=== PATIENT | male | born 1970 | race Caucasian/White ===

== ENCOUNTER 2017-12-17 16:02 | Emergency (ER) | payer SELFPAY ==
[2017-12-17 16:04] VITALS: BP 146/83; PULSE 96; RESP 14; TEMP 36.9; O2SAT 98; BMI 25.6
--- NOTE | 2017-12-17 16:20 | ED.DCSUM_ITS ---
- ER Visit Summary Date of Service: 12/17/17 Chief Complaint: Right arm infection History of Present Illness: The patient is a 47 M who states that a couple days ago he noticed a bump/pustule on his right posterior upper arm. He states that he itched it splashed popped it and now he notes redness. No fevers. Denies any joint swelling or pain. He is allergic to penicillin. He has not seen a doctor for years and denies any significant medical problems. He wonders if he was bit by an insect or possibly a spider. 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 He denies any IV drug use. Physical Examination: Afebrile vital signs stable Gen: Well-nourished well-developed Head: Normocephalic atraumatic Eyes: Perrl EOMI ENT: TMs clear no rhinorrhea moist mucous membranes Neck: Supple no lymphadenopathy no JVD nontender CVS: Regular rate rhythm no murmurs normal S1-S2 Respiratory: No distress clear to auscultation bilaterally chest nontender Abdomen: Soft nontender nondistended normal bowel sounds no masses Back: Nontender Extremity: Nontender no edema Skin: There is an excoriated lesion on the posterior proximal right arm. There is surrounding erythema. No obvious joint infections. Neuro: alert orientated ?3 CN II-XII intact normal strength sensation reflexes gait cerebellar Psych: Normal affect normal mood Test Results: Cultures were obtained Emergency Department Course and Treatment: The wound was outlined with surgical marker. He will be placed on Keflex. Return if worsening or concerns. He was asked to follow-up with primary care Impression: 1. Right arm cellulitis This note was generated with [employer] dictation software. It may contain incorrect words, spelling, and punctuation that were not noted in review of the chart prior to signing ED Disposition - Plan for ED Patient: Disposition: Home or Assisted Living Chief Complaint: Cellulitis Instructions: ED Infec Skin Cellulitis Prescriptions: Cephalexin [Keflex] 500 mg PO Q6 #40 cap Referrals: Farshad Smith MD [Primary Care Provider] - 1 Week
== END 2017-12-17 16:49 | disposition home or self-care (01) ==
PROVIDERS: Emergency Provider Emergency Medicine; Family Provider Family Medicine; PCP Family Medicine
DX: L03.113 Cellulitis of right upper limb (principal); Z88.0 Allergy status to penicillin
CPT/HCPCS: 36415; 87040; 99282

== ENCOUNTER 2018-03-28 15:36 | Emergency (ER) | payer SELFPAY ==
[2018-03-28 15:37] VITALS: BP 114/88; PULSE 117; RESP 18; TEMP 38.8; O2SAT 95; BMI 24.0
[2018-03-28 15:49] VITALS: BP 161/78; PULSE 111; RESP 17; TEMP 38.8; O2SAT 95
--- NOTE | 2018-03-28 15:53 | EKG12_ITS ---
Test Reason : COUGH Blood Pressure : / mmHG Vent. Rate : 115 BPM Atrial Rate : 115 BPM P-R Int : 122 ms QRS Dur : 110 ms QT Int : 320 ms P-R-T Axes : 074 -66 070 degrees QTc Int : 442 ms Sinus tachycardia Possible Left atrial enlargement Left axis deviation Incomplete right bundle branch block Abnormal ECG Confirmed by JONATHAN BROWN, SUSI ([id number]), editor map CROW WU ([id number]) on 04/02/2018 9:01:46 AM Referred By: RAJ/ANGELIQUE Confirmed By:SUSI CASTILLO MD
--- NOTE | 2018-03-28 15:53 | RAD_ITS ---
STUDY: X-RAY CHEST REASON FOR EXAM: Male, 48 years old. Cough, fever, chest pain TECHNIQUE: AP COMPARISON: None. FINDINGS: There are numerous pulmonary nodules throughout both lungs. Expansile lytic lesions of the left fourth and third ribs worrisome for metastasis. There is no demonstrated pleural abnormality. Normal size heart. Normal mediastinum and rebecca. Normal visualized pulmonary arteries. Normal visualized aortic arch and descending thoracic aorta. There is no demonstrated abnormality of the visualized soft tissue structures of the upper abdomen. RAD/Chest 1 View (Portable) IMPRESSION: 1. Numerous pulmonary nodules worrisome for neoplasm/metastasis (infection less likely). Lytic expansion of the left fourth and possibly third ribs worrisome for metastasis. Evaluation with chest CT warranted. Electronically Signed: Marty Mccall MD at 16:46 EST , Service support ,
[2018-03-28] MEDS: Acetaminophen 500 MG Tablet 1000 MG PO (16:07)
[2018-03-28] MEDS: 0.9% Normal Saline 1,000 ML 1000 ML IV (16:07)
[2018-03-28 16:23] LABS: Absolute Lymphocyte Count 0.71 X10^3/ul (0.83-4.51); Absolute Neutrophil Count 5.4 X10^3/uL (2.0-7.7); Basophil# 0.03 X10^3/uL; Basophil% 0.4 % (0-1); Eosinophil# 0.05 X10^3/uL; Eosinophils% 0.7 % (0-5); Hematocrit 37.3 % (40-54); Hemoglobin 12.2 g/dl (13.0-16.5); Lymphocyte # 0.71 X10^3/ul (4.0); Lymphocyte % 10.4 % (19-41); Mean Corp Hgb Conc 32.7 g/gl (32-36); Mean Corpuscular Hgb 27.4 pg (27.0-32.0); Mean Corpuscular Volume 83.6 fL (80-94); Mean Platelet Vol. 9.2 fl (6.2-12.0); Monocyte# 0.61 X10^3/uL; Monocyte% 8.9 % (0-10); Neutrophil # 5.42 X10^3/uL (2.7-7.7); Neutrophil % 79.5 % (47-70); Platelet Count 220 K/mm3 (150-450); RBC Distribution Width CV 13.9 % (11.6-14.6); RBC Distribution Width SD 42.3 fl (35.1-43.9); Red Blood Count 4.46 M/mm3 (4.6-6.2); White Blood Count 6.8 K/mm3 (4.4-11.0)
[2018-03-28 16:25] LABS: POSITIVE COUNT NO; POSITIVE DIFFERENTIAL NO; POSITIVE MORPHOLOGY NO
[2018-03-28 16:33] LABS: Anion Gap 12 (5-15); BUN 17 mg/dL (7-18); BUN/Creat Ratio 14.3 RATIO (10-20); Calcium,Total 10.2 mg/dL (8.5-10.1); Chloride 102 mmol/L (98-107); Creatinine, Serum 1.19 mg/dL (0.70-1.30); EST Glomerular Filtration Rate 69 mL/min (>60); Est Glom Filt Rate - Afr Amer 83 mL/min (>60); Glucose 103 mg/dL (74-106); Sodium Level 138 mmol/L (136-145)
--- NOTE | 2018-03-28 17:12 | CT_ITS ---
STUDY: CTA CHEST REASON FOR EXAM: Male, 48 years old. Cough and shortness of breath, pulmonary nodules RADIATION DOSAGE (If Supplied By Facility): CTDIvol = ( 16.09 ) mGy, DLP = ( 488.27 ) mGycm TECHNIQUE: The examination was performed with the intravenous administration of 100 ml of Isovue 370 contrast material. Post-processing of the angiographic images was performed, with multiplanar reformation and 3D reconstruction. Individualized dose optimization techniques were used for this CT. COMPARISON: None. FINDINGS: Normal enhancement of the main pulmonary artery and right and left pulmonary arteries. Normal enhancement of the bilateral peripheral pulmonary arteries. There is no demonstrated pulmonary embolism. Normal thoracic aorta and visualized great vessels. There is no demonstrated aortic dissection. Normal heart and pericardium. Significant mediastinal adenopathy including a paraesophageal lymph node measuring 3.2 x 3.6 cm on image 101. Eulogio mass anterior to the left pulmonary artery measures 4.0 x 3.1 cm. Bilateral hilar adenopathy also identified. Normal hilar regions. There are numerous pulmonary nodules throughout all pulmonary lobes. Some of the nodules demonstrate central cavitation (image 75 of series 2). The largest single nodule is in the medial left lower lobe measuring 3.3 x 5.7 cm and is contiguous with the left hilum. No pleural effusion demonstrated. There is a soft tissue mass of the anterior left mid pleural surface that extends into the chest wall (axial image 148 measuring 2.0 x 2.5 cm. Lytic, partially enhancing mass of the left fourth posterolateral rib measures approximately 3.7 x 6.9 cm. There is fracture with irregular margin of the posterior left third rib. There is a subtle lytic lesion involving the superior T1 vertebral body (sagittal image 171). There is a suspicious nodule of the left adrenal gland on axial image [address]/CTA Chest W/WO Contrast IMPRESSION: 1. No central or segmental pulmonary embolism. 2. Numerous pulmonary nodules (some cavitating), mediastinal/hilar adenopathy, superior T1 vertebral body lytic lesion, expansile left fourth rib mass, probable pathologic fracture of left posterolateral third rib, pleural-based mass (left anterior midlung) with chest wall invasion), left adrenal gland mass/nodule. Neoplasm with widespread metastasis considered most likely. Electronically Signed: Marty Mccall MD at 18:00 EST , Service support ,
[2018-03-28 17:35] VITALS: PULSE 100; RESP 18
[2018-03-28] MEDS: Ipratropium/Albuterol Sulfate 3 ML AMPUL.NEB INHALATION (17:35)
[2018-03-28 17:39] VITALS: BP 146/93; PULSE 100; RESP 20; TEMP 37.4; O2SAT 93
--- NOTE | 2018-03-28 18:24 | ED.VISSUMM ---
- ER Visit Summary Date of Service: 03/28/18 Chief Complaint: Breathing issues History of Present Illness: The patient is a 48 M with worsening breathing issues for 2 weeks. He reports shortness of breath and cough. He also reports a fever and aches which started today. Patient has a history of asthma. Denies smoking. Denies any history of heart disease or PE. Physical Examination: Temperature 101.8 and heart rate 111. Otherwise vitals unremarkable. 95% on room air. HEENT exam unremarkable. Heart tachycardic but regular. Lung sounds diminished in all gaspar. Extremities nontender with no edema. Skin appears normal. Test Results: EKG showed sinus rhythm at a rate of 115 with an incomplete right bundle branch block pattern. No sign of acute ischemia or infarction pattern. Hemoglobin 12.2. Calcium 10.2. Troponin normal. Influenza test negative. Chest x-ray showed multiple nodules and possible lytic lesions. A follow-up CT showed no evidence of PE but he does have cavitary nodules, adenopathy, T1 lesion, L4 rib lesion, pathologic rib fracture, pleural mass, and left adrenal mass. Emergency Department Course and Treatment: Patient was treated with fluids, DuoNeb, Tylenol. Repeat vitals 99.4 degrees, heart rate 100, pressure 146/93, respiratory rate 20, 93% on room air. Patient's workup showed a new diagnosis of malignancy but otherwise nothing else to explain his fevers. He is stable and appropriate for outpatient follow-up. Patient was discussed with Dr. Samuel and he should call the office for follow-up in the morning. Treatment Plan: As above Disposition: Discharge Impression: 1. Lung cancer 2. Febrile illness This note was generated with [employer] dictation software. It may contain incorrect words, spelling, and punctuation that were not noted in review of the chart prior to signing ED Disposition - Plan for ED Patient: Referrals: Care Physician,No Primary [Primary Care Provider] -
--- NOTE | 2018-03-28 18:30 | ED.DEP ---
ED Disposition - Plan for ED Patient: Prescriptions: Albuterol Inhaler [Ventolin Hfa] 2 puff INHALATION Q4H PRN PRN #1 inhaler PRN Reason: Wheezing Referrals: Ranjan Samuel DO [STAFF PHYSICIAN] -
[2018-03-28 18:40] VITALS: BP 164/99; PULSE 109; RESP 16; O2SAT 98
== END 2018-03-28 18:41 | disposition home or self-care (01) ==
PROVIDERS: Emergency Provider Emergency Medicine
DX: C34.90 Malignant neoplasm of unspecified part of unspecified bronchus or lung (principal); R50.9 Fever, unspecified; I45.10 Unspecified right bundle-branch block; J45.909 Unspecified asthma, uncomplicated
CPT/HCPCS: 71045; 71275; 80048; 84484; 85025; 87804; 93005; 94640; 96360; 99284; J7030; Q9967

== ENCOUNTER → 2018-04-07 09:11 | Outpatient (CLI) | payer SELFPAY ==
[2018-03-28 15:37] VITALS: BMI 24.0
[2018-04-07] VITALS (9 sets, daily range): BP systolic 136–178; BP diastolic 67–95; PULSE 78–92; RESP 13–22; TEMP 37.1; O2SAT 92–99; BMI 23.7
--- NOTE | 2018-04-07 | IMM_PTH ---
PATIENT: ARNULFO URBINA LOC: CT U#:[id number] AGE/SX: 54/M ROOM: RE04/07/[address]: Dr. Yomi Ferreira MD : 1970 BED: DIS: SPEC #: [id number] RECD: 04/08/18 10:06 STATUS: MARCK REQ #: [id number] АНДРЕЙ: 04/07/18 00:[address]: Yomi Ferreira DEPT: IMMUNOHISTOCHEMISTRY RECD BY: Noemi Jett ENTERED: 04/08/18 10:08 SP TYPE: IMMUNO OTHR DR: Dr. Miguelito Littlejohn MD Tissues: Chest wall, NOS Procedures: Synapto (add) RCC (add) NAPSIN A (add) Petey Ret (add) CD10 (add) CD56 (add) CHROMO (add) CK20 (add) CK5-6 (add) CK7 (add) CK8 (add) HEP PAR (add) MART1 (add) TTF1 (add) Pankeratin (add) P40 (add) PSAP (add) Vimentin (initial) PHYSICIAN & [address] [address] SPECIMEN INFORMATION: Tissue Source: Left chest wall lesion Clinical Info: Lung nodules, left chest mass Specimen Number: [id number] CPT code: 09548, 79301 x16 METHODOLOGY: Deparaffinized sections of prefer/formalin-fixed tissue or PAP/DQ stained slides are incubated with monoclonal/polyclonal antibodies/oligonucleotide probes. Localization is made via biotin free immunoperoxidase method. Appropriate controls are performed and reacted as expected. Results on target cell population are indicated in the following table: RESULTS: ANTIBODY / CLONE RESULT Vimentin (V9) positive AE1-3 (AE1/AE3/PCK26) positive CK7 (OV-TL12/30) negative CK8 (20zaskS77) positive CK20 (KS20.8) negative TTF-1 (8G7G3/1) negative Napsin A (Rabbit Polyclonal) negative HepPar (OCh1E5) negative RCC (PN-15) positive PSAP (PASE/4LJ) negative CK5-6 (D5 & 1684) negative CALRET (polyclonal) negative P40 (BC28) negative CD10 (56C6) positive Chromo (LK2H10) negative Synapto (polyclonal) negative MART-1 (A-103) negative These tests were developed and their performance characteristics determined by [facility]. They may not have been cleared or approved by the U.S. Food and Drug Administration. The FDA has determined that such clearance or approval is not necessary. INTERPRETATION: Left chest wall mass, CT-guided core biopsy: Metastatic carcinoma consistent with renal primary. SJ:shahla 04/09/18 Comment: Clinical correlation is necessary. Case has been reviewed in consultation with Dr. Ayala who concurs with the above diagnosis. IDC:AM
--- NOTE | 2018-04-07 | ASPIGT_PTH ---
PATIENT: ARNULFO URBINA LOC: CT U#:[id number] AGE/SX: 54/M ROOM: RE04/07/[address]: Dr. Ymoi Ferreira MD : 1970 BED: DIS: SPEC #: [id number] RECD: 04/07/18 11:27 STATUS: MARCK RECarlos #: [id number] АНДРЕЙ: 04/07/18 00:[address]: Yomi Ferreira DEPT: SURGICAL PATHOLOGY RECD BY: Robert Rico ENTERED: 04/07/18 11:28 SP TYPE: ASP RAD OTHR DR: Dr. Miguelito Littlejohn MD Tissues: Lung, NOS Procedures: FNA Specimen Adequacy Special Stain Group II Surgery Specimen Level IV Imprint (control) HEADER OPERATION: Left posterior chest biopsy PRE-OP DIAGNOSIS: Lung nodules, left chest mass TISSUE SUBMITTED: Left chest wall lesion, 18 gauge, core x4 MICROSCOPIC DIAGNOSIS Left chest wall lesion, CT-guided core biopsy: Metastatic carcinoma, consistent with renal primary (Dianna nuclear grade 2). See comment. KAMI:shahla 04/08/18 COMMENT The specimen is evaluated at the time of CT-guided core biopsy by Dr. Borden. Immediate Evaluation = Adequate for evaluation. Immunohistochemistry ([id number]) supports the above diagnosis. Correlation with clinical, radiologic findings and appropriate follow up are necessary. This case is discussed with Dr. Ferreira on 04/09/18. Case has been reviewed in consultation with Dr. Ayala who concurs with the above diagnosis. IDC:AM MICROSCOPIC DESCRIPTION Slides are reviewed. GROSS DESCRIPTION Received in fixative is one container labeled with the patient's name and designated left chest wall mass, CT-guided core biopsy. The specimen consists of multiple irregular fragments of arellano soft tissue that in aggregate measure 1.5 x 0.3 x 0.1 cm. The specimen is totally submitted in one cassette. / KAMI:shahla 04/07/18 TC:0 CPT: 88632, 28510
--- NOTE | 2018-04-07 09:16 | CT_ITS ---
PROCEDURE: CT GUIDED CORE NEEDLE BIOPSY OF A left posterior chest wall mass. INDICATION: Male, 48 years old. Metastatic lung carcinoma. PHYSICIAN: Dr. Justino BROWN CONSENT: Written informed consent was obtained having explained the risks, benefits and alternatives in detail with the patient who accepted the risks and agreed to proceed. Laboratory review and clinical assessment was performed. CONSCIOUS SEDATION PROTOCOL: The Drugs used were: 2 mg Versed, IV., and 50 mcg Fentanyl, IV. The sedation time was: 17 minutes. Conscious sedation was started at 10:50 AM and terminated at 11:07 AM. The conscious sedation protocol was independently monitored. RADIATION DOSAGE (If Supplied By Facility): CTDIvol = ( 17.2 ) mGy, DLP = ( 403.49 ) mGycm Individualized dose optimization techniques were used for this CT. TECHNIQUE: The patient was placed in the prone position. A noncontrast CT was performed to localize the lesion in the posterior right hemithorax . The skin surface was prepped and draped in a sterile fashion. 1% lidocaine was used for local anesthesia. Using CT guidance, a 18-gauge coaxial biopsy device was advanced to the periphery of the lesion. A total of 4 core specimens were obtained. The specimens were placed in a formalin solution. A post procedure CT demonstrated no adverse sequelae or pneumothorax. The patient tolerated the procedure well without adverse event. A negative biopsy does not exclude malignancy. Further imaging or clinical followup based on patient condition and degree of clinical suspicion for malignancy. Suggest rebiopsy, if biopsy results do not match with clinical scenario. CT/Biopsy/Inj or Needle Placement IMPRESSION: 1. CT directed core needle biopsy of the pleural-based mass using CT image guidance with image documentation as described. Pathology results are pending. 2. Conscious Sedation protocol utilized with independent monitoring. Electronically Signed: Tonny Badillo MD at 12:42 EST , Service support ,
[2018-04-07 09:53] LABS: Hematocrit 36.2 % (40-54); Hemoglobin 11.7 g/dl (13.0-16.5); Mean Corp Hgb Conc 32.3 g/gl (32-36); Mean Corpuscular Hgb 27.1 pg (27.0-32.0); Mean Platelet Vol. 8.6 fl (6.2-12.0); Platelet Count 278 K/mm3 (150-450); RBC Distribution Width CV 13.9 % (11.6-14.6); RBC Distribution Width SD 42.5 fl (35.1-43.9); Red Blood Count 4.31 M/mm3 (4.6-6.2); White Blood Count 5.7 K/mm3 (4.4-11.0)
[2018-04-07 09:55] LABS: Scan Indicated on CBC? Y/N NO
[2018-04-07 10:22] LABS: International Normalized Ratio 1.1; Prothrombin Time (Protime)PT. 14.1 SECONDS (11.7-14.9)
[2018-04-07 10:35] LABS: Partial Thromboplast Time 33.6 Seconds (24.1-36.2)
[2018-04-07] MEDS: Midazolam 2 MG/2 ML Syringe IV (10:50)
[2018-04-07] MEDS: fentaNYL 100 MCG/2 ML Ampul IV (10:50)
== END ==
PROVIDERS: Family Provider Family Medicine; PCP Family Medicine; Referring Provider Internal Medicine Hematology & Oncology; Visit Provider Internal Medicine Hematology & Oncology
DX: C78.02 Secondary malignant neoplasm of left lung (principal)
CPT/HCPCS: 32405; 36415; 77012; 85027; 85610; 85730; 88172; 88305; 88313; 88341; 88342; 99156; 99157; J7040; A4216

== ENCOUNTER 2018-05-02 22:02 | Inpatient (IN) | payer SELFPAY ==
[2018-04-07 09:54] VITALS: BMI 23.7
[2018-05-02 22:06] VITALS: BP 170/88; PULSE 113; RESP 26; TEMP 37.8; O2SAT 96; BMI 25.7
[2018-05-02 22:10] VITALS: BP 170/88; PULSE 107; RESP 27; O2SAT 96
--- NOTE | 2018-05-02 22:23 | RAD_ITS ---
STUDY: X-RAY CHEST REASON FOR EXAM: Male, 48 years old. Fever and cough TECHNIQUE: Frontal and lateral views of the chest. COMPARISON: None. FINDINGS: Multiple metastatic lesions are seen in both lungs . There is a small left pleural effusion Normal size heart. Normal mediastinum and rebecca. Normal visualized pulmonary arteries. Normal visualized aortic arch and descending thoracic aorta. Normal visualized thoracic spine. The lateral aspect of the left fourth rib is absent. There is no demonstrated abnormality of the visualized soft tissue structures of the upper abdomen. RAD/Chest PA and Lateral IMPRESSION: Multiple metastatic lesions are seen in both lungs . There is a small left pleural effusion Electronically Signed: John Victoria, at 23:45 EDT Tel , Service support ,
--- NOTE | 2018-05-02 22:25 | EKG12_ITS ---
Test Reason : Blood Pressure : / mmHG Vent. Rate : 101 BPM Atrial Rate : 101 BPM P-R Int : 120 ms QRS Dur : 116 ms QT Int : 366 ms P-R-T Axes : 056 057 056 degrees QTc Int : 474 ms Sinus tachycardia Possible Left atrial enlargement Incomplete right bundle branch block Borderline ECG Confirmed by JONATHAN BROWN, SUSI ([id number]), development editor DAIJA WELLS ([id number]) on 05/03/2018 4:10:07 PM Referred By: Cami Monroy Confirmed By:SUSI CASTILLO MD
[2018-05-02] MEDS: 0.9% Normal Saline 1,000 ML 1000 ML IV (22:33)
[2018-05-02] MEDS: Acetaminophen 500 MG Tablet 1000 MG PO (22:33)
[2018-05-02] MEDS: MethylPREDNISolone 125 MG/2 ML Vial IV (22:34)
[2018-05-02 22:43] LABS: Absolute Neutrophil Count 6.2 X10^3/uL (2.0-7.7); Basophil# 0.05 X10^3/uL; Basophil% 0.6 % (0-1); Eosinophils% 4.7 % (0-5); Hematocrit 34.3 % (40-54); Lymphocyte % 11.8 % (19-41); Mean Corp Hgb Conc 32.1 g/gl (32-36); Mean Corpuscular Hgb 26.6 pg (27.0-32.0); Mean Corpuscular Volume 83.1 fL (80-94); Mean Platelet Vol. 9.2 fl (6.2-12.0); Monocyte# 0.82 X10^3/uL; Monocyte% 9.7 % (0-10); Neutrophil # 6.19 X10^3/uL (2.7-7.7); Neutrophil % 73.1 % (47-70); Platelet Count 324 K/mm3 (150-450); RBC Distribution Width SD 43.1 fl (35.1-43.9); Red Blood Count 4.13 M/mm3 (4.6-6.2); White Blood Count 8.5 K/mm3 (4.4-11.0)
[2018-05-02 22:44] LABS: POSITIVE COUNT NO; POSITIVE DIFFERENTIAL NO; POSITIVE MORPHOLOGY NO
[2018-05-02] MEDS: Ipratropium/Albuterol Sulfate 3 ML AMPUL.NEB INHALATION (22:44)
[2018-05-02] MEDS: Albuterol 2.5 MG/3 ML VIAL.NEB. INHALATION ×2 (22:44)
[2018-05-02 22:45] VITALS: PULSE 102; RESP 20
--- NOTE | 2018-05-02 22:45 | ED.VISSUMM ---
- ER Visit Summary Date of Service: 05/02/18 Chief Complaint: Shortness of breath, cough and fever History of Present Illness: The patient is a 48 M recently diagnosed within the last month with renal CA with metastases to his lungs, chest cavity, rib cage and left arm. Patient's been not feeling well for the last 5-6 days. Developing a nonproductive cough with a fever and increasing shortness of breath. On Thursday he started immunotherapy for his cancer. He recently had a CTA of his chest showing no PE but extensive metastases. Physical Examination: Vital signs initial blood pressure 170/88. Temperature 100 his pulse ox is 96% on 4 L without oxygen is hypoxic at 86%. HEENT exam dry mucous membranes. Early thrush. Neck nontender no JVD. Lungs prolonged expiratory phase bilaterally. Expiratory wheezing bilaterally. Heart tachycardic rate about 110 no murmur. Abdomen is soft and nontender normal bowel sounds no peritoneal signs. Patient is moving all 4 extremities. Neurovascular intact. Calves are nontender without edema. He has a soft tissue mass in his left upper extremity that is a metastases. Neurologically is awake alert with no focal motor deficits. Test Results: CBC White count of 8. Hemoglobin 11 which is baseline anemia. Electrolytes unremarkable normal creatinine and gap. Blood cultures x2 obtained. EKG sinus tachycardia rate of 101. Chest x-ray two-view diffuse sows very large amount of metastases. With a small left pleural effusion. Pneumonia is not interpreted but not cannot be ruled out. CTA of the chest is pending for both evaluation for possible pulmonary emboli and/or pneumonia. Influenza was negative. Emergency Department Course and Treatment: Patient treated with IV Solu-Medrol and albuterol and entered aerosols Tylenol for his fever. Treatment Plan: On repeat exam patient is doing much better at 00 15 a.m. Wheezing is improved after aerosols and steroids. However without oxygen he quickly desats to the mid 80s. And is worse with ambulation. I spoke to the hospitalist Dr. Cami Monroy and she has been down discussed with the family and examined the patient and the patient will be admitted. The CTA of the chest results are pending. Disposition: Admission Impression: Acute dyspnea with hypoxia History of renal CA with lung and bony metastases Recently started on immunotherapy Chronic anemia This note was generated with [employer] software. It may contain incorrect words, spelling, and punctuation that were not noted in review of the chart prior to signing ED Disposition - Plan for ED Patient: Referrals: Miguelito Littlejohn MD [Primary Care Provider] -
[2018-05-02 22:47] LABS: Anion Gap 6 (5-15); BUN 19 mg/dL (7-18); BUN/Creat Ratio 18.4 RATIO (10-20); Calcium,Total 9.6 mg/dL (8.5-10.1); Chloride 106 mmol/L (98-107); Creatinine, Serum 1.03 mg/dL (0.70-1.30); EST Glomerular Filtration Rate 81 mL/min (>60); Est Glom Filt Rate - Afr Amer 98 mL/min (>60); Estimated Creatinine Clearance 91.38 ml/min; Glucose 127 mg/dL (74-106); Potassium 3.8 mmol/L (3.5-5.1); Sodium Level 136 mmol/L (136-145)
--- NOTE | 2018-05-02 22:48 | ED.DCSUM_ITS ---
- ER Visit Summary Date of Service: 05/02/18 Chief Complaint: Shortness of breath, cough and fever History of Present Illness: The patient is a 48 M recently diagnosed within the last month with renal CA with metastases to his lungs, chest cavity, rib cage and left arm. Patient's been not feeling well for the last 5-6 days. Developing a nonproductive cough with a fever and increasing shortness of breath. On Thursday he started immunotherapy for his cancer. He recently had a CTA of his chest showing no PE but extensive metastases. Physical Examination: Vital signs initial blood pressure 170/88. Temperature 100 his pulse ox is 96% on 4 L without oxygen is hypoxic at 86%. HEENT exam dry mucous membranes. Early thrush. Neck nontender no JVD. Lungs prolonged expiratory phase bilaterally. Expiratory wheezing bilaterally. Heart tachycardic rate about 110 no murmur. Abdomen is soft and nontender normal bowel sounds no peritoneal signs. Patient is moving all 4 extremities. Neurovascular intact. Calves are nontender without edema. He has a soft tissue mass in his left upper extremity that is a metastases. Neurologically is awake alert with no focal motor deficits. Test Results: CBC White count of 8. Hemoglobin 11 which is baseline anemia. Electrolytes unremarkable normal creatinine and gap. Blood cultures x2 obtained. EKG sinus tachycardia rate of 101. Chest x-ray two-view diffuse sows very large amount of metastases. With a small left pleural effusion. Pneumonia is not interpreted but not cannot be ruled out. CTA of the chest is pending for both evaluation for possible pulmonary emboli and/or pneumonia. Influenza was negative. Emergency Department Course and Treatment: Patient treated with IV Solu-Medrol and albuterol and entered aerosols Tylenol for his fever. Treatment Plan: On repeat exam patient is doing much better at 00 15 a.m. Wheezing is improved after aerosols and steroids. However without oxygen he quickly desats to the mid 80s. And is worse with ambulation. I spoke to the hospitalist Dr. Cami Monroy and she has been down discussed with the family and examined the patient and the patient will be admitted. The CTA of the chest re sults are pending. Disposition: Admission Impression: Acute dyspnea with hypoxia History of renal CA with lung and bony metastases Recently started on immunotherapy Chronic anemia This note was generated with [employer] software. It may contain incorrect words, spelling, and punctuation that were not noted in review of the chart prior to signing ED Disposition - Plan for ED Patient: Referrals: Miguelito Littlejohn MD [Primary Care Provider] -
[2018-05-03] VITALS (21 sets, daily range): BP systolic 140–157; BP diastolic 61–99; PULSE 83–108; RESP 16–25; TEMP 36.4–38.1; O2SAT 91–97; BMI 25.4; BMI 25.5
--- NOTE | 2018-05-03 00:26 | CT_ITS ---
HISTORY: HYPOXIA,INCREASED SOB SINCE THURSDAY,FEVER,ELEVATED BPHX:ASTHMA,KIDNEY CANCER STAGE 4 WITH LUNG METS,PT RECENTLY STARTED IMMUNOTHERAPY TECHNIQUE: Helically acquired images were obtained of the chest following IV contrast as per pulmonary angiogram protocol with 3D reconstructions. A radiation dose optimization technique was used for this scan. IV Contrast dosage and agent: 100 cc Isovue-370 contrast COMPARISON: CTA chest 03/28/2018 FINDINGS: The main, segmental, and visualized subsegmental pulmonary arteries show normal opacification. No PE. Thoracic aorta is normal in caliber. No aneurysm or dissection. No pericardial effusion. Numerous bilateral pulmonary metastases which are too numerous to count. Extensive mediastinal lymphadenopathy together with bilateral hilar lymphadenopathy, worse on the left. With comparison recent exam, worsening perivascular tumor infiltrate and perivascular lymphadenopathy within the left lower lobe together with enlarging left pleural effusion. Redemonstration of bony metastases with extraosseous soft tissue tumor involving the left third and fourth ribs. No pneumothorax. CT/CTA Chest W/WO Contrast IMPRESSION: 1. No PE. 2. Extensive bilateral pulmonary metastases in this patient with known metastatic renal cancer. 3. Left lower lobe enlarging perivascular tumor infiltrate and enlarging lymphadenopathy together with enlarging left pleural effusion. 4. Left hemithorax metastatic bone disease. Individualized dose optimization techniques were used for this CT. at 0313 Reported and signed by: Khari Boyd MD Electronically Signed: Khari Boyd, at 3:12 EDT Tel , Service support ,
--- NOTE | 2018-05-03 00:35 | PCM.HP.STD ---
Problem List (1) Acute respiratory failure with hypoxia Status: Acute (2) Asthma exacerbation Status: Acute Qualifiers: Asthma severity: unspecified severity Asthma persistence: unspecified Qualified Code(s): J45.901 - Unspecified asthma with (acute) exacerbation (3) Metastatic renal cell carcinoma Status: Chronic (4) Anxiety Status: Chronic History of Present Illness Date of Admission: 05/03/18 Chief Complaint: Dyspnea The patient is a 48 y/o M w/ PMHx: Asthma, Recent Dx Renal CA w/ metastatic disease to lung, chest cavity, rib cage and LUE on immunotherapy with generalized malaise, fatigue, low grade fever, non-productive cough with increasingly worsening dyspnea and wheezing over the last 5-6 days. In the ED work-up included T1 100, heart rate 113, BP 170/88, respiratory rate 26, 96% on room air, CBC with WBC 8.5, hemoglobin 11, platelet 324 with mild left shift, BMP with BUN at 19/creatinine 1.03, glucose 127, rapid influenza testing negative, blood culture x2 obtained and pending per ED, chest x-ray with multiple metastatic lesions in bilateral lungs with a small left pleural effusion with no acute infiltrate noted. 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 CTPA ordered per ED physician, pending upon requested evaluation of patient. Past Medical History Past Medical History (Chronic Problems): Chronic Problems Metastatic renal cell carcinoma (Chronic) Anxiety (Chronic) Allergies Penicillins [PCN] Adverse Reaction (Verified 04/07/18 10:00) Nausea/Vom/Diarrhea Home Medications: Ambulatory Orders Medication Instructions Recorded Albuterol Inhaler [Ventolin Hfa] 2 puff INHALATION Q4H PRN PRN #1 03/28/18 inhaler Hydrocodone Bitart/Apap 5-325 1 tablet PO Q4H PRN PRN 05/02/18 [[place] 5MG-325MG] Ipilimumab [Yervoy] 50 mg IV QMONTH 05/02/18 Nivolumab [Opdivo] 40 mg IV QMONTH 05/02/18 Surgical History: - - Pyloric stenosis intervention as a baby. Psychiatric History: Anxiety Lives: Spouse/ Significant Other Smoking Status: Never smoker Tobacco Use: Non-smoker Alcohol: None Drugs: Marijuana - Patient smokes cannabis nearly daily for severe anxiety. - *Family History Maternal History Items: - - Patient notes a maternal family history of diabetes as well as colon cancer diagnosed at age 72. Paternal History Items: - - Patient notes a paternal family history of coronary artery disease, MIs as well as stomach cancer. Review of Systems Constitutional: Reports: Anorexia, Fever, Malaise, Weakness, Fatigue. Denies: Chills, Weight Change HEENT: Denies: Head Aches, Sinus Congestion, Sinus Drainage Cardiovascular: Reports: Chest Pain. Denies: Palpitations Respiratory: Reports: Cough, Shortness of Breath, Shortness of breath at rest, Shortness of breath upon exertion, Wheezing. Denies: Sputum production Gastrointestinal: Denies: Abdominal Pain, Nausea, Vomiting Genitourinary: Denies: Dysuria Musculoskeletal: Reports: Back Pain. Denies: Joint Pain, Joint Tenderness Skin: Denies: Rash, Wounds Neurological: Denies: Numbness, Tingling, Focal weakness Psychiatric: Reports: Anxiety. Denies: Depression, Homicidal Ideations, Suicidal Ideations Hematologic/ Lymphatic: Denies: Easy Bruising, Easy Bleeding VTE Information - Inpt Only VTE Present on Admission: No VTE Mechan Device Prophylaxis: SCD's VTE Pharm Prophylaxis ordered?: Yes Patient Problems: Active and Suspected Problems Acute respiratory failure with hypoxia (Acute) Asthma exacerbation (Acute) Subjective: Seated upright in the ED bed, improved appearance since initial, RR improved, lessened accessory muscle usage. Objective: Physical Examination: General: awake, alert, oriented x 3 and cooperative, seated upright in the ED bed, improved appearance from initial presentation with decreased respiratory rate and less accessory muscle usage. Skin: normal color, turgor, no icterus, cyanosis. HEENT: AT/NC, EOMI, PERRLA, moderately dry MM, mild thrush, no carotid bruits or JVD noted. Lungs: Diffusely diminished breath sounds, greater bilateral bases, and expiratory wheezing noted in upper gaspar, improved from initial presentation with decreased respiratory rate and less accessory muscle usage. Heart: regular rate and rhythm; no gallop, rub audible. Abdomen: soft, NTTP, ND, normal BS, no HSM. Extremities: no cyanosis, clubbing, bilateral lower extremity pedal to proximal knee edema, nonpitting, metastatic lesions evident thorax/gravity. Neurological: patient awake, alert, oriented x 3; cognitive function intact; pupils equally reactive to light and accomodation; cranial nerves II-XII grossly normal, moving all 4 extremities, no focal deficits, strength severely globally decreased secondary to acute presentation. Psychiatric: affect appears mildly anxious but calm, no acute evidence of depressive feelings. - Physical Exam Vital Signs Temp Pulse Resp BP Pulse Ox 100.0 F H 100 25 H 155/79 H 92 05/02/18 22:06 05/03/18 00:17 05/03/18 00:17 05/03/18 00:17 05/03/18 00:17 Oxygen Flow Rate (L/min) 4 Oxygen Delivery Method Nasal Cannula Weight: 184 lb 1.376 oz Body Mass Index (BMI) 25.7 Microbiology Past 72 Hours 05/02/18 22:45 Influenza Types A,B Direct FA (CHRISTIAN) - Final Mucosa - Nasopharyngeal Laboratory Tests Past 24 Hrs 05/02/18 05/02/18 22:15 22:15 WBC 8.5 RBC 4.13 L Hgb 11.0 L Hct 34.3 L MCV 83.1 MCH 26.6 L MCHC 32.1 RDW 14.0 RDW Differential 43.1 Plt Count 324 MPV 9.2 Immature Gran % (Auto) 0.100 Neut % (Auto) 73.1 H Lymph % (Auto) 11.8 L [place] % (Auto) 9.7 Eos % (Auto) 4.7 Baso % (Auto) 0.6 Absolute Neuts (auto) 6.2 Absolute Lymphs (auto) 1.00 Total Counted Not Reportable Sodium 136 Potassium 3.8 Chloride 106 Carbon Dioxide 24.0 Anion Gap 6 BUN 19 H Creatinine 1.03 Estim Creat Clear Calc 91.38 Est GFR (MDRD) Af Amer 98 Est GFR (MDRD) Non-Af 81 BUN/Creatinine Ratio 18.4 Glucose 127 H Calcium 9.6 Assessment/Plan All Active Problems Acute respiratory failure with hypoxia (Acute) Asthma exacerbation (Acute) The patient is a 48 y/o M w/ PMHx: Asthma, Recent Dx Renal CA w/ metastatic disease to lung, chest cavity, rib cage and LUE on immunotherapy with generalized malaise, fatigue, low grade fever, non-productive cough with increasingly worsening dyspnea over the last 5-6 days. (1) Acute Hypoxic Respiratory Failure secondary to Acute on Chronic Asthma Exacerbation with Suspected Acute Viral Bronchitis/Syndrome complicated by multiple metastases in the lung BL; however, given CXR with notable masses concern for possible PNA: ED work-up included T100, heart rate 113, BP 170/88, respiratory rate 26, 96% on room air, CBC with WBC 8.5, hemoglobin 11, platelet 324 with mild left shift, BMP with BUN at 19/creatinine 1.03, glucose 127, rapid influenza testing negative, blood culture x2 obtained and pending per ED, chest x-ray with multiple metastatic lesions in bilateral lungs with a small left pleural effusion with no acute infiltrate noted. Will admit to [facility] on telemetry, maintain on oxygen with wean as tolerated to room air, continue ATC duonebs, PRN albuterol, IV methylprednisolone, IV zosyn, vanc given immunotherapy until results obtained from CTPA with discontinuation if no obvious infiltrate, HOB, IS parameters, obtain sputum cultures as well as respiratory viral panel. Given presentation, will need oxygenation testing prior to discharge. CTPA ordered, pending. Pending CTPA will administer therapeutic lovenox x 1. (2) Metastatic Renal Cell CA Stage IV: Dx recently, ED visit 03/28/18 w/ dyspnea x 2 weeks, evaluation w/ CT showed no evidence of PE but he does have cavitary nodules, adenopathy, T1 lesion, L4 rib lesion, pathologic rib fracture, pleural mass, and left adrenal mass. Following w/ Dr. Ferreira/Lizzie, on immunotherapy with opdivo and yervoy regimen administered IV monthly, administered Thursday. Will consult Dr. Ferreira/Lizzie for evaluation. (3) Oral Thrush: Initiate oral nystatin S/S. (4) DVT Prophylaxis: SCDs, lovenox. 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 He does have a living will in place. Discussed CODE status at length including difference between FULL code, DNR-CCA and DNR-CC status. Following discussions about the differences in these status, requested Full Code status. Discussed prognosis with current diagnoses and family requested if they should be consulting Hospice. Noted they could consider discussions even to obtain information. Advanced Care Planning Face to Face Time: 20 minutes. Code Visit Inpatient E&M: 00115 Init Hosp L3 Procedures: 39404 Advncd Care Plan 30 Min
--- NOTE | 2018-05-03 00:38 | HP.PCM_ITS ---
Problem List (1) Acute respiratory failure with hypoxia Status: Acute (2) Asthma exacerbation Status: Acute Qualifiers: Asthma severity: unspecified severity Asthma persistence: unspecified Qualified Code(s): J45.901 - Unspecified asthma with (acute) exacerbation (3) Metastatic renal cell carcinoma Status: Chronic (4) Anxiety Status: Chronic History of Present Illness Date of Admission: 05/03/18 Chief Complaint: Dyspnea The patient is a 48 y/o M w/ PMHx: Asthma, Recent Dx Renal CA w/ metastatic disease to lung, chest cavity, rib cage and LUE on immunotherapy with generalized malaise, fatigue, low grade fever, non-productive cough with increasingly worsening dyspnea and wheezing over the last 5-6 days. In the ED work-up included T1 100, heart rate 113, BP 170/88, respiratory rate 26, 96% on room air, CBC with WBC 8.5, hemoglobin 11, platelet 324 with mild left shift, BMP with BUN at 19/creatinine 1.03, glucose 127, rapid influenza testing negative, blood culture x2 obtained and pending per ED, chest x-ray with multiple metastatic lesions in bilateral lungs with a small left pleural effusion with no acute infiltrate noted. 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 CTP A ordered per ED physician, pending upon requested evaluation of patient. Past Medical History Past Medical History (Chronic Problems): Chronic Problems Metastatic renal cell carcinoma (Chronic) Anxiety (Chronic) Allergies Penicillins [PCN] Adverse Reaction (Verified 04/07/18 10:00) Nausea/Vom/Diarrhea Home Medications: Ambulatory Orders Medication Instructions Recorded Albuterol Inhaler [Ventolin Hfa] 2 puff INHALATION Q4H PRN PRN #1 03/28/18 inhaler Hydrocodone Bitart/Apap 5-325 1 tablet PO Q4H PRN PRN 05/02/18 [[place] 5MG-325MG] Ipilimumab [Yervoy] 50 mg IV QMONTH 05/02/18 Nivolumab [Opdivo] 40 mg IV QMONTH 05/02/18 Surgical History: - - Pyloric stenosis intervention as a baby. Psychiatric History: Anxiety Lives: Spouse/ Significant Other Smoking Status: Never smoker Tobacco Use: Non-smoker Alcohol: None Drugs: Marijuana - Patient smokes cannabis nearly daily for severe anxiety. - *Family History Maternal History Items: - - Patient notes a maternal family history of diabetes as well as colon cancer diagnosed at age 72. Paternal History Items: - - Patient notes a paternal family history of coronary artery disease, MIs as well as stomach cancer. Review of Systems Constitutional: Reports: Anorexia, Fever, Malaise, Weakness, Fatigue. Denies: Chills, Weight Change HEENT: Denies: Head Aches, Sinus Congestion, Sinus Drainage Cardiovascular: Reports: Chest Pain. Denies: Palpitations Respiratory: Reports: Cough, Shortness of Breath, Shortness of breath at rest, Shortness of breath upon exertion, Wheezing. Denies: Sputum production Gastrointestinal: Denies: Abdominal Pain, Nausea, Vomiting Genitourinary: Denies: Dysuria Musculoskeletal: Reports: Back Pain. Denies: Joint Pain, Joint Tenderness Skin: Denies: Rash, Wounds Neurological: Denies: Numbness, Tingling, Focal weakness Psychiatric: Reports: Anxiety. Denies: Depression, Homicidal Ideations, Suicidal Ideations Hematologic/ Lymphatic: Denies: Easy Bruising, Easy Bleeding VTE Information - Inpt Only VTE Present on Admission: No VTE Mechan Device Prophylaxis: SCD's VTE Pharm Prophylaxis ordered?: Yes Patient Problems: Active and Suspected Problems Acute respiratory failure with hypoxia (Acute) Asthma exacerbation (Acute) Subjective: Seated upright in the ED bed, improved appearance since initial, RR improved, lessened accessory muscle usage. Objective: Physical Examination: General: awake, alert, oriented x 3 and cooperative, seated upright in the ED bed, improved appearance from initial presentation with decreased respiratory rate and less accessory muscle usage. Skin: normal color, turgor, no icterus, cyanosis. HEENT: AT/NC, EOMI, PERRLA, moderately dry MM, mild thrush, no carotid bruits or JVD noted. Lungs: Diffusely diminished breath sounds, greater bilateral bases, and expiratory wheezing noted in upper gaspar, improved from initial presentation with decreased respiratory rate and less accessory muscle usage. Heart: regular rate and rhythm; no gallop, rub audible. Abdomen: soft, NTTP, ND, normal BS, no HSM. Extremities: no cyanosis, clubbing, bilateral lower extremity pedal to proximal knee edema, nonpitting, metastatic lesions evident thorax/gravity. Neurological: patient awake, alert, oriented x 3; cognitive function intact; pupils equally reactive to light and accomodation; cranial nerves II-XII grossly normal, moving all 4 extremities, no focal deficits, strength severely globally decreased secondary to acute presentation. Psychiatric: affect appears mildly anxious but calm, no acute evidence of depressive feelings. - Physical Exam Vital Signs Temp Pulse Resp BP Pulse Ox 100.0 F H 100 25 H 155/79 H 92 05/02/18 22:06 05/03/18 00:17 05/03/18 00:17 05/03/18 00:17 05/03/18 00:17 Oxygen Flow Rate (L/min) 4 Oxygen Delivery Method Nasal Cannula Weight: 184 lb 1.376 oz Body Mass Index (BMI) 25.7 Microbiology Past 72 Hours 05/02/18 22:45 Influenza Types A,B Direct FA (CHRSITIAN) - Final Mucosa - Nasopharyngeal Laboratory Tests Past 24 Hrs 05/02/18 05/02/18 22:15 22:15 WBC 8.5 RBC 4.13 L Hgb 11.0 L Hct 34.3 L MCV 83.1 MCH 26.6 L MCHC 32.1 RDW 14.0 RDW Differential 43.1 Plt Count 324 MPV 9.2 Immature Gran % (Auto) 0.100 Neut % (Auto) 73.1 H Lymph % (Auto) 11.8 L [place] % (Auto) 9.7 Eos % (Auto) 4.7 Baso % (Auto) 0.6 Absolute Neuts (auto) 6.2 Absolute Lymphs (auto) 1.00 Total Counted Not Reportable Sodium 136 Potassium 3.8 Chloride 106 Carbon Dioxide 24.0 Anion Gap 6 BUN 19 H Creatinine 1.03 Estim Creat Clear Calc 91.38 Est GFR (MDRD) Af Amer 98 Est GFR (MDRD) Non-Af 81 BUN/Creatinine Ratio 18.4 Glucose 127 H Calcium 9.6 Assessment/Plan All Active Problems Acute respiratory failure with hypoxia (Acute) Asthma exacerbation (Acute) The patient is a 48 y/o M w/ PMHx: Asthma, Recent Dx Renal CA w/ metastatic disease to lung, chest cavity, rib cage and LUE on immunotherapy with generalized malaise, fatigue, low grade fever, non-productive cough with increasingly worsening dyspnea over the last 5-6 days. (1) Acute Hypoxic Respiratory Failure secondary to Acute on Chronic Asthma Exacerbation with Suspected Acute Viral Bronchitis/Syndrome complicated by multiple metastases in the lung BL; however, given CXR with notable masses concern for possible PNA: ED work-up included T100, heart rate 113, BP 170/88, respiratory rate 26, 96% on room air, CBC with WBC 8.5, hemoglobin 11, platelet 324 with mild left shift, BMP with BUN at 19/creatinine 1.03, glucose 127, rapid influenza testing negative, blood culture x2 obtained and pending per ED, chest x-ray with multiple metastatic lesions in bilateral lungs with a small left pleural effusion with no acute infiltrate noted. Will admit to [facility] on telemetry, maintain on oxygen with wean as tolerated to room air, continue ATC duonebs, PRN albuterol, IV methylprednisolone, IV zosyn, vanc given immunotherapy until results obtained from CTPA with discontinuation if no obvious infiltrate, HOB, IS parameters, obtain sputum cultures as well as respiratory viral panel. Given presentation, will need oxygenation testing prior to discharge. CTPA ordered, pending. Pending CTPA will administer therapeutic lovenox x 1. (2) Metastatic Renal Cell CA Stage IV: Dx recently, ED visit 03/28/18 w/ dyspnea x 2 weeks, evaluation w/ CT showed no evidence of PE but he does have cavitary nodules, adenopathy, T1 lesion, L4 rib lesion, pathologic rib fracture, pleural mass, and left adrenal mass. Following w/ Dr. Ferreira/Lizzie, on immunotherapy with opdivo and yervoy regimen administered IV monthly, administered Thursday. Will consult Dr. Ferreira/Lizzie for evaluation. (3) Oral Thrush: Initiate oral nystatin S/S. (4) DVT Prophylaxis: SCDs, lovenox. 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 He does have a living will in place. Discussed CODE status at length including difference between FULL code, DNR-CCA and DNR-CC status. Following discussions about the differences in these status, requested Full Code status. Discussed prognosis with current diagnoses and family requested if they should be consulting Hospice. Noted they could consider discussions even to obtain information. Advanced Care Planning Face to Face Time: 20 minutes. Code Visit Inpatient E&M: 12535 Init Hosp L3 Procedures: 84155 Advncd Care Plan 30 Min
[2018-05-03 02:13] LABS: Magnesium 1.7 mg/dL (1.6-2.6); Phosphorus 2.5 mg/dL (2.5-4.9)
[2018-05-03] MEDS: 0.9% Normal Saline 1,000 ML 125 ML IV ×2 (02:47→10:52)
[2018-05-03] MEDS: Enoxaparin 100 MG/ML Syringe 90 MG SC ×3 (02:56→21:32)
[2018-05-03] MEDS: NYSTATIN 500,000 UNIT/5 ML UDC 500000 UNIT PO ×6 (03:22→21:27)
--- NOTE | 2018-05-03 04:27 | PCM.RX.CS ---
Consult Pharmacy has been consulted to manage selected antiobiotic: Vancomycin Type of Consult: New start Labs: Sodium 136 mmol/L (136-145) 05/02/18 22:15 Potassium 3.8 mmol/L (3.5-5.1) 05/02/18 22:15 Chloride 106 mmol/L (98-107) 05/02/18 22:15 Carbon Dioxide 24.0 mmol/L (21.0-32.0) 05/02/18 22:15 Anion Gap 6 (5-15) 05/02/18 22:15 BUN 19 mg/dL (7-18) H 05/02/18 22:15 Creatinine 1.03 mg/dL (0.70-1.30) 05/02/18 22:15 Est GFR (MDRD) Af Amer 98 mL/min (>60) 05/02/18 22:15 Est GFR (MDRD) Non-Af 81 mL/min (>60) 05/02/18 22:15 BUN/Creatinine Ratio 18.4 RATIO (10-20) 05/02/18 22:15 Glucose 127 mg/dL (74-106) H 05/02/18 22:15 Microbiology: Microbiology 05/02/18 22:45 Mucosa - Nasopharyngeal Influenza Types A,B Direct FA (CHRISTIAN) - Final Weight used for dosin kg Estimated Creatinine Clearance: 91.38 Goal Trough: 10-15 mcg/mL Pharmacy Plan for Drug Dosing: Pharmacy Service will continue to monitor and adjust dosing as required. Medications Vancomycin HCl 1,250 mg/ (Sodium Chloride) 275 mls @ 167 mls/hr IV X1 ONE Stop: 05/03/18 07:38 Vancomycin HCl 1,250 mg/ (Sodium Chloride) 275 mls @ 167 mls/hr IV Q12H [facility] Follow-Up Labs: Trough Vancomycin Labs to be done on [date and time ordered]: 05/04 @ 1800
[2018-05-03] MEDS: 0.9% NaCl Peripheral Flush Adult/Peds IV ×3 (06:02→15:21)
[2018-05-03] MEDS: Ipratropium/Albuterol Sulfate 3 ML AMPUL.NEB INHALATION ×4 (06:46→19:48)
[2018-05-03] MEDS: guaiFENesin 1,200 MG Tablet 1200 MG PO ×2 (08:42→21:27)
[2018-05-03] MEDS: Polyethylene Glycol 3350 17 GM PACKET PO (08:49)
--- NOTE | 2018-05-03 12:16 | PCM.CONS.B ---
Problem List (1) Acute respiratory failure with hypoxia Status: Acute (2) Metastatic renal cell carcinoma Status: Chronic Qualifiers: Laterality: left Qualified Code(s): C64.2 - Malignant neoplasm of left kidney, except renal pelvis (3) Pneumonia Status: Suspected Qualifiers: Pneumonia type: due to unspecified organism Laterality: left Lung location: lower lobe of lung Qualified Code(s): J18.1 - Lobar pneumonia, unspecified organism - Consult Date of Consult: 05/03/[address] Monroy regarding a patient with metastatic renal cell carcinoma on immunotherapy treatment presented with fever and acute respiratory failure. My final recommendation will be communicated to the nursing staff and also by electronic medical records. - Reason for Consult History of Present Illness Date of Admission: 05/03/18 Chief Complaint: Dyspnea & Hypoxemia The patient is a 48 y/o M w/ PMHx: Asthma, Recent Dx Renal CA w/ metastatic disease to lungs, chest cavity, rib cage and Muscle/soft tissue. He have recurrent pleuritic pain of the left chest due to tumor and invading the chest wall and ribs. He started on immunotherapy (ipilumab & nivoilumab) last week with generalized malaise, fatigue, low grade fever, non-productive cough since his treatment. He presented with increasingly worsening dyspnea and wheezing over the last 2 - 3 days. Patient called Thursday with mild sore and thrush. In the ED work-up included a temperature 100, heart rate 113, BP 170/88, respiratory rate 26, 96% on room air, CBC with WBC 8.5, hemoglobin 11, platelet 324 with mild left shift, BMP with BUN at 19/creatinine 1.03, glucose 127, rapid influenza testing negative, blood culture x2 obtained and pending per ED, chest x-ray with multiple metastatic lesions in bilateral lungs with a small left pleural effusion (new) with no acute infiltrate noted. 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 CTA chest ordered per ED physician, with no evidence of PE, left lower lobe mass with possible obstructive pneumonia, new left pleural effusion with multiple lung nodule increased in size compared to March. He looks better this morning with no shortness of breath or cough. He still has significant pain in his left chest and rib area. There was no evidence of thrush, there is nonpitting edema of the lower extremities. He noted a rash around his waistline since starting treatment. Patient has no headaches or neurological symptoms. He denies diarrhea, abdominal pain or jaundice. Past Medical History Past Medical History (Chronic Problems): Chronic Problems Metastatic renal cell carcinoma (Chronic) Anxiety (Chronic) Asthma (chronic) Allergies Penicillins [PCN] Adverse Reaction (Verified 04/07/18 10:00) Nausea/Vom/Diarrhea Home Medications: Ambulatory Orders Medication Instructions Recorded Albuterol Inhaler [Ventolin Hfa] 2 puff INHALATION Q4H PRN PRN #1 03/28/18 inhaler Hydrocodone Bitart/Apap 5-325 1 tablet PO Q4H PRN PRN 05/02/18 [[place] 5MG-325MG] Ipilimumab [Yervoy] 50 mg IV QMONTH 05/02/18 Nivolumab [Opdivo] 40 mg IV QMONTH 05/02/18 Surgical History: - - Pyloric stenosis intervention as a baby. Psychiatric History: Anxiety Lives: Spouse/ Significant Other Smoking Status: Never smoker Tobacco Use: Non-smoker Alcohol: None Drugs: Marijuana - Patient smokes cannabis nearly daily for severe anxiety. - *Family History Maternal History Items: - - Patient notes a maternal family history of diabetes as well as colon cancer diagnosed at age 72. Paternal History Items: - - Patient notes a paternal family history of coronary artery disease, MIs as well as stomach cancer. Review of Systems Constitutional: Reports: Anorexia, Fever, Malaise, Weakness, Fatigue. Denies: Chills, Weight Change HEENT: Denies: Head Aches, Sinus Congestion, Sinus Drainage Cardiovascular: Reports: Chest Pain. Denies: Palpitations Respiratory: Reports: Cough, Shortness of Breath, Shortness of breath at rest, Shortness of breath upon exertion, Wheezing. Denies: Sputum production Gastrointestinal: Denies: Abdominal Pain, Nausea, Vomiting Genitourinary: Denies: Dysuria Musculoskeletal: Reports: Back Pain. Denies: Joint Pain, Joint Tenderness Skin: Denies: Rash, Wounds Neurological: Denies: Numbness, Tingling, Focal weakness Psychiatric: Reports: Anxiety. Denies: Depression, Homicidal Ideations, Suicidal Ideations Hematologic/ Lymphatic: Denies: Easy Bruising, Easy Bleeding VTE Information - Inpt Only VTE Present on Admission: No VTE Mechan Device Prophylaxis: SCD's VTE Pharm Prophylaxis ordered?: Yes Patient Problems: Active and Suspected Problems Acute respiratory failure with hypoxia (Acute) Asthma exacerbation (Acute) Objective: Physical Examination: General: awake, alert, oriented x 3 and cooperative, seated upright in the ED bed, improved appearance from initial presentation with decreased respiratory rate and less accessory muscle usage. Skin: normal color, turgor, no icterus, cyanosis. HEENT: AT/NC, EOMI, PERRLA, moderately dry MM, mild thrush, no carotid bruits or JVD noted. Lungs: Diffusely diminished breath sounds, greater left base, and no expiratory wheezing noted, improved from initial presentation with decreased respiratory rate and less accessory muscle usage. Heart: regular rate and rhythm; no gallop, rub audible. Abdomen: soft, NTTP, ND, normal BS, no HSM. Extremities: no cyanosis, clubbing, bilateral lower extremity pedal to proximal knee edema, nonpitting, metastatic lesions on right thigh and left arm Neurological: patient awake, alert, oriented x 3; cognitive function intact; pupils equally reactive to light and accomodation; cranial nerves II-XII grossly normal, moving all 4 extremities, no focal deficits, strength severely globally decreased secondary to acute presentation. Psychiatric: affect appears mildly anxious but calm, no acute evidence of depressive feelings. - Physical Exam Vital Signs Temp Pulse Resp BP Pulse Ox 100.0 F H 100 25 H 155/79 H 92 05/02/18 22:06 05/03/18 00:17 05/03/18 00:17 05/03/18 00:17 05/03/18 00:17 Oxygen Flow Rate (L/min) 4 Oxygen Delivery Method Nasal Cannula Weight: 184 lb 1.376 oz Body Mass Index (BMI) 25.7 Microbiology 05/03/18 02:40 Mucosa - Nose Respiratory Panel (PCR) - Final 05/03/18 04:18 Urine, Clean Catch Streptococcus pneumoniae Antigen (M - Final 05/03/18 04:18 Urine, Clean Catch Legionella Antigen - Final 05/02/18 22:45 Mucosa - Nasopharyngeal Influenza Types A,B Direct FA (CHRISTIAN) - Final Laboratory Tests Past 24 Hrs 05/02/18 05/02/18 22:15 22:15 WBC 8.5 RBC 4.13 L Hgb 11.0 L Hct 34.3 L MCV 83.1 MCH 26.6 L MCHC 32.1 RDW 14.0 RDW Differential 43.1 Plt Count 324 MPV 9.2 Immature Gran % (Auto) 0.100 Neut % (Auto) 73.1 H Lymph % (Auto) 11.8 L [place] % (Auto) 9.7 Eos % (Auto) 4.7 Baso % (Auto) 0.6 Absolute Neuts (auto) 6.2 Absolute Lymphs (auto) 1.00 Total Counted Not Reportable Sodium 136 Potassium 3.8 Chloride 106 Carbon Dioxide 24.0 Anion Gap 6 BUN 19 H Creatinine 1.03 Estim Creat Clear Calc 91.38 Est GFR (MDRD) Af Amer 98 Est GFR (MDRD) Non-Af 81 BUN/Creatinine Ratio 18.4 Glucose 127 H Calcium 9.6 Assessment/Plan All Active Problems Acute respiratory failure with hypoxia (Acute) Asthma exacerbation (Acute) Possible left lower lobe pneumonia versus progression of metastatic RCC No good evidence of immunotherapy associated pneumonitis. The patient is a 48 y/o M w/ PMHx: Asthma, Recent Dx Renal CA w/ metastatic disease to lung, chest cavity, rib cage and muscles on immunotherapy with generalized malaise, fatigue, low grade fever, non-productive cough with increasingly worsening dyspnea over the last 2 days. (1) Acute Hypoxic Respiratory Failure secondary to Acute on Chronic Asthma Exacerbation with Suspected rapid progression of RCC versus bacterial infection versus immunotherapy associated pneumonitis (2) Metastatic Renal Cell CA Stage IV on immunotherapy (3) Oral Thrush: Initiate oral nystatin S/S -improving Recommendations: -Start Levaquin 500mg daily until blood cultures are negative -Chest x-ray with left lateral decubitus tomorrow; possible diagnostic left ultrasound thoracentesis; cell count, culture and cytology -Taper Solu-Medrol tomorrow if clinically improve; change to oral prednisone for outpatient therapy -Continue oxycodone or morphine IV as needed for pain -Continue nystatin swish and swallow -Dietary/nutrition consult -Follow-up in my office in 2 weeks for continuation of immunotherapy for metastatic RCC cc: Dr. Yomi Ferreira, Dr. Cami Monroy, Dr. Elver Littlejohn
--- NOTE | 2018-05-03 13:40 | CASEMGMT ---
Addendum entered by Iwona Martino 05/03/18 14:27: This RN CM back to room to complete CM assessment and pt is still on the phone at this time. This RN CM will attempt again later. Lolly AMADOR CM Original Note: This RN CM to room to complete CM assessment and pt is on the phone at this time. This RN CM will attempt again later. Lolly AMADOR CM
[2018-05-03] MEDS: levoFLOXacin 500 MG Tablet PO (15:20)
--- NOTE | 2018-05-03 15:48 | PN_ITS ---
Patient Problems: Active and Suspected Problems Acute respiratory failure with hypoxia (Acute) Asthma exacerbation (Acute) Pneumonia (Suspected) Subjective: Patient was seen and examined. Feels improved. Having cough spells. Denies fever or chills. CT of chest reviewed with ; will repeat Chest x-ray in am to evaluate left sided pleural effusion No fever or chills. Vitals/I&O's: Vital Signs Temp Pulse Resp BP Pulse Ox 98.1 F 101 H 16 143/61 H 93 05/03/18 15:00 05/03/18 15:00 05/03/18 15:00 05/03/18 15:00 05/03/18 15:00 Oxygen Flow Rate (L/min) 4 Oxygen Delivery Method Room Air Weight: 83 kg Body Mass Index (BMI) 25.4 Intake and Output for Last 24 Hours 05/01/18 05/02/18 05/03/18 23:59 23:59 23:59 Intake Total 9 / 2518 Balance 2518 / 2518 General: Alert, Oriented x3, Cooperative, No apparent distress HEENT: Atraumatic, PERRLA, EOMI, Normocephalic Oral: Moist Mucosa Neck: Supple Lungs: Diminished - scattered wheezes Cardiovascular: Regular rate, Regular Rhythm, Normal S1, Normal S2, No murmurs Abdomen: Bowel Sounds Present, Soft, Non Tender, Non-Distended, No Hepato- splenomegaly Extremities: No edema Skin: No rashes, No breakdown Musculoskeletal: No Tenderness to Palpation of Joints or Extremities Lymphatic: No Cervical, Supraclavicular, or Inguinal Adenopathy Neurological: Cranial nerves II-XII grossly intact, Neuro grossly intact Psych/Mental Status: Normal Affect, Appropriate Microbiology Past 72 Hours 05/03/18 02:40 Mucosa - Nose Respiratory Panel (PCR) - Final 05/03/18 04:18 Urine, Clean Catch Streptococcus pneumoniae Antigen (M - Final 05/03/18 04:18 Urine, Clean Catch Legionella Antigen - Final 05/02/18 22:45 Mucosa - Nasopharyngeal Influenza Types A,B Direct FA (CHRISTIAN) - Final Laboratory Results 05/02/18 22:15: WBC 8.5, RBC 4.13 L, Hgb 11.0 L, Hct 34.3 L, MCV 83.1, MCH 26.6 L, MCHC 32.1, RDW 14.0, RDW Differential 43.1, Plt Count 324, MPV 9.2, Immature Gran % (Auto) 0.100, Neut % (Auto) 73.1 H, Lymph % (Auto) 11.8 L, [place] % (Auto) 9.7, Eos % (Auto) 4.7, Baso % (Auto) 0.6, Absolute Neuts (auto) 6.2, Absolute Lymphs (auto) 1.00, Total Counted Not Reportable 05/02/18 22:15: Sodium 136, Potassium 3.8, Chloride 106, Carbon Dioxide 24.0, Anion Gap 6, BUN 19 H, Creatinine 1.03, Estim Creat Clear Calc 91.38, Est GFR (MDRD) Af Amer 98, Est GFR (MDRD) Non-Af 81, BUN/Creatinine Ratio 18.4, Glucose 127 H, Calcium 9.6 05/02/18 22:15: Phosphorus 2.5, Magnesium 1.7 Current Medications Acetaminophen (Tylenol) 650 mg PO Q4H PRN PRN PRN Reason: FEVER Acetaminophen (Tylenol) 650 mg PO Q6H PRN PRN PRN Reason: Mild Pain (scale 0-3)/T>100.7 Al Hydroxide/Mg Hydroxide (Mylanta Ii) 30 ml PO Q6H PRN PRN PRN Reason: Gastric Burning Albuterol Sulfate (Ventolin Aerosols) 2.5 mg INHALATION Q2H PRN PRN PRN Reason: SHORTNESS OF BREATH Albuterol/Ipratropium (Duoneb) 3 ml INHALATION Q4HWA.RT [facility] Last Admin: 05/03/18 14:43 Dose: 3 ml Docusate Sodium (Colace) 200 mg PO BID PRN PRN PRN Reason: Constipation Enoxaparin Sodium (Lovenox) 90 mg SC Q12 [facility] Last Admin: 05/03/18 08:42 Dose: 90 mg Guaifenesin (Mucinex) 1,200 mg PO BID [facility] Last Admin: 05/03/18 08:42 Dose: 1,200 mg Sodium Chloride () 1,000 mls @ 125 mls/hr IV .Q8H [facility] Last Admin: 05/03/18 10:52 Dose: 125 mls/hr Magnesium Hydroxide (Milk Of Magnesia) 30 ml PO DAILY PRN PRN Reason: Constipation Methylprednisolone (Solu-Medrol) 40 mg IV Q8 [facility] Last Admin: 05/03/18 15:21 Dose: 40 mg Morphine Sulfate () 2 - 4 mg IV Q3H PRN PRN PRN Reason: Severe Pain (pain scale 6-10) Morphine Sulfate () 1 - 2 mg IV Q4H PRN PRN PRN Reason: Moderate Pain (pain scale 4-5) Nutritional Formula (Lactose Free) (Ensure Enlive) 120 ml PO 4X/DAY [facility] Last Admin: 05/03/18 15:21 Dose: Not Given Nystatin (Nystatin) 500,000 unit PO 4X/DAY [facility] Last Admin: 05/03/18 15:21 Dose: 500,000 unit Ondansetron HCl (Zofran) 4 mg IV Q8H PRN PRN PRN Reason: Nausea Oxycodone HCl (Oxyir) 5 mg PO Q4H PRN PRN PRN Reason: Moderate Pain (pain scale 4-5) Polyethylene Glycol (Miralax) 17 gm PO DAILY [facility] Last Admin: 05/03/18 08:49 Dose: 17 gm Prochlorperazine Edisylate (Compazine Iv) 10 mg IV Q6H PRN PRN PRN Reason: Nausea/Vomiting Sodium Chloride () 5 - 15 ml IV UD PRN PRN Reason: SALINE FLUSH Last Admin: 05/03/18 15:21 Dose: 10 ml Medical Necessity - Tobacco Use Smoking Status: Never smoker Tobacco Use: Non-smoker Assessment/Plan All Active Problems Acute respiratory failure with hypoxia (Acute) Asthma exacerbation (Acute) 48 y/o male with PMHx of metastatic renal cell CA, on immunotherapy admitted with fever, non-productive cough and progressive cough. 1. Acute hypoxic respiratory failure secondary possible acute asthma exacerbation vs progressive metastatic disease Nog on oxygen, appears comfortable. PE ruled out with negative CTA chest Will hold off antibiotics for now, influenza negative, Discussed with Dr. Ferreira; will repeat CXR in am, follow-up on cultures, continude on iV steroid and breathing treatments 2. Metastatic Renal Cell CA Stage I, on immunotherapy 3. Recent oral thrush , on oral nystatin switch and swallow 4. DVT Prophylaxis - Lovenox SC Code Visit Inpatient E&M: 68074 Subs Hosp L2
[2018-05-03] MEDS: 0.9% Normal Saline 1,000 ML 75 ML IV (18:14)
[2018-05-03] MEDS: BENZOCAINE/MENTHOL 1 LOZENGE 2 LOZENGE MUCOUS MEM (18:16)
[2018-05-04] VITALS (9 sets, daily range): BP systolic 151–152; BP diastolic 86–93; PULSE 87–103; RESP 16–18; TEMP 36.7–37; O2SAT 91–96
[2018-05-04] MEDS: Acetaminophen 325 MG Tablet 650 MG PO (03:15)
[2018-05-04] MEDS: Ipratropium/Albuterol Sulfate 3 ML AMPUL.NEB INHALATION ×2 (06:45→10:35)
[2018-05-04 06:50] LABS: Absolute Neutrophil Count 21.9 X10^3/uL (2.0-7.7); Basophil# 0.01 X10^3/uL; Hematocrit 33.4 % (40-54); Hemoglobin 10.5 g/dl (13.0-16.5); Lymphocyte % 4.2 % (19-41); Mean Corp Hgb Conc 31.4 g/gl (32-36); Mean Corpuscular Hgb 26.6 pg (27.0-32.0); Mean Corpuscular Volume 84.8 fL (80-94); Mean Platelet Vol. 9.4 fl (6.2-12.0); Monocyte# 0.71 X10^3/uL; Neutrophil % 92.5 % (47-70); Platelet Count 398 K/mm3 (150-450); RBC Distribution Width SD 42.6 fl (35.1-43.9); Red Blood Count 3.94 M/mm3 (4.6-6.2); White Blood Count 23.7 K/mm3 (4.4-11.0)
[2018-05-04 06:54] LABS: Anion Gap 11 (5-15); BUN 24 mg/dL (7-18); BUN/Creat Ratio 22.2 RATIO (10-20); Chloride 107 mmol/L (98-107); Creatinine, Serum 1.08 mg/dL (0.70-1.30); EST Glomerular Filtration Rate 77 mL/min (>60); Est Glom Filt Rate - Afr Amer 93 mL/min (>60); Estimated Creatinine Clearance 87.15 ml/min; Glucose 150 mg/dL (74-106); Potassium 4.4 mmol/L (3.5-5.1); Sodium Level 138 mmol/L (136-145)
--- NOTE | 2018-05-04 07:00 | RAD_ITS ---
STUDY: X-RAY CHEST REASON FOR EXAM: Male, 48 years old. SOBSShort of Breath/DyspneaSRAD - Chest TECHNIQUE: Frontal and lateral views of the chest. COMPARISON: 05/02/2018 FINDINGS: Multiple metastatic lesions are seen in both lungs . There is a small left pleural effusion Normal size heart. Normal mediastinum and rebecca. Normal visualized pulmonary arteries. Normal visualized aortic arch and descending thoracic aorta. Normal visualized thoracic spine. The lateral aspect of the left third and fourth ribs is absent. There is no demonstrated abnormality of the visualized soft tissue structures of the upper abdomen. RAD/Chest PA and Lateral IMPRESSION: Multiple metastatic lesions are seen in both lungs . There is a small left pleural effusion. There has been no change since the previous study. Electronically Signed: John Victoria, at 9:53 EDT Tel , Service support ,
[2018-05-04 07:04] LABS: Differential Indicated SCAN CRITERIA MET; POSITIVE COUNT NO; POSITIVE DIFFERENTIAL YES; POSITIVE MORPHOLOGY NO
[2018-05-04] MEDS: guaiFENesin 1,200 MG Tablet 1200 MG PO (08:10)
[2018-05-04] MEDS: BENZOCAINE/MENTHOL 1 LOZENGE 2 LOZENGE MUCOUS MEM (08:11)
[2018-05-04] MEDS: 0.9% Normal Saline 1,000 ML 75 ML IV (08:19)
[2018-05-04] MEDS: Enoxaparin 40 MG/0.4 ML Syringe SC (08:19)
[2018-05-04] MEDS: Polyethylene Glycol 3350 17 GM PACKET PO (11:24)
--- NOTE | 2018-05-04 11:50 | CASEMGMT ---
MARJORIE CORTEZ assessment: Face to Face with patient for initial transition planning/care coordination assessment. MARJORIE CORTEZ introduced self and role at [facility], pt voices understanding and consents to assessment at this time. Pt is sitting up in bed in no distress at this time. Pt is A/Ox4 at this time and answers all questions appropriately at this time. Care providers, pharmacy, and demographics verified/updated at this time. PCP: Annetta Specialists: atif Ferreira Pharmacy: [facility] Insurance: Self pay, pt states is set up with [facility] assistance program Prescription Benefit: Self pay Living Will/HPOA: Pt states that he has LW/HPOA and that they brought a copy in on thursday evening and provided it to staff. Pt states that his , Amy Wallace, is HPOA. LNOK: Amy Wallace, /HPOA Living Arrangements: Pt states lives with in 1 story apt and states no concerns at home at this time. Pt states is independent with ADL's. Transportation: Pt states friends drive and states no transportation concerns at this time. DME/HHC: Pt states does not currently have any DME and states no need for any at this time. Pt states no hx of HHC or SNF in the past. Pt states no preference for DME if qualifies for home oxygen. Pt states no concerns with going home at time of discharge. 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 Pt states does not smoke or drink ETOH. Pt states no further concerns/needs at this time. CM to follow for home oxygen and if any further discharge planning/needs arise. Advised pt to ask for CM if any further questions/concerns/needs arise, voices understanding. Plan: [place] MARJORIE CORTEZ
--- NOTE | 2018-05-04 12:44 | DS.PCM_ITS ---
Discharge Date and Diagnosis Date of Admission: 05/03/18 Date of Discharge: 05/04/18 - Primary Discharge Diagnosis Active and Suspected Problems Acute respiratory failure with hypoxia (Acute) Acute asthma exacerbation ruled out Community-acquired pneumonia ruled out Acute viral bronchitis ruled out Progressive metastatic lung disease Recent oral thrush - Secondary Discharge Diagnosis Chronic Problems Metastatic renal cell carcinoma (Chronic) Anxiety (Chronic) Hospital Course and Treatment Imaging Results: 05/04/18 07:00 Xray Chest [Chest PA and Lateral] [RAD] Routine Clinical Impression(s) from Imaging Studies Chest X-Ray 05/02/18 22:23 IMPRESSION: Multiple metastatic lesions are seen in both lungs . There is a small left pleural effusion Electronically Signed: John Victoria, at 23:45 EDT Tel , Service support , Chest CTA 05/03/18 00:26 IMPRESSION: 1. No PE. 2. Extensive bilateral pulmonary metastases in this patient with known metastatic renal cancer. 3. Left lower lobe enlarging perivascular tumor infiltrate and enlarging lymphadenopathy together with enlarging left pleural effusion. 4. Left hemithorax metastatic bone disease. Individualized dose optimization techniques were used for this CT. at 0313 Reported and signed by: Khari Boyd MD Electronically Signed: Khari Boyd, at 3:12 EDT Tel , Service support , Chest X-Ray 05/04/18 07:00 IMPRESSION: Multiple metastatic lesions are seen in both lungs . There is a small left pleural effusion. There has been no change since the previous study. Electronically Signed: John Victoria, at 9:53 EDT Tel , Service support , Oncology Operations: None Procedures: None Summary of Care Provided: 48 y/o male with PMHx of metastatic renal cell CA, on immunotherapy admitted with fever, non-productive cough and progressive cough. Patient was found to be tachycardic, toxic at 86% on room air, improved to 96% on 4 L of oxygen. He recently had immunotherapy. Subsequently developed nonproductive cough with fever and shortness of breath. Chest CTA was negative for acute PE. Imaging showed progressive metastatic lung disease. Oncology was consulted. Respiratory panel was negative for acute influenza. Patient was not started on antibiotics. He was started on IV steroids and breathing treatment. He remained afebrile throughout the hospital stay. His oxygen requirement resolved. Discussed with Dr. Samuel at discharge on phone, patient discharged on 60 mg of prednisone until he sees Dr. Ferreira in the outpatient. Did not qualify for oxygen at discharge. Subjective: On the day of discharge, patient felt improved. Not on oxygen. Ambulated around with no increase in oxygen requirement. Denies any fever or chills. Objective: Physical exam: General: Alert, Oriented x3, Cooperative, No apparent distress HEENT: Atraumatic, PERRLA, EOMI, Normocephalic Oral: Moist Mucosa Neck: Supple Lungs: Diminished - scattered wheezes Cardiovascular: Regular rate, Regular Rhythm, Normal S1, Normal S2, No murmurs Abdomen: Bowel Sounds Present, Soft, Non Tender, Non-Distended, No Hepato- splenomegaly Extremities: No edema Skin: No rashes, No breakdown Musculoskeletal: No Tenderness to Palpation of Joints or Extremities Lymphatic: No Cervical, Supraclavicular, or Inguinal Adenopathy Neurological: Cranial nerves II-XII grossly intact, Neuro grossly intact Psych/Mental Status: Normal Affect, Appropriate - Physical Exam Vital Signs Temp Pulse Resp BP Pulse Ox 98.1 F 103 H 16 152/93 H 96 05/04/18 09:00 05/04/18 11:03 05/04/18 10:36 05/04/18 09:00 05/04/18 09:00 Oxygen Flow Rate (L/min) 4 Oxygen Delivery Method Room Air Weight: 83 kg Body Mass Index (BMI) 25.4 Intake and Output for Last 24 Hours 05/02/18 05/03/18 05/04/18 23:59 23:59 23:59 Intake Total 3760 / 3760 2184 / 2184 Balance 3760 / 3760 2184 / 2184 Microbiology Past 72 Hours 05/03/18 02:40 Respiratory Panel (PCR) - Final Mucosa - Nose 05/03/18 04:18 Streptococcus pneumoniae Antigen (M - Final Urine, Clean Catch 05/03/18 04:18 Legionella Antigen - Final Urine, Clean Catch 05/02/18 22:45 Influenza Types A,B Direct FA (CHRISTINA) - Final Mucosa - Nasopharyngeal Laboratory Tests Past 24 Hrs 05/04/18 05/04/18 05:55 05:55 WBC 23.7 H RBC 3.94 L Hgb 10.5 L Hct 33.4 L MCV 84.8 MCH 26.6 L MCHC 31.4 L RDW 14.0 RDW Differential 42.6 Plt Count 398 MPV 9.4 Immature Gran % (Auto) 0.300 Neut % (Auto) 92.5 H Lymph % (Auto) 4.2 L [place] % (Auto) 3.0 Eos % (Auto) 0.0 Baso % (Auto) 0.0 Absolute Neuts (auto) 21.9 H Absolute Lymphs (auto) 1.00 Total Counted Not Reportable Differential Comment Sodium 138 Potassium 4.4 Chloride 107 Carbon Dioxide 20.0 L Anion Gap 11 BUN 24 H Creatinine 1.08 Estim Creat Clear Calc 87.15 Est GFR (MDRD) Af Amer 93 Est GFR (MDRD) Non-Af 77 BUN/Creatinine Ratio 22.2 H Glucose 150 H Calcium 9.0 Discharge Diet: No Restrictions Discharge Activity: Return to Normal Activity Home Medications: Medications to take at Discharge Albuterol Inhaler [Ventolin Hfa] 2 puff INHALATION Q4H PRN PRN #1 inhaler 03/28/18 Hydrocodone Bitart/Apap 5-325 [[place] 5/325] 1 tablet PO Q4H PRN PRN 05/02/18 Ipilimumab [Yervoy] 50 mg IV QMONTH 05/02/18 Nivolumab [Opdivo] 40 mg IV QMONTH 05/02/18 Ensure Enlive 120 ml PO 4X/DAY #120 bottle 05/04/18 Guaifenesin [Mucinex] 1,200 mg PO BID #20 tablet 05/04/18 Prednisone 60 mg PO DAILY #21 tablet 05/04/18 Following Prescrptions Were Given to Patient: Prednisone 60 mg PO DAILY #21 tablet Guaifenesin [Mucinex] 1,200 mg PO BID #20 tablet Ensure Enlive 120 ml PO 4X/DAY #120 bottle Primary Care Physician: Miguelito Littlejohn MD [Primary Care Provider] - Please follow up with your Primary Care Physician in: within 1-2 weeks Please Follow Up With: Yomi Ferreira MD When: within 1 week Disposition: Home Minutes spent on discharge:: 40 Patient Condition:: Stable Medical Necessity - Tobacco Use Smoking Status: Never smoker Tobacco Use: Non-smoker Meaningful Use Info Meaningful Use Diagnoses (Choose all that apply): None applicable Code Visit Inpatient E&M: 75873 Subs Hosp L2
--- NOTE | 2018-05-04 12:44 | DCINST_ITS ---
- Discharge Diagnoses Current Active Problems: Current Active and Chronic Problems Acute respiratory failure with hypoxia (Acute) Asthma exacerbation (Acute) Metastatic renal cell carcinoma (Chronic) Anxiety (Chronic) Reason(s) for Visit for Discharge Instructions: Shortness of breath You will use the following diet at home:: Regular Your food should be the consistency of: Regular Your liquids should be the consistency of: Regular/Thin Discharge Activity: Return to Normal Activity Additional Instructions: Continue on the prednisone till you see Dr. Ferreira. Continue to use your inhaler for shortness of breath Allergies/Adverse Reactions: Allergies Penicillins [PCN] Adverse Reaction (Verified 04/07/18 10:00) Nausea/Vom/Diarrhea Medications to take at Discharge Albuterol Inhaler [Ventolin Hfa] 2 puff INHALATION Q4H PRN PRN #1 inhaler 03/28/18 Hydrocodone Bitart/Apap 5-325 [[place] 5/325] 1 tablet PO Q4H PRN PRN 05/02/18 Ipilimumab [Yervoy] 50 mg IV QMONTH 05/02/18 Nivolumab [Opdivo] 40 mg IV QMONTH 05/02/18 Ensure Enlive 120 ml PO 4X/DAY #120 bottle 05/04/18 Guaifenesin [Mucinex] 1,200 mg PO BID #20 tablet 05/04/18 Prednisone 60 mg PO DAILY #21 tablet 05/04/18 The following prescriptions were given: Prednisone 60 mg PO DAILY #21 tablet Guaifenesin [Mucinex] 1,200 mg PO BID #20 tablet Ensure Enlive 120 ml PO 4X/DAY #120 bottle Primary Care Physician: Miguelito Littlejohn MD [Primary Care Provider] - Please follow up with your Primary Care Physician in: within 1-2 weeks Test Results: Test results from this visit will be discussed in further detail at your follow- up appointment, if applicable. Please Follow Up With: Yomi Ferreira MD When: within 1 week Proposed Discharge Date: 05/04/18
[2018-05-04] MEDS: NYSTATIN 500,000 UNIT/5 ML UDC 500000 UNIT PO (13:47)
[2018-05-04] MEDS: 0.9% NaCl Peripheral Flush Adult/Peds IV (13:47)
--- NOTE | 2018-05-05 14:17 | CASEMGMT ---
MARJORIE CORTEZ F/U Phone Call LACE: 11 Strata: 3 Discharge date: 05/04/18 Call date: 05/05/18 Call time: [id number] Duration: less than a minute Admission dx: Resp failure, asthma exac, metastatic renal cell carcinoma Pt's answered phone and states that pt is at Dr. Ferreira's office for f/u at this time. Per , no questions regarding discharge instructions or medications at this time. states no suggestions for [facility] at this time and states no further questions/concerns/needs at this time. S[place]en MARJORIE CORTEZ
== END 2018-05-04 14:14 | disposition home or self-care (01) | DRG 180 ==
LOC: ED 22:28 → PCU 05-03 01:33
PROVIDERS: Admitting Provider Family Medicine; Emergency Provider Emergency Medicine; Family Provider Family Medicine; PCP Family Medicine; Referring Provider Family Medicine; Visit Provider Internal Medicine
DX: C78.02 Secondary malignant neoplasm of left lung (principal); J96.01 Acute respiratory failure with hypoxia; B37.0 Candidal stomatitis; C64.2 Malignant neoplasm of left kidney, except renal pelvis; C79.51 Secondary malignant neoplasm of bone; J90 Pleural effusion, not elsewhere classified; C78.01 Secondary malignant neoplasm of right lung; F41.9 Anxiety disorder, unspecified; J45.909 Unspecified asthma, uncomplicated
CPT/HCPCS: 36415; 71046; 71275; 80048; 83735; 84100; 85025; 87040; 87449; 87633; 87804; 93005; 94640; 97802; 99285; J7030; J7040; J7050; Q9967; A4216

== ENCOUNTER 2018-07-29 22:02 | Observation (INO) | payer MEDICAID, SELFPAY ==
[2018-05-03 02:06] VITALS: BMI 25.4
[2018-07-29 22:03] VITALS: BP 134/91; PULSE 77; RESP 16; TEMP 36.6; O2SAT 99; BMI 22.6
[2018-07-29 22:15] VITALS: BP 152/103; PULSE 68; RESP 18; O2SAT 97
[2018-07-29 22:30] LABS: Bedside Glucose 92 mg/dL (70-110)
--- NOTE | 2018-07-29 22:38 | RAD_ITS ---
STUDY: X-RAY CHEST REASON FOR EXAM: Male, 48 years old. Facial droop for several days, stroke, history of metastatic renal cancer TECHNIQUE: Single frontal view of the chest. COMPARISON: 05/04/2018 FINDINGS: Significant interval improvement in bilateral pulmonary nodules. No acute alveolar disease. There is no demonstrated pleural abnormality. Normal size heart. Normal mediastinum and rebecca. Normal visualized pulmonary arteries. Normal visualized aortic arch and descending thoracic aorta. Normal visualized thoracic spine. Fracture of the left third rib and destruction of the left fourth rib. There is no demonstrated abnormality of the visualized soft tissue structures of the upper abdomen. RAD/Chest 1 View IMPRESSION: Significant interval improvement in bilateral pulmonary nodules. No acute alveolar disease. Electronically Signed: Giovanni Holguin MD at 23:47 EDT Tel , Service support ,
--- NOTE | 2018-07-29 22:38 | CT_ITS ---
STUDY: CT BRAIN WITHOUT CONTRAST REASON FOR EXAM: Male, 48 years old. Facial droop for several days RADIATION DOSAGE (If Supplied By Facility): CTDIvol = ( 44.99 ) mGy, DLP = ( 812.98 ) mGycm TECHNIQUE: Transaxial CT imaging of the brain was performed without administration of intravenous contrast material. Individualized dose optimization techniques were used for this CT. COMPARISON: MRI 04/14/2018 FINDINGS: Normal soft tissue structures. Normal calvarium. Remote deformity of the left orbital floor. Normal size ventricles and extra-axial spaces for the patient's age. There are areas of decreased attenuation within the white matter tracts of the supratentorial brain, consistent with microvascular disease changes. Normal age-related changes of the basal ganglia. Normal brainstem. Normal cerebellum. There is no intracranial hemorrhage. There are no findings of an acute ischemic infarction. Normal visualized paranasal sinuses. CT/Brain/Head without Contrast IMPRESSION: No CT evidence of acute infarct or hemorrhage. If there is clinical concern for hyperacute ischemia that is not evident by CT, MRI should be considered if possible. Electronically Signed: Giovanni Holguin MD at 23:34 EDT Tel , Service support ,
--- NOTE | 2018-07-29 22:38 | EKG12_ITS ---
Test Reason : NEURO Blood Pressure : / mmHG Vent. Rate : 063 BPM Atrial Rate : 063 BPM P-R Int : 126 ms QRS Dur : 114 ms QT Int : 446 ms P-R-T Axes : 061 -09 062 degrees QTc Int : 456 ms Normal sinus rhythm Incomplete right bundle branch block Borderline ECG Confirmed by HENRIK REED ([id number]), society editor CIELO LOBO ([id number]) on 08/02/2018 1:14:26 PM Referred By: CHRISTIAN Confirmed By:SAMI REED
[2018-07-29 23:00] LABS: Absolute Lymphocyte Count 2.08 X10^3/ul (0.83-4.51); Absolute Neutrophil Count 4.7 X10^3/uL (2.0-7.7); Basophil# 0.04 X10^3/uL; Basophil% 0.5 % (0-1); Eosinophil# 0.36 X10^3/uL; Eosinophils% 4.6 % (0-5); Hemoglobin 14.1 g/dl (13.0-16.5); Lymphocyte # 2.08 X10^3/ul (4.0); Lymphocyte % 26.4 % (19-41); Mean Corp Hgb Conc 33.6 g/gl (32-36); Mean Corpuscular Hgb 27.5 pg (27.0-32.0); Mean Corpuscular Volume 81.9 fL (80-94); Mean Platelet Vol. 9.1 fl (6.2-12.0); Monocyte# 0.71 X10^3/uL; Neutrophil # 4.67 X10^3/uL (2.7-7.7); Neutrophil % 59.4 % (47-70); POSITIVE COUNT NO; POSITIVE DIFFERENTIAL NO; POSITIVE MORPHOLOGY NO; Platelet Count 190 K/mm3 (150-450); RBC Distribution Width CV 15.2 % (11.6-14.6); RBC Distribution Width SD 45.4 fl (35.1-43.9); Red Blood Count 5.13 M/mm3 (4.6-6.2); White Blood Count 7.9 K/mm3 (4.4-11.0)
[2018-07-29 23:03] VITALS: BP 111/69; PULSE 51; RESP 18; O2SAT 99
[2018-07-29 23:10] LABS: International Normalized Ratio 1.1; Prothrombin Time (Protime)PT. 13.9 SECONDS (11.7-14.9)
[2018-07-29 23:11] LABS: Partial Thromboplast Time 32.1 Seconds (24.1-36.2)
[2018-07-29 23:17] LABS: Anion Gap 3 (5-15); BUN 16 mg/dL (7-18); BUN/Creat Ratio 10.8 RATIO (10-20); Calcium,Total 8.3 mg/dL (8.5-10.1); Chloride 108 mmol/L (98-107); Creatinine, Serum 1.48 mg/dL (0.70-1.30); EST Glomerular Filtration Rate 53 mL/min (>60); Est Glom Filt Rate - Afr Amer 65 mL/min (>60); Estimated Creatinine Clearance 62.03 ml/min; Glucose 103 mg/dL (74-106); Potassium 3.9 mmol/L (3.5-5.1); Sodium Level 138 mmol/L (136-145)
--- NOTE | 2018-07-29 23:54 | PCM.HP.STD ---
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 Associated with his symptoms is a decreased right hand grasp. Three days before presentation patient went to urgent care because of poor hearing in his right ear. He was diagnosed with right middle ear infection and was prescribed eardrops. However the urgent care doctor noticed that patient was having right facial droop which is also recognized after the observation by the urgent care practitioner. Also the urgent care practitioner noticed that patient was having poor right hand grasp. Associated with his symptoms is forgetfulness. Patient called, patient's oncologist Dr. Mcallister and patient was advised to come to the emergency department. 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 Psychiatric History: Anxiety Lives: Spouse/ Significant Other Smoking Status: Never smoker Alcohol: Occasional Drugs: Marijuana - *Family History Maternal History Items: - - Patient notes a maternal family history of diabetes as well as colon cancer diagnosed at age 72. Paternal History Items: - - Patient notes a paternal family history of coronary artery disease, MIs as well as stomach cancer. Review of Systems Constitutional: Denies: Chills, Fever, Weight Change HEENT: Denies: Head Aches, Sinus Congestion, Sinus Drainage Cardiovascular: Denies: Chest Pain, Palpitations Respiratory: Denies: Cough, Shortness of breath at rest, Sputum production Gastrointestinal: Denies: Abdominal Pain, Nausea, Vomiting Genitourinary: Denies: Dysuria Musculoskeletal: Denies: Joint Pain, Joint Tenderness Skin: Denies: Rash, Wounds Neurological: Reports: - - Reports right hearing loss; improving.. Denies: Numbness, Tingling Psychiatric: Denies: Anxiety, Depression, Homicidal Ideations, Suicidal Ideations Hematologic/ Lymphatic: Denies: Easy Bruising, Easy Bleeding VTE Information - Inpt Only VTE Present on Admission: No VTE Mechan Device Prophylaxis: None VTE Pharm Prophylaxis ordered?: Yes Patient Problems: Active and Suspected Problems Stroke-like symptoms (Acute) - Physical Exam General: Alert, Oriented x3, Cooperative HEENT: Atraumatic, PERRLA, EOMI, Normocephalic, - - Right ear with erythematous eardrum. Left ear with wax obscuring view of eardrum. Neck: Supple, No JVD, Negative Carotid Bruits Lungs: Clear to auscultation, Normal air movement Cardiovascular: Regular rate, No murmurs Abdomen: Bowel Sounds Present, Soft, Non Tender Extremities: No edema, Capillary Refill Less than 3 Seconds Skin: No rashes, No breakdown Musculoskeletal: No Tenderness to Palpation of Joints or Extremities Neurological: Cranial nerves II-XII grossly intact, Deep Tendon Reflexes 2+/4 and Symmetrical, Motor Exam 5/5 strength throughout, - - No dysmetria. Sensation intact. Psych/Mental Status: Normal Affect, Appropriate Vital Signs Temp Pulse Resp BP Pulse Ox 98 F 51 L 18 111/69 99 07/29/18 22:03 07/29/18 23:03 07/29/18 23:03 07/29/18 23:03 07/29/18 23:03 Oxygen Flow Rate (L/min) 2 Oxygen Delivery Method Nasal Cannula Weight: 73.44 kg Body Mass Index (BMI) 22.6 Finger Stick Blood Glucose 97 Laboratory Tests Past 24 Hrs 07/29/18 07/29/18 07/29/18 22:52 22:52 22:52 WBC 7.9 RBC 5.13 Hgb 14.1 Hct 42.0 MCV 81.9 MCH 27.5 MCHC 33.6 RDW 15.2 H RDW Differential 45.4 H Plt Count 190 MPV 9.1 Immature Gran % (Auto) 0.100 Neut % (Auto) 59.4 Lymph % (Auto) 26.4 [place] % (Auto) 9.0 Eos % (Auto) 4.6 Baso % (Auto) 0.5 Absolute Neuts (auto) 4.7 Absolute Lymphs (auto) 2.08 Total Counted Not Reportable PT 13.9 INR 1.1 APTT 32.1 Sodium 138 Potassium 3.9 Chloride 108 H Carbon Dioxide 27.0 Anion Gap 3 L BUN 16 Creatinine 1.48 H Estim Creat Clear Calc 62.03 Est GFR (MDRD) Af Amer 65 Est GFR (MDRD) Non-Af 53 L BUN/Creatinine Ratio 10.8 Glucose 103 Calcium 8.3 L Troponin I < 0.015 POC Glucose 07/29/18 22:16 POC Glucose 92 Assessment/Plan All Active Problems Acute respiratory failure with hypoxia (Acute) Asthma exacerbation (Acute) Stroke-like symptoms (Acute) The patient is a 48 year old M with a significant history of metastatic right kidney cancer on immunotherapy who presented to the emergency department because of strokelike symptoms. Strokelike symptoms Emergency department doctor reported initial NINDS NIH Scale of 1 (facial droop). ED thought facial droop improved at ED. I did not appreciate facial droop. CT of the head did not show any acute infarct or hemorrhage. CT head was independently reviewed. I agree with radiologist interpretation. -Check Hba1c, Lipid level Physical therapy, occupational therapy to work with patient. N.p.o. until bedside swallow eval. Daily aspirin. High intensity statin Lipid profile and A1c ordered. No need for permissive hypertension at this time since his symptom has been going on for about 3 days. MRI/MRAM of head; brain; and neck. Echocardiogram ordered. GORDO on presentation his creatinine was 1.48. Review of old records shows baseline creatinine of about 1.08 BUN was 16. BUN over creatinine is 10.8. BUN over creatinine less than 20 does not point directly to prerenal. However will attempt gentle IV hydration. Consideration could be from intrinsic renal dysfunction secondary to cancer. Hold lisinopril. Avoid other nephrotoxins. Trend BMP Hypertension On presentation his blood pressure was not within goal. Patient is also permissive hypertensive window. Lisinopril held secondary to GORDO. PRN labetalol ordered at this time. Trend blood pressure and adjust blood pressure medication. Right otitis media. Patient was prescribed medication at urgent care but he has not pick it up because of financial and transport issues Patient has anaphylaxis with PCN. Will order doxycycline Eczematous Rash Patient was prescribed medication at urgent care but he has not pick it up Hydrocortisone cream ordered Metastatic Kidney Cancer On home Opdivo. Continue outpatient therapy. DVT Prophylaxis Lovenox subcutaneous ordered. Code Visit OBSV E&M: [id number] Initial observation care L3
--- NOTE | 2018-07-29 23:59 | ED.DCSUM_ITS ---
- ER Visit Summary Date of Service: 07/29/18 Chief Complaint: Right facial droop History of Present Illness: The patient is a 48 M who presents with right facial droop. This is actually been present for 4 days. He initially was complaining of some decreased hearing in his right ear. He went to urgent care who then noticed that his right face was drooping. His ear has actually improved. He does also complain of some sinus congestion and mild nausea. No numbness tingling weakness speech difficulty slurred speech. The family spoke to oncology who advised that he be evaluated here in the emergency department. No chest pain no shortness of breath. He does have a history of metastatic renal cancer. Physical Examination: Blood pressure 152/103 vitals otherwise unremarkable Moist mucous membranes Heart regular rate and rhythm Lungs clear Abdomen soft Patient does have right facial droop, total NIH stroke scale is 1 normal strength and sensation of the extremities no ataxia clear speech Test Results: EKG shows sinus rhythm at a rate of 63. There is an incomplete right bundle branch block. Chest x-ray shows no acute disease. CT the head shows no evidence of acute infarct or hemorrhage. CBC BMP notable only for creatinine 1.48. Coagulation studies unremarkable and troponin is negative. Emergency Department Course and Treatment: Patient does have some subtle right facial droop on exam. I do not appreciate upper facial weakness. I do feel the patient needs an MRI to rule out infarct. Patient discussed with the hospitalist and admitted. Treatment Plan: [] Disposition: Admit Impression: Right facial droop This note was generated with [employer] dictation software. It may contain incorrect words, spelling, and punctuation that were not noted in review of the chart prior to signing ED Disposition - Plan for ED Patient: Referrals: Miguelito Littlejohn MD [Primary Care Provider] -
[2018-07-30] VITALS (9 sets, daily range): BP systolic 128–156; BP diastolic 76–96; PULSE 55–90; RESP 18; TEMP 36.7–37; O2SAT 96–99; BMI 22.6
--- NOTE | 2018-07-30 00:36 | MRI_ITS ---
STUDY: MRA NECK WITH AND WITHOUT CONTRAST REASON FOR EXAM: Male, 48 years old. Right-sided facial droop. TECHNIQUE: 3-D phcl-ut-eonyno (TOF) imaging was performed in an 1.5 T MRI scanner. 14 IV Dotarem was administered for the contrast enhanced images. COMPARISON: None. FINDINGS: RIGHT CAROTID ARTERIES: Normal right common carotid artery (CCA). Normal right common carotid bulb. Normal origin of the right internal carotid (ICA) artery without a hemodynamically significant stenosis. Normal visualized cervical portion of the right internal carotid artery. Normal origin of the right external carotid artery (ECA). LEFT CAROTID ARTERIES: Normal left common carotid artery (CCA). Normal left common carotid bulb. Normal origin of the left internal carotid (ICA) artery without a hemodynamically significant stenosis. Normal visualized cervical portion of the left internal carotid artery. Normal origin of the left external carotid artery (ECA). VERTEBRAL ARTERIES: Normal antegrade flow within the bilateral vertebral artery without a hemodynamically significant stenosis. MRI/MRA Neck WITH and W/O Contrast IMPRESSION: Normal bilateral cervical carotid and vertebral arteries. Electronically Signed: Nirav Keller MD at 9:45 EDT Tel , Service support ,
--- NOTE | 2018-07-30 00:36 | MRI_ITS ---
STUDY: MRI BRAIN WITHOUT CONTRAST REASON FOR EXAM: Male, 48 years old. Right-sided facial droop TECHNIQUE: Standardized multiplanar fat and water weighted pulse sequences were obtained. COMPARISON: CT 07/29/2018 FINDINGS: Normal size of the ventricles and extra-axial spaces for the patient's age. Normal white matter tracts of the supratentorial brain. There is no evidence for recent intracranial ischemia or other cause of cytotoxic edema on diffusion weighted imaging (DWI). Normal T2* images of the brain without demonstrated susceptibility artifact. There is no demonstrated hemosiderin stain. Normal bilateral basal ganglia. Normal thalami. There is no extra-axial fluid accumulation. Normal flow voids within the major intracranial circulation suggesting patency by spin echo criteria. Normal sella turcica, pituitary gland, infundibular stalk, optic chiasm and hypothalamus. Normal tectal plate and pineal gland. Normal midbrain, renae and medulla. Normal cerebellum. Normal basal cisterns. There is mild chronic otomastoiditis of the right temporal bone. Normal bilateral internal auditory canals. No demonstrated orbital abnormality, within the constraints of a routine brain study. Normal visualized paranasal sinuses. Normal calvarium and skull base. Normal visualized soft tissue structures. Normal visualized upper cervical spine. MRI/Brain without Contrast IMPRESSION: Normal unenhanced MRI of the brain. No acute infarct. Electronically Signed: Nirav Keller MD at 9:44 EDT Tel , Service support ,
--- NOTE | 2018-07-30 00:36 | ECHOD_ITS ---
Reason For Study: TIA/CVA Procedure This was a 2D Doppler, Color Flow transthoracic echocardiogram. Myocardial strain analysis was performed in this exam to aid in the assessment of cardiac function. Exam performed portable in patient room. Left Ventricle Normal size and thickness. Left ventricular systolic function is normal. The estimated ejection fraction is 60 %. Normal diastology for age. No regional wall motion abnormalities noted. Right Ventricle Normal RV size. Normal systolic function. Atria Normal left atrium. Normal right atrium. No doppler evidence for ASD. Mitral Valve There is no mitral valve stenosis. There is no mitral regurgitation noted. Tricuspid Valve There is no tricuspid stenosis. Trivial tricuspid valve insufficiency. Unable to estimate RV systolic pressure due to insufficient tricuspid regurgitant envelope. Aortic Valve Trisinus/trileaflet aortic valve. There is no aortic stenosis. No aortic valve insufficiency. Pulmonic Valve There is no pulmonic valvular stenosis. No pulmonic valve insufficiency. Great Vessels Normal aortic root. Pericardium/Pleural No pericardial effusion. Medication Performed a rapid injection of agitated mix of 9 cc saline and 1cc air to assess for atrial septal defect. MMode/2D Measurements & Calculations LVIDd: 5.6 cm IVSd: 0.76 cm Ao root diam: 3.2 cm LVIDs: 3.6 cm LVPWd: 0.85 cm RVDd: 3.3 cm FS: 36.0 % LAV(MOD-bp): 39.3 ml LVAd ap4: 34.2 cm2 SV(MOD-sp4): 72.6 ml LAV(MOD-bp) Indexed: 20.5 ml/m2 EDV(MOD-sp4): 117.3 ml LAV(MOD-sp2): 36.7 ml EDV(sp4-el): 120.9 ml LAV(MOD-sp4): 42.3 ml LVAs ap4: 19.2 cm2 ESV(MOD-sp4): 44.7 ml ESV(sp4-el): 45.7 ml EF(MOD-sp4): 61.9 % EF(sp4-el): 62.3 % SV(sp4-el): 75.3 ml LA A4 area: 15.6 cm2 LA dimension(2D): 3.9 cm RA A4 area: 13.3 cm2 Time Measurements MV dec time: 0.31 sec Doppler Measurements & Calculations MV E max luis f: 68.0 cm/sec Lat Peak E' Luis F: 12.7 cm/sec Med Peak E' Luis F: 11.0 cm/sec MV A max luis f: 77.8 cm/sec E/E' lat: 5.4 E/E' med: 6.2 MV E/A: 0.88 Ao V2 max: 136.9 cm/sec LV V1 max: 126.2 cm/sec PA V2 max: 128.2 cm/sec Ao max P.5 mmHg LV V1 max P.4 mmHg TR max lusi f: 287.4 cm/sec TR max P.0 mmHg Interpretation Summary Left ventricular systolic function is normal. The estimated ejection fraction is 60 %. Normal diastology for age. Ordering Physician: Sumeet Garcia Referring Physician: AMANDA MICHAEL Performed By: Shirley Calixto RDCS
--- NOTE | 2018-07-30 00:36 | MRI_ITS ---
STUDY: MRA OF THE HEAD WITHOUT CONTRAST REASON FOR EXAM: Male, 48 years old. Right-sided facial droop TECHNIQUE: 3-D jqql-xn-agnzci (TOF) imaging was performed with MIPs. The study was performed unenhanced. COMPARISON: None. FINDINGS: Normal bilateral petrous carotid arteries. Normal right cavernous carotid artery with a normal supraclinoid bifurcation. Normal left cavernous carotid artery with a normal supraclinoid bifurcation. Normal right A1 segments of the anterior cerebral artery. Normal left A1 segments of the anterior cerebral artery. Normal intact anterior communicating artery (ACOM). Normal bilateral A2 segments of the anterior cerebral arteries. Normal right M1 and M2 segments of the middle cerebral arteries, with a normal M1 bifurcation. Normal left M1 and M2 segments of the middle cerebral arteries, with a normal M1 bifurcation. Normal right posterior communicating artery (PCOM). Normal left posterior communicating artery (PCOM). Normal bilateral vertebral arteries. Normal basilar artery with a normal basilar bifurcation. The visualized bilateral superior cerebellar (SCA) arteries are normal. Normal bilateral P1, P2 and visualized P3 segments of the posterior cerebral arteries. There is no demonstrated aneurysm of the [place] of [place]. There is no major vessel occlusion or hemodynamically significant stenosis. There is no demonstrated abnormality of the visualized brain. MRI/MRA Head ONLY without Contrast IMPRESSION: Normal MRA of the head Electronically Signed: Nirav Keller MD at 9:45 EDT Tel , Service support ,
[2018-07-30] MEDS: Atorvastatin Calcium 80 MG Tablet PO (01:12)
[2018-07-30] MEDS: 0.9% Normal Saline 1,000 ML 150 ML IV (01:12)
[2018-07-30 01:43] LABS: Hemoglobin A1c 5.3 % (4.2-6.3)
[2018-07-30] MEDS: Doxycycline 100 MG CAPSULE PO ×2 (01:44→09:30)
[2018-07-30] MEDS: Hydrocortisone 2.5% Crm 1 APPLIC TOPICAL ×2 (01:44→09:30)
[2018-07-30 06:48] LABS: Cholesterol 163 mg/dL (200); High Density Lipoprotein 24 mg/dL; Triglycerides 189 mg/dL; Very Low Density Lipoprotein 38 mg/dL (5-40)
--- NOTE | 2018-07-30 08:59 | CASEMGMT ---
Patient has a Healthcare POA and Healthcare LW on file at [facility]. Mary SUMMERS VALIDATION LEADER
[2018-07-30] MEDS: guaiFENesin 1,200 MG Tablet 1200 MG PO (09:30)
[2018-07-30] MEDS: Aspirin 81 MG TAB.CHEW PO (09:30)
[2018-07-30] MEDS: Enoxaparin 40 MG/0.4 ML Syringe SC (09:30)
--- NOTE | 2018-07-30 11:25 | DCINST_ITS ---
- Discharge Diagnoses Current Active Problems: Current Active and Chronic Problems Stroke-like symptoms (Acute) You will use the following diet at home:: No restrictions Your food should be the consistency of: Regular Your liquids should be the consistency of: Regular/Thin Discharge Activity: Return to Normal Activity Allergies/Adverse Reactions: Allergies Penicillins [PCN] Adverse Reaction (Verified 07/29/18 22:06) Anaphylaxis Medications to take at Discharge Albuterol Inhaler [Ventolin Hfa] 2 puff INHALATION Q4H PRN PRN #1 inhaler 03/28/18 Nivolumab [Opdivo] 40 mg IV QMONTH 05/02/18 Lisinopril [Zestril] 10 mg PO DAILY 07/29/18 Acetaminophen Liquid [Tylenol Liquid] 650 mg NG Q4H PRN PRN udc 07/30/18 Aspirin [Aspirin, Baby] 81 mg PO DAILY@0800 tab.chew 07/30/18 Atorvastatin Calcium [Lipitor] 80 mg PO QHS #30 tablet 07/30/18 Guaifenesin [Mucinex] 1,200 mg PO BID 07/30/18 The following prescriptions were given: Atorvastatin Calcium [Lipitor] 80 mg PO QHS #30 tablet Primary Care Physician: Miguelito Littlejohn MD [Primary Care Provider] - Please follow up with your Primary Care Physician in: 1-2 weeks Test Results: Test results from this visit will be discussed in further detail at your follow- up appointment, if applicable. Please Follow Up With: Kenton Jimenez MD When: 3-4 weeks Please Follow Up With: Yomi Ferreira MD When: as directed Proposed Discharge Date: 07/30/18
--- NOTE | 2018-07-30 11:53 | CASEMGMT ---
SURINDER completed PHQ-9 with patient as he may have had a TIA. He scored a 5 which indicates mild depression. Patient said his doctor started him on Zoloft, but he does not feel like it is working. He has a follow up visit on August 13. He said he has Cancer and it can get him down sometimes. He said he has not tried counseling, but was willing to take a list of local counseling agencies. He denies being suicidal or homicidal. He thanked SURINDER for talking with him. Mary SUMMERS MSW
--- NOTE | 2018-07-30 13:58 | PCM.DC.SUM ---
<Thanh Martinez - Last Filed: 07/30/18 13:58> Discharge Date and Diagnosis Date of Admission: 07/29/18 Date of Discharge: 07/30/18 - Primary Discharge Diagnosis Active and Suspected Problems TIA metastatic renal cell carcinoma mets to lung and bone GORDO ruled out HTN - Secondary Discharge Diagnosis Chronic Problems Metastatic renal cell carcinoma (Chronic) Anxiety (Chronic) Hospital Course and Treatment Imaging Results: CT/Brain/Head without Contrast IMPRESSION: No CT evidence of acute infarct or hemorrhage. If there is clinical concern for hyperacute ischemia that is not evident by CT, MRI should be considered if possible. RAD/Chest 1 View IMPRESSION: Significant interval improvement in bilateral pulmonary nodules. No acute alveolar disease. Echo: Interpretation Summary Left ventricular systolic function is normal. The estimated ejection fraction is 60 %. Normal diastology for age. MRI/Brain without Contrast IMPRESSION: Normal unenhanced MRI of the brain. No acute infarct. MRI/MRA Head ONLY without Contrast IMPRESSION: Normal MRA of the head MRI/MRA Neck WITH and W/O Contrast IMPRESSION: Normal bilateral cervical carotid and vertebral arteries. Operations: None Procedures: 2-D Echocardiogram Summary of Care Provided: Hospital Course: The patient is a 48 year old M with pmhx of renal cell carcinoma with mets to the lungs and bone, treated by Dr. Ferreira with jodi, who presented to the ER with right facial droop and right hand weakness. In the ER CT brain was negative, creatinine was mildly elevated, and troponin was negative. He was admitted for stroke workup, placed in the PCU on tele. No events on tele. His symptoms completely resolved by the following day. MRI brain and MRA head and neck were completely negative. Echo was unremarkable. Given his symptomatology he was felt to still have had either a stroke or TIA. He was placed on aspirin and statin. He was advised to follow up with neurology in 3-4 weeks. He will also need to follow up with heme/onc as directed, and his PCP in 1-2 weeks. He was discharged home in stable condition This patient was seen by Thanh Martinez PA-C under the supervision of Dr. Gallagher. [] - Physical Exam General: Alert, Oriented x3, Cooperative HEENT: Atraumatic, PERRLA, EOMI, Normocephalic Neck: Supple, No JVD, Negative Carotid Bruits Lungs: Clear to auscultation, Normal air movement Cardiovascular: Regular rate, No murmurs Abdomen: Bowel Sounds Present, Soft, Non Tender Extremities: No edema, Capillary Refill Less than 3 Seconds Skin: No rashes, No breakdown Musculoskeletal: No Tenderness to Palpation of Joints or Extremities Neurological: Cranial nerves II-XII grossly intact Psych/Mental Status: Normal Affect, Appropriate, Alert and oriented to time, place, person, mood and affect Vital Signs Temp Pulse Resp BP Pulse Ox 98.1 F 73 18 144/79 H 99 07/30/18 12:38 07/30/18 12:38 07/30/18 12:38 07/30/18 12:38 07/30/18 12:38 Oxygen Flow Rate (L/min) 2 Oxygen Delivery Method Room Air Weight: 161 lb 6.054 oz Body Mass Index (BMI) 22.6 Finger Stick Blood Glucose 92 Intake and Output for Last 24 Hours 07/28/18 07/29/18 07/30/18 23:59 23:59 23:59 Intake Total 1007 / 1007 Balance 1007 / 1007 Laboratory Tests Past 24 Hrs 07/29/18 07/29/18 07/29/18 22:52 22:52 22:52 WBC 7.9 RBC 5.13 Hgb 14.1 Hct 42.0 MCV 81.9 MCH 27.5 MCHC 33.6 RDW 15.2 H RDW Differential 45.4 H Plt Count 190 MPV 9.1 Immature Gran % (Auto) 0.100 Neut % (Auto) 59.4 Lymph % (Auto) 26.4 [place] % (Auto) 9.0 Eos % (Auto) 4.6 Baso % (Auto) 0.5 Absolute Neuts (auto) 4.7 Absolute Lymphs (auto) 2.08 Total Counted Not Reportable PT 13.9 INR 1.1 APTT 32.1 Sodium 138 Potassium 3.9 Chloride 108 H Carbon Dioxide 27.0 Anion Gap 3 L BUN 16 Creatinine 1.48 H Estim Creat Clear Calc 62.03 Est GFR (MDRD) Af Amer 65 Est GFR (MDRD) Non-Af 53 L BUN/Creatinine Ratio 10.8 Glucose 103 Hemoglobin A1c Calcium 8.3 L Troponin I < 0.015 Triglycerides Cholesterol LDL Cholesterol VLDL Cholesterol HDL Cholesterol 07/29/18 07/30/18 07/30/18 22:52 01:18 06:10 WBC RBC Hgb Hct MCV MCH MCHC RDW RDW Differential Plt Count MPV Immature Gran % (Auto) Neut % (Auto) Lymph % (Auto) [place] % (Auto) Eos % (Auto) Baso % (Auto) Absolute Neuts (auto) Absolute Lymphs (auto) Total Counted PT INR APTT Sodium Potassium Chloride Carbon Dioxide Anion Gap BUN Creatinine Estim Creat Clear Calc Est GFR (MDRD) Af Amer Est GFR (MDRD) Non-Af BUN/Creatinine Ratio Glucose Hemoglobin A1c 5.3 Calcium Troponin I < 0.015 Triglycerides 189 Cholesterol 163 LDL Cholesterol 101 VLDL Cholesterol 38 HDL Cholesterol 24 L POC Glucose 07/29/18 22:16 POC Glucose 92 Discharge Diet: Low fat/ Low Cholesterol, 2000 mg Sodium Diet Discharge Activity: Return to Normal Activity Home Medications: Medications to take at Discharge Albuterol Inhaler [Ventolin Hfa] 2 puff INHALATION Q4H PRN PRN #1 inhaler 03/28/18 Nivolumab [Opdivo] 40 mg IV QMONTH 05/02/18 Lisinopril [Zestril] 10 mg PO DAILY 07/29/18 Acetaminophen Liquid [Tylenol Liquid] 650 mg NG Q4H PRN PRN udc 07/30/18 Aspirin [Aspirin, Baby] 81 mg PO DAILY@0800 tab.chew 07/30/18 Atorvastatin Calcium [Lipitor] 80 mg PO QHS #30 tablet 07/30/18 Guaifenesin [Mucinex] 1,200 mg PO BID 07/30/18 Following Prescrptions Were Given to Patient: Atorvastatin Calcium [Lipitor] 80 mg PO QHS #30 tablet Primary Care Physician: Miguelito Littlejohn MD [Primary Care Provider] - Please follow up with your Primary Care Physician in: 1-2 weeks Please Follow Up With: Kenton Jimenez MD When: 3-4 weeks Please Follow Up With: Yomi Ferreira MD When: as directed Disposition: Home Minutes spent on discharge:: 35 Patient Condition:: Stable Medical Necessity - Tobacco Use Smoking Status: Never smoker Meaningful Use Info Meaningful Use Diagnoses (Choose all that apply): Ischemic CVA - CVA Therapy Assessed for PT,OT and/or ST?: Yes - Ischemic Stroke Antithrombotic order at d/c?: Yes Dx of Atrial fib/flutter?: No Anticoagulant at discharge?: No Reason anticoagulant not ordered: Procedure not Indicated Statins at discharge?: Yes Primary Dx Acute Ischemic CVA?: Yes IV tPA ordered during stay?: No Reason IV t-PA not ordered: Procedure not Indicated <Zackary Gallagher Orestes - Last Filed: 07/30/18 17:28> Discharge Date and Diagnosis - Secondary Discharge Diagnosis Chronic Problems Metastatic renal cell carcinoma (Chronic) Anxiety (Chronic) Hospital Course and Treatment Summary of Care Provided: The patient is a 48 year old M [] - Physical Exam Vital Signs Temp Pulse Resp BP Pulse Ox 98.1 F 73 18 144/79 H 99 07/30/18 12:38 07/30/18 12:38 07/30/18 12:38 07/30/18 12:38 07/30/18 12:38 Oxygen Flow Rate (L/min) 2 Oxygen Delivery Method Room Air Weight: 161 lb 6.054 oz Body Mass Index (BMI) 22.6 Finger Stick Blood Glucose 92 Intake and Output for Last 24 Hours 07/28/18 07/29/18 07/30/18 23:59 23:59 23:59 Intake Total 1007 / 1007 Balance 1007 / 1007 Laboratory Tests Past 24 Hrs 07/29/18 07/29/18 07/29/18 22:52 22:52 22:52 WBC 7.9 RBC 5.13 Hgb 14.1 Hct 42.0 MCV 81.9 MCH 27.5 MCHC 33.6 RDW 15.2 H RDW Differential 45.4 H Plt Count 190 MPV 9.1 Immature Gran % (Auto) 0.100 Neut % (Auto) 59.4 Lymph % (Auto) 26.4 [place] % (Auto) 9.0 Eos % (Auto) 4.6 Baso % (Auto) 0.5 Absolute Neuts (auto) 4.7 Absolute Lymphs (auto) 2.08 Total Counted Not Reportable PT 13.9 INR 1.1 APTT 32.1 Sodium 138 Potassium 3.9 Chloride 108 H Carbon Dioxide 27.0 Anion Gap 3 L BUN 16 Creatinine 1.48 H Estim Creat Clear Calc 62.03 Est GFR (MDRD) Af Amer 65 Est GFR (MDRD) Non-Af 53 L BUN/Creatinine Ratio 10.8 Glucose 103 Hemoglobin A1c Calcium 8.3 L Troponin I < 0.015 Triglycerides Cholesterol LDL Cholesterol VLDL Cholesterol HDL Cholesterol 07/29/18 07/30/18 07/30/18 22:52 01:18 06:10 WBC RBC Hgb Hct MCV MCH MCHC RDW RDW Differential Plt Count MPV Immature Gran % (Auto) Neut % (Auto) Lymph % (Auto) [place] % (Auto) Eos % (Auto) Baso % (Auto) Absolute Neuts (auto) Absolute Lymphs (auto) Total Counted PT INR APTT Sodium Potassium Chloride Carbon Dioxide Anion Gap BUN Creatinine Estim Creat Clear Calc Est GFR (MDRD) Af Amer Est GFR (MDRD) Non-Af BUN/Creatinine Ratio Glucose Hemoglobin A1c 5.3 Calcium Troponin I < 0.015 Triglycerides 189 Cholesterol 163 LDL Cholesterol 101 VLDL Cholesterol 38 HDL Cholesterol 24 L POC Glucose 07/29/18 22:16 POC Glucose 92 Code Visit Addendum: Dr. Gallagher I personally examined the patient and reviewed the chart. I agree with the above. 48-year-old male with metastatic kidney cancer currently on immunotherapy with improvement, presented with 4-day history of right facial droop and right hand numbness. He went to an urgent care where they noticed and they recommended that he come to the ER. He had an MRI of his brain as well as an MRA of his head and neck which were all negative for an stroke and occlusion. His right hand numbness improved to resolution and his right facial droop had also improved though still slightly evident. He was started on aspirin since he was in on 1 when he came in, as well as Lipitor. He will follow-up with neurology as an outpatient as well as his primary care doctor. Also on the day of discharge she had an echocardiogram which was also essentially normal. OBSV E&M: [id number] Observation care discharge
== END 2018-07-30 11:24 | disposition home or self-care (01) ==
LOC: ED 23:19 → PCU 07-30 01:37
PROVIDERS: Admitting Provider Hospitalist; Emergency Provider Emergency Medicine; Family Provider Family Medicine; PCP Family Medicine; Visit Provider Family Medicine
DX: G45.9 Transient cerebral ischemic attack, unspecified (principal); C78.00 Secondary malignant neoplasm of unspecified lung; C64.9 Malignant neoplasm of unspecified kidney, except renal pelvis; C79.51 Secondary malignant neoplasm of bone; I10 Essential (primary) hypertension; R29.810 Facial weakness; H66.91 Otitis media, unspecified, right ear; R21 Rash and other nonspecific skin eruption; R29.701 NIHSS score 1; F41.9 Anxiety disorder, unspecified; Z79.899 Other long term (current) drug therapy; I45.10 Unspecified right bundle-branch block
CPT/HCPCS: 36415; 70450; 70544; 70549; 70551; 71045; 80048; 80061; 82962; 83036; 84484; 85025; 85610; 85730; 92523; 92610; 93005; 93306; 96360; 96361; 96372; 99218; 99285; A9575; J7030; Q9957; A4216; G0378

== ENCOUNTER 2018-11-14 13:01 | Emergency (ER) | payer MEDICAID, SELFPAY ==
[2018-07-30 07:31] VITALS: BMI 22.6
[2018-11-14 13:02] VITALS: BP 139/57; PULSE 75; RESP 17; TEMP 36.7; O2SAT 100; BMI 24.5
--- NOTE | 2018-11-14 13:20 | EKG12_ITS ---
Test Reason : Blood Pressure : / mmHG Vent. Rate : 061 BPM Atrial Rate : 061 BPM P-R Int : 128 ms QRS Dur : 122 ms QT Int : 464 ms P-R-T Axes : 053 -24 025 degrees QTc Int : 467 ms Normal sinus rhythm RSR' or QR pattern in V1 suggests right ventricular conduction delay Borderline ECG Confirmed by NEDRA BROWN, DONNY ([id number]), editorial manager CIELO LOBO ([id number]) on 11/17/2018 12:13:27 PM Referred By: Confirmed By:DONNY SNEED MD
--- NOTE | 2018-11-14 13:32 | ED.DCSUM_ITS ---
- ER Visit Summary Date of Service: 11/14/18 Chief Complaint: Chest pain History of Present Illness: The patient is a 48 M who presents emergency department for evaluation of left-sided chest pain. Patient states he went to bed last night around 9:00. States his been feeling fatigued and generalized myalgias. Around 11 PM he woke with a left-sided chest pressure. He felt a little short of breath. Is able to get some sleep when he woke this morning is still present. However his symptoms have abated since arriving here in the department. He denies any black or bloody stools or indigestion. No abdominal pain. Notes a history of stage IV renal cancer. States he had some tumors that caused rib damage on that left side. He denies any cough or sputum production. No headache or light sensitivity. He denies any IV drug use or smoking history. He is currently being treated with immunotherapy which he states has been helping significantly. Physical Examination: Afebrile vital signs are stable Gen: Well-nourished well-developed Head: Normocephalic atraumatic Eyes: Perrl EOMI ENT: TMs clear no rhinorrhea moist mucous membranes Neck: Supple no lymphadenopathy no JVD nontender CVS: Regular rate rhythm no murmurs normal S1-S2 Respiratory: No distress clear to auscultation bilaterally Abdomen: Soft nontender nondistended normal bowel sounds no masses Back: Nontender Extremity: Nontender no edema Skin: Normal color no rash Neuro: alert orientated ?3 CN II-XII intact normal strength sensation Psych: Normal affect normal mood Test Results: EKG demonstrates a sinus rhythm at a rate of 61. Troponin negative CBC and BMP normal. CTA of the chest is pending. Emergency Department Course and Treatment: Remains asymptomatic. We will await the results of the CTA of the chest. This is negative I will ask for him to follow-up with his doctors talk about stress testing. His VERNA score is 0 and his heart score is 2. Impression: 1. Chest pain This note was generated with People[employer] dictation software. It may contain incorrect words, spelling, and punctuation that were not noted in review of the chart prior to signing <Kenneth Alfaro - Last Filed: 11/14/18 15:45> - ER Visit Summary Date of Service: 11/14/18 Test Results: Care of the patient was turned over to me pending CTA results. There is no evidence of pulmonary embolism. There is interval improvement of the pulmonary metastatic disease. This was interpreted by the radiologist. Patient was advised of his results. Patient is agreeable to follow-up as an outpatient. Patient and family understood and were agreeable with the plan. All questions were answered. Disposition: Discharge home Impression: 1. Chest pain This note was generated with PeopleAdmin dictation software. It may contain incorrect words, spelling, and punctuation that were not noted in review of the chart prior to signing <Michael Escalera - Last Filed: 11/14/18 16:08> ED Disposition <Kenneth Alfaro - Last Filed: 11/14/18 15:45> <Michael Escalera - Last Filed: 11/14/18 16:08> - Plan for ED Patient: Disposition: Home or Assisted Living Diagnosis: Chest pain Instructions: CHEST PAIN, Uncertain Cause Referrals: Miguelito Littlejohn MD [Primary Care Provider] - As soon as possible
[2018-11-14 13:43] LABS: Absolute Lymphocyte Count 1.88 X10^3/uL (0.83-4.51); Absolute Neutrophil Count 4.8 X10^3/uL (2.0-7.7); Basophil# 0.05 X10^3/uL; Basophil% 0.7 % (0-1); Eosinophil# 0.25 X10^3/uL; Eosinophils% 3.3 % (0-5); Hematocrit 41.5 % (40-54); Hemoglobin 14.2 g/dL (13.0-16.5); Lymphocyte # 1.88 X10^3/ul (4.0); Mean Corp Hgb Conc 34.2 g/dL (32-36); Mean Corpuscular Hgb 30.3 pg (27.0-32.0); Mean Corpuscular Volume 88.7 fL (80-94); Mean Platelet Vol. 9.4 fl (6.2-12.0); Monocyte# 0.48 X10^3/uL; Monocyte% 6.4 % (0-10); NRBC Flagged by Analyzer 0 % (0-5); Neutrophil # 4.84 X10^3/uL (2.7-7.7); Neutrophil % 64.2 % (47-70); Platelet Count 214 K/mm3 (150-450); RBC Distribution Width CV 13.1 % (11.6-14.6); RBC Distribution Width SD 42.4 fl (35.1-43.9); Red Blood Count 4.68 M/mm3 (4.6-6.2); White Blood Count 7.5 K/mm3 (4.4-11.0)
[2018-11-14 14:00] LABS: Anion Gap 6 (5-15); BUN 22 mg/dL (7-18); BUN/Creat Ratio 21.6 RATIO (10-20); Calcium,Total 8.4 mg/dL (8.5-10.1); Chloride 108 mmol/L (98-107); Creatinine, Serum 1.02 mg/dL (0.70-1.30); EST Glomerular Filtration Rate 82 mL/min (>60); Est Glom Filt Rate - Afr Amer 99 mL/min (>60); Estimated Creatinine Clearance 92.28 ml/min; Glucose 98 mg/dL (74-106); Potassium 3.8 mmol/L (3.5-5.1); Sodium Level 142 mmol/L (136-145)
--- NOTE | 2018-11-14 14:02 | CT_ITS ---
STUDY: CTA CHEST REASON FOR EXAM: Male, 48 years old. Left rib pain and stage IV renal cancer with metastatic disease. RADIATION DOSAGE (If Supplied By Facility): CTDIvol = ( 11.05 ) mGy, DLP = ( 457.38 ) mGycm TECHNIQUE: The examination was performed with the intravenous administration of IV 75mL Isovue-370 75. Post-processing of the angiographic images was performed, with multiplanar reformation and 3D reconstruction. Individualized dose optimization techniques were used for this CT. COMPARISON: Chest x-ray 03/31/2018 and CTA chest May 03, 2018 FINDINGS: Normal enhancement of the main pulmonary artery and right and left pulmonary arteries. Normal enhancement of the bilateral peripheral pulmonary arteries. There is no demonstrated pulmonary embolism. Normal thoracic aorta and visualized great vessels. There is no demonstrated aortic dissection. Normal heart and pericardium. Normal mediastinum. Normal hilar regions. Normal visualized trachea and bronchi. Lobulated nodule left lower lobe measures 6 x 13 mm image 106. Spiculated nodule left lower lobe measures 10 mm on image 134. 4 mm nodule left upper lobe on image 148. 5 mm nodule left lower lobe image #57. Innumerable small spiculated nodules in the right lung measuring up to 6 mm. These appear smaller in size and number compared with the previous exam. Normal pulmonary parenchyma. Normal pleura. Normal chest wall structures. Multiple old rib fractures on the left previously noted osteolytic lesions appear improved. Normal visualized upper abdomen. CT/CTA Chest W/WO Contrast IMPRESSION: Interval improvement in the pulmonary metastatic disease and osteolytic metastatic disease left hemithorax. Electronically Signed: Kenan Anderson MD at 15:58 EDT , Service support ,
[2018-11-14 15:02] VITALS: BP 151/100; PULSE 75; RESP 17; O2SAT 99
[2018-11-14 16:10] VITALS: BP 153/91
== END 2018-11-14 16:13 | disposition home or self-care (01) ==
PROVIDERS: Emergency Provider Emergency Medicine; Family Provider Family Medicine; PCP Family Medicine
DX: R07.89 Other chest pain (principal); C64.9 Malignant neoplasm of unspecified kidney, except renal pelvis; C78.00 Secondary malignant neoplasm of unspecified lung; Z85.528 Personal history of other malignant neoplasm of kidney; I10 Essential (primary) hypertension
CPT/HCPCS: 71275; 80048; 84484; 85025; 93005; 99285; Q9967; A4216

== ENCOUNTER 2021-08-10 10:16 | Inpatient (IN) | payer MEDICARE, MEDICAID, SELFPAY ==
[2021-08-10] VITALS (9 sets, daily range): BP systolic 137–178; BP diastolic 86–112; PULSE 71–103; RESP 12–18; TEMP 36.4–36.8; O2SAT 98–100; BMI 27.1; BMI 26.5
--- NOTE | 2021-08-10 10:38 | CT_ITS ---
EXAM: CT ANGIOGRAPHY HEAD AND NECK WITH INTRAVENOUS CONTRAST CLINICAL INDICATION: right facial droop TECHNIQUE: [place] [facility]/head and neck CT angiography protocol performed with intravenous contrast. CTDIvol = ( 28.75 ) mGy, DLP = ( 3137.5 ) mGycm This CT exam was performed using one or more of the following dose reduction techniques: automated exposure control, adjustment of the mA and/or kV according to patient size, and/or use of iterative reconstruction technique. This report was created using POS on [employer] report generation technology. MIP reconstructed images were created and reviewed. CONTRAST: IV 100mL Isovue-370 COMPARISON: None. FINDINGS: HEAD: RIGHT ANTERIOR CEREBRAL ARTERY: Unremarkable. No significant stenosis at the visualized segments. Anterior communicating artery is present. No aneurysm. RIGHT MIDDLE CEREBRAL ARTERY: Unremarkable. No significant stenosis at the visualized segments. No aneurysm. RIGHT POSTERIOR CEREBRAL ARTERY: Unremarkable. No occlusion or significant stenosis. No aneurysm. RIGHT INTRACRANIAL INTERNAL CAROTID ARTERY: Unremarkable. No significant stenosis. No dissection or occlusion. RIGHT INTRACRANIAL VERTEBRAL ARTERY: Unremarkable. No significant stenosis. No dissection or occlusion. LEFT ANTERIOR CEREBRAL ARTERY: Unremarkable. No significant stenosis at the visualized segments. No aneurysm. LEFT MIDDLE CEREBRAL ARTERY: Unremarkable. No significant stenosis at the visualized segments. No aneurysm. LEFT POSTERIOR CEREBRAL ARTERY: Unremarkable. No occlusion or significant stenosis. No aneurysm. LEFT INTRACRANIAL INTERNAL CAROTID ARTERY: Unremarkable. No significant stenosis. No dissection or occlusion. LEFT INTRACRANIAL VERTEBRAL ARTERY: Unremarkable. No significant stenosis. No dissection or occlusion. BASILAR ARTERY: Unremarkable. No significant stenosis. No aneurysm. OTHER VASCULATURE: No vascular malformation. BRAIN AND EXTRA-AXIAL SPACES: Old lacunar infarct involving the left head of the caudate and anterior aspect of the left basal ganglia. Old lacunar infarct involving the left thalamic region.. NECK: RIGHT COMMON CAROTID ARTERY: Unremarkable. No significant stenosis. No dissection or occlusion. RIGHT EXTRACRANIAL INTERNAL CAROTID ARTERY: Unremarkable. No significant stenosis. No dissection or occlusion. RIGHT EXTERNAL CAROTID ARTERY: Unremarkable. No occlusion. RIGHT EXTRACRANIAL VERTEBRAL ARTERY: Unremarkable. No significant stenosis. No dissection or occlusion. LEFT COMMON CAROTID ARTERY: Unremarkable. No significant stenosis. No dissection or occlusion. LEFT EXTRACRANIAL INTERNAL CAROTID ARTERY: Unremarkable. No significant stenosis. No dissection or occlusion. LEFT EXTERNAL CAROTID ARTERY: Unremarkable. No occlusion. LEFT EXTRACRANIAL VERTEBRAL ARTERY: Unremarkable. No significant stenosis. No dissection or occlusion. GREAT VESSELS OF AORTIC ARCH: Unremarkable as visualized. Normal anatomy, patent. LUNG APICES: Unremarkable as visualized. HEAD and NECK: BONES/JOINTS: Complete opacification of the left maxillary sinus. Chronic fracture defect at the left orbital floor. No discrete lytic or blastic abnormalities. SOFT TISSUES: Unremarkable. CAROTID STENOSIS REFERENCE USING NASCET CRITERIA: % ICA stenosis = (1 - narrowest ICA diameter/diameter of distal cervical ICA) x 100. Mild - <50% stenosis. Moderate - 50-69% stenosis. Severe - 70-94% stenosis. Near occlusion - 95-99% stenosis. Occluded - 100% stenosis. CT/CTA Head AND Neck W/ Contrast IMPRESSION: No acute findings in the arteries of the head and neck. No no large vessel thrombus. Electronically Signed: Mo Navarro MD at 13:23 EDT ,
--- NOTE | 2021-08-10 10:39 | EKG12_ITS ---
Test Reason : Blood Pressure : / mmHG Vent. Rate : 090 BPM Atrial Rate : 090 BPM P-R Int : 138 ms QRS Dur : 120 ms QT Int : 416 ms P-R-T Axes : 050 -46 034 degrees QTc Int : 508 ms Normal sinus rhythm Left anterior fascicular block Inferior infarct , age undetermined , cannot be excluded Poor R wave progression Abnormal ECG Confirmed by NEDRA BROWN, DONNY ([id number]), senior technical editor HARIKA CALLEJAS ([id number]) on 08/13/2021 8:15:04 AM Referred By: EARLINE Confirmed By:DONNY SNEED MD
--- NOTE | 2021-08-10 10:40 | CT_ITS ---
INDICATION: left flank pain. Metastatic renal cell cancer-stage IV. EXAMINATION: CT ABDOMEN AND PELVIS WITHOUT CONTRAST - CT Abdomen And Pelvis W/O Contrast Injection TECHNIQUE: Helically acquired images were obtained of the abdomen and pelvis without oral or IV contrast. A radiation dose optimization technique was used for this scan. IV Contrast dosage and agent: None. Oral contrast: None. COMPARISON: CTA chest November 14, 2018. FINDINGS: LOWER CHEST: Lung bases are clear. Small right basilar calcified granuloma. Moderate hiatal hernia. No cardiomegaly or pericardial effusion. LIVER: Homogeneous. No focal mass. GALLBLADDER AND BILIARY TREE: No calcified gallstones. No gallbladder distension or wall edema. No intra- or extrahepatic biliary ductal dilation. PANCREAS: No focal cystic or solid mass. SPLEEN: Normal size without focal cystic or solid mass. ADRENAL GLANDS: No nodules. KIDNEYS AND URETERS: Right renal 4.3 x 3.4 x 5.2 cm solid mass with internal calcifications. Atretic right renal cortex. Nonobstructive left renal 3.5 mm stone. Unremarkable ureters and bladder. Normal renal size and position. No hydronephrosis. PERITONEUM: No ascites or free air. No other fluid collection. BOWEL: No evidence of acute appendicitis. No stomach or bowel distension. Large colonic stool burden from cecum to rectum with decompressed hepatic flexure LYMPH NODES: No enlarged mesenteric or retroperitoneal lymph nodes. VESSELS: Aorta is non-dilated. REPRODUCTIVE ORGANS: Prostate 4.8 cm transverse. ABDOMINAL WALL: Slight fat-containing left inguinal hernia without inflammation.. BONES: No lytic or blastic abnormality. CT/Abdomen/Pelvis without Cont IMPRESSION: Nonobstructive left nephrolithiasis. No evidence of current ureteral stone or hydronephrosis. No specific finding to explain patient''s pain. Large colonic stool burden with decompressed hepatic flexure Moderate hiatal hernia. Right renal 5.2 cm solid mass concerning for renal cell carcinoma, compatible with history. Electronically Signed: Khari Walsh MD at 12:59 EDT ,
--- NOTE | 2021-08-10 10:41 | EX.ED.DYSGE1 ---
HPI History of Present Illness Chief Complaint: Neuro S/Sx Informant: patient Onset/Context/Timing Onset: Yesterday Current Severity: Moderate Maximum Severity: Moderate Narrative Narrative: Patient presents for 2 separate complaints. First complaint is right facial droop that he noted when he awoke yesterday morning. He was last noted to be normal around midnight night/Thursday morning. He presents for evaluation on Thursday morning. He reports right facial droop with some tingling around the right side of his mouth. He also reports some tingling in his right hand. He did have a similar presentation 3 years ago that spontaneously resolved. MRI at that time was negative. It was assumed he had a TIA and was started on aspirin and a statin per hospital discharge summary. Second complaint is left flank pain. Patient states he has a known left inguinal hernia. Has had increased pain around the left flank area over the last couple days. He states the pain is only present when he stands. [facility] Medical History Anxiety Asthma Metastatic renal cell carcinoma Stroke-like symptoms Home Medications nivolumab 40 mg/4 mL intravenous solution (Opdivo) 40 mg IV [facility] cancer tx 05/02/18 [History Last Taken 11/08/18] amlodipine 10 mg tablet 10 mg PO DAILY 08/10/21 [History Last Taken Unknown] lisinopril 10 mg tablet 10 mg PO DAILY 08/10/21 [History Last Taken Unknown] Allergy/AdvReac Type Severity Reaction Status Date / Time Penicillins [PCN] AdvReac Anaphylaxis Verified 11/14/18 13:02 Social History Smoking Status: Never smoker ROS ROS ED Constitutional Constitutional ED: Denies chills or fever(s) Eyes Eyes: Denies change in vision or discharge from eye(s) ENT ENT ED: Denies discharge from eye(s), rhinorrhea or sore throat Cardiovascular Cardiovascular: Denies chest pain or palpitations Respiratory/Chest Respiratory/Chest: Denies cough or dyspnea Gastrointestinal Gastrointestinal: Reports abdominal pain; Denies diarrhea, nausea or vomiting Genitourinary Genitourinary ED: Denies difficulty urinating, dysuria or hematuria Musculoskeletal Musculoskeletal: Denies back pain or extremity pain Integumentary Denies Abrasions or rash Neurologic Neurologic: Reports paresthesias RUE and other Details: Right facial droop ; Denies headache(s) Psychiatric Psychiatric: Denies anxiety or depression Allergic/Immunologic Allergic/Immunologic ED: Denies lip swelling or urticaria EXAM Physical Exam Const Vital Signs: 08/10/21 10:17 08/10/21 13:19 Temperature 97.9 F Temperature Source Temporal Pulse Rate 103 H 73 Respiratory Rate 16 14 Blood Pressure 166/112 H 165/108 H Blood Pressure Mean 130 127 Pulse Ox 100 99 Oxygen Delivery Method Room Air Room Air Positive well nourished and well developed General Appearance ED: well developed HEENT Reports moist mucous membranes HEENT Narrative: Right facial droop. Patient able to close eyes tightly and I do not appreciate right upper facial weakness. Eyes PERRL and EOMs intact bilaterally Neck no lymphadenopathy Chest Wall inspection of chest normal and palpation of chest normal Resp normal respiratory effort and clear to auscultation bilaterally Cardio regular rate and regular rhythm GI normal to inspection, nondistended, normoactive bowel sounds and non-tender GI Narrative: Left inguinal hernia. Back/Spine no CVA tenderness Extremity normal to inspection Neuro oriented x3 Neuro Narrative: NIH equals 1 for right-sided facial droop. Normal strength and sensation noted throughout. Psych mental status grossly normal Skin no rashes or lesions noted MDM MDM MDM Narrative Medical decision making narrative: Lab work and urinalysis obtained. CT flank obtained along with CTA of the head and neck. Lab Data Attestation: I reviewed the patient's lab results. Labs: Laboratory Results - last 24 hr 08/10/21 08/10/21 08/10/21 11:00 11:00 12:44 WBC 8.1 RBC 4.71 Hgb 14.1 Hct 42.1 MCV 89.4 MCH 29.9 MCHC 33.5 RDW Std Deviation 42.7 RDW Coeff of Dayanna 12.9 Plt Count 247 MPV 9.6 Immature Gran % (Auto) 0.100 Neut % (Auto) 64.7 Lymph % (Auto) 20.5 [place]falf[place] % (Auto) 6.6 Eos % (Auto) 7.4 H Baso % (Auto) 0.7 Absolute Neuts (auto) 5.2 Absolute Lymphs (auto) 1.66 Nucleated RBC % 0 Sodium 142 Potassium 3.4 L Chloride 106 Carbon Dioxide 29.0 Anion Gap 7 BUN 22 H Creatinine 1.60 H Estim Creat Clear Calc 56.87 Est GFR (MDRD) Af Amer 58 L Est GFR (MDRD) Non-Af 48 L BUN/Creatinine Ratio 13.8 Glucose 112 H Calcium 8.7 Urine Color Yellow Urine Clarity Clear Urine pH 7.0 Ur Specific [place] 1.010 Urine Protein Negative Urine Glucose (UA) Normal Urine Ketones Negative Urine Occult Blood Negative Urine Nitrite Negative Urine Bilirubin Negative Urine Urobilinogen Normal Ur Leukocyte Esterase Negative Urine RBC 0 SEEN Urine WBC 0 SEEN Ur Squamous Epith Cells 0 SEEN Urine Bacteria 0 SEEN Urine Mucus 0 SEEN Radiography Diagnostic Testing: Clinical Impression(s) from Imaging Studies Head/Neck CTA 08/10/21 10:38 IMPRESSION: No acute findings in the arteries of the head and neck. No no large vessel thrombus. Electronically Signed: Mo Navarro MD at 13:23 EDT , Abdomen/Pelvis CT 08/10/21 10:40 IMPRESSION: Nonobstructive left nephrolithiasis. No evidence of current ureteral stone or hydronephrosis. No specific finding to explain patient''s pain. Large colonic stool burden with decompressed hepatic flexure Moderate hiatal hernia. Right renal 5.2 cm solid mass concerning for renal cell carcinoma, compatible with history. Electronically Signed: Khari Walsh MD at 12:59 EDT , EKG Initial EKG: Attestation: I personally reviewed and interpreted this EKG as follows: Interpretation: Sinus Rhythm (Sinus at 90 with no acute ischemia.) Treatment and Re-Evaluation Narrative: On repeat evaluation patient is resting comfortably. He has had no further change in his symptoms while in the emergency room. CTA at this time does not reveal any evidence of vessel blockage. CT flank does reveal the right kidney tumor but no evidence of acute pathology in the left lower quadrant to explain his left flank pain. Test results discussed with the patient I did recommend observation for MRI to rule out stroke. He is in agreement with this plan and I will speak with the hospitalist. Discharge Plan Triage Chief Complaint: Neuro S/Sx ED Provider: Kitty Merrill Dx/Rx/DC Orders Clinical Impression: Facial droop, Left flank pain Prescriptions: No Action Opdivo 40 MG/4 ML solution 40 mg IV QMONTH amlodipine 10 mg Tablet 10 mg PO DAILY lisinopril 10 mg Tablet 10 mg PO DAILY Primary Care Provider: Miguelito Littlejohn Referrals: Miguelito Littlejohn MD [Primary Care Provider] - Disposition Disposition: Acute Care Hospital [facility]
[2021-08-10 11:05] LABS: Absolute Lymphocyte Count 1.66 X10^3/uL (0.83-4.51); Absolute Neutrophil Count 5.2 X10^3/uL (2.0-7.7); Basophil# 0.06 X10^3/uL; Basophil% 0.7 % (0-1); Eosinophils% 7.4 % (0-5); Hematocrit 42.1 % (40-54); Hemoglobin 14.1 g/dL (13.0-16.5); Lymphocyte # 1.66 X10^3/ul (0.83-4.51); Lymphocyte % 20.5 % (19-41); Mean Corp Hgb Conc 33.5 g/dL (32-36); Mean Corpuscular Hgb 29.9 pg (27.0-32.0); Mean Corpuscular Volume 89.4 fL (80-94); Mean Platelet Vol. 9.6 fl (6.2-12.0); Monocyte# 0.53 X10^3/uL; Monocyte% 6.6 % (0-10); NRBC Flagged by Analyzer 0 % (0-5); Neutrophil # 5.23 X10^3/uL (2.7-7.7); Neutrophil % 64.7 % (47-70); Platelet Count 247 K/mm3 (150-450); RBC Distribution Width CV 12.9 % (11.6-14.6); RBC Distribution Width SD 42.7 fl (35.1-43.9); Red Blood Count 4.71 M/mm3 (4.6-6.2); White Blood Count 8.1 K/mm3 (4.4-11.0)
[2021-08-10 11:17] LABS: Anion Gap 7 (5-15); BUN 22 mg/dL (7-18); BUN/Creat Ratio 13.8 RATIO (10-20); Calcium,Total 8.7 mg/dL (8.5-10.1); Chloride 106 mmol/L (98-107); EST Glomerular Filtration Rate 48 mL/min (>60); Est Glom Filt Rate - Afr Amer 58 mL/min (>60); Estimated Creatinine Clearance 56.87 ml/min; Glucose 112 mg/dL (74-106); Potassium 3.4 mmol/L (3.5-5.1); Sodium Level 142 mmol/L (136-145)
[2021-08-10] MEDS: 0.9% Normal Saline 1,000 ML 150 ML IV (11:23)
[2021-08-10 12:50] LABS: Bacteria 0 SEEN /hpf (None Seen); Mucous, Urine 0 SEEN /hpf (<or=2+); Red Blood Cells-Urine 0 SEEN /hpf (0-5); Squamous Epithelial Cells - UA 0 SEEN /hpf (0-5); White Blood Cells 0 SEEN /hpf (0-5)
[2021-08-10 12:52] LABS: Color, Urine Yellow (Yellow); Glucose, Dipstick Normal (Normal); Ketone-Dipstick Negative (Negative); Leukocyte Esterase-Dipstick Negative /ul (Negative); Nitrite-Dipstick Negative (Negative); Occult Blood-Urine Negative /ul (Negative); Protein-Dipstick Negative (Negative); Urine Bilirubin Dipstick Negative (Negative); Urine Clarity Clear (Clear); Urine Urobilinogen Normal (Normal)
--- NOTE | 2021-08-10 14:09 | HP.PCM.HOS_ITS ---
HPI - General General Date of Admission: 08/10/21 Date of Service: 08/10/21 Chief Complaint: Slurred speech, right facial droop - 3 days HPI Narrative ARNULFO URBINA, is a 51 M who presents with the above. Patient has history of metastatic renal cell carcinoma and follows with oncology in the outpatient and is on Opdivo. Patient noticed right facial droop and slurred speech ongoing for about 3 days. He was reluctant to come to the hospital. He denied any weakness in any of his extremities. He does have some numbness in his right upper extremity. He also admits to having gait imbalance. Denied dizziness or palpitations or chest pain. His vitals on arrival was 166/112, heart rate 103, respiratory 16, temperature 97.9 F, SPO2 was 100% on room air. His CBCD was unremarkable. CMP was remarkable for potassium of 3.4, creatinine was 1.60, previous creatinine was 1.02. BUN was 22. UA was unremarkable. CTA of the head and neck was unremarkable. [facility] Medical History Anxiety Asthma Metastatic renal cell carcinoma Stroke-like symptoms Home Medications nivolumab 40 mg/4 mL intravenous solution (Opdivo) [address] [facility] cancer tx 05/02/18 [History Last Taken 11/08/18] amlodipine 10 mg tablet 10 mg PO DAILY 08/10/21 [History Last Taken Unknown] lisinopril 10 mg tablet 10 mg PO DAILY 08/10/21 [History Last Taken Unknown] Allergy/AdvReac Type Severity Reaction Status Date / Time Penicillins [PCN] AdvReac Anaphylaxis Verified 11/14/18 13:02 Family History (Updated 08/10/21 @ 14:[address] Jazmyne Gonzales MD) Father Heart disease Mother Diabetes Social History (Updated 08/10/21 @ 14:[address] Jazmyne Gonzales MD) household members: none Smoking Status: Never smoker alcohol intake: never substance use type: does not use ROS ROS Narrative Constitutional: Reports: Malaise, Weakness, Fatigue. Denies: Anorexia, Chills, Fever, Night Sweats, Weight Change Eyes: Denies: Blurred vision, Cataracts, Conjunctivae Inflammation, Pain, Redness, Vision Change HEENT: Denies: Difficulty Hearing, Difficulty Swallowing, Head Aches, Hearing Changes, Sinus Congestion, Sinus Drainage Cardiovascular: Denies: Chest Pain, Orthopnea, Palpitations Respiratory: Denies: Cough, Shortness of breath at rest, Sputum production Gastrointestinal: Denies: Abdominal Pain, Nausea, Vomiting Genitourinary: Denies: Dysuria Musculoskeletal: Denies: Joint Pain, Joint stiffness, Joint swelling, Joint Tenderness Skin: Denies: Rash, Wounds Neurological: See HPI Vital Signs Vital Signs Vital Signs: 08/10/21 10:17 08/10/21 13:19 Temperature 97.9 F Temperature Source Temporal Pulse Rate 103 H 73 Respiratory Rate 16 14 Blood Pressure 166/112 H 165/108 H Blood Pressure Mean 130 127 Pulse Ox 100 99 Oxygen Delivery Method Room Air Room Air Weight Weight: 88.451 kg Body Mass Index (BMI) 27.1 Physical Exam Narrative Physical exam: General: Alert, Oriented x3, Cooperative, not pale, not jaundice HEENT: Atraumatic Oral: Moist Mucosa Neck: Supple Lungs: Clear to auscultation Cardiovascular: HS I+II, regular, no murmurs Abdomen: Bowel Sounds Present, Soft, Non Tender Extremities: No edema Skin: No rashes, No breakdown Neurological: Right facial droop, tongue deviation to the left, power is 5/5 in all extremities, normal tone Psych/Mental Status: Appropriate Results Lab / Micro Data Result Diagrams: 08/10/21 11:00 08/10/21 11:00 Labs: Laboratory Results - last 24 hr 08/10/21 11:00: WBC 8.1, RBC 4.71, Hgb 14.1, Hct 42.1, MCV 89.4, MCH 29.9, MCHC 33.5, RDW Std Deviation 42.7, RDW Coeff of Dayanna 12.9, Plt Count 247, MPV 9.6, Immature Gran % (Auto) 0.100, Neut % (Auto) 64.7, Lymph % (Auto) 20.5, [place] % (Auto) 6.6, Eos % (Auto) 7.4 H, Baso % (Auto) 0.7, Absolute Neuts (auto) 5.2, Absolute Lymphs (auto) 1.66, Nucleated RBC % 0 08/10/21 11:00: Sodium 142, Potassium 3.4 L, Chloride 106, Carbon Dioxide 29.0, Anion Gap 7, BUN 22 H, Creatinine 1.60 H, Estim Creat Clear Calc 56.87, Est GFR (MDRD) Af Amer 58 L, Est GFR (MDRD) Non-Af 48 L, BUN/Creatinine Ratio 13.8, Glucose 112 H, Calcium 8.7 08/10/21 12:44: Urine Color Yellow, Urine Clarity Clear, Urine pH 7.0, Ur Specific [place] 1.010, Urine Protein Negative, Urine Glucose (UA) Normal, Urine Ketones Negative, Urine Occult Blood Negative, Urine Nitrite Negative, Urine Bilirubin Negative, Urine Urobilinogen Normal, Ur Leukocyte Esterase Negative, Urine RBC 0 SEEN, Urine WBC 0 SEEN, Ur Squamous Epith Cells 0 SEEN, Urine Bacteria 0 SEEN, Urine Mucus 0 SEEN Radiology Impression Head/Neck CTA 08/10/21 10:38 IMPRESSION: No acute findings in the arteries of the head and neck. No no large vessel thrombus. Electronically Signed: Mo Navarro MD at 13:23 EDT , Abdomen/Pelvis CT 08/10/21 10:40 IMPRESSION: Nonobstructive left nephrolithiasis. No evidence of current ureteral stone or hydronephrosis. No specific finding to explain patient''s pain. Large colonic stool burden with decompressed hepatic flexure Moderate hiatal hernia. Right renal 5.2 cm solid mass concerning for renal cell carcinoma, compatible with history. Electronically Signed: Khari Walsh MD at 12:59 EDT , Assessment & Plan Assessment/Plan (1) Facial droop: (2) Hypokalemia: (3) GORDO (acute kidney injury): PLAN: Plan 1. Acute onset of slurred speech with facial droop, last known well 3 days ago Not a tPA candidate, patient with previous history of TIA CTA of the head and neck showed no acute findings or large vessel thrombus Admitting NIHSS score was1 , Admit to PCU, monitor on telemetry, MRI of the brain, 2D echo, Lipid profile in am, HbA1c PT/OT/ST to evaluate and treat 2. Hypokalemia, K3.4, replaced recheck in the 3. Acute kidney injury, likely prerenal, previous creatinine was around 1.02 Will continue on IVF, repeat blood work in am 4. Hypertension, will allow for permissive hypertension, hold amlodipine, lisinopril 5. Metastatic renal cell CA, on Opdivo 6. DVT PPx -Heparin subcu Charges/Coding Visit Charges OBSV E&M: 19397 Initial observation care L3
--- NOTE | 2021-08-10 15:09 | ECHOD_ITS ---
Reason For Study: TIA/CVA Procedure This was a 2D Doppler, Color Flow transthoracic echocardiogram. The study was technically difficult. Exam performed portable in patient room. Left Ventricle Normal LV size. Left ventricular systolic function is normal. The estimated ejection fraction is 65 %. Diastolic function is indeterminate. No regional wall motion abnormalities noted. Right Ventricle Normal RV size. Normal systolic function. Atria Normal left atrium. Normal right atrium. Prominent eustachian valve. No doppler evidence for ASD. Bubble contrast study negative for right to left interatrial shunt. Mitral Valve There is no mitral annular calcification. Normal mitral valve. Trivial mitral valve insufficiency. Tricuspid Valve Normal tricuspid valve. Trivial tricuspid valve insufficiency. Unable to estimate RV systolic pressure/pulmonary artery pressure due to technically difficult study. Aortic Valve Trisinus/trileaflet aortic valve. Normal aortic valve. Pulmonic Valve The pulmonic valve is not well visualized. Great Vessels The aortic root is not well visualized. Pericardium/Pleural No pericardial effusion. Medication Performed a rapid injection of agitated mix of 9 cc saline and 1cc air to assess for atrial septal defect. MMode/2D Measurements & Calculations LVIDd: 4.1 cm IVSd: 1.2 cm LAV(MOD-sp4): 27.9 ml LVIDs: 2.8 cm LVPWd: 1.2 cm RVDd: 3.4 cm FS: 31.9 % LVAd ap4: 27.7 cm2 SV(MOD-sp4): 49.4 ml SV(sp4-el): 51.6 ml LVLd ap4: 8.4 cm EDV(MOD-sp4): 77.8 ml EDV(sp4-el): 77.4 ml LVAs ap4: 14.5 cm2 LVLs ap4: 6.9 cm ESV(MOD-sp4): 28.3 ml ESV(sp4-el): 25.8 ml EF(MOD-sp4): 63.6 % EF(sp4-el): 66.6 % LA A4 area: 12.7 cm2 LA dimension(2D): 3.2 cm Doppler Measurements & Calculations MV E max luis f: 62.6 cm/sec Lat Peak E' Luis F: 8.8 cm/sec Med Peak E' Luis F: 4.9 cm/sec MV A max luis f: 65.2 cm/sec E/E' lat: 7.1 E/E' med: 12.8 MV E/A: 0.96 Ao V2 max: 120.4 cm/sec LV V1 max: 116.5 cm/sec PA V2 max: 122.3 cm/sec Ao max P.8 mmHg LV V1 max P.4 mmHg ECHO/Echo Complete Interpretation Summary The study was technically difficult. Left ventricular systolic function is normal. The estimated ejection fraction is 65 %. Prominent eustachian valve. Trivial mitral valve insufficiency. Trivial tricuspid valve insufficiency. The aortic root is not well visualized. Unable to estimate RV systolic pressure/pulmonary artery pressure due to techni maria difficult study. Diastolic function is indeterminate. Bubble contrast study negative for right to left interatrial shunt. Ordering Physician: Jazmyne Gonzales Performed By: Danielle Mendoza RCS
[2021-08-10] MEDS: Potassium Chloride Oral Tablet 20 MEQ 40 MEQ PO (15:57)
[2021-08-10 16:08] LABS: Hemoglobin A1c 5.2 % (3.8-5.6)
[2021-08-10] MEDS: Magnesium Hydroxide 30 ML UDC PO (18:11)
[2021-08-10] MEDS: Atorvastatin Calcium 40 MG Tablet PO (22:19)
[2021-08-11] VITALS (10 sets, daily range): BP systolic 141–180; BP diastolic 90–115; PULSE 66–100; RESP 12–18; TEMP 36.5–37; O2SAT 96–100; BMI 26.5
[2021-08-11 04:43] LABS: Absolute Lymphocyte Count 1.87 X10^3/uL (0.83-4.51); Absolute Neutrophil Count 5.6 X10^3/uL (2.0-7.7); Basophil# 0.07 X10^3/uL; Basophil% 0.8 % (0-1); Eosinophil# 0.72 X10^3/uL; Eosinophils% 8.1 % (0-5); Hematocrit 42.3 % (40-54); Hemoglobin 14.3 g/dL (13.0-16.5); Lymphocyte # 1.87 X10^3/ul (0.83-4.51); Lymphocyte % 21.1 % (19-41); Mean Corp Hgb Conc 33.8 g/dL (32-36); Mean Corpuscular Hgb 29.9 pg (27.0-32.0); Mean Corpuscular Volume 88.5 fL (80-94); Mean Platelet Vol. 9.8 fl (6.2-12.0); Monocyte# 0.65 X10^3/uL; Monocyte% 7.3 % (0-10); NRBC Flagged by Analyzer 0 % (0-5); Neutrophil # 5.55 X10^3/uL (2.7-7.7); Neutrophil % 62.5 % (47-70); Platelet Count 265 K/mm3 (150-450); Red Blood Count 4.78 M/mm3 (4.6-6.2); White Blood Count 8.9 K/mm3 (4.4-11.0)
[2021-08-11 04:55] LABS: ALB/GLOB Ratio 1.1 RATIO (0.9-2.4); AST(SGOT) 13 U/L (15-37); Alanine Aminotransfer ALT/SGPT 22 U/L (16-61); Albumin, Serum 3.5 g/dL (3.2-5.0); Alkaline Phosphatase 89 U/L (45-117); Anion Gap 7 (5-15); BUN 17 mg/dL (7-18); BUN/Creat Ratio 13.1 RATIO (10-20); Calcium,Total 8.7 mg/dL (8.5-10.1); Chloride 105 mmol/L (98-107); Cholesterol 165 mg/dL (200); EST Glomerular Filtration Rate 61 mL/min (>60); Est Glom Filt Rate - Afr Amer 74 mL/min (>60); Estimated Creatinine Clearance 69.99 ml/min; Globulin 3.1 g/dL (2.2-4.2); Glucose 112 mg/dL (74-106); High Density Lipoprotein 29 mg/dL; Potassium 3.7 mmol/L (3.5-5.1); Protein, Total 6.6 g/dL (6.4-8.2); Sodium Level 138 mmol/L (136-145); Triglycerides 160 mg/dL; Very Low Density Lipoprotein 32 mg/dL (5-40)
--- NOTE | 2021-08-11 08:00 | MRI_ITS ---
We are attempting to reach an attending provider to discuss findings. An addendum with communication details will be sent when the communication is complete. STUDY: MRI BRAIN WITHOUT CONTRAST REASON FOR EXAM: Male, 51 years old. neuro deficit, acute stroke suspected TECHNIQUE: Standardized multiplanar fat and water weighted pulse sequences were obtained. COMPARISON: None. FINDINGS: Normal size of the ventricles and extra-axial spaces for the patient''s age. Normal white matter tracts of the supratentorial brain. Normal T2* images of the brain without demonstrated susceptibility artifact. There is no demonstrated hemosiderin stain. Focal hyperintensity the left basal ganglia demonstrates restricted diffusion consistent with an acute/subacute infarct. Normal thalami. There is no extra-axial fluid accumulation. Normal flow voids within the major intracranial circulation suggesting patency by spin echo criteria. Normal sella turcica, pituitary gland, infundibular stalk, optic chiasm and hypothalamus. Normal tectal plate and pineal gland. Normal midbrain, renae and medulla. Normal cerebellum. Normal basal cisterns. Normal bilateral temporal bones. Normal bilateral internal auditory canals. No demonstrated orbital abnormality, within the constraints of a routine brain study. Complete opacification left maxilla sinus consistent with chronic sinusitis. Normal calvarium and skull base. Normal visualized soft tissue structures. Normal visualized upper cervical spine. MRI/Brain without Contrast IMPRESSION: Acute/subacute infarct of the left basal ganglia. Electronically Signed: Nirav Keller MD at 10:12 EDT ,
[2021-08-11] MEDS: Aspirin 81 MG TAB.CHEW PO (09:58)
--- NOTE | 2021-08-11 10:22 | TELEMED_ITS ---
[facility] Telemed has confirmed receipt of a request for visit. This document confirms receipt of the order initiating the consult. To find the results of the consultation, please view the patient's reports for the scanned Telemed Consult.
[2021-08-11] MEDS: amLODIPine 10 MG Tablet PO (10:44)
[2021-08-11] MEDS: Lisinopril 10 MG Tablet PO (10:44)
--- NOTE | 2021-08-11 11:36 | PCM.PN.HOSP ---
Subjective Subjective Follow-up on acute CVA: Patient was seen and examined. He still has slurred speech. MRI shows acute/subacute infarct of the left basal ganglia. Blood pressures is uncontrolled. Objective Data Objective Data Vital Signs: Vital Signs Temp Pulse Resp BP Pulse Ox 98.1 F 98 12 180/115 H 100 08/11/21 09:51 08/11/21 09:51 08/11/21 09:51 08/11/21 09:51 08/11/21 09:51 Oxygen Delivery Method Room Air Weight: 85.4 kg Body Mass Index (BMI) 26.5 Intake & Output: Intake and Output for Last 24 Hours 08/09/21 08/10/21 08/11/21 23:59 23:59 23:59 Intake Total 1500 / 1500 240 / 240 Balance 1500 / 1500 240 / 240 Lab / Micro Data Result Diagrams: 08/11/21 04:10 08/11/21 04:10 Labs: Laboratory Results - last 24 hr 08/10/21 11:00: Hemoglobin A1c 5.2 08/10/21 12:44: Urine Color Yellow, Urine Clarity Clear, Urine pH 7.0, Ur Specific [place] 1.010, Urine Protein Negative, Urine Glucose (UA) Normal, Urine Ketones Negative, Urine Occult Blood Negative, Urine Nitrite Negative, Urine Bilirubin Negative, Urine Urobilinogen Normal, Ur Leukocyte Esterase Negative, Urine RBC 0 SEEN, Urine WBC 0 SEEN, Ur Squamous Epith Cells 0 SEEN, Urine Bacteria 0 SEEN, Urine Mucus 0 SEEN 08/11/21 04:10: WBC 8.9, RBC 4.78, Hgb 14.3, Hct 42.3, MCV 88.5, MCH 29.9, MCHC 33.8, RDW Std Deviation 42.0, RDW Coeff of Dayanna 13.0, Plt Count 265, MPV 9.8, Immature Gran % (Auto) 0.200, Neut % (Auto) 62.5, Lymph % (Auto) 21.1, [place] % (Auto) 7.3, Eos % (Auto) 8.1 H, Baso % (Auto) 0.8, Absolute Neuts (auto) 5.6, Absolute Lymphs (auto) 1.87, Nucleated RBC % 0 08/11/21 04:10: Sodium 138, Potassium 3.7, Chloride 105, Carbon Dioxide 26.0, Anion Gap 7, BUN 17, Creatinine 1.30, Estim Creat Clear Calc 69.99, Est GFR (MDRD) Af Amer 74, Est GFR (MDRD) Non-Af 61, BUN/Creatinine Ratio 13.1, Glucose 112 H, Calcium 8.7, Total Bilirubin 0.40, AST 13 L, ALT 22, Alkaline Phosphatase 89, Total Protein 6.6, Albumin 3.5, Globulin 3.1, Albumin/Globulin Ratio 1.1, Triglycerides 160, Cholesterol 165, LDL Cholesterol 104, VLDL Cholesterol 32, HDL Cholesterol 29 L Radiography Diagnostic Testing: Radiology Impression Head/Neck CTA 08/10/21 10:38 IMPRESSION: No acute findings in the arteries of the head and neck. No no large vessel thrombus. Electronically Signed: Mo Navarro MD at 13:23 EDT , Abdomen/Pelvis CT 08/10/21 10:40 IMPRESSION: Nonobstructive left nephrolithiasis. No evidence of current ureteral stone or hydronephrosis. No specific finding to explain patient''s pain. Large colonic stool burden with decompressed hepatic flexure Moderate hiatal hernia. Right renal 5.2 cm solid mass concerning for renal cell carcinoma, compatible with history. Electronically Signed: Khari Walsh MD at 12:59 EDT , Brain MRI 08/11/21 08:00 IMPRESSION: Acute/subacute infarct of the left basal ganglia. Electronically Signed: Nirav Keller MD at 10:12 EDT , ADDENDUM: 08/11/21 1028 IMPRESSION: Acute/subacute infarct of the left basal ganglia. N.B. : The above Results were Read Back by Nirav Keller MD to Rut Chand , RN, and understanding confirmed on 08/11/2021 10:21:46 (ET). Electronically Signed: Nirav Keller MD at 10:12 EDT , Physical Exam Narrative Physical exam: General: Alert, Oriented x3, Cooperative, not pale HEENT: Atraumatic Oral: Moist Mucosa Neck: Supple Lungs: Clear to auscultation Cardiovascular: HS I+II, regular, no murmurs Abdomen: Bowel Sounds Present, Soft, Non Tender Extremities: No edema Skin: No rashes, No breakdown Neurological: Right facial droop, tongue deviation to the left, power is 5/5 in all extremities, normal tone Psych/Mental Status: Appropriate Assessment & Plan Assessment/Plan (1) Facial droop: (2) Hypokalemia: (3) GORDO (acute kidney injury): PLAN: Plan 1. Acute/subacute left basal ganglia stroke seen on MRI brain Patient with history of previous TIA. Not a tPA candidate CTA of the head and neck showed no acute findings or large vessel thrombus Continue to monitor in PCU, lipid profile showed total cholesterol of 165, triglycerides 162, LDL 114, VLDL is 32, HDL is 29. HbA1c is 5.2 2D echo pending PT/OT/ST to evaluate and treat 2. Hypokalemia, resolved, recheck in am 3. Acute kidney injury, likely prerenal, improving Previous creatinine was around 1.02 Cr today is 1.30 Continue on IV fluids 4. Hypertension, uncontrolled, Will resume amlodipine, lisinopril Continue with hydralazine prn 5. Metastatic renal cell CA, on Opdivo 6. DVT PPx -Heparin subcu Charges/Coding Visit Charges Inpatient E&M: 03009 Subs Hosp L2
[2021-08-11] MEDS: Heparin Injection (Vial) 5,000 UNIT/ML VIAL 5000 UNIT SC ×2 (13:23→20:23)
[2021-08-11] MEDS: Atorvastatin Calcium 40 MG Tablet PO (20:23)
[2021-08-11] MEDS: 0.9% Saline Lock 10 ML Syringe IV (20:24)
[2021-08-12] VITALS (12 sets, daily range): BP systolic 124–175; BP diastolic 88–100; PULSE 69–92; RESP 18–20; TEMP 35.9–37.1; O2SAT 97–99; BMI 26.5
[2021-08-12 05:09] LABS: Absolute Lymphocyte Count 1.74 X10^3/uL (0.83-4.51); Absolute Neutrophil Count 5.7 X10^3/uL (2.0-7.7); Basophil# 0.07 X10^3/uL; Basophil% 0.8 % (0-1); Eosinophil# 0.89 X10^3/uL; Eosinophils% 9.8 % (0-5); Hematocrit 41.9 % (40-54); Hemoglobin 14.5 g/dL (13.0-16.5); Lymphocyte # 1.74 X10^3/ul (0.83-4.51); Lymphocyte % 19.2 % (19-41); Mean Corp Hgb Conc 34.6 g/dL (32-36); Mean Corpuscular Hgb 30.5 pg (27.0-32.0); Mean Corpuscular Volume 88.2 fL (80-94); Monocyte# 0.67 X10^3/uL; Monocyte% 7.4 % (0-10); NRBC Flagged by Analyzer 0 % (0-5); Neutrophil # 5.67 X10^3/uL (2.7-7.7); Neutrophil % 62.5 % (47-70); Platelet Count 254 K/mm3 (150-450); RBC Distribution Width CV 12.9 % (11.6-14.6); Red Blood Count 4.75 M/mm3 (4.6-6.2); White Blood Count 9.1 K/mm3 (4.4-11.0)
[2021-08-12 05:33] LABS: ALB/GLOB Ratio 1.1 RATIO (0.9-2.4); AST(SGOT) 18 U/L (15-37); Alanine Aminotransfer ALT/SGPT 22 U/L (16-61); Albumin, Serum 3.4 g/dL (3.2-5.0); Alkaline Phosphatase 87 U/L (45-117); Anion Gap 5 (5-15); BUN 20 mg/dL (7-18); BUN/Creat Ratio 16.1 RATIO (10-20); Calcium,Total 9.1 mg/dL (8.5-10.1); Chloride 104 mmol/L (98-107); Creatinine, Serum 1.24 mg/dL (0.70-1.30); EST Glomerular Filtration Rate 65 mL/min (>60); Est Glom Filt Rate - Afr Amer 78 mL/min (>60); Estimated Creatinine Clearance 73.38 ml/min; Globulin 3.1 g/dL (2.2-4.2); Glucose 104 mg/dL (74-106); Potassium 4.3 mmol/L (3.5-5.1); Protein, Total 6.5 g/dL (6.4-8.2); Sodium Level 138 mmol/L (136-145)
[2021-08-12] MEDS: Heparin Injection (Vial) 5,000 UNIT/ML VIAL 5000 UNIT SC ×3 (06:12→21:58)
[2021-08-12] MEDS: Aspirin 81 MG TAB.CHEW PO (09:05)
[2021-08-12] MEDS: amLODIPine 10 MG Tablet PO (09:05)
[2021-08-12] MEDS: Lisinopril 10 MG Tablet PO (09:05)
--- NOTE | 2021-08-12 11:50 | CASEMGMT ---
MARJORIE CORTEZ assessment: Face to Face with patient for initial transition planning/care coordination assessment. RN DANA introduced self and role at [facility], pt voices understanding and consents to assessment. Pt is sitting up in bed in no distress on room air. Pt is A/Ox4 and answers all questions appropriately. Pt's sig other, Elba, is at bedside during assessment and answers most questions for pt.? Care providers, pharmacy,?and demographics verified/updated. ? Presentation: Pt with right facial droop for at least 24 hours, pt also with left abd pain, hx of renal cell carcinoma-currently getting treatment once a month Admitting dx: CVA PCP: Annetta Specialists: atif Ferreira Preferred Pharmacy: [facility] Insurance: [facility] A/B, [facility] Prescription Benefit:?Yes Living Will/HPOA: Pt has LW/HPOA on file at [facility] and his , Minda Wallace, is listed at HPOA but per pt, his is . Pt's daughter, Mckenzie Bhagat, is listed as back up HPOA and pt states that's who he would like as HPOA. LNOK: Mckenzie Bhagat, daughter/HPOA; Patti Wallace, mother Living Arrangements: Pt lives with sig other, Elba, in 2 story home and states no concerns at home. Pt is independent with ADL's. Transportation: Pt states drives self and states no transportation concerns. DME/HHC: Pt states no current DME or need for any further DME. Pt states no hx of HHC or SNF in the past. Pt's sig other does inquire about a way to get pt an aide/someone to be home with pt while she is at work. John CADENA aware. Pt is agreeable to OP therapy and provided a script for OT and speech to [facility]. Script faxed to [facility]. Pt states no concerns with going home at time of discharge. Pt is on disability. Pt states does not smoke cigarettes but does occasionally drink ETOH. Pt states smokes marijuana several times every day. Pt states no further concerns/needs. CM to follow for any further discharge planning/needs. Advised pt to ask for CM if any further questions/concerns/needs arise, voices understanding. Pt goal: Home? Plan: Home w/ OP therapy. [place] MARJORIE CORTEZ
--- NOTE | 2021-08-12 13:57 | CASEMGMT ---
SW completed a PHQ9 with patient and he scored a 1 which indicates minimal depression. Patient denied any need for counseling resources. Mary Johnson MSW KRISTOPHER
--- NOTE | 2021-08-12 14:04 | CASEMGMT ---
RN DANA had indicated patient and his significant other were interested in the waiver program for patient. SW completed a referral for waiver program on [facility]'s website. SURINDER let patient know SW did make a referral, but it is not a fast process. Patient thanked SURINDER. Mary Johnson DENTAL TECHNICIAN APPRENTICESuzy SUMMERS
--- NOTE | 2021-08-12 14:12 | RAD_ITS ---
STUDY: AP PELVIS AND LEFT HIP X-RAY SERIES OF 1440 HOURS ON 08/12/2021 REASON FOR EXAM: 51-year-old male with left hip pain. TECHNIQUE: 3 views of the pelvis and hip. COMPARISON: None. FINDINGS: No fractures or dislocations. No osseous lytic, sclerotic or mass lesions are evident. Normal-appearing hip joints for age 51. No significant arthritic or degenerative changes. No joint effusions. Normal sacroiliac joints and symphysis pubis. RAD/HIP, UNI W/ Pelvis 2-3 Views IMPRESSION: 1. Normal examination of the pelvis and left hip joint.. 2. No fractures or dislocations. 3. No significant arthritic or degenerative changes. 4. No joint effusions. Electronically Signed: Abhishek Chapman MD at 19:13 EDT ,
--- NOTE | 2021-08-12 14:15 | PN.HOSP_ITS ---
Subjective Subjective Patient states that his symptoms are about the same. His speech is no better and he still has right facial droop with some numbness in his lips on the right as well as his right hand. It does not appear that the function of his right hand is all that impaired. Complains of pain in his left hip area but attribute s this to his hernia which is more centrally located. States it hurts when he bears weight on the area. Objective Data Objective Data Vital Signs: Vital Signs Temp Pulse Resp BP Pulse Ox 97.4 F L 82 20 H 142/92 H 98 08/12/21 14:00 08/12/21 14:00 08/12/21 14:00 08/12/21 14:00 08/12/21 14:00 Oxygen Delivery Method Room Air Weight: 86.3 kg Body Mass Index (BMI) 26.5 Intake & Output: Intake and Output for Last 24 Hours 08/10/21 08/11/21 08/12/21 23:59 23:59 23:59 Intake Total 1500 / 1500 1340 / 1340 480 / 480 Balance 1500 / 1500 1340 / 1340 480 / 480 Lab / Micro Data Result Diagrams: 08/12/21 04:17 08/12/21 04:17 Labs: Laboratory Results - last 24 hr 08/12/21 04:17: WBC 9.1, RBC 4.75, Hgb 14.5, Hct 41.9, MCV 88.2, MCH 30.5, MCHC 34.6, RDW Std Deviation 42.0, RDW Coeff of Dayanna 12.9, Plt Count 254, MPV 10.0, Immature Gran % (Auto) 0.300, Neut % (Auto) 62.5, Lymph % (Auto) 19.2, [place] % (Auto) 7.4, Eos % (Auto) 9.8 H, Baso % (Auto) 0.8, Absolute Neuts (auto) 5.7, Absolute Lymphs (auto) 1.74, Nucleated RBC % 0 08/12/21 04:17: Sodium 138, Potassium 4.3, Chloride 104, Carbon Dioxide 29.0, Anion Gap 5, BUN 20 H, Creatinine 1.24, Estim Creat Clear Calc 73.38, Est GFR (MDRD) Af Amer 78, Est GFR (MDRD) Non-Af 65, BUN/Creatinine Ratio 16.1, Glucose 104, Calcium 9.1, Total Bilirubin 0.30, AST 18, ALT 22, Alkaline Phosphatase 87, Total Protein 6.5, Albumin 3.4, Globulin 3.1, Albumin/Globulin Ratio 1.1 Physical Exam Const alert, oriented x3, no apparent distress, average body habitus and well nourished Constitutional Narrative: Middle-aged white male lying in bed resting, awakens easily and is appropriately interactive, appears older than stated age HEENT head/scalp atraumatic, moist oral mucous membranes and oropharynx normal HEENT Narrative: Dentition is poor, Mallampati is 2-3 Eyes PERRL, EOMs intact bilaterally and conjunctivae normal Eyes Narrative: No scleral icterus Neck no lymphadenopathy, supple, no JVD and no carotid bruits Neck Narrative: Trachea midline, no thyroid enlargement Resp normal respiratory effort, no retractions, no use of accessory muscles and clear to auscultation bilaterally Resp Narrative: Diffusely diminished but clear Auscultation: Negative for crackles Cardio regular rate, regular rhythm, S1 normal heart sound, S2 normal heart sound, no murmurs, no rub, no gallops, no clicks and no JVD GI normal to inspection, nondistended, normoactive bowel sounds, soft to palpation, non-tender and non-distended GI Narrative: Left inguinal hernia mild and reduced at this time Palpation: hernia Extremity no clubbing, cyanosis or edema Extremity Narrative: 2+ pedal pulses Neuro oriented x3, No CN's II-XII intact bilaterally, moves all extremities, No no focal motor deficits and No no sensory deficits noted Neuro Narrative: Right facial droop with sensory changes in the V3 portion of the trigeminal nerve, mild tingling without significant anesthesia/paresthesia in the right hand, no motor deficit right hand, all other cranial nerves are normal, speech is somewhat garbled, upper extremity and lower extremity strength is symmetrical at 4-5+ bilaterally Sensorium / Orientation: awake, alert, oriented to person, oriented to place and oriented to time Psych affect normal Psych Narrative: Very pleasant and appropriately interactive Assessment & Plan Assessment/Plan (1) GORDO (acute kidney injury): (2) Basal ganglia stroke: (3) Left hip pain: (4) Facial droop: PLAN: Plan Acute left basal ganglia stroke -MRI performed on 08/11/2021 shows an acute/subacute infarct of basal ganglia -Echocardiogram unremarkable with negative bubble study -Not a candidate for tPA on admission as it had been present for 3 days -Suspect related to small vessel disease -Continue aspirin -Continue statin--> LDL was 104 on admission -PT/OT/speech therapy have evaluated the patient and the patient's only needed discharge are for speech therapy -Discussed importance of follow-up at [facility] with patient and he voiced understanding--> prescription given -Patient was seen by neurology on admission and recommended further work-up with outpatient neurology follow-up -Awaiting [facility] follow-up here -We will make neurology referral on discharge Left hip pain -Patient has been attributing this to his inguinal hernia however I am concerned that there may be some orthopedic issue -Check x-rays of his left hip GORDO -Resolved -Serum creatinine admission was 1.6 and down to 1.2 today Hypertension -Continue amlodipine -Continue lisinopril -As needed hydralazine available Metastatic renal cell carcinoma -Continue Opdivo on discharge -Patient follows with Dr. Ferreira DVT prophylaxis -Continue subcu heparin Charges/Coding Visit Charges Inpatient E&M: 69315 Subs Hosp L2
--- NOTE | 2021-08-12 15:17 | CHAPLAIN ---
Type of Pastoral Visit _x__ Initial Visit ___ Follow-up Visit ___ On-call Visit ___ General Patient Visit ___ Spiritual Assessment ___ Family Conference ___ Bereavement ___ Rapid Response ___ Code Blue ___ Other (describe below) Pastoral Care Referral From _x__ Patient ___ Family ___ Nurse ___ Physician ___ Network Relay Tester ___ Senior Product Development Scientist ___ Other (describe below) Sacrament/Intervention _x__ Active listening ___ Anointing ___ Scientologist ___ Bereavement ___ Communion ___ Stacy exploration ___ ___ Life review ___ Prayer ___ Reconciliation ___ Sacrament of Sick _x__ Supportive presence ___ Wedding ___ Other (describe below) Pastoral Comments patient was content and accepting of care thus far; pt states he has no needs at this time;
[2021-08-12] MEDS: Atorvastatin Calcium 40 MG Tablet PO (20:33)
[2021-08-13 02:00] VITALS: BP 141/93; PULSE 82; RESP 18; TEMP 36.9; O2SAT 98
[2021-08-13 02:53] VITALS: PULSE 69
[2021-08-13 06:00] VITALS: BP 129/99; PULSE 80; RESP 18; TEMP 36.7; O2SAT 99
[2021-08-13] MEDS: Heparin Injection (Vial) 5,000 UNIT/ML VIAL 5000 UNIT SC (06:07)
[2021-08-13 07:00] VITALS: PULSE 63
[2021-08-13 07:09] VITALS: O2SAT 96
[2021-08-13] MEDS: Aspirin 81 MG TAB.CHEW PO (08:45)
[2021-08-13 10:20] VITALS: BP 133/94; PULSE 90; RESP 16; TEMP 36.1; O2SAT 98
[2021-08-13] MEDS: Lisinopril 10 MG Tablet PO (10:21)
[2021-08-13] MEDS: amLODIPine 10 MG Tablet PO (10:21)
[2021-08-13 11:14] VITALS: BMI 26.5
--- NOTE | 2021-08-13 11:36 | PCM.DC.SUM ---
Providers Date of Admission: 08/11/21 Primary Care Physician: Dr. Miguelito Littlejohn MD Reason For Visit: TIA Diagnosis Discharge Diagnosis (1) GORDO (acute kidney injury): Status: Acute Code(s): N17.9 - Acute kidney failure, unspecified (2) Basal ganglia stroke: Status: Acute Code(s): I63.81 - Other cerebral infarction due to occlusion or stenosis of small artery (3) Left hip pain: Status: Acute Code(s): M25.552 - Pain in left hip (4) Facial droop: Status: Acute Code(s): R29.810 - Facial weakness Plan Acute left basal ganglia stroke -MRI performed on 08/11/2021 shows an acute/subacute infarct of basal ganglia -Echocardiogram unremarkable with negative bubble study -Not a candidate for tPA on admission as it had been present for 3 days -Suspect related to small vessel disease -Continue aspirin -Continue statin--> LDL was 104 on admission -PT/OT/speech therapy have evaluated the patient and the patient's only needed discharge are for speech therapy -Discussed importance of follow-up at [facility] with patient and he voiced understanding--> prescription given -Patient was seen by neurology on admission and recommended further work-up with outpatient neurology follow-up -Awaiting [facility] follow-up here -We will make neurology referral on discharge Left hip pain -Patient has been attributing this to his inguinal hernia however I am concerned that there may be some orthopedic issue -Check x-rays of his left hip GORDO -Resolved -Serum creatinine admission was 1.6 and down to 1.2 today Hypertension -Continue amlodipine -Continue lisinopril -As needed hydralazine available Metastatic renal cell carcinoma -Continue Opdivo on discharge -Patient follows with Dr. Ferreira DVT prophylaxis -Continue subcu heparin Medications at Discharge Home Medications nivolumab 40 mg/4 mL intravenous solution (Opdivo) 40 mg IV QMONTH cancer tx 05/02/18 amlodipine 10 mg tablet 10 mg PO DAILY 08/10/21 lisinopril 10 mg tablet 10 mg PO DAILY 08/10/21 aspirin 81 mg chewable tablet 81 mg PO BREAKFAST #30 tabs 08/13/21 atorvastatin 20 mg tablet 20 mg PO DAILY #30 tabs 08/13/21 atorvastatin 80 mg tablet 80 mg PO DAILY #21 tabs 08/13/21 clopidogrel 75 mg tablet (Plavix) 75 mg PO DAILY #21 tabs 08/13/21 Hospital Course Operations None Procedures 2-D Echocardiogram Summary of Care Provided Minutes Spent on Discharge: 38 Hospital Course: Mr. Wallace is a 51-year-old white male who presents emergency department [facility] on 08/10/2021 with slurred speech and a right facial droop that had been present for approximately 3 days. The patient indicates that he has had some ongoing tingling in the right hand and right side of the V3 portion of the trigeminal nerve in the face for some time however the right facial droop was new. He has a history of metastatic renal cell carcinoma and follows with oncology (Dr. Ferreira) and is on Opdivo for this chronically. He indicates he was initially reluctant to come to the hospital but did not explain why. He denied any weakness in his extremities but did complain of having some mild gait imbalance. Upon presentation the emergency department his blood pressure was elevated 166/112 and his heart rate was 103 but his vital signs were otherwise normal. His CBC was unremarkable. His CMP showed mild hypokalemia with a potassium of 3.4 and his serum creatinine was elevated at 1.60 with a previous serum creatinine at 1.02. The CTA of his head and neck were overall unremarkable for any new findings. He unfortunate was non-tPA candidate given the timeframe of his presentation but was admitted to PCU for further work-up. An echocardiogram was performed and showed an EF of 65% with trivial mitral valve, tricuspid valve insufficiency, and a negative bubble study. His lipids were performed and showed a total cholesterol 165/LDL of 104/HDL 29/triglycerides of 160. The MRI of his brain showed an acute/subacute infarct of the left basal ganglia. He was maintained on 80 mg of atorvastatin and aspirin during his hospitalization as well as his home antihypertensives and evaluated by [facility] neurology for further recommendations. They recommended adding Plavix 75 mg daily as well as atorvastatin 80 mg daily for total of 21 days at which time we will discontinue the Plavix and continue his aspirin and discontinue the 80 mg atorvastatin dosing with reduction to 20 mg. They also recommended outpatient follow-up with neurology and a referral was placed for this as well as an event monitor to be ordered which we did at discharge. The patient is to call tomorrow for an appointment within the next 1 to 2 months. He did complain of some left hip pain during his hospitalization we therefore obtained x-rays of his hip and pelvis especially given his history of metastatic renal cell carcinoma. These x-rays were normal without any fractures or dislocations or joint effusions. He was able to be discharged home in stable condition on 08/13/2021. We recommend follow-up with his primary care physician within the next 1 to 2 weeks. Prescriptions were sent to his pharmacy for the above recommended medications. He was also referred to speech therapy. Discharge diagnoses: Acute left basal ganglia stroke Left hip pain-resolved GORDO-resolved Hypertension Metastatic renal cell carcinoma Hyperlipidemia Physical Exam Const alert, oriented x3, no apparent distress, average body habitus, no limitations and well nourished Constitutional Narrative: Middle-aged white male lying in bed resting, awakens easily and is appropriately interactive, appears older than stated age General Appearance: cooperative, comfortable, well kempt and well developed Orientation / Consciousness: awake Exam Limitations: no limitations Nutritional Appearance: overweight HEENT normocephalic, head/scalp atraumatic, moist oral mucous membranes and oropharynx normal HEENT Narrative: Mildly hard of hearing, Mallampati 2, dentition is poor Eyes PERRL, EOMs intact bilaterally and conjunctivae normal Eyes Narrative: No scleral icterus Neck no lymphadenopathy, supple, no JVD and no carotid bruits Neck Narrative: Trachea midline, no thyroid enlargement Resp normal respiratory effort, no retractions, no use of accessory muscles and clear to auscultation bilaterally Resp Narrative: Diffusely diminished but clear Auscultation: Negative for crackles Cardio regular rate, regular rhythm, S1 normal heart sound, S2 normal heart sound, no murmurs, no rub, no gallops, no clicks and no JVD GI normal to inspection, nondistended, normoactive bowel sounds, soft to palpation, non-tender and non-distended Palpation: hernia Extremity no clubbing, cyanosis or edema Extremity Narrative: 2+ pedal pulses Skin no rashes or lesions noted, no wounds, skin turgor normal and no jaundice Neuro oriented x3, No CN's II-XII intact bilaterally, moves all extremities, No no focal motor deficits and No no sensory deficits noted Neuro Narrative: Right facial droop that has improved with mild sensory changes in the V3 portion of the trigeminal nerve, mild tingling without significant anesthesia/paresthesia in the right hand, no motor deficit right hand, all other cranial nerves are normal, speech is somewhat garbled although improved in the last 24 hours, upper extremity and lower extremity strength is symmetrical at 4-5+ bilaterally Sensorium / Orientation: awake, alert, oriented to person, oriented to place and oriented to time Psych affect normal Psych Narrative: Very pleasant and appropriately interactive Weight / BMI Weight Weight: 86.3 kg Body Mass Index (BMI) 26.5 ABG / Lab / Microbiology Data Result Diagrams: 08/12/21 04:17 08/12/21 04:17 Radiography Diagnostic Testing: Radiology Impression Echocardiogram 08/10/21 15:09 Interpretation Summary The study was technically difficult. Left ventricular systolic function is normal. The estimated ejection fraction is 65 %. Prominent eustachian valve. Trivial mitral valve insufficiency. Trivial tricuspid valve insufficiency. The aortic root is not well visualized. Unable to estimate RV systolic pressure/pulmonary artery pressure due to technically difficult study. Diastolic function is indeterminate. Bubble contrast study negative for right to left interatrial shunt. Ordering Physician: Jazmyne Gonzales Performed By: Danielle Mendoza RCS Brain MRI 08/11/21 08:00 IMPRESSION: Acute/subacute infarct of the left basal ganglia. Electronically Signed: Nirav Keller MD at 10:12 EDT , ADDENDUM: 08/11/21 1028 IMPRESSION: Acute/subacute infarct of the left basal ganglia. N.B. : The above Results were Read Back by Nirav Keller MD to Rut Chand RN, and understanding confirmed on 08/11/2021 10:21:46 (ET). Electronically Signed: Nirav Keller MD at 10:12 EDT , ADDENDUM: 08/13/21 1117 IMPRESSION: undefined Hip/Pelvis X-Ray 08/12/21 14:12 IMPRESSION: 1. Normal examination of the pelvis and left hip joint.. 2. No fractures or dislocations. 3. No significant arthritic or degenerative changes. 4. No joint effusions. Electronically Signed: Abhishek Chapman MD at 19:13 EDT , D/C Instructions Discharge Diet: Low fat / Low cholesterol Discharge Activity: Return to Normal Activity Return to work on: 08/19/21 Meaningful Use Info Meaningful Use Diagnoses (Choose all that apply): Ischemic CVA CVA Therapy Assessed for PT,OT and/or ST?: Yes Ischemic Stroke Antithrombotic order at d/c?: Yes Dx of Atrial fib/flutter?: No Anticoagulant at discharge?: No Reason anticoagulant not ordered: Treatment not Indicated Statins at discharge?: Yes Primary Dx Acute Ischemic CVA?: Yes IV tPA ordered during stay?: No Reason IV t-PA not ordered: Medical Contraindication Discharge Plan Admission Admit Date/Time: 08/11/21 12:12 Primary Reason for Your Visit: Right facial droop Attending Provider: Lina Mccloud Primary Care Provider: Miguelito Littlejohn Consulting Providers: Jazmyne Gonzales Instructions Additional Instructions / Restrictions: 1. Take atorvastatin 80 mg daily x21 days then dose reduced to 20 mg daily--> 2 prescriptions sent 2. Take aspirin and Plavix x21 days then stop Plavix and continue aspirin Discharge Orders/Prescriptions Prescriptions: New aspirin 81 mg Tablet,Chewable 81 mg PO BREAKFAST Qty: 30 11RF clopidogrel [Plavix] 75 mg tablet 75 mg PO DAILY Qty: 21 0RF atorvastatin 80 mg tablet 80 mg PO DAILY Qty: 21 0RF atorvastatin 20 mg tablet 20 mg PO DAILY Qty: 30 1RF Rx Instructions: start on 09/04/2021 Continued Opdivo 40 MG/4 ML solution 40 mg IV QMONTH amlodipine 10 mg Tablet 10 mg PO DAILY lisinopril 10 mg Tablet 10 mg PO DAILY Other Ambulatory Orders: 30-Day Event Recorder (Routine) Location: None Selected Ordered By: Dr. Lina Mccloud Referrals / Follow Up: Miguelito Littlejohn MD [Primary Care Provider] - In 1 Week Giovanni Aceves MD [NON-STAFF] - Within 1 Month (call tomorrow to schedule an appt) Disposition Disposition (needs filled in before D/C Order can be placed): Home, Self Care Charges/Coding Visit Charges Inpatient E&M: 58151 Disch Hosp
--- NOTE | 2021-08-13 14:17 | PHA.DC.MR ---
Pharmacy Service has performed discharge medication reconciliation for this patient. The patient's discharge medication list was reviewed for discrepancies and discrepancies were resolved. Medication education papers prepared but patient discharge when I attempted to senior counsel. Home Medications nivolumab 40 mg/4 mL intravenous solution (Opdivo) 40 mg IV QMONTH cancer tx 05/02/18 amlodipine 10 mg tablet 10 mg PO DAILY 08/10/21 lisinopril 10 mg tablet 10 mg PO DAILY 08/10/21 aspirin 81 mg chewable tablet 81 mg PO BREAKFAST #30 tabs 08/13/21 atorvastatin 20 mg tablet 20 mg PO DAILY #30 tabs 08/13/21 atorvastatin 80 mg tablet 80 mg PO DAILY #21 tabs 08/13/21 clopidogrel 75 mg tablet (Plavix) 75 mg PO DAILY #21 tabs 08/13/21
== END 2021-08-13 14:01 | disposition home or self-care (01) | DRG 65 ==
LOC: ED 13:47 → PCU 14:36
PROVIDERS: Admitting Provider Internal Medicine; Emergency Provider Emergency Medicine; PCP Family Medicine; Visit Provider Internal Medicine
DX: I63.81 Other cerebral infarction due to occlusion or stenosis of small artery (principal); N17.9 Acute kidney failure, unspecified; C64.9 Malignant neoplasm of unspecified kidney, except renal pelvis; I73.9 Peripheral vascular disease, unspecified; I10 Essential (primary) hypertension; E87.6 Hypokalemia; M25.552 Pain in left hip; K40.90 Unilateral inguinal hernia, without obstruction or gangrene, not specified as recurrent; I07.1 Rheumatic tricuspid insufficiency; E78.5 Hyperlipidemia, unspecified; Z79.82 Long term (current) use of aspirin; Z79.01 Long term (current) use of anticoagulants; R29.810 Facial weakness; Z86.73 Personal history of transient ischemic attack (TIA), and cerebral infarction without residual deficits
CPT/HCPCS: 36415; 70496; 70498; 70551; 73502; 74176; 80048; 80053; 80061; 81001; 83036; 85025; 92507; 92523; 92526; 92610; 93005; 93306; 94762; 97161; 97166; 99285; J7030; Q9967; A4216

== ENCOUNTER 2022-04-18 13:24 | Emergency (ER) | payer MEDICARE, MEDICAID, SELFPAY ==
[2022-04-18 13:25] VITALS: BP 114/95; PULSE 125; RESP 18; TEMP 36; O2SAT 99; BMI 25.4
[2022-04-18 13:35] VITALS: BP 159/96; PULSE 112; RESP 14; O2SAT 98
--- NOTE | 2022-04-18 14:07 | EKG12_ITS ---
Test Reason : SOB Blood Pressure : / mmHG Vent. Rate : 098 BPM Atrial Rate : 098 BPM P-R Int : 132 ms QRS Dur : 108 ms QT Int : 362 ms P-R-T Axes : 062 -60 043 degrees QTc Int : 462 ms Normal sinus rhythm Left axis deviation Incomplete right bundle branch block Cannot rule out Inferior infarct , age undetermined Abnormal ECG Confirmed by NEDRA BROWN, DONNY ([id number]), make up editor HARIKA CALLEJAS ([id number]) on 04/21/2022 1:56:19 PM Referred By: CONCHITA Confirmed By:DONNY SNEED MD
--- NOTE | 2022-04-18 14:12 | ED.VIS.DYS ---
HPI History of Present Illness Chief Complaint: Shortness of Breath Informant: patient Narrative Narrative: Patient states he has asthma. For the last 3 days he has been having increasing wheezing. He has an inhaler and it works but it wears off sooner than normal. Last time he was on prednisone was about a year ago. He states he has been in and out of a residential visiting his mother but does not know if he has been exposed to COVID. But he is not having fevers or chills. No myalgias. He coughs up just clear spit. No actual sputum. No hemoptysis. No chest pain. To him this feels like a typical asthma exacerbation. [facility] Medical History Anxiety Asthma Basal ganglia stroke Facial droop Left hip pain Metastatic renal cell carcinoma Stroke-like symptoms Home Medications nivolumab 40 mg/4 mL intravenous solution (Opdivo) 40 mg IV QMONTH cancer tx 05/02/18 [History Last Taken 07/29/21] amlodipine 10 mg tablet 10 mg PO DAILY 08/10/21 [History Last Taken 08/09/21] lisinopril 10 mg tablet 10 mg PO DAILY 08/10/21 [History Last Taken 08/09/21] aspirin 81 mg chewable tablet 81 mg PO BREAKFAST #30 tabs 08/13/21 [Rx Last Taken Unknown] atorvastatin 20 mg tablet 20 mg PO DAILY #30 tabs 08/13/21 [Rx Last Taken Unknown] doxycycline monohydrate 100 mg capsule 100 mg PO BID #20 CAPSULES 04/18/22 [Rx Last Taken Unknown] prednisone 20 mg tablet 60 mg PO DAILY #15 TABLETS 04/18/22 [Rx Last Taken Unknown] Allergy/AdvReac Type Severity Reaction Status Date / Time Penicillins [PCN] AdvReac Anaphylaxis Verified 04/18/22 13:25 Family History Father Heart disease Mother Diabetes Social History household members: none Smoking Status: Never smoker alcohol intake: never substance use type: does not use ROS ROS ED Constitutional Constitutional ED: Denies chills or fever(s) Eyes Eyes: Denies change in vision ENT ENT ED: Reports rhinorrhea; Denies sore throat Cardiovascular Cardiovascular: Denies chest pain or palpitations Respiratory/Chest Respiratory/Chest: Reports cough and dyspnea; Denies sputum Gastrointestinal Gastrointestinal: Denies abdominal pain, nausea or vomiting Genitourinary Genitourinary ED: Denies hematuria Musculoskeletal Musculoskeletal: Denies myalgias Integumentary Denies rash Neurologic Neurologic: Denies headache(s) Psychiatric Psychiatric: Reports anxiety Endocrine Endocrinology: Denies polydipsia or polyuria Hematologic/Lymphatic Hematologic/Lymphatic: Denies easy bleeding or easy bruising Allergic/Immunologic Allergic/Immunologic ED: Denies urticaria EXAM Physical Exam Narrative Exam Narrative: Patient is awake alert. He carries on normal conversation. No obvious dyspnea. Saturations are 98 to 100% on room air showing no hypoxia. HEENT shows no sign of trauma. Mucous membranes are moist. No exudate. He does have a little bit of clear nasal discharge but no sinus tenderness. Neck shows no JVD or stridor Lungs show diffuse wheezes throughout. Heart is regular but mildly tachycardic at 105. He contributes a lot of this to anxiety. It does sound to be regular. Peripheral pulses are equal and normal. Abdomen is soft and completely nontender. shows no CVA or suprapubic tenderness There is no swelling of legs or arms. No peripheral edema cords tenderness swelling or asymmetry. Const Vital Signs: 04/18/22 13:25 04/18/22 13:35 04/18/22 13:35 Temperature 96.8 F L Temperature Source Temporal Pulse Rate 125 H 112 H Respiratory Rate 18 14 Respiratory Effort Short of Breath Respiratory Pattern Normal Blood Pressure 114/95 H 159/96 H Blood Pressure Mean 101 117 Pulse Ox 99 98 Oxygen Delivery Method Room Air Room Air Room Air 04/18/22 14:24 04/18/22 15:50 Temperature Temperature Source Pulse Rate 100 99 Respiratory Rate 16 20 H Respiratory Effort Respiratory Pattern Normal Blood Pressure 144/100 H Blood Pressure Mean 114 Pulse Ox 94 Oxygen Delivery Method Room Air MDM MDM MDM Narrative Medical decision making narrative: My independent interpretation of the patient's single view chest x-ray does show a few increased markings on the left. Radiology does agree and there is concern of focal infiltrate. Patient's recheck. He is breathing much better. He is wheezes essentially gone he feels much better. But with have been having cough, and an infiltrate and worsening I will treat with antibiotics also. He states he has albuterol at home and refills. He does not need prescription for that. But I will write for prednisone and doxycycline. We discussed reasons to return. Patient has a long history of asthma. He has wheezing. His tachycardia went away with albuterol treatments and the wheezing improved. He is not hypoxic. He is not having chest pain or hemoptysis. No leg pain or swelling. I do not think this represents a PE and I do not think he needs CTA of the chest. I do not think blood work is going to alter our therapy either. Radiography Diagnostic Testing: Clinical Impression(s) from Imaging Studies Chest X-Ray 04/18/22 14:25 IMPRESSION: Mild degree of increased markings are seen in the left suprahilar region. Focal infiltrate should be ruled out. Electronically Signed: Tonny Badillo MD at 14:49 EST , EKG Initial EKG: Comments: Depend interpretation the patient's EKG done for mild/borderline tachycardia shows a normal sinus rhythm with overall rate of 98. No ectopy is noted. No acute ST elevation or depression. Normal SC interval QRS duration and QTc. Discharge Plan Triage Chief Complaint: Shortness of Breath ED Provider: Duane Elizabeth Dx/Rx/DC Orders Clinical Impression: Asthma exacerbation, Community acquired pneumonia Instructions: ED Asthma, Acute (Adult), ED Pneumonia (Adult) Prescriptions: New prednisone 20 mg tablet 60 mg PO DAILY Qty: 15 0RF doxycycline monohydrate 100 mg capsule 100 mg PO BID Qty: 20 0RF No Action Opdivo 40 MG/4 ML solution 40 mg IV QMONTH amlodipine 10 mg Tablet 10 mg PO DAILY lisinopril 10 mg Tablet 10 mg PO DAILY aspirin 81 mg Tablet,Chewable 81 mg PO BREAKFAST Qty: 30 11RF atorvastatin 20 mg tablet 20 mg PO DAILY Qty: 30 1RF Rx Instructions: start on 09/04/2021 Primary Care Provider: Miguelito Littlejohn Referrals: Miguelito Littlejohn MD [Primary Care Provider] - 1 Week if not improving Disposition Disposition: Home, Self Care
[2022-04-18 14:24] VITALS: PULSE 100; RESP 16
[2022-04-18] MEDS: predniSONE 20 MG Tablet 60 MG PO (14:24)
[2022-04-18] MEDS: Albuterol 2.5 MG/3 ML VIAL.NEB. INHALATION (14:24)
[2022-04-18] MEDS: Ipratropium/Albuterol Sulfate 3 ML AMPUL.NEB INHALATION (14:24)
--- NOTE | 2022-04-18 14:25 | RAD_ITS ---
STUDY: X-RAY CHEST REASON FOR EXAM: Male, 52 years old. Cough, asthma TECHNIQUE: Single AP portable view of the chest. COMPARISON: Comparison is made with prior study dated July 29, 2018. FINDINGS: EKG electrodes are seen. Mild increased markings are seen in the left superior parahilar region. Early infiltrate should be ruled out. There is no demonstrated pleural abnormality. Normal size heart. Normal mediastinum and rebecca. Normal visualized pulmonary arteries. Normal visualized aortic arch and descending thoracic aorta. There are degenerative changes of the visualized thoracic spine. Normal visualized ribs, clavicles, and shoulders. There is no demonstrated abnormality of the visualized soft tissue structures of the upper abdomen. RAD/Chest 1 View (Portable) IMPRESSION: Mild degree of increased markings are seen in the left suprahilar region. Focal infiltrate should be ruled out. Electronically Signed: Tonny Badillo MD at 14:49 EST ,
[2022-04-18 15:50] VITALS: BP 144/100; PULSE 99; RESP 20; O2SAT 94
[2022-04-18 16:14] VITALS: BP 144/96; PULSE 78
== END 2022-04-18 16:14 | disposition home or self-care (01) ==
PROVIDERS: Emergency Provider Emergency Medicine; PCP Family Medicine; Visit Provider Emergency Medicine
DX: J45.901 Unspecified asthma with (acute) exacerbation (principal); J18.9 Pneumonia, unspecified organism
CPT/HCPCS: 71045; 93005; 94640; 99282

== ENCOUNTER 2023-02-27 16:53 | Emergency (ER) | payer MEDICARE, SELFPAY ==
[2023-02-27] VITALS (7 sets, daily range): BP systolic 112–135; BP diastolic 68–84; PULSE 92–118; RESP 16–21; TEMP 35.7; O2SAT 95–99; BMI 23.8
--- NOTE | 2023-02-27 17:08 | EKG12_ITS ---
Test Reason : SOB Blood Pressure : / mmHG Vent. Rate : 098 BPM Atrial Rate : 098 BPM P-R Int : 124 ms QRS Dur : 114 ms QT Int : 360 ms P-R-T Axes : 051 -57 040 degrees QTc Int : 459 ms Normal sinus rhythm Pulmonary disease pattern Incomplete right bundle branch block Left anterior fascicular block Abnormal ECG Confirmed by JONATHAN BROWN, SUSI ([id number]), video news editor MARGARET WHITLOCK ([id number]) on 03/02/2023 6:39:09 AM Referred By: Confirmed By:SUSI CASTILLO MD
--- NOTE | 2023-02-27 17:09 | EX.ED.DYSGE1 ---
HPI History of Present Illness Chief Complaint: Shortness of Breath Informant: patient and family Narrative Narrative: Patient presents with cough. Patient states that for for 5 months he has been getting dizzy and he has been getting weaker. He has had known stage IV kidney cancer for about 5 years. It is nonsurgical. He has been on Opdivo for quite some time. They tried evidently another oral chemotherapeutic agent about 6 weeks ago. He was on it for a month before he got sores and lesions in his mouth. He has stopped it. The sores are gone. But he still just does not have an appetite. Sometimes it is a little sore when he eats or drinks but he is able to. Mostly he has just no appetite. His daughter states that he has been losing a lot of weight. He just seems to be getting weaker. He does state that he has been coughing more for the last couple weeks. He does have a history of asthma. He has MDI. But he is not wheezing a lot. He is not having chest pain. Not having syncope. [facility] Medical History Anxiety Asthma Basal ganglia stroke Facial droop Left hip pain Metastatic renal cell carcinoma Stroke-like symptoms Home Medications nivolumab 40 mg/4 mL intravenous solution (Opdivo) 40 mg IV QMONTH cancer tx 05/02/18 [History Last Taken 07/29/21] amlodipine 10 mg tablet 10 mg PO DAILY 08/10/21 [History Last Taken 08/09/21] lisinopril 10 mg tablet 10 mg PO DAILY 08/10/21 [History Last Taken 08/09/21] aspirin 81 mg chewable tablet 81 mg PO BREAKFAST #30 tabs 08/13/21 [Rx Last Taken Unknown] atorvastatin 20 mg tablet 20 mg PO DAILY #30 tabs 08/13/21 [Rx Last Taken Unknown] doxycycline monohydrate 100 mg capsule 100 mg PO BID #20 CAPSULES 04/18/22 [Rx Last Taken Unknown] prednisone 20 mg tablet 60 mg (3 x 20 mg) PO DAILY #15 TABLETS 04/18/22 [Rx Last Taken Unknown] prednisone 20 mg tablet 40 mg (2 x 20 mg) PO DAILY 5 days #10 TABLETS 02/27/23 [Rx Last Taken Unknown] Allergy/AdvReac Type Severity Reaction Status Date / Time Penicillins [PCN] AdvReac Anaphylaxis Verified 02/27/23 16:53 Family History Father Heart disease Mother Diabetes Social History household members: none Smoking Status: Never smoker alcohol intake: never substance use type: does not use ROS ROS ED ROS Narrative A complete review of systems was performed and is negative except as documented in the history of present illness. Some specific details below. Constitutional: No recent fevers or chills. He has had weight loss EYE: No visual complaints or pain. ENT: Sores in his mouth have gotten better. He still has some soreness with swallowing. But he is able to. CV: No chest pain or palpitations. He has not been syncope. Respiratory: No dyspnea. No hemoptysis. But he has had some increased coughing. GI: He denies nausea vomiting or diarrhea but also states he just has no interest in eating or drinking. : No frequency dysuria or hematuria. Musculoskeletal: No recent trauma. No new pains. Skin: No rash. Nondiaphoretic. Neuro: No weakness or numbness. Endocrine: No polyuria or polydipsia. EXAM Physical Exam Narrative Exam Narrative: CONSTITUTIONAL: Patient is nontoxic in appearance. The patient looks comfortable. Work of breathing looks normal. He does look thin but not emaciated. HEENT: No notable trauma. Mucous membranes are still moist. I do not see any lesions. I do not see any thrush. No sinus tenderness. No indication of pain with swallowing. EYES: No conjunctival injection. No proptosis. NECK:No JVD. No stridor. CARDIOVASCULAR: Mildly tachycardic rate at about 90?100 when I listen. Regular rhythm. No notable murmur. No JVD. RESPIRATORY: No respiratory distress. Breathing is unlabored. No wheezes. No rhonchi. No rales. No pain with a deep breath. No chest wall tenderness. He does have a little bit of poor expiratory volume. But no actual wheezing. GASTROINTESTINAL: Not distended. Bowel sounds are normal. No tenderness. No guarding. No rebound. GENITOURINARY: No tenderness over the bladder. No CVA tenderness. MUSCULOSKELETAL: Atraumatic. No tenderness or asymmetry. NEUROLOGICAL: Patient is alert and appropriate. No focal deficit noted. SKIN: No noted rashes. No diaphoresis. PSYCHIATRIC: Patient is calm. Mood is appropriate. Const Vital Signs: 02/27/23 16:54 02/27/23 16:56 02/27/23 17:38 Temperature 96.3 F L 96.3 F L Temperature Source Temporal Temporal Pulse Rate 118 H 118 H Respiratory Rate 16 16 Respiratory Effort Short of Breath Blood Pressure 127/84 H 127/84 H Blood Pressure Mean 98 98 Pulse Ox 99 99 Oxygen Delivery Method Room Air Room Air Room Air 02/27/23 17:18 02/27/23 17:21 02/27/23 18:37 Temperature Temperature Source Pulse Rate 107 H 97 Respiratory Rate 20 H 21 H Respiratory Effort Blood Pressure 112/68 Blood Pressure Mean 82 Pulse Ox 98 97 Oxygen Delivery Method Room Air MDM MDM MDM Narrative Medical decision making narrative: My independent interpretation of the patient's two-view chest x-ray shows no acute process and final reading is similar. Patient CBC shows mild elevation of white count and mild anemia. Platelets are normal. Patient's electrolytes show minimally low potassium. I think this can self-correct with diet. Slight bump of his creatinine. Patient's glucose is overall relatively normal at 122 Patient does feel better after albuterol. We discussed options with him. He has been noticing the cough more and breathing. He has a history of asthma. He states he has responded well to prednisone. Prednisone may help calm down his throat from irritation. I do not see any sign of thrush on exam. This may also stimulate his appetite. He has an appointment with his oncologist on Thursday. We will give him a moderate dose of prednisone at just 40 a day to see if this will give him benefit without complications. Lab Data Attestation: I reviewed the patient's lab results. Labs: Laboratory Results - last 24 hr 02/27/23 15:20 WBC 12.6 H RBC 3.60 L Hgb 10.3 L Hct 32.0 L MCV 88.9 MCH 28.6 MCHC 32.2 RDW Std Deviation 59.3 H RDW Coeff of Dayanna 18.3 H Plt Count 377 MPV 9.9 Immature Gran % (Auto) 0.800 Neut % (Auto) 84.6 H Lymph % (Auto) 5.7 L Levy % (Auto) 8.0 Eos % (Auto) 0.6 Baso % (Auto) 0.3 Absolute Neuts (auto) 10.6 H Absolute Lymphs (auto) 0.71 L Nucleated RBC % 0 Sodium 134 L Potassium 3.3 L Chloride 100 Carbon Dioxide 26.0 Anion Gap 8 BUN 18 Creatinine 1.33 H Estim Creat Clear Calc 66.84 Est GFR (MDRD) Af Amer 72 Est GFR (MDRD) Non-Af 59 L BUN/Creatinine Ratio 13.5 Glucose 122 H Calcium 9.0 Radiography Diagnostic Testing: Clinical Impression(s) from Imaging Studies Chest X-Ray 02/27/23 17:25 IMPRESSION: No active disease. Electronically Signed: Nirav Keller MD at 17:46 EST , EKG Initial EKG: Comments: My independent interpretation of the patient's EKG shows sinus rhythm with a rate of 98. He has a right bundle branch block incomplete. Nonspecific changes likely related to this. No acute ST elevation or depression. No ventricular ectopy. VT interval is normal. QRS duration and QTc are also within normal limits. Discharge Plan Triage Chief Complaint: Shortness of Breath ED Provider: Duane Elizabeth Dx/Rx/DC Orders Clinical Impression: Asthma exacerbation, Poor appetite, Cancer of kidney Instructions: ED Asthma, Acute (Adult) Prescriptions: New prednisone 20 mg tablet 40 mg PO DAILY 5 Days Qty: 10 0RF No Action Opdivo 40 MG/4 ML solution 40 mg IV QMONTH amlodipine 10 mg Tablet 10 mg PO DAILY lisinopril 10 mg Tablet 10 mg PO DAILY aspirin 81 mg Tablet,Chewable 81 mg PO BREAKFAST Qty: 30 11RF atorvastatin 20 mg tablet 20 mg PO DAILY Qty: 30 1RF Rx Instructions: start on 09/04/2021 prednisone 20 mg tablet 60 mg PO DAILY Qty: 15 0RF doxycycline monohydrate 100 mg capsule 100 mg PO BID Qty: 20 0RF Primary Care Provider: Miguelito Littlejohn Referrals: Miguelito Littlejohn MD [Primary Care Provider] - Dilan Bello MD [Med Staff - Active Staff] - Keep Maggie appointment Disposition Disposition: Home, Self Care
[2023-02-27] MEDS: 0.9% Normal Saline (1000mL) 1,000 ML 1000 ML IV (17:14)
[2023-02-27] MEDS: Ipratropium/Albuterol Sulfate 3 ML AMPUL.NEB INHALATION (17:17)
--- NOTE | 2023-02-27 17:25 | RAD_ITS ---
STUDY: X-RAY CHEST REASON FOR EXAM: Male, 53 years old. cough TECHNIQUE: PA and lateral views of the chest. COMPARISON: 04/18/2022 FINDINGS: The lungs are clear and expanded. There is no demonstrated pleural abnormality. Normal size heart. Normal mediastinum and rebecca. Normal visualized pulmonary arteries. Normal visualized aortic arch and descending thoracic aorta. Normal visualized thoracic spine. Multiple healed left rib fractures. There is no demonstrated abnormality of the visualized soft tissue structures of the upper abdomen. RAD/Chest PA and Lateral IMPRESSION: No active disease. Electronically Signed: Nirav Keller MD at 17:46 EST ,
--- OUTSIDE RECORDS SUMMARY | 2023-02-27 17:43 | XMS RPT_ITS | CCD ---
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 Name Role Phone ROBB LEIVA Referring Unavailable ROBB LEIVA Referring Unavailable Elver Littlejohn MD Primary Care Provider Stefani Antonio Unavailable Unavailable Gibran Flores Unavailable Bonnie Bolden RN Unavailable Willard AMADOR, Eryn Unavailable Stefani Peck RN Unavailable Unavailable Bonnie Bolden RN Unavailable Elver Littlejohn MD Primary Care Provider Gibran Flores Unavailable Bonnie Bolden RN T Unavailable Willard AMADOR, Eryn Unavailable Elver Littlejohn MD Primary Care Provider Gibran Flores Unavailable Bonnie Bolden RN T Unavailable Willard RN, Eryn Unavailable Robb Leiva MD Unavailable Elver Littlejohn MD Primary Care Provider Stefani Peck RN Unavailable Unavailable Gibran Flores Unavailable Sia Bolden RNline T Unavailable Willard AMADOR, Eryn Unavailable Robb Leiva MD Unavailable Robb Leiva MD Unavailable Eugenia BROWN, Dilan Unavailable Gibran Flores Unavailable Eryn Lamar RN Unavailable Gibran Flores MD Unavailable Cisco AMADOR, Stefani Unavailable Unavailable Robb Leiva MD Unavailable DILAN BELLO Referring Unavailable BURSLEY, CHRISTOPHER Primary Care Unavailable BURSLEY, CHRISTOPHER Primary Care Unavailable MASCI, RANJAN A Referring Unavailable CALISTEFANIEMAN Referring Unavailable BURSLEY, CHRISTOPHER Primary Care Unavailable ROBB LEIVA Referring Unavailable BURSLEY, CHRISTOPHER Primary Care Unavailable BURSLEY, CHRISTOPHER Primary Care Unavailable ROBB LEIVA Referring Unavailable BURSLEY, CHRISTOPHER Primary Care Unavailable ROBB LEIVA Referring Unavailable BURSLEY, CHRISTOPHER Primary Care Unavailable DILAN BELLO Attending Unavailable BURSLEY, CHRISTOPHER Primary Care Unavailable ROBB LEIVA Referring Unavailable BURSLEY, CHRISTOPHER Primary Care Unavailable DILAN BELLO Referring Unavailable ROBB LEIVA Referring Unavailable BURSLEY, CHRISTOPHER Primary Care Unavailable ROBB LEIVA Referring Unavailable BURSLEY, CHRISTOPHER Primary Care Unavailable MASCRANJAN Vital A Referring Unavailable BURSLEY, CHRISTOPHER Primary Care Unavailable ROBB LEIVA Referring Unavailable BURSLEY, CHRISTOPHER Primary Care Unavailable MASCI RANJNA A Attending Unavailable ROBB LEIVA Referring Unavailable BURSLEY, CHRISTOPHER Primary Care Unavailable BURSLEY, CHRISTOPHER Attending Unavailable BURSLEY, CHRISTOPHER Primary Care Unavailable JOHN LARSON Attending Unavailable DILAN BELLO Referring Unavailable BURSLEY, CHRISTOPHER Primary Care Unavailable ROBB LEIVA Referring Unavailable BURSLEY, CHRISTOPHER Primary Care Unavailable ROBB LEIVA Referring Unavailable SHELLI VALLES Attending Unavailable BURSLEY, CHRISTOPHER Primary Care Unavailable ROBB LEIVA Referring Unavailable BURSLEY, CHRISTOPHER Primary Care Unavailable ROBB LEIVA Referring Unavailable BURSLEY, CHRISTOPHER Primary Care Unavailable ROBB LIEVA Referring Unavailable BURSLEY, CHRISTOPHER Primary Care Unavailable DILAN BELLO Attending Unavailable ROBB LEIVA Referring Unavailable BURSLEY, CHRISTOPHER Primary Care Unavailable ROBB LEIVA Referring Unavailable BURSLEY, CHRISTOPHER Primary Care Unavailable ROBB LEIVA Referring Unavailable BURSLEY, CHRISTOPHER Primary Care Unavailable ROBB LEIVA Referring Unavailable DILAN BELLO Attending Unavailable BURSLEY, CHRISTOPHER Primary Care Unavailable CALI, LAPMAN Referring Unavailable BURSLEY, CHRISTOPHER Primary Care Unavailable CALI, LAPMAN Referring Unavailable BURSLEY, CHRISTOPHER Primary Care Unavailable CALI, LAPMAN Referring Unavailable SHELLI VALLES Attending Unavailable BURSLEY, CHRISTOPHER Primary Care Unavailable CALI, LAPMAN Referring Unavailable DILAN BELLO Attending Unavailable BURSLEY, CHRISTOPHER Primary Care Unavailable CALI, LAPMAN Referring Unavailable BURSLEY, CHRISTOPHER Primary Care Unavailable CALI, LAPMAN Referring Unavailable BURSLEY, CHRISTOPHER Primary Care Unavailable CALI, LAPMAN Referring Unavailable BURSLEY, CHRISTOPHER Primary Care Unavailable CALI, LAPMAN Referring Unavailable BURSLEY, CHRISTOPHER Primary Care Unavailable CALI, LAPMAN Referring Unavailable BURSLEY, CHRISTOPHER Primary Care Unavailable CALI, LAPMAN Referring Unavailable BURSLEY, CHRISTOPHER Primary Care Unavailable CALI, LAPMAN Referring Unavailable BURSLEY, CHRISTOPHER Primary Care Unavailable RANJAN SAMUEL Attending Unavailable BURSLEY, CHRISTOPHER Primary Care Unavailable CALI, LAPMAN Referring Unavailable BURSLEY, CHRISTOPHER Primary Care Unavailable CALI, LAPMAN Referring Unavailable BURSLEY, CHRISTOPHER Primary Care Unavailable CALI, LAPMAN Referring Unavailable BURSLEY, CHRISTOPHER Primary Care Unavailable DILAN BELLO Referring Unavailable BURSLEY, CHRISTOPHER Primary Care Unavailable DILAN BELLO Referring Unavailable BURSLEY, CHRISTOPHER Primary Care Unavailable CALI, LAPMAN Referring Unavailable BURSLEY, CHRISTOPHER Primary Care Unavailable Allergies Allergy Classification Reported Allergen(s) Allergy Type Date of Onset Reaction(s) Facility (20 sources) Penicillins; Translations: [PENICILLINS] Propensity to adverse reactions to drug (disorder) 9 Anaphylaxis [facility] Other [place] [facility] Medications Current Medications Medication Drug Class(es) Dates Sig (Normalized) Sig (Original) amLODIPine 10 mg oral tablet (20 sources) Dihydropyridine Calcium Channel Citlaly Start: 06-28-2021 End: 02-06-2023 take 1 tablet by mouth once daily amLODIPine (NORVASC) 10 mg tablet Take 1 tablet by mouth once daily. 90 tablet 0 11/08/2022 02/06/2023 Active Completed/Discontinued Medications Medication Drug Class(es) Dates Sig (Normalized) Sig (Original) [id number] 200 actuat albuterol 0.09 mg/actuat metered dose inhaler (20 sources) beta2-Adrenergic Agonist Start: 10-03-2021 End: 11-07-2022 take 1-2 puff(s) by inhalation four times daily as needed for wheezing albuterol HFA (PROVENTIL HFA, VENTOLIN HFA) 90 mcg/actuation inhaler Indications: Mild intermittent asthma with acute exacerbation Inhale 1-2 Puffs as instructed four times daily as needed. FOR WHEEZING AND SHORTNESS OF BREATH. 18 g 1 11/08/2022 Active Problems Active Problems Problem Classification Problem Date Documented Date Episodic/Chronic Acute cerebrovascular disease (1 source) Cerebral infarction, unspecified; Translations: [Cerebral artery occlusion, unspecified with cerebral infarction] Chronic Asthma (20 sources) Unspecified asthma, uncomplicated; Translations: [Asthma, unspecified type, unspecified] Onset: 02-21-2008 02-21-2008 Chronic Cancer of bronchus; lung (20 sources) Malignant neoplasm of unspecified part of unspecified bronchus or lung; Translations: [Malignant neoplasm of lower lobe, left bronchus or lung] Onset: 03-29-2018 12-31-2018 Chronic Cancer of kidney and renal pelvis (20 sources) Primary malignant neoplasm of right kidney; Translations: [Malignant neoplasm of right kidney, except renal pelvis] Onset: 04-09-2018 04-09-2018 Chronic Disorders of lipid metabolism (20 sources) Hyperlipidemia; Translations: [Hyperlipidemia, unspecified] Onset: 03-06-2008 03-06-2008 Chronic Esophageal disorders (20 sources) Gastroesophageal reflux disease; Translations: [Gastro-esophageal reflux disease without esophagitis] Onset: 02-21-2008 02-21-2008 Chronic Essential hypertension (20 sources) Hypertensive disorder; Translations: [Essential (primary) hypertension] 04-23-2018 Chronic Immunizations and screening for infectious disease (1 source) Suspected disease caused by 2019-nCoV; Translations: [Suspected COVID-19 virus infection] Episodic Other aftercare (1 source) Post-discharge follow-up; Translations: [Encounter for follow-up examination after completed treatment for conditions other than malignant neoplasm] Episodic Other screening for suspected conditions (not mental disorders or infectious disease) (2 sources) Patient encounter status; Translations: [Encounter for screening for lipoid disorders] Episodic Pneumonia (except that caused by tuberculosis or sexually transmitted disease) (1 source) Bacterial pneumonia; Translations: [Unspecified bacterial pneumonia] Episodic Secondary malignancies (3 sources) Secondary malignant neoplasm of bone; Translations: [Secondary malignant neoplasm of bone] Onset: 03-29-2018 Chronic Secondary malignancies (2 sources) Secondary and unspecified malignant neoplasm of intrathoracic lymph nodes; Translations: [Secondary and unspecified malignant neoplasm of intrathoracic lymph nodes] Onset: 03-29-2018 Chronic Secondary malignancies (20 sources) Secondary malignant neoplasm of lung; Translations: [Secondary malignant neoplasm of unspecified lung] Onset: 03-29-2018 03-29-2018 Chronic Secondary malignancies (20 sources) Secondary malignant neoplasm of intrathoracic lymph nodes; Translations: [Secondary and unspecified malignant neoplasm of intrathoracic lymph nodes] Onset: 03-29-2018 03-29-2018 Chronic Secondary malignancies (20 sources) Secondary malignant neoplasm of bone; Translations: [Secondary malignant neoplasm of bone] Onset: 03-29-2018 03-29-2018 Chronic Secondary malignancies (20 sources) Secondary malignant neoplasm of intra-abdominal lymph nodes; Translations: [Secondary and unspecified malignant neoplasm of intra-abdominal lymph nodes] Onset: 12-31-2018 12-31-2018 Chronic Secondary malignancies (1 source) Secondary malignant neoplasm of unspecified lung; Translations: [Metastatic renal cell carcinoma to lung, unspecified laterality (HCC)] Onset: 11-06-2022 Chronic Secondary malignancies (1 source) Secondary malignant neoplasm of right lung; Translations: [Malignant neoplasm metastatic to both lungs (HCC)] Onset: 03-29-2018 Chronic Secondary malignancies (1 source) Secondary malignant neoplasm of left lung; Translations: [Malignant neoplasm metastatic to both lungs (HCC)] Onset: 03-29-2018 Chronic Secondary malignancies (1 source) Secondary and unspecified malignant neoplasm of intra-abdominal lymph nodes; Translations: [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)] Onset: 12-31-2018 Chronic Thyroid disorders (1 source) Acquired hypothyroidism; Translations: [Hypothyroidism, unspecified] Chronic Past or Other Problems Problem Classification Problem Date Documented Da te Episodic/Chronic Abdominal hernia (20 sources) Left inguinal hernia ; Translations: [Unilateral inguinal hernia, without obstruction or gangrene, not specified as recurrent] Onset: 04-23-2018 04-23-2018 Episodic Acute and unspecified renal failure (1 source) Acute kidney failure, unspecified; Translations: [GORDO (acute kidney injury) (HCC)] Onset: 09-01-2022 Episodic Malaise and fatigue (7 sources) Malaise and fatigue; Translations: [Other malaise] Onset: 03-11-2022 Episodic Results Test Name Value Interpretation Reference Range Facil ity Vital Signs Date Time Vital Sign Value Performing Clinician Devonte licona 01-12-2023 09:36-0500 Body temperature 97.39 [degF] Dilan Bello MD Work Phone: [facility] 01-12-2023 09:36-0500 Body weight 81.19 kg Dilan Bello MD Work Phone: [facility] 01-12-2023 09:36-0500 Diastolic blood pressure 96 mm[Hg] Dilan Bello MD Work Phone: [facility] 01-12-2023 09:36-0500 Heart rate 103 /min Dilan Belol MD Work Phone: [facility] 01-12-2023 09:36-0500 SaO2% (BldA) [Mass fraction] 96 % Dilan Bello MD Work Phone: [facility] 01-12-2023 09:36-0500 Systolic blood pressure 140 mm[Hg] Dilan Bello MD Work Phone: [facility] 10-21-2022 08:49-0400 Body temperature 97.11 [degF] Dilan Bello MD Work Phone: [facility] 10-21-2022 08:49-0400 Body weight 82.33 kg Dilan Bello MD Work Phone: [facility] 10-21-2022 08:49-0400 Diastolic blood pressure 74 mm[Hg] Dilan Bello MD Work Phone: [facility] 10-21-2022 08:49-0400 Heart rate 99 /min Dilan Bello MD Work Phone: [facility] 10-21-2022 08:49-0400 SaO2% (BldA) [Mass fraction] 97 % Dilan Bello MD Work Phone: [facility] 10-21-2022 08:49-0400 Systolic blood pressure 113 mm[Hg] Dilan Bello MD Work Phone: [facility] 09-22-2022 09:38-0400 Body temperature 97.9 [degF] Dilan Bello MD Work Phone: [facility] 09-22-2022 09:38-0400 Body weight 83.46 kg Dilan Bello MD Work Phone: [facility] 09-22-2022 09:38-0400 Diastolic blood pressure 84 mm[Hg] Dilan Bello MD Work Phone: [facility] 09-22-2022 09:38-0400 Heart rate 108 /min Dilan Bello MD Work Phone: [facility] 09-22-2022 09:38-0400 SaO2% (BldA) [Mass fraction] 97 % Dilan Bello MD Work Phone: [facility] 09-22-2022 09:38-0400 Systolic blood pressure 145 mm[Hg] Dilan Bello MD Work Phone: [facility] 08-25-2022 10:58-0400 Body temperature 97 [degF] Shelli Valles PEDIGREE TRACER.MANAGER CONTENT Work Phone: [facility] 08-25-2022 10:58-0400 Body weight 82.33 kg Shelli Valles PEDIGREE TRACER.MANAGER CONTENT Work Phone: [facility] 08-25-2022 10:58-0400 Diastolic blood pressure 85 mm[Hg] Shelli Valles PEDIGREE TRACER.MANAGER CONTENT Work Phone: [facility] 08-25-2022 10:58-0400 Heart rate 97 /min Shelli Valles PEDIGREE TRACER.MANAGER CONTENT Work Phone: [facility] 08-25-2022 10:58-0400 SaO2% (BldA) [Mass fraction] 96 % Shelli Valles PEDIGREE TRACER.MANAGER CONTENT Work Phone: [facility] 07-10-2023 10:58-0400 Systolic blood pressure 118 mm[Hg] Shelli Valles MURALIAnjaliMANAGER CONTENT Work Phone: [facility] 06-03-2022 13:00-0400 Body temperature 98.01 [degF] Treatment Wstr Work Phone: [facility] 06-03-2022 13:00-0400 Diastolic blood pressure 85 mm[Hg] Treatment Wstr Work Phone: [facility] 06-03-2022 13:00-0400 Heart rate 88 /min Treatment Wstr Work Phone: [facility] 06-03-2022 13:00-0400 Systolic blood pressure 143 mm[Hg] Treatment Wstr Work Phone: [facility] 05-06-2022 10:17-0400 Body temperature 96.01 [degF] Treatment Wstr Work Phone: [facility] 05-06-2022 10:17-0400 Body weight 85.5 kg Treatment Wstr Work Phone: [facility] 05-06-2022 10:17-0400 Diastolic blood pressure 77 mm[Hg] Treatment Wstr Work Phone: [facility] 05-06-2022 10:17-0400 Heart rate 99 /min Treatment Wstr Work Phone: [facility] 05-06-2022 10:17-0400 SaO2% (BldA) [Mass fraction] 95 % Treatment Wstr Work Phone: [facility] 05-06-2022 10:17-0400 Systolic blood pressure 128 mm[Hg] Treatment Wstr Work Phone: [facility] 04-25-2022 08:54-0500 Body temperature 96.6 [degF] Elver Littlejohn MD Work Phone: [facility] 04-25-2022 08:54-0500 Body weight 86 kg Elver Littlejohn MD Work Phone: [facility] 04-25-2022 08:54-0500 Diastolic blood pressure 82 mm[Hg] Elver Littlejohn MD Work Phone: [facility] 04-25-2022 08:54-0500 Heart rate 104 /min Elver Littlejohn MD Work Phone: [facility] 04-25-2022 08:54-0500 Respiratory rate 18 /min Elver Littlejohn MD Work Phone: [facility] 04-25-2022 08:54-0500 SaO2% (BldA) [Mass fraction] 97 % Elver Littlejohn MD Work Phone: [facility] 04-25-2022 08:54-0500 Systolic blood pressure 118 mm[Hg] Elver Littlejohn MD Work Phone: [facility] 04-08-2022 09:22-0500 Body temperature 97.2 [degF] Treatment Wstr Work Phone: [facility] 04-08-2022 09:22-0500 Body weight 86.86 kg Treatment Wstr Work Phone: [facility] 04-08-2022 09:22-0500 Diastolic blood pressure 81 mm[Hg] Treatment Wstr Work Phone: [facility] 04-08-2022 09:22-0500 Heart rate 95 /min Treatment Wstr Work Phone: [facility] 04-08-2022 09:22-0500 Systolic blood pressure 133 mm[Hg] Treatment Wstr Work Phone: [facility] 03-11-2022 10:00-0500 Body temperature 97.2 [degF] Treatment Wstr Work Phone: [facility] 03-11-2022 10:00-0500 Body weight 86.41 kg Treatment Wstr Work Phone: [facility] 03-11-2022 10:00-0500 Diastolic blood pressure 80 mm[Hg] Treatment Wstr Work Phone: [facility] 03-11-2022 10:00-0500 Heart rate 99 /min Treatment Wstr Work Phone: [facility] 03-11-2022 10:00-0500 SaO2% (BldA) [Mass fraction] 99 % Treatment Wstr Work Phone: [facility] 03-11-2022 10:00-0500 Systolic blood pressure 129 mm[Hg] Treatment Wstr Work Phone: [facility] 02-13-2022 09:48-0500 Body temperature 97.5 [degF] Robb Leiva MD Work Phone: [facility] 02-13-2022 09:48-0500 Body weight 87.77 kg Robb Leiva MD Work Phone: [facility] 02-13-2022 09:48-0500 Diastolic blood pressure 94 mm[Hg] Robb Leiva MD Work Phone: [facility] 02-13-2022 09:48-0500 Heart rate 102 /min Robb Leiva MD Work Phone: [facility] 02-13-2022 09:48-0500 SaO2% (BldA) [Mass fraction] 99 % Robb Leiva MD Work Phone: [facility] 02-13-2022 09:48-0500 Systolic blood pressure 138 mm[Hg] Robb Leiva MD Work Phone: [facility] 01-14-2022 08:00-0500 Body temperature 97.39 [degF] Treatment Wstr Work Phone: [facility] 01-14-2022 08:00-0500 Diastolic blood pressure 80 mm[Hg] Treatment Wstr Work Phone: [facility] 01-14-2022 08:00-0500 Heart rate 89 /min Treatment Wstr Work Phone: [facility] 01-14-2022 08:00-0500 Systolic blood pressure 128 mm[Hg] Treatment Wstr Work Phone: [facility] 12-17-2021 09:00-0400 Body temperature 97.39 [degF] Robb Leiva MD Work Phone: [facility] 12-17-2021 09:00-0400 Body weight 87.09 kg Robb Leiva MD Work Phone: [facility] 12-17-2021 09:00-0400 Diastolic blood pressure 84 mm[Hg] Robb Leiva MD Work Phone: [facility] 12-17-2021 09:00-0400 Heart rate 104 /min Robb Leiva MD Work Phone: [facility] 12-17-2021 09:00-0400 SaO2% (BldA) [Mass fraction] 98 % Robb Leiva MD Work Phone: [facility] 12-17-2021 09:00-0400 Systolic blood pressure 113 mm[Hg] Robb Leiva MD Work Phone: [facility] 11-19-2021 13:24-0400 Body temperature 97.9 [degF] Treatment Wstr Work Phone: [facility] 11-19-2021 13:24-0400 Diastolic blood pressure 83 mm[Hg] Treatment Wstr Work Phone: [facility] 11-19-2021 13:24-0400 Heart rate 97 /min Treatment Wstr Work Phone: [facility] 11-19-2021 13:24-0400 Respiratory rate 16 /min Treatment Wstr Work Phone: [facility] 11-19-2021 13:24-0400 SaO2% (BldA) [Mass fraction] 97 % Treatment Wstr Work Phone: [facility] 11-19-2021 13:24-0400 Systolic blood pressure 121 mm[Hg] Treatment Wstr Work Phone: [facility] 10-22-2021 13:52-0400 Body temperature 97.81 [degF] Treatment Wstr Work Phone: [facility] 10-22-2021 13:52-0400 Body weight 87.77 kg Treatment Wstr Work Phone: [facility] 10-22-2021 13:52-0400 Diastolic blood pressure 88 mm[Hg] Treatment Wstr Work Phone: [facility] 10-22-2021 13:52-0400 Heart rate 102 /min Treatment Wstr Work Phone: [facility] 10-22-2021 13:52-0400 Respiratory rate 18 /min Treatment Wstr Work Phone: [facility] 10-22-2021 13:52-0400 SaO2% (BldA) [Mass fraction] 99 % Treatment Wstr Work Phone: [facility] 10-22-2021 13:52-0400 Systolic blood pressure 123 mm[Hg] Treatment Wstr Work Phone: [facility] 09-20-2021 11:17-0400 Body temperature 98.1 [degF] Robb Leiva MD Work Phone: [facility] 09-20-2021 11:17-0400 Body weight 89.81 kg Robb Leiva MD Work Phone: [facility] 09-20-2021 11:17-0400 Diastolic blood pressure 93 mm[Hg] Robb Leiva MD Work Phone: [facility] 09-20-2021 11:17-0400 Heart rate 89 /min Robb Leiva MD Work Phone: [facility] 09-20-2021 11:17-0400 SaO2% (BldA) [Mass fraction] 100 % Robb Leiva MD Work Phone: [facility] 09-20-2021 11:17-0400 Systolic blood pressure 151 mm[Hg] Robb Leiva MD Work Phone: [facility] 08-26-2021 13:55-0400 Body temperature 97.9 [degF] Treatment Wstr Work Phone: [facility] 08-26-2021 13:55-0400 Diastolic blood pressure 82 mm[Hg] Treatment Wstr Work Phone: [facility] 08-26-2021 13:55-0400 Heart rate 90 /min Treatment Wstr Work Phone: [facility] 08-26-2021 13:55-0400 Systolic blood pressure 125 mm[Hg] Treatment Wstr Work Phone: [facility] 08-21-2021 10:20-0400 Body weight 87.18 kg Megan Podlogar PEDIGREE TRACER.MANAGER CONTENT Work Phone: [facility] 08-21-2021 10:20-0400 Diastolic blood pressure 84 mm[Hg] Megan Podlogar PEDIGREE TRACER.MANAGER CONTENT Work Phone: [facility] 08-21-2021 10:20-0400 Heart rate 105 /min Megan Podlogar PEDIGREE TRACER.MANAGER CONTENT Work Phone: [facility] 08-21-2021 10:20-0400 Respiratory rate 20 /min Megan Podlogar PEDIGREE TRACER.MANAGER CONTENT Work Phone: [facility] 08-21-2021 10:20-0400 SaO2% (BldA) [Mass fraction] 98 % Megan Podlogar PEDIGREE TRACER.MANAGER CONTENT Work Phone: [facility] 08-21-2021 10:20-0400 Systolic blood pressure 128 mm[Hg] Megan Podlogar PEDIGREE TRACER.MANAGER CONTENT Work Phone: [facility] 07-29-2021 13:49-0400 Body temperature 97.3 [degF] Treatment Wstr Work Phone: [facility] 07-29-2021 13:49-0400 Diastolic blood pressure 88 mm[Hg] Treatment Wstr Work Phone: [facility] 07-29-2021 13:49-0400 Heart rate 112 /min Treatment Wstr Work Phone: [facility] 07-29-2021 13:49-0400 Respiratory rate 14 /min Treatment Wstr Work Phone: [facility] 07-29-2021 13:49-0400 Systolic blood pressure 128 mm[Hg] Treatment Wstr Work Phone: [facility] 07-01-2021 15:00-0400 Body temperature 97.3 [degF] Treatment Wstr Work Phone: [facility] 07-01-2021 15:00-0400 Diastolic blood pressure 88 mm[Hg] Treatment Wstr Work Phone: [facility] 07-01-2021 15:00-0400 Heart rate 80 /min Treatment Wstr Work Phone: [facility] 07-01-2021 15:00-0400 Systolic blood pressure 157 mm[Hg] Treatment Wstr Work Phone: [facility] 06-28-2021 13:57-0400 Body temperature 98.29 [degF] Robb Leiva MD Work Phone: [facility] 06-28-2021 13:57-0400 Body weight 87.77 kg Robb Leiva MD Work Phone: [facility] 06-28-2021 13:57-0400 Diastolic blood pressure 96 mm[Hg] Robb Leiva MD Work Phone: [facility] 06-28-2021 13:57-0400 Heart rate 93 /min Robb Leiva MD Work Phone: [facility] 06-28-2021 13:57-0400 Systolic blood pressure 137 mm[Hg] Robb Lieva MD Work Phone: [facility] Encounters Encounter Date Encounter Type Care Provider Facility Start: 01-26-2023 End: 01-26-2023 ambulatory DILAN BELLO Facility:[facility] Start: 01-26-2023 End: 01-26-2023 Subsequent hospital visit by physician [facility] ([facility]) Work Phone: Cat Scan Procedures Date Procedure Procedure Detail Performing Clinician Start: 10-13-2022 Ct abdomen & pelvis w/contrast material Dilan Bello MD Work Phone: Start: 10-13-2022 Ct thorax w/contrast material Dilan Bello MD Work Phone: Start: 08-25-2022 Basic metabolic pane l calcium total Shelli Valles PEDIGREE TRACER.MANAGER CONTENT Work Phone: Start: 05-30-2022 Ct abdomen & pelvis w/contrast material Robb Leiva MD Work Phone: Start: 05-30-2022 Ct thorax w/contrast material Robb Leiva MD Work Phone: Start: 12-17-2021 Lipid 1996 panel - S kai or Plasma Kelly Aparicio MA Start: 11-19-2021 Radiologic exam ches t 2 views Robb Leiva MD Work Phone: Start: 09-18-2021 Ct abdomen & pelvis w/contrast material Robb Leiva MD Work Phone: Start: 09-18-2021 Ct thorax w/contrast material Robb Leiva MD Work Phone: Start: 08-23-2021 Radiologic exam ches t 2 views Robb Leiva MD Work Phone: Start: 06-28-2021 Radiologic exam ches t 2 views Robb Leiva MD Work Phone: Start: 06-13-2020 Adult depression screening assessment Robb Leiva MD Work Phone: Plan of Treatment Date Care Activity Detail Author Start: 12-17-2026 Lipid 1996 panel - Serum or Plasma Lipid Screening [facility] Start: 12-17-2026 Lipid panel Lipid Screening [facility] Start: 12-17-2026 LIPID SCREEN LIPID SCREEN [facility] Start: 01-12-2026 Diabetes Screening Diabetes Screening [facility] Start: 12-15-2025 Diabetes Screening Diabetes Screening [facility] Start: 11-17-2025 Diabetes Screening Diabetes Screening [facility] Start: 10-21-2025 DIABETES SCREEN DIABETES SCREEN [facility] Start: 10-21-2025 Diabetes Screening Diabetes Screening [facility] Start: 09-22-2025 DIABETES SCREEN DIABETES SCREEN [facility] Start: 08-25-2025 DIABETES SCREEN DIABETES SCREEN [facility] Start: 07-29-2025 DIABETES SCREEN DIABETES SCREEN [facility] Start: 06-30-2025 DIABETES SCREEN DIABETES SCREEN [facility] Start: 06-03-2025 DIABETES SCREEN DIABETES SCREEN [facility] Start: 05-06-2025 DIABETES SCREEN DIABETES SCREEN [facility] Start: 04-08-2025 DIABETES SCREEN DIABETES SCREEN [facility] Start: 03-11-2025 DIABETES SCREEN DIABETES SCREEN [facility] Start: 02-12-2025 DIABETES SCREEN DIABETES SCREEN [facility] Start: 01-14-2025 DIABETES SCREEN DIABETES SCREEN [facility] Start: 12-17-2024 DIABETES SCREEN DIABETES SCREEN [facility] Start: 11-19-2024 DIABETES SCREEN DIABETES SCREEN [facility] Start: 10-22-2024 DIABETES SCREEN DIABETES SCREEN [facility] Start: 09-23-2024 DIABETES SCREEN DIABETES SCREEN [facility] Start: 08-26-2024 DIABETES SCREEN DIABETES SCREEN [facility] Start: 07-26-2024 DIABETES SCREEN DIABETES SCREEN [facility] Start: 06-28-2024 DIABETES SCREEN DIABETES SCREEN [facility] Start: 06-03-2024 DIABETES SCREEN DIABETES SCREEN [facility] Start: 11-18-2023 BP Controlled (<130/80) BP Controlled (<130/80) [facility] Start: 10-22-2023 BP CONTROLLED (<130/80) BP CONTROLLED (<130/80) [facility] Start: 07-30-2023 BP CONTROLLED (<130/80) BP CONTROLLED (<130/80) [facility] Start: 04-26-2023 ANNUAL PCP TEAM CHRONIC DISEASE VISIT ANNUAL PCP TEAM CHRONIC DISEASE VISIT [facility] Start: 10-17-2022 Covid-19 Vaccine ( season) Covid-19 Vaccine ( season) [facility] Start: 10-17-2022 Influenza vaccination [facility] Start: 10-03-2022 ANNUAL PCP TEAM CHRONIC DISEASE VISIT ANNUAL PCP TEAM CHRONIC DISEASE VISIT [facility] Start: 10-03-2022 BP CONTROLLED (<130/80) BP CONTROLLED (<130/80) [facility] Start: 08-21-2022 ANNUAL PCP TEAM CHRONIC DISEASE VISIT ANNUAL PCP TEAM CHRONIC DISEASE VISIT [facility] Start: 06-03-2022 End: 08-03-2022 CBC W Auto Differential panel - Blood CBC + DIFF Lab STAT 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) Malignant neoplasm of lower lobe of left lung (HCC) 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) Malaise and fatigue Expected: 06/03/2022, Expires: 08/03/2022 [facility] Work Phone: Immunizations Immunization Date Immunization Notes Care Provider Mimi valiente 11-26-2019 influenza, injectabl e, quadrivalent, contains preservative Robb Leiva MD Work Phone: [facility] 11-26-2019 influenza virus vacc ine, unspecified formulation Kelly Alessandra NICOLE [facility] 12-31-2018 influenza, injectabl e, quadrivalent, preservative free Robb Leiva MD Work Phone: [facility] Payers Date Payer Category Payer Medicare [id number] 2021 Medicaid [id number] 2021 Medicaid [id number] 2021 Medicaid [id number] 2020 Medicaid [id number] 2020 Medicare MEDICARE MEDICAR E A AND B [id number] 2020-Present [phone] [address] [address] [place] [address] Medicare [id number] 2020 Medicare [id number] Social History Date Type Detail Facility Start: 07-03-2010 End: 11-06-2022 Tobacco smoking status NHIS Never smoked tobacco [facility] Start: 04-16-2021 End: 01-12-2023 Alcohol intake Current drinker of alcohol (finding) [facility] Start: 02-21-2008 History SDOH Alcohol Comment occasional [facility] Start: 1970 Sex Assigned At Not on file [facility] Start: 04-26-2021 End: 01-14-2022 Exposure to SARS-CoV-2 (event) Not sure [facility] Start: 07-03-2010 End: 11-06-2022 Tobacco use and exposure Smokeless tobacco non-user [facility] Start: 06-30-2022 End: 08-25-2022 History of Social function [facility] Start: 06-30-2022 End: 08-25-2022 Tobacco use panel [facility] Adult Depression Screening Assessment 0 [facility] History of tobacco use Passive smoker [facility] Work Phone: Clinical Notes 03-29-2018 to 2023 Reef Kelli Buchanan RT(R) - 01/26/2023 10:20 AM Dilan Brooks MD - 01/12/2023 9:47 AM ESTTelephone Encounter - Eryn Lamar RN - 01/02/2023 11:59 AM EST Note Date & Type Note Facility 2023 Note HNO ID: [id number] Author: ?, ?, ? Service: ? Author Type: ? Type: Progress Notes Filed: 02/25/2023 11:41 Note Text: Unable to reach patient for refill of medication after multiple call attempts. Future follow-up scheduled. Danna Fritz [facility] 01-26-2023 Note [facility] 01-26-2023 History of Presen t illness Narrative Radiology Service Progress Note DATE OF SERVICE: January 26, 2023 TIME: 4:02 PM PATIENT IDENTITY VERIFICATION COMPLETED USING TWO (2) STANDARD IDENTIFIERS: Name and Date of confirmed by patient verbally. FALL SCREENING: Has the patient had 2 falls in the last year or 1 fall with injury or currently using an Ambulatory Assistive Device (Walker, Cane, Wheelchair, Crutches, etc.)? No PATIENT GENDER DATA: Male PATIENT RELEVANT IMPLANT DATA REVIEWED: Yes ALLERGIES: Reviewed and unchanged CONTRAST ALLERGY: NO. EXAM: CT -CONTRAST INDUCED NEPHROPATHY RISK FACTORS: Patient age > 60 years CREATININE: Creatinine Date Value Ref Range Status 01/12/2023 1.25 (H) 0.73 - 1.22 mg/dL Final 12/15/2022 1.36 (H) 0.73 - 1.22 mg/dL Final 11/17/2022 1.29 (H) 0.73 - 1.22 mg/dL Final Estimated Glomerular Filtration Rate Date Value Ref Range Status 01/12/2023 68 >=60 mL/min/1.73m Final Comment: Estimated Glomerular Filtration Rate (eGFR) is calculated using the 2020 CKD-EPI creatinine equation. This equation utilizes serum creatinine, sex, and age as parameters. The creatinine assay has traceable calibration to isotope dilution-mass spectrometry. Refer to KDIGO guidelines for clinical interpretation. In patients with unstable renal function, e.g. those with acute kidney injury, the eGFR may not accurately reflect actual GFR. eGFR- Date Value Ref Range Status 04/05/2021 >60 Final P.O.C.T. RESULTS: POC done: Yes, See Lab Tab January 26, 2023 TREATMENT: N/A PERIPHERAL IV DATA: Ambulatory: A peripheral IV was started in the Left antecubital site with a Angio cath: 22 gauge. RADIOLOGY DEPARTMENT: CT; Exam(s) Completed: Chest Abdomen Pelvis SIGNATURE: RT Mervat(R) PATIENT NAME: Arnulfo Wallace DATE: January 26, 2023 TIME: 4:02 PM documented in this encounter [facility] 01-15-2023 Note [facility] 01-12-2023 Note [facility] 01-12-2023 History of Presen t illness Narrative (Elements copied from my note dated December 15, 2022, have been reviewed and updated where appropriate, and all reflect current assessment and medical decision making from today's encounter, January 12, 2023) HISTORY OF PRESENT ILLNESS: Arnulfo Wallace is a 52 year old male presented with a 6 month history of progressive shortness of breath, chest pain and weight loss. He had left sided chest pain on and off for the 4 months, pleuritic in nature. worse when he lay on the left side for about 4 months prior to presentation. He presented to emergency room because of worsening dyspnea. He reported having increased productive cough along with shortness of breath. He also reported having fever and body aches. He had been using his albuterol inhaler with no improvement. He was a nonsmoker, but has secondhand smoke exposure. A CT scan showed no evidence of PE but cavitary nodules with mediastinal adenopathy with lytic bone lesions and a pleural (chest wall mass) and a left adrenal mass. Subsequent CT-guided needle biopsy of a lung lesion consistent with renal cell primary (Dianna grade 2). Previous treatment: 1) Ipilumab & Nivolumab x 4. Began 05/2018. Current therapy: 1) Nivolumab cabozantinib. Here for follow up, he feels well. No complaints. Reviewed images from Ct September 2022, we see enlargement of right renal mass, local invasion to liver. Discussion has been had re nephrectomy in past. Added cabozantinib October 2022 Tolerating well, Here for follow up, fells no pressure in right abdomen. Saw urology, no plans for nephrectomy Cabo going well, only some soreness roof of mouth CLINICAL IMPRESSION: Metastatic renal cell carcinoma, as above RECOMMENDATION/PLAN: 1. Continue nivolumab cabozantinib, 2. See back after scans in January Written and verbal health teaching given to patient, patient verbalizes understanding and agrees with treatment plan. 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 Leiva, Dr. Beard Pleural metastasis Renal cell carcinoma of right kidney (HCC) Stroke (HCC) 08/09/2021 Unspecified asthma(493.90) PAST SURGICAL HISTORY Procedure Laterality Date PAST SURGICAL HISTORY OF Pyloric stenosis FAMILY HISTORY Problem Relation Age of Onset Coronary Artery Disease Father RI x 6 Hypertension Father Diabetes Father Cancer Father stomach Diabetes Mother Hypertension Mother Hypertension Brother Diabetes Brother COPD Maternal Grandfather Social History Tobacco Use Smoking status: Never Passive exposure: Past (hx of second hand smoke exposure) Smokeless tobacco: Never Vaping Use Vaping Use: Never used Substance Use Topics Alcohol use: Yes Comment: occasional Drug use: Yes Frequency: 3.0 times per week Types: Marijuana ALLERGIES: ALLERGIES Allergen Reactions Penicillins Anaphylaxis CURRENT OUTPATIENT MEDICATIONS: albuterol HFA (PROVENTIL HFA, VENTOLIN HFA) 90 mcg/actuation inhaler Inhale 1-2 Puffs as instructed four times daily as needed. FOR WHEEZING AND SHORTNESS OF BREATH. amLODIPine (NORVASC) 10 mg tablet Take 1 tablet by mouth once daily. atorvastatin (LIPITOR) 20 mg tablet Take 1 tablet by mouth daily at bedtime. For cholesterol. lisinopril (ZESTRIL) 10 mg tablet Take 1 tablet by mouth once daily. cabozantinib (CABOMETYX) 40 mg tablet Take 1 tablet (40 mg) by mouth once daily on an empty stomach. potassium chloride ER (KLOR-CON) 20 mEq tablet Take 1 tablet by mouth twice daily. aspirin, enteric coated (ASPIRIN, ENTERIC COATED) 81 mg EC tablet Take 1 tablet by mouth once daily. Blood Pressure Test Kit-Medium kit 1 Each once daily. REVIEW OF SYSTEMS: GENERAL: No fever, night sweats, weight loss or malaise. All other reviewed and negative other than HPI. PHYSICAL EXAMINATION: VITAL SIGNS: BP 140/96 Pulse 103 Temp (Src) 97.4 (Temporal) Wt 179 lb (81.2kg) SpO2 96% GENERAL APPEARANCE: Well appearing, in no acute distress, alert and oriented x3, well-hydrated, well nourished. LUNGS: CTA HEART: Reg MOUTH: MMM intact I spent a total of 20 minutes on the date of the service which included preparing to see the patient, [id number] patient care, completing clinical documentation, obtaining and/or reviewing separately obtained history, performing a medically appropriate examination, counseling and educating the patient/family/caregiver, ordering medications, tests, or procedures, independently interpreting results (not separately reported), and communicating results to the patient/family/caregiver. Electronically Signed: Dilan Bello MD January 12, 2023 documented in this encounter [facility] 01-02-2023 Miscellaneous Notes Call to patient, message left to call me back and phone/contact number provided. Eryn Lamar RN ORAL ANTI-CANCER AGENTS FOLLOW-UP PHONE CALL/VISIT Patient is on day 21 of Cabozantinib for Renal Cell. Call to patient, message left to call me back and phone/contact number provided. Eryn Lamar RN documented in this encounter [facility] 12-19-2022 Miscellaneous Notes Sent 3rd attempt. Patient has not read my chart. Please mail appointment reminder to patient. Thank you. 2nd attempt. Message left for patient to contact office for CT scan date/time. Appointment scheduled and My Chart message sent. Please leave encounter open for verification thru My Chart or phone call. Reschedule at patient request. Check out comments: Need scans done early January for patient to return call. When patient calls, please schedule as directed. Elba Brady documented in this encounter [facility] 12-15-2022 Miscellaneous Notes ORAL ANTI-CANCER AGENTS EDUCATION patient here today for oral medication education of Cabozantinib for Renal Cell Cancer Patient is not sure the exact date he started Cabozantinib but thinks it was 12/10/22. He denies any side effects or concerns at this time. READINESS TO LEARN Cognitive Ability: Alert and oriented Motivation to Learn: Interested Family Support: Unable to assess - Family not present Instruction Provided to: Patient Patient learns best by: Multiple Methods Factors affecting learning: None Physical limitation affecting learning: None YEUNG ASSESSMENT: 1.) Verified that patient knows that the oral agents are for cancer and are taken by mouth. Yes 2.) Medication review completed during visit. Yes 3.) Patient is able to swallow pills. Yes 4.) Patient is able to read the drug label/information. Yes 5.) Patient is able to open the medication bottles and packages. Yes 6.) Has patient taken other pills for cancer? No 7.) Is patient experiencing any symptoms that would affect their ability to keep down pills, for example nausea or vomiting? No 8.) Verified that patient understands prescription delivery, benefit investigation and refill process. Yes, he was also made aware that [facility] trying to contact him. Requested that he take any phone calls from numbers that he is not familiar with as they may be the pharmacy trying to call him. DRUG-SPECIFIC EDUCATION: 1.) Verified patient knows the drug name. Yes 2.) Verified patient understands the dose and schedule of oral anti cancer agent. Yes 3.) Verified patient knows what to do if a medication dose is missed. Yes 4.) Verified patient understands where to store the drug. Yes 5.) Verified patient understands potential side effects and how to manage them. Yes 6.)Verified patient understands handling precautions of oral anti cancer agent. Yes 7.) Verified patient was given written instructions and understands when and whom to call with questions. Yes 8.) Verified patient understands where and how to return drug. Yes 9.) Verified patient received drug specific adult education handout and neutropenic wallet card Yes EVALUATE: The patient demonstrated an understanding of all the above education using the teach-back method. Yes Instructed to call us with any questions, concerns, and/or unresolved symptoms. Will continue to follow up and provide reinforcement of teaching topics as needed. Eryn Lamar RN documented in this encounter [facility] 12-15-2022 Note [facility] 12-15-2022 Note [facility] 12-15-2022 History of Presen t illness Narrative Patient had OV with Dr Bello prior to treatment please refer to OV note dated today for Vs and Assessment. documented in this encounter [facility] 11-28-2022 Note [facility] 11-28-2022 Note [facility] 11-28-2022 Note [facility] 11-28-2022 Note [facility] 11-17-2022 Note [facility] 11-17-2022 Miscellaneous Notes Spoke with patient and scheduled. Elba Brady Check out comments: - Needs neuro consult h/o CVA July 2021-did not follow up with neuro at that time. - Proceed as scheduled today for opdivo pending all labs. - Follow up as scheduled. - Pt. aware to call office with any questions/concerns. documented in this encounter [facility] 11-10-2022 Note [facility] 11-07-2022 Miscellaneous Notes Patient has been identified by name and date of : Yes Last office visit in this department: 04/25/2022 Next visit 12/29/22 RX INSTRUCTIONS: Patient aware RX will be sent to pharmacy. No need to notify patient. Patient phones requesting refills as follows: Requested Prescriptions Pending Prescriptions Disp Refills albuterol HFA (PROVENTIL HFA, VENTOLIN HFA) 90 mcg/actuation inhaler 18 g 1 Sig: Inhale 1-2 Puffs as instructed four times daily as needed. FOR WHEEZING AND SHORTNESS OF BREATH. amLODIPine (NORVASC) 10 mg tablet 90 tablet 0 Sig: Take 1 tablet by mouth once daily. atorvastatin (LIPITOR) 20 mg tablet 90 tablet 0 Sig: Take 1 tablet by mouth daily at bedtime. For cholesterol. lisinopril (ZESTRIL) 10 mg tablet 90 tablet 0 Sig: Take 1 tablet by mouth once daily. Please review and advise. Kitty Morris documented in this encounter [facility] 11-06-2022 Note [facility] 11-04-2022 Note [facility] 11-04-2022 History of Presen t illness Narrative POPULATION HEALTH NAVIGATION OUTREACH Action/FYI no answer RSB SPINEhart message sent ANNUAL MEDICARE WELLNESS Colorectal Cancer Screening Never done iInfluenza Vaccine(1) due on 10/17/2022 Patient Identified by Name and : NO Outreach Outcome/Action Unable to reach patient: Phone number not valid / voicemail full [employer] message sent Did you use a PCP flex slot to schedule this appointment? No Reason for Outreach Care Gap or Scheduling/Wellness visits Payer: Payor: [employer] MEDICARE / Plan: [employer] MEDICARE PPO / Product Type: PPO / Care Gap Reviewed:: Annual Wellness visit Colorectal Cancer Screening Flu Vaccine Reminder: Reminder note to check Health Maintenance for items below Health Maintenance items due: Hepatitis B Vaccine(1 of 3 - 3-dose series) Never done Pneumococcal Vaccine(1 - PCV) Never done Spirometry Never done Hepatitis C Screening Never done HIV Screening Never done DTaP,Tdap,Td Vaccine(1 - Tdap) Never done Shingrix Vaccine(1 of 2) Never done Colorectal Cancer Screening Never done Covid-19 Vaccine(2 - Moderna series) due on 09/25/2020 Depression Assessment Never done Influenza Vaccine(1) due on 10/17/2022 Navigation Signature: Kelly Aparicio MA November 04, 2022 9:17 AM documented in this encounter [facility] 10-21-2022 Note [facility] 10-21-2022 Note [facility] 10-21-2022 Note [facility] 10-21-2022 Note HNO ID: [id number] Author: Florina Martinez RN Service: ? Author Type: Registered Nurse Type: Progress Notes Filed: 10/21/2022 10:40 AM Note Text: patient had OV with Dr Bello please refer to OV note dated today for VS and assessment. [facility] 10-21-2022 Note [facility] 10-21-2022 Miscellaneous Notes Oral chemotherapy folder given to patient that included information on Cabozantinib. Patient aware that [facility] will be processing the prescription and will be giving them a call. Patient instructed to call when he knows a delivery date. He is able to start when delivered. Reviewed dosing and will follow up with full oral education prior to start. Patient states understanding and denies further questions. Silvia Lamar RN documented in this encounter [facility] 10-21-2022 History of Presen t illness Narrative patient had OV with Dr Bello please refer to OV note dated today for VS and assessment. documented in this encounter [facility] 10-21-2022 History of Presen t illness Narrative (Elements copied from my note dated September 22, 2022, have been reviewed and updated where appropriate, and all reflect current assessment and medical decision making from today's encounter, October 21, 2022) HISTORY OF PRESENT ILLNESS: Arnulfo Wallace is a 52 year old male presented with a 6 month history of progressive shortness of breath, chest pain and weight loss. He had left sided chest pain on and off for the 4 months, pleuritic in nature. worse when he lay on the left side for about 4 months prior to presentation. He presented to emergency room because of worsening dyspnea. He reported having increased productive cough along with shortness of breath. He also reported having fever and body aches. He had been using his albuterol inhaler with no improvement. He was a nonsmoker, but has secondhand smoke exposure. A CT scan showed no evidence of PE but cavitary nodules with mediastinal adenopathy with lytic bone lesions and a pleural (chest wall mass) and a left adrenal mass. Subsequent CT-guided needle biopsy of a lung lesion consistent with renal cell primary (Dianna grade 2). Previous treatment: 1) Ipilumab & Nivolumab x 4. Began 05/2018. Current therapy: 1) Nivolumab maintinence. Here for follow up, he feels well. No complaints. Reviewed images from Ct September 2022, we see enlargement of right renal mass, local invasion to liver. Discussion has been had re nephrectomy in past. CLINICAL IMPRESSION: Metastatic renal cell carcinoma, as above RECOMMENDATION/PLAN: 1. Continue treatment, add cabozantinib, SE reviewed, info given 2. Refer to urology re visit idea of palliative nephrectomy Written and verbal health teaching given to patient, patient verbalizes understanding and agrees with treatment plan. 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 Leiva, Dr. Beard Pleural metastasis Renal cell carcinoma of right kidney (HCC) Stroke (HCC) 08/09/2021 Unspecified asthma(493.90) PAST SURGICAL HISTORY Procedure Laterality Date PAST SURGICAL HISTORY OF Pyloric stenosis FAMILY HISTORY Problem Relation Age of Onset Coronary Artery Disease Father RI x 6 Hypertension Father Diabetes Father Cancer Father stomach Diabetes Mother Hypertension Mother Hypertension Brother Diabetes Brother COPD Maternal Grandfather Social History Tobacco Use Smoking status: Never Smokeless tobacco: Never Vaping Use Vaping Use: Never used Substance Use Topics Alcohol use: Yes Comment: occasional Drug use: Yes Frequency: 3.0 times per week Types: Marijuana ALLERGIES: ALLERGIES Allergen Reactions Penicillins Anaphylaxis CURRENT OUTPATIENT MEDICATIONS: potassium chloride ER (KLOR-CON) 20 mEq tablet Take 1 tablet by mouth twice daily. lisinopril (ZESTRIL) 10 mg tablet Take 1 tablet by mouth once daily. atorvastatin (LIPITOR) 20 mg tablet Take 1 tablet by mouth daily at bedtime. For cholesterol. amLODIPine (NORVASC) 10 mg tablet Take 1 tablet by mouth once daily. albuterol HFA (PROVENTIL HFA, VENTOLIN HFA) 90 mcg/actuation inhaler Inhale 1-2 Puffs as instructed four times daily as needed. FOR WHEEZING AND SHORTNESS OF BREATH. aspirin, enteric coated (ASPIRIN, ENTERIC COATED) 81 mg EC tablet Take 1 tablet by mouth once daily. Blood Pressure Test Kit-Medium kit 1 Each once daily. cabozantinib (CABOMETYX) 40 mg tablet Take 1 tablet (40 mg) by mouth once daily. REVIEW OF SYSTEMS: GENERAL: No fever, night sweats, weight loss or malaise. All other reviewed and negative other than HPI. PHYSICAL EXAMINATION: VITAL SIGNS: BP 113/74 Pulse 99 Temp (Src) 97.1 (Temporal) Wt 181 lb 8 oz (82.3kg) SpO2 97% GENERAL APPEARANCE: Well appearing, in no acute distress, alert and oriented x3, well-hydrated, well nourished. I spent a total of 45 minutes on the date of the service which included preparing to see the patient, [id number] patient care, completing clinical documentation, obtaining and/or reviewing separately obtained history, performing a medically appropriate examination, counseling and educating the patient/family/caregiver, ordering medications, tests, or procedures, independently interpreting results (not separately reported), and communicating results to the patient/family/caregiver. Electronically Signed: Dilan Bello MD October 21, 2022 documented in this encounter [facility] 10-13-2022 Note [facility] 10-13-2022 History of Presen t illness Narrative Radiology Service Progress Note DATE OF SERVICE: October 13, 2022 TIME: 2:22 PM PATIENT IDENTITY VERIFICATION COMPLETED USING TWO (2) STANDARD IDENTIFIERS: Name and Date of confirmed by patient verbally. FALL SCREENING: Has the patient had 2 falls in the last year or 1 fall with injury or currently using an Ambulatory Assistive Device (Walker, Cane, Wheelchair, Crutches, etc.)? No PATIENT GENDER DATA: Male PATIENT RELEVANT IMPLANT DATA REVIEWED: Yes ALLERGIES: Reviewed and unchanged CONTRAST ALLERGY: NO. EXAM: CT -CONTRAST INDUCED NEPHROPATHY RISK FACTORS: Not applicable CREATININE: Creatinine Date Value Ref Range Status 09/22/2022 1.35 (H) 0.73 - 1.22 mg/dL Final 08/25/2022 1.49 (H) 0.73 - 1.22 mg/dL Final 08/25/2022 1.57 (H) 0.73 - 1.22 mg/dL Final Estimated Glomerular Filtration Rate Date Value Ref Range Status 09/22/2022 62 >=60 mL/min/1.73m Final Comment: Estimated Glomerular Filtration Rate (eGFR) is calculated using the 2020 CKD-EPI creatinine equation. This equation utilizes serum creatinine, sex, and age as parameters. The creatinine assay has traceable calibration to isotope dilution-mass spectrometry. Refer to KDIGO guidelines for clinical interpretation. In patients with unstable renal function, e.g. those with acute kidney injury, the eGFR may not accurately reflect actual GFR. eGFR- Date Value Ref Range Status 04/05/2021 >60 Final P.O.C.T. RESULTS: POC done: Yes, See Lab Tab October 13, 2022 TREATMENT: N/A PERIPHERAL IV DATA: Ambulatory: A peripheral IV was started in the Left antecubital site with a Angio cath: 22 gauge. RADIOLOGY DEPARTMENT: CT; Exam(s) Completed: Chest Abdomen Pelvis SIGNATURE: RT Mervat(R) PATIENT NAME: Arnulfo Wallace DATE: October 13, 2022 TIME: 2:22 PM documented in this encounter [facility] 09-22-2022 Note [facility] 09-22-2022 History of Presen t illness Narrative HISTORY OF PRESENT ILLNESS: Arnulfo Wallace is a 52 year old male presented with a 6 month history of progressive shortness of breath, chest pain and weight loss. He had left sided chest pain on and off for the 4 months, pleuritic in nature. worse when he lay on the left side for about 4 months prior to presentation. He presented to emergency room because of worsening dyspnea. He reported having increased productive cough along with shortness of breath. He also reported having fever and body aches. He had been using his albuterol inhaler with no improvement. He was a nonsmoker, but has secondhand smoke exposure. A CT scan showed no evidence of PE but cavitary nodules with mediastinal adenopathy with lytic bone lesions and a pleural (chest wall mass) and a left adrenal mass. Subsequent CT-guided needle biopsy of a lung lesion consistent with renal cell primary (Dianna grade 2). Previous treatment: 1) Ipilumab & Nivolumab x 4. Began 05/2018. Current therapy: 1) Nivolumab maintinence. Here for follow up, he feels well. No complaints. Reviewed images from 2019, compared to current. Right renal mass slightly enlarged from prior. Discussion has been had re nephrectomy in past. CLINICAL IMPRESSION: Metastatic renal cell carcinoma, as above RECOMMENDATION/PLAN: 1. Continue treatment 2. Update scans this month 3. Follow up after that Written and verbal health teaching given to patient, patient verbalizes understanding and agrees with treatment plan. 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 Leiva, Dr. Beard Pleural metastasis Renal cell carcinoma of right kidney (HCC) Stroke (HCC) 08/09/2021 Unspecified asthma(493.90) PAST SURGICAL HISTORY Procedure Laterality Date PAST SURGICAL HISTORY OF Pyloric stenosis FAMILY HISTORY Problem Relation Age of Onset Coronary Artery Disease Father RI x 6 Hypertension Father Diabetes Father Cancer Father stomach Diabetes Mother Hypertension Mother Hypertension Brother Diabetes Brother COPD Maternal Grandfather Social History Tobacco Use Smoking status: Never Smokeless tobacco: Never Vaping Use Vaping Use: Never used Substance Use Topics Alcohol use: Yes Comment: occasional Drug use: Yes Frequency: 3.0 times per week Types: Marijuana ALLERGIES: ALLERGIES Allergen Reactions Penicillins Anaphylaxis CURRENT OUTPATIENT MEDICATIONS: potassium chloride ER (KLOR-CON) 20 mEq tablet Take 1 tablet by mouth twice daily. lisinopril (ZESTRIL) 10 mg tablet Take 1 tablet by mouth once daily. atorvastatin (LIPITOR) 20 mg tablet Take 1 tablet by mouth daily at bedtime. For cholesterol. amLODIPine (NORVASC) 10 mg tablet Take 1 tablet by mouth once daily. albuterol HFA (PROVENTIL HFA, VENTOLIN HFA) 90 mcg/actuation inhaler Inhale 1-2 Puffs as instructed four times daily as needed. FOR WHEEZING AND SHORTNESS OF BREATH. aspirin, enteric coated (ASPIRIN, ENTERIC COATED) 81 mg EC tablet Take 1 tablet by mouth once daily. Blood Pressure Test Kit-Medium kit 1 Each once daily. REVIEW OF SYSTEMS: GENERAL: No fever, night sweats, weight loss or malaise. All other reviewed and negative other than HPI. PHYSICAL EXAMINATION: VITAL SIGNS: BP 145/84 Pulse 108 Temp (Src) 97.9 (Temporal) Wt 184 lb (83.5kg) SpO2 97% GENERAL APPEARANCE: Well appearing, in no acute distress, alert and oriented x3, well-hydrated, well nourished. LUNGS: CTA HEART: Reg I spent a total of 45 minutes on the date of the service which included preparing to see the patient, [id number] patient care, completing clinical documentation, obtaining and/or reviewing separately obtained history, performing a medically appropriate examination, counseling and educating the patient/family/caregiver, ordering medications, tests, or procedures, independently interpreting results (not separately reported), and communicating results to the patient/family/caregiver. Electronically Signed: Dilan Bello MD September 22, 2022 9:53 AM documented in this encounter [facility] 08-25-2022 Note [facility] 08-25-2022 Note [facility] 08-25-2022 History of Presen t illness Narrative K 3.2; per Shelli Valles NP will redraw lab to verify as patient has not been low in past. K 3.1; patient declines IV KCL due to other appointments today and tomorrow - Shelli Valles NP will call in rx for oral KCl and will return on Thursday for recheck- patient states understanding. documented in this encounter [facility] 08-25-2022 History of Presen t illness Narrative Chief Complaint Patient presents with: Established Patient HPI: Arnulfo Wallace is a 52 year old male who presents here today for evaluation for treatment today. Per Dr. Samuel's previous note: H/o asthma, hypertension who presented with a 6 month history of progressive shortness of breath, chest pain and weight loss. He had left sided chest pain on and off for the 4 months, pleuritic in nature. worse when he lay on the left side for about 4 months prior to presentation. He presented to emergency room because of worsening dyspnea. He reported having increased productive cough along with shortness of breath. He also reported having fever and body aches. He had been using his albuterol inhaler with no improvement. He was a nonsmoker, but has secondhand smoke exposure. A CT scan showed no evidence of PE but cavitary nodules with mediastinal adenopathy with lytic bone lesions and a pleural (chest wall mass) and a left adrenal mass. Subsequent CT-guided needle biopsy of a lung lesion consistent with renal cell primary (Dianna grade 2). Previous treatment: 1) Ipilumab & Nivolumab x 4. Began 05/2018. Current therapy: 1) Nivolumab maintinence. No new concerns today. Appetite: Good. Energy level: Poor for awhile. Denies fevers. 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 Past medical history, appointments, medications, allergies reviewed. No changes. EXAM: BP 118/85 Pulse 97 Temp 36.1 C (97 F) Wt 82.3 kg (181 lb 8 oz) SpO2 96% BMI 25.31 kg/m APPEARANCE Well appearing, alert, in no acute distress, well-hydrated, well nourished. HEART RRR with normal S1 and S2, no murmurs LUNG clear to auscultation LYMPH NODES No cervical lymphadenopathy, No supraclavicular lymphadenopathy, and No axillary lymphadenopathy. ABDOMEN bowel sounds normoactive, soft, non-tender EXTREMITIES No edema NEURO Awake, alert and oriented x 3, Normal gait, and No involuntary motions. SKIN Skin color, texture, turgor normal, no suspicious rashes or lesions LABS: Component Latest Ref Rng & Units 06/30/2022 07/29/2022 08/25/2022 WBC 3.70 - 11.00 k/uL 11.21 (H) 11.55 (H) 9.52 RBC 4.20 - 6.00 m/uL 4.45 4.47 4.50 Hemoglobin 13.0 - 17.0 g/dL 13.0 13.2 12.9 (L) Hematocrit 39.0 - 51.0 % 37.9 (L) 39.6 38.7 (L) MCV 80.0 - 100.0 fL 85.2 88.6 86.0 MCH 26.0 - 34.0 pg 29.2 29.5 28.7 MCHC 30.5 - 36.0 g/dL 34.3 33.3 33.3 RDW-CV 11.5 - 15.0 % 12.9 13.2 12.8 Platelet Count 150 - 400 k/uL 283 294 272 MPV 9.0 - 12.7 fL 9.1 9.8 9.9 NRBC /100 WBC 0.0 0.0 0.0 Absolute nRBC <0.01 k/uL <0.01 <0.01 <0.01 Neut% % 46.0 75.3 61.9 Abs Neut (ANC) 1.45 - 7.50 k/uL 5.16 8.68 (H) 5.89 Lymph% % 23.0 11.3 20.5 Abs Lymph 1.00 - 4.00 k/uL 2.58 1.31 1.95 Po[place]ett% % 9.0 4.5 8.0 Abs [place] <0.87 k/uL 1.01 (H) 0.52 0.76 Eosin% % 21.0 8.1 8.7 Abs Eosin <0.46 k/uL 2.35 (H) 0.94 (H) 0.83 (H) Baso% % 1.0 0.5 0.6 Abs Baso <0.11 k/uL 0.11 (H) 0.06 0.06 Platelet Estimate Adequate Red Cell Morph Reviewed: see results of individual morphologies Ovalocytes Few DTYPE Manual Auto Auto Immature Gran % % 0.3 0.3 IMMATURE GRANS (ABS) <0.10 k/uL 0.04 0.03 CMP/TSH/Cortisol: Pending ASSESSMENT/PLAN: 1. Renal cell carcinoma of right kidney (HCC) - ICD9: 189.0, ICD10: C64.1 (primary diagnosis) Metastatic stage IV, renal cell carcinoma right kidney with widespread metastasis, high- risk features including anemia and hypercalcemia. 2. Malignant neoplasm of lower lobe of left lung (HCC) - ICD9: 162.5, ICD10: C34.32 3. 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) - ICD9: 189.0, 198.5, ICD10: C64.9, C79.51 4. 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 No major toxicity from immunotherapy. - Reviewed CBC with pt. - CMP/TSH/Cortisol pending. - Continue current medications. - Proceed as scheduled today for opdivo/zometa pending all labs. - Follow up as scheduled otherwise. - Pt. aware to call office with any questions/concerns. The patient indicates understanding of these issues and agrees with the plan. All documentation from previous visit of 07/29/22-Dr. Samuel was copied and pasted, documentation has been reviewed and edited as necessary for today's visit. Shelli Valles APRN.CNP documented in this encounter [facility] 08-20-2022 Miscellaneous Notes 3rd attempt: LM And unable to reach letter sent 2nd attempt: LM 1st attempt: LM When pt returns call please ask about dental clearance. See Phone Encounter on 07/28 as well Thank you! Spoke with pt and he stated he does not have clearance yet and does not have a Dentist OV scheduled yet. Pt stated it probably wouldn't be for another month. As of this note, still waiting No dental clearance as of this morning. Elba Brady Waiting on dental cheryl CHECK OUT Add Vit D to today's labs. -COMPLETED* Schedule to begin q 3 month Zometa in several weeks--needs dental clearance. As scheduled. documented in this encounter [facility] 07-29-2022 Note [facility] 07-07-2022 Miscellaneous Notes Placed note on July appt Summary: RESCHEDULES 1st attempt: Sent [facility] When pt returns call to confirm please document in this encounter documented in this encounter [facility] 07-01-2022 Miscellaneous Notes Patient notified and verbalized understanding. Bri Valderrama RN Vit D low. Advise him to take OTC vit D3 5000 units daily. Ranjan Samuel DO documented in this encounter [facility] 06-30-2022 Note [facility] 06-10-2022 Miscellaneous Notes Third and final attempt made to contact patient. Unable to leave message. Appointment reminder has already been mailed. Carol Pillai LPN Attempted to contact pt, unable to leave message. Carol Pillai LPN Appointment scheduled as requested. Unable to leave message. VM Full. If/when patient returns call, please advise of lab and office visit scheduled on 06/30. My Chart message sent. Appointment reminder mailed. He's had no OV since February. OV with Shelli prior to treatment in June. Ranjan Samuel DO documented in this encounter [facility] 05-30-2022 Note [facility] 05-30-2022 History of Presen t illness Narrative Radiology Service Progress Note DATE OF SERVICE: May 30, 2022 TIME: 12:11 PM PATIENT IDENTITY VERIFICATION COMPLETED USING TWO (2) STANDARD IDENTIFIERS: Name and Date of confirmed by patient verbally. FALL SCREENING: Has the patient had 2 falls in the last year or 1 fall with injury or currently using an Ambulatory Assistive Device (Walker, Cane, Wheelchair, Crutches, etc.)? No PATIENT GENDER DATA: Male PATIENT RELEVANT IMPLANT DATA REVIEWED: Yes ALLERGIES: Reviewed and unchanged CONTRAST ALLERGY: NO. EXAM: CT -CONTRAST INDUCED NEPHROPATHY RISK FACTORS: Not applicable CREATININE: Creatinine Date Value Ref Range Status 05/06/2022 1.34 (H) 0.73 - 1.22 mg/dL Final 04/08/2022 1.42 (H) 0.73 - 1.22 mg/dL Final 03/11/2022 1.33 (H) 0.73 - 1.22 mg/dL Final Estimated Glomerular Filtration Rate Date Value Ref Range Status 05/06/2022 63 >=60 mL/min/1.73m Final Comment: Estimated Glomerular Filtration Rate (eGFR) is calculated using the 2020 CKD-EPI creatinine equation. This equation utilizes serum creatinine, sex, and age as parameters. The creatinine assay has traceable calibration to isotope dilution-mass spectrometry. Refer to KDIGO guidelines for clinical interpretation. In patients with unstable renal function, e.g. those with acute kidney injury, the eGFR may not accurately reflect actual GFR. eGFR- Date Value Ref Range Status 04/05/2021 >60 Final P.O.C.T. RESULTS: POC done: Yes, See Lab Tab May 30, 2022 TREATMENT: N/A PERIPHERAL IV DATA: Ambulatory: A peripheral IV was started in the Left antecubital site with a Angio cath: 22 gauge. RADIOLOGY DEPARTMENT: CT; Exam(s) Completed: Chest Abdomen Pelvis SIGNATURE: RT Mervat(R) PATIENT NAME: Arnulfo Wallace DATE: May 30, 2022 TIME: 12:11 PM documented in this encounter [facility] 04-25-2022 Note [facility] 04-25-2022 History of Presen t illness Narrative Chief Complaint Patient presents with: ER F/U: Treated for Pneumonia HPI Arnulfo Wallace is a 52 year old male who presents here today for Above Complaints.. Patient evaluated at [facility] ED on 04/18 with complaint of SOB and wheezing. Found to have diffuse weheezing on lung exam with tachycardia and high BP. Obtained CXR which showed mildly increased marking sin left suprahilar region with possible pneumonia. Started on prednisone 60 mg daily x 5 days and doxycycline BID x 10 days and discharged home. Since discharge, patient states that he has been taking his prednisone 20 mg BID instead of 60 mg daily and taking doxycycline as prescribed. Cough, wheezing, SOB have improved significantly. Has only needed his albuterol 1-2 times in the last 48 hours. Has Mucinex at home for any chest congestion. Denies fever/chills, nausea, vomiting, abdominal pain. Past medical history, appointments, medications, allergies reviewed. 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 Leiva, Dr. Beard Pleural metastasis (HCC) Renal cell carcinoma of right kidney (HCC) Stroke (HCC) 08/09/2021 Unspecified asthma(493.90) Previous Surgical History PAST SURGICAL HISTORY Procedure Laterality Date PAST SURGICAL HISTORY OF Pyloric stenosis Family History FAMILY HISTORY Problem Relation Age of Onset Coronary Artery Disease Father RI x 6 Hypertension Father Diabetes Father Cancer Father stomach Diabetes Mother Hypertension Mother Hypertension Brother Diabetes Brother COPD Maternal Grandfather Patient Allergies ALLERGIES Allergen Reactions Penicillins Anaphylaxis Current Medications Current Outpatient Medications on File Prior to Visit Medication Sig amLODIPine (NORVASC) 10 mg tablet Take 1 tablet by mouth once daily. albuterol HFA (PROVENTIL HFA, VENTOLIN HFA) 90 mcg/actuation inhaler Inhale 1-2 Puffs as instructed four times daily as needed. FOR WHEEZING AND SHORTNESS OF BREATH. lisinopril (ZESTRIL, PRINIVIL) 10 mg tablet Take 1 tablet by mouth once daily. atorvastatin (LIPITOR) 20 mg tablet Take 1 tablet by mouth daily at bedtime. For cholesterol. aspirin, enteric coated (ASPIRIN, ENTERIC COATED) 81 mg EC tablet Take 1 tablet by mouth once daily. predniSONE (DELTASONE) 20 mg tablet Take 60 mg by mouth once daily. 60 mg daily x 5 days (Patient not taking: Reported on 04/25/2022) doxycycline hyclate (VIBRAMYCIN) 100 mg capsule Take 100 mg by mouth twice daily. X 10 days Blood Pressure Test Kit-Medium kit 1 Each once daily. No current facility-administered medications on file prior to visit. Social History Social History Tobacco Use Smoking status: Never Smokeless tobacco: Never Vaping Use Vaping Use: Never used Substance Use Topics Alcohol use: Yes Comment: occasional Drug use: Yes Frequency: 3.0 times per week Types: Marijuana Review of Symptoms REVIEW OF SYSTEMS See HPI EXAM: BP 118/82 Pulse 104 Temp (!) 35.9 C (96.6 F) Resp 18 Wt 86 kg (189 lb 9.6 oz) SpO2 97% BMI 26.44 kg/m General Appearance: Well appearing, alert, in no acute distress, well-hydrated, well nourished.. Skin: Skin color, texture, turgor normal, no suspicious rashes or lesions. Lungs: scattered wheezing bilaterally with good air entry. No rales, rhonchi, or consolidation. Heart: RRR without murmur, gallop, or rubs. No ectopy. Abdomen: Normal abdominal exam, Abdomen soft, non-tender. Bowel sounds normal. No masses, organomegaly. Extremities: No deformities, edema, skin discoloration, clubbing or cyanosis. Good capillary refill. Health Maintenance List HEPATITIS B(1 of 3 - 3-dose series) Never done PNEUMOCOCCAL(1 - PCV) Never done HEPATITIS C SCREENING Never done HIV SCREENING Never done BP CONTROLLED (<130/80) Never done DTAP,TDAP,TD(1 - Tdap) Never done SHINGRIX VACCINE(1 of 2) Never done COLORECTAL CANCER SCREENING Never done COVID-19 VACCINE(2 - Moderna series) due on 08/28/2020 INFLUENZA(1) due on 10/17/2021 DEPRESSION ASSESSMENT Never done ANNUAL PCP TEAM CHRONIC DISEASE VISIT due on 04/26/2023 DIABETES SCREEN due on 04/08/2025 LIPID SCREEN due on 12/17/2026 ASSESSMENT/PLAN: 1. Bacterial pneumonia - ICD9: 482.9, ICD10: J15.9 (primary diagnosis) Improving with doxycycline BID. Continue current regimen. Call if symptoms change or worsening. 2. Mild intermittent asthma with acute exacerbation - ICD9: 493.92, ICD10: J45.21 Improving. Finish out prednisone and continue albuterol PRN. Red flags for re-assessment reviewed with patient in detail. I spent a total of 30 minutes on the date of the service which included preparing to see the patient, [id number] patient care, completing clinical documentation, obtaining and/or reviewing separately obtained history, performing a medically appropriate examination, counseling and educating the patient/family/caregiver, and ordering medications, tests, or procedures. Elver Littlejohn MD documented in this encounter [facility] 04-18-2022 Miscellaneous Notes Patient significant other calling said he is having issues with shortness of breath, no smell, no taste, coughing, sore throat, she said he has cancer and getting anxious and hyperventilating. Advised that he would need to go to ER for evaluation with his shortness of breath. She said she was going to take him to [facility] ER. documented in this encounter [facility] 04-18-2022 Miscellaneous Notes Patient has been identified by name and date of : Significant other phones for refill(s): Requested Prescriptions Pending Prescriptions Disp Refills amLODIPine (NORVASC) 10 mg tablet 90 tablet 1 Sig: Take 1 tablet by mouth once daily. Date of last office visit in primary care: 10/03/2021, no future appt scheduled Last 2 Encounter Wt Readings: Date: Wt: 04/08/2022 86.9 kg (191 lb 8 oz) 03/11/2022 86.4 kg (190 lb 8 oz) Previous labs/tests for medication: Blood Pressure: BUN (mg/dL) Date Value 04/08/2022 20 04/05/2021 22 Sodium (mmol/L) Date Value 04/08/2022 139 04/05/2021 137 Last 1 Encounter BP Readings: Date: BP: 04/08/2022 133/81 Please advise. Thank you. Altagracia Tripp LPN Patient has 2 pills left. documented in this encounter [facility] 03-21-2022 Miscellaneous Notes ARTURO 10/03/21 NOV no upcoming appt noted Patient has been identified by name and date of : Yes Last office visit in this department: Visit date not found RX INSTRUCTIONS: Patient thought Dr. Samuel refilled these. Patient aware RX will be sent to pharmacy. No need to notify patient. Patient phones requesting refills as follows: Requested Prescriptions Pending Prescriptions Disp Refills albuterol HFA (PROVENTIL HFA, VENTOLIN HFA) 90 mcg/actuation inhaler 18 g 1 Sig: Inhale 1-2 Puffs as instructed four times daily as needed. FOR WHEEZING AND SHORTNESS OF BREATH. lisinopril (ZESTRIL, PRINIVIL) 10 mg tablet 90 tablet 0 Sig: Take 1 tablet by mouth once daily. Please review and advise. Kimberly Cabrera Pss documented in this encounter [facility] 02-13-2022 History of Presen t illness Narrative NAME: Arnulfo Almonte [facility] NO: [id number]. DATE: 02/13/2022 DIAGNOSIS: Metastatic renal cell carcinoma of right kidney Site of metastasis: Lungs & pleura, soft tissue - muscle, lymphatics, and left adrenal (resolved) HPI: 51-year-old gentleman with history of asthma, hypertension who presented with a 6 month history of progressive shortness of breath, chest pain and weight loss. He has left sided chest pain on and off for the last 4 months , pleuritic in nature , worse when he lay on the left side; currently 2/10. Worse level at 8/10, interfere with his sleep. He presented to emergency room because of two-week history of breathing issue. He reported having increased productive cough along with shortness of breath. He also report of having fever and body aches for the last several days. He has been using his albuterol inhaler with no improvement. He is a nonsmoker, but has secondhand smoke exposure. A CT scan showed no evidence of PE but cavitary nodules with mediastinal adenopathy with lytic bone lesions and a pleural (chest wall mass) and a left adrenal mass. Subsequent CT-guided needle biopsy of a lung lesion consistent with renal cell primary (Dianna grade 2). He started combined immunotherapy; Ipilumab & Nivolumab in May 2018. Current treatment: Ipilumab & Nivolumab x 4 - Nivolumab maintinence. Interim history: He has no new complaints. His blood pressure is stable. He is on lisinopril 10 mg daily & Amlodipine 10 mg daily. He also started on aspirin 81 mg daily along with Lipitor 20 mg daily. He has no flank pain or hematuria. No nausea, vomiting, diarrhea, abdominal pain or jaundice. No cough or shortness of breath. Mild fatigue after each treatment. No headaches or neurological symptoms. No back pain or bone pain. PMH, medications and allergies and reviewed by me today. Any changes documented in appropriate section. ROS: Constitutional: See above. Neuro: Denies CORRAL, vertigo, dizziness and imbalance. HEENT: No recent change in voice, vision or hearing. Resp: Denies cough, wheeze and hemoptysis. Denies shortness of breath at rest. Denies RODRIGUEZ. CVS: Denies exertional chest pain, PND, orthopnea and LE edema. GI: Denies dysgeusia. Denies symptoms of stomatitis. Denies dysphagia and odynophagia. Denies reflux, n/v, change in bowel habits and abdominal pain. : Denies dysuria or gross hematuria. No symptoms of bladder outlet obstruction. Endo: Denies hot flashes. Denies polyuria and polydipsia. Denies heat and cold intolerance. Musculoskeletal: See above. Derm: Denies rash. Denies jaundice and diffuse pruritis. Heme: Denies unusual bleeding and unexplained bruising. Psych: Normal mood. PHYSICAL EXAMINATION: 51-year-old well-nourished well-developed gentleman in no acute distress Performance status 100% BP 138/94 Pulse 102 Temp (Src) 97.5 (Temporal) Wt 193 lb 8 oz (87.8kg) SpO2 99% HEENT: Head is normocephalic, atraumatic. Sclerae white, conjunctivae pink. PEERL. EOMs are intact. Oropharynx is benign. LYMPHATICS: There is no palpable adenopathy in the neck, supraclavicular region, axillae, or groin. LUNGS: Clear, no wheezing or rhonchi w/ diminished breath sounds at bases. HEART: Heart is normal without murmurs, gallops, or rubs. ABDOMEN: Soft and nontender without organomegaly. No masses can be palpated. EXTREMITIES: Are without edema. NEUROLOGIC: Exam is physiologic; mild right facial droop. No sensorimotor deficit. LABS: Component Latest Ref Rng & Units 02/12/2022 WBC 3.70 - 11.00 k/uL 12.30 (H) RBC 4.20 - 6.00 m/uL 4.96 Hemoglobin 13.0 - 17.0 g/dL 14.6 Hematocrit 39.0 - 51.0 % 42.4 MCV 80.0 - 100.0 fL 85.5 MCH 26.0 - 34.0 pg 29.4 MCHC 30.5 - 36.0 g/dL 34.4 RDW-CV 11.5 - 15.0 % 13.2 Platelet Count 150 - 400 k/uL 340 MPV 9.0 - 12.7 fL 9.7 Neut% % 63.9 Abs Neut (ANC) 1.45 - 7.50 k/uL 7.85 (H) Lymph% % 16.4 Abs Lymph 1.00 - 4.00 k/uL 2.02 Poinsett% % 7.4 Abs Poinsett <0.87 k/uL 0.91 (H) Eosin% % 11.2 Abs Eosin <0.46 k/uL 1.38 (H) Baso% % 0.8 Abs Baso <0.11 k/uL 0.10 Immature Gran % % 0.3 IMMATURE GRANS (ABS) <0.10 k/uL 0.04 NRBC /100 WBC 0.0 Absolute nRBC <0.01 k/uL <0.01 DTYPE Auto Component Latest Ref Rng & Units 02/12/2022 Protein, Total 6.3 - 8.0 g/dL 6.9 Albumin 3.9 - 4.9 g/dL 4.6 Calcium 8.5 - 10.2 mg/dL 9.5 Bilirubin, Total 0.2 - 1.3 mg/dL 0.4 Alkaline Phosphatase 38 - 113 U/L 129 (H) AST 14 - 40 U/L 15 ALT 10 - 54 U/L 12 Glucose 74 - 99 mg/dL 90 BUN 9 - 24 mg/dL 18 Creatinine 0.73 - 1.22 mg/dL 1.31 (H) Sodium 136 - 144 mmol/L 138 Potassium 3.7 - 5.1 mmol/L 4.3 Chloride 97 - 105 mmol/L 102 CO2 22 - 30 mmol/L 25 Anion Gap 9 - 18 mmol/L 11 eGFR >=60 mL/min/1.73m 65 LD 135 - 225 U/L 103 (L) TSH 0.270 - 4.200 mIU/L 1.510 Cortisol 4.8 - 19.5 ug/dL 9.1 CXR: No evidence of developing abnormality or acute process ASSESSMENT/PLAN: A 51-year-old gentleman with metastatic stage IV, renal cell carcinoma right kidney with widespread metastasis, high- risk features including anemia and hypercalcemia. -No major toxicity from immunotherapy -Stable disease - KRIS. Plan: - Continue Nivolumab monthly x 3 - Repeat CBC, CMP, cortisol & TSH every 4 weeks X 3 - Repeat CT chest/abdomen/pelvis & OV in 3 months. 2) primary hypertension with acute /chronic renal injury -Improved, but blood pressure remains elevated. Plan: -Continue lisinopril 20mg daily and amlodipine 10 mg daily. -Monitor blood pressure at home. 3) Subacute infarct of left basal ganglia - Neurologically stable Plan: - Continue aspirin and atrovastatin and follow up with PCP Portions of this documentation were copied and pasted from previous office visit notes in order to provide a cohesive continuity of the history. The note has been reviewed and edited and updated as necessary. Robb Leiva MD Cc: Elver Littlejohn MD documented in this encounter [facility] 02-12-2022 Miscellaneous Notes Spoke with pt and scheduled OV for 02/13 Patient called to rescheduled his missed appointment from 02/11. Unable to accommodate OV with Dr. Leiva same day. Please advise patient is he needs to reschedule to another date to have all three appointments on the same day. documented in this encounter [facility] 01-14-2022 History of Presen t illness Narrative . documented in this encounter [facility] 12-20-2021 Miscellaneous Notes Patient notified of results, verbalizes understanding of instructions. Mitali Potter LPN Please call patient and let him know his LDL ( bad cholesterol) is mildly elevated. Recommend he continue current medication and work on low fat diet and exercising at least 150 minutes per week. Electrolyte and liver function in normal limits. Kidney function is stable. Megan Glover APRN.SOLOMON documented in this encounter [facility] 12-18-2021 Miscellaneous Notes [facility] 11/22/21 No upcoming appointment scheduled. Mitali Potter LPN Patient has been identified by name and date of : Yes Last office visit in this department: 10/03/2021 RX INSTRUCTIONS: Patient aware RX will be sent to pharmacy. No need to notify patient. Patient phones requesting refills as follows: Requested Prescriptions Pending Prescriptions Disp Refills lisinopril (ZESTRIL, PRINIVIL) 10 mg tablet 90 tablet 0 Sig: Take 1 tablet by mouth once daily. albuterol HFA (PROVENTIL HFA, VENTOLIN HFA) 90 mcg/actuation inhaler 18 g 1 Sig: Inhale 1-2 Puffs as instructed four times daily as needed. FOR WHEEZING AND SHORTNESS OF BREATH. Please review and advise. Kimberly Cabrera Pss documented in this encounter [facility] 12-17-2021 History of Presen t illness Narrative NAME: Arnulfo Almonte [facility] NO: [id number]. DATE: 12/17/2021 DIAGNOSIS: Metastatic renal cell carcinoma of right kidney Site of metastasis: Lungs & pleura, soft tissue - muscle, lymphatics, and left adrenal (resolved) HPI: 51-year-old gentleman with history of asthma, hypertension who presented with a 6 month history of progressive shortness of breath, chest pain and weight loss. He has left sided chest pain on and off for the last 4 months , pleuritic in nature , worse when he lay on the left side; currently 2/10. Worse level at 8/10, interfere with his sleep. He presented to emergency room because of two-week history of breathing issue. He reported having increased productive cough along with shortness of breath. He also report of having fever and body aches for the last several days. He has been using his albuterol inhaler with no improvement. He is a nonsmoker, but has secondhand smoke exposure. A CT scan showed no evidence of PE but cavitary nodules with mediastinal adenopathy with lytic bone lesions and a pleural (chest wall mass) and a left adrenal mass. Subsequent CT-guided needle biopsy of a lung lesion consistent with renal cell primary (Dianna grade 2). He started combined immunotherapy; Ipilumab & Nivolumab in May 2018. Current treatment: Ipilumab & Nivolumab x 4 - Nivolumab maintinence. Interim history: He had a left lacunar infarct presenting with right facial droop and right hand numbness this summer. He is now fully recover. His blood pressure is stable. He is on lisinopril 10 mg daily & Amlodipine 10 mg daily. He also started on aspirin 81 mg daily along with Lipitor 20 mg daily. He has no flank pain or hematuria. No nausea, vomiting, abdominal pain, diarrhea or jaundice. No cough or shortness of breath. Mild fatigue after each treatment. No headaches or neurological symptoms. PMH, medications and allergies and reviewed by me today. Any changes documented in appropriate section. ROS: Constitutional: See above. Neuro: Denies CORRAL, vertigo, dizziness and imbalance. HEENT: No recent change in voice, vision or hearing. Resp: Denies cough, wheeze and hemoptysis. Denies shortness of breath at rest. Denies RODRIGUEZ. CVS: Denies exertional chest pain, PND, orthopnea and LE edema. GI: Denies dysgeusia. Denies symptoms of stomatitis. Denies dysphagia and odynophagia. Denies reflux, n/v, change in bowel habits and abdominal pain. : Denies dysuria or gross hematuria. No symptoms of bladder outlet obstruction. Endo: Denies hot flashes. Denies polyuria and polydipsia. Denies heat and cold intolerance. Musculoskeletal: See above. Derm: Denies rash. Denies jaundice and diffuse pruritis. Heme: Denies unusual bleeding and unexplained bruising. Psych: Normal mood. PHYSICAL EXAMINATION: 51-year-old well-nourished well-developed gentleman in no acute distress Performance status 100% BP 113/84 Pulse 104 Temp (Src) 97.4 (Temporal) Wt 192 lb (87.1kg) SpO2 98% HEENT: Head is normocephalic, atraumatic. Sclerae white, conjunctivae pink. PEERL. EOMs are intact. Oropharynx is benign. LYMPHATICS: There is no palpable adenopathy in the neck, supraclavicular region, axillae, or groin. LUNGS: Clear, no wheezing or rhonchi w/ diminished breath sounds at bases. HEART: Heart is normal without murmurs, gallops, or rubs. ABDOMEN: Soft and nontender without organomegaly. No masses can be palpated. EXTREMITIES: Are without edema. NEUROLOGIC: Exam is physiologic; mild right facial droop. No sensorimotor deficit. LABS: Component Latest Ref Rng & Units 12/17/2021 WBC 3.70 - 11.00 k/uL 10.30 RBC 4.20 - 6.00 m/uL 5.02 Hemoglobin 13.0 - 17.0 g/dL 15.1 Hematocrit 39.0 - 51.0 % 43.6 MCV 80.0 - 100.0 fL 86.9 MCH 26.0 - 34.0 pg 30.1 MCHC 30.5 - 36.0 g/dL 34.6 RDW-CV 11.5 - 15.0 % 12.9 Platelet Count 150 - 400 k/uL 286 MPV 9.0 - 12.7 fL 9.5 Neut% % 64.1 Abs Neut (ANC) 1.45 - 7.50 k/uL 6.60 Lymph% % 19.4 Abs Lymph 1.00 - 4.00 k/uL 2.00 Poinsett% % 6.1 Abs Poinsett <0.87 k/uL 0.63 Eosin% % 9.2 Abs Eosin <0.46 k/uL 0.95 (H) Baso% % 0.9 Abs Baso <0.11 k/uL 0.09 Immature Gran % % 0.3 IMMATURE GRANS (ABS) <0.10 k/uL 0.03 NRBC /100 WBC 0.0 Absolute nRBC <0.01 k/uL <0.01 DTYPE Auto Component Latest Ref Rng & Units 12/17/2021 Protein, Total 6.3 - 8.0 g/dL 6.6 Albumin 3.9 - 4.9 g/dL 4.3 Calcium 8.5 - 10.2 mg/dL 9.2 Bilirubin, Total 0.2 - 1.3 mg/dL 0.2 Alkaline Phosphatase 38 - 113 U/L 106 AST 14 - 40 U/L 12 (L) ALT 10 - 54 U/L 13 Glucose 74 - 99 mg/dL 119 (H) BUN 9 - 24 mg/dL 19 Creatinine 0.73 - 1.22 mg/dL 1.31 (H) Sodium 136 - 144 mmol/L 137 Potassium 3.7 - 5.1 mmol/L 3.8 Chloride 97 - 105 mmol/L 99 CO2 22 - 30 mmol/L 28 Anion Gap 9 - 18 mmol/L 10 eGFR >=60 mL/min/1.73m 65 CXR: COMPARISON: Comparison is made to prior chest radiograph dated 03 October 2021, 23 August 2021 and 14 January 2021 Stable chest. 7 mm nodular density lingula similar in appearance from September 2021 study. ASSESSMENT/PLAN: A 51-year-old gentleman with metastatic stage IV, renal cell carcinoma right kidney with widespread metastasis, high- risk features including anemia and hypercalcemia. -No major toxicity from immunotherapy -Stable disease - KRIS. Plan: - Continue Nivolumab monthly x 2 - Repeat CBC, CMP, cortisol & TSH every 4 weeks X 2 - Repeat CXR & OV in 2 months. - Repeat CT imaging annually at this point or if indicated 2) primary hypertension with acute /chronic renal injury -Improved, but blood pressure remains elevated. Plan: -Continue lisinopril 20mg daily and amlodipine 10 mg daily. -Monitor blood pressure at home. 3) Subacute infarct of left basal ganglia - Neurologically stable Plan: - Continue aspirin and atrovastatin and follow up with PCP Portions of this documentation were copied and pasted from previous office visit notes in order to provide a cohesive continuity of the history. The note has been reviewed and edited and updated as necessary. Robb Leiva MD Cc: Elver Littlejohn MD documented in this encounter [facility] 12-16-2021 Miscellaneous Notes Pt does not need to r/s 12/17/21 appts. Friend had dates mixed up. No need to r/s. Patient overslept for his appointment today for labs, OV with Dr. Mccloud, and 1HR TX. Please contact the patient's friend, Carola (ok per patient), to reschedule missed appointment and make any necessary adjustments to future appointments. Thank you. documented in this encounter [facility] 11-19-2021 History of Presen t illness Narrative Radiology Service Progress Note PATIENT NAME: Arnulfo Wallace DATE OF SERVICE: November 19, 2021 TIME: 12:41 PM PATIENT IDENTITY VERIFICATION COMPLETED USING TWO (2) IDENTIFIERS: Name and Date of confirmed by patient verbally. FALL SCREENING: Has the patient had 2 falls in the last year or 1 fall with injury or currently using an Ambulatory Assistive Device (Walker, Cane, Wheelchair, Crutches, etc.)? No PATIENT GENDER DATA: Male PATIENT RELEVANT IMPLANT DATA REVIEWED: Not Applicable RADIOLOGY DEPARTMENT: General X-ray: Exam(s) Completed: Chest X-Ray PERIPHERAL IV DATA: Not applicable SIGNED BY: RT Akila(R) November 19, 2021 12:41 PM documented in this encounter [facility] 10-30-2021 Miscellaneous Notes Called pt, left message on VM. He missed his lab apt today. I advised him to call and reschedule his lab apt and have his labs drawn this week Dahiana Maurer LPN documented in this encounter [facility] 10-24-2021 Miscellaneous Notes Scheduled. Michelle Umana Patient is aware of results and will drink as directed. PSS- please schedule patient a lab appointment 10/30/2021 BMP @ 10:00. No need to notify patient, he is aware of date and time. Carol Pillai LPN His serum creatinine is increased. It has been up in the past and then gone down. Please encourage him to drink at least 2 quarts of water a day and recheck BMP in a week. Ranjan Samuel DO documented in this encounter [facility] 10-16-2021 Miscellaneous Notes The following approved medication requests have been transmitted electronically. Requested Prescriptions Pending Prescriptions Disp Refills benzonatate (TESSALON PERLE) 100 mg capsule 30 capsule 0 Sig: Take 1 capsule by mouth three times daily as needed for up to 10 days. Stefani Butcher APRN.SOLMOON Patient has been identified by name and date of : Yes Last office visit in this department: 10/03/2021 Next visit: 11/22/21 RX INSTRUCTIONS: Patient aware RX will be sent to pharmacy. No need to notify patient. Caregiver indicates still has persistent cough. Let her know if another chest XR is requested before filling. Patient phones requesting refills as follows: Requested Prescriptions Pending Prescriptions Disp Refills benzonatate (TESSALON PERLE) 100 mg capsule 30 capsule 0 Sig: Take 1 capsule by mouth three times daily as needed for up to 10 days. Please review and advise. Kitty Morris documented in this encounter [facility] 10-16-2021 Miscellaneous Notes Patient's request for medication is as follows Requested Prescriptions Signed Prescriptions Disp Refills amLODIPine (NORVASC) 10 mg tablet 90 tablet 1 Sig: Take 1 tablet by mouth once daily. Authorizing Provider: ROBB LEIVA Order entered - please phone pharmacy and notify patient. Robb Leiva MD Patient has been identified by name and date of : Yes Last office visit in this department: 09/20/2021 RX INSTRUCTIONS: Patient phones requesting refills as follows: Amlodipine BESYLATE 10 mg 90 day supply 1 tablet per mouth daily Please review and advise. Stefani Plunkett documented in this encounter [facility] 10-07-2021 Miscellaneous Notes Patient notified of results, verbalizes understanding of instructions.. Mitali Pottre LPN Left message for patient to return call to office India Rojas Cma ----- Message from Elver Littlejohn MD sent at 10/04/2021 8:36 AM EDT ----- Please notify patient his COVID and flu test were negative. May end isolation at this time and continue supportive care as discussed in office. documented in this encounter [facility] 09-20-2021 History of Presen t illness Narrative NAME: Arnulfo Almonte [facility] NO: [id number]. DATE: 09/20/2021 DIAGNOSIS: Metastatic renal cell carcinoma of right kidney Site of metastasis: Lungs & pleura, soft tissue - muscle, lymphatics, and left adrenal (resolved) HPI: 51-year-old gentleman with history of asthma, hypertension who presented with a 6 month history of progressive shortness of breath, chest pain and weight loss. He has left sided chest pain on and off for the last 4 months , pleuritic in nature , worse when he lay on the left side; currently 2/10. Worse level at 8/10, interfere with his sleep. He presented to emergency room because of two-week history of breathing issue. He reported having increased productive cough along with shortness of breath. He also report of having fever and body aches for the last several days. He has been using his albuterol inhaler with no improvement. He is a nonsmoker, but has secondhand smoke exposure. A CT scan showed no evidence of PE but cavitary nodules with mediastinal adenopathy with lytic bone lesions and a pleural (chest wall mass) and a left adrenal mass. Subsequent CT-guided needle biopsy of a lung lesion consistent with renal cell primary (Dianna grade 2). He started combined immunotherapy; Ipilumab & Nivolumab in May 2018. Current treatment: Ipilumab & Nivolumab x 4 - Nivolumab maintinence. Interim history: He had a left lacunar infarct last month presenting with right facial droop and right hand numbness. He still have numbness in his hand and as well as problem with balance. His blood pressure is stable. He is currently on lisinopril 10 mg daily & Amlodipine 10 mg daily. He also started on aspirin 81 mg daily along with Lipitor 20 mg daily. He has no flank pain or hematuria. No nausea, vomiting, abdominal pain, diarrhea or jaundice. PMH, medications and allergies and reviewed by me today. Any changes documented in appropriate section. ROS: Constitutional: See above. Neuro: Denies CORRAL, vertigo, dizziness and imbalance. HEENT: No recent change in voice, vision or hearing. Resp: Denies cough, wheeze and hemoptysis. Denies shortness of breath at rest. Denies RODRIGUEZ. CVS: Denies exertional chest pain, PND, orthopnea and LE edema. GI: Denies dysgeusia. Denies symptoms of stomatitis. Denies dysphagia and odynophagia. Denies reflux, n/v, change in bowel habits and abdominal pain. : Denies dysuria or gross hematuria. No symptoms of bladder outlet obstruction. Endo: Denies hot flashes. Denies polyuria and polydipsia. Denies heat and cold intolerance. Musculoskeletal: See above. Derm: Denies rash. Denies jaundice and diffuse pruritis. Heme: Denies unusual bleeding and unexplained bruising. Psych: Normal mood. PHYSICAL EXAMINATION: 51-year-old well-nourished well-developed gentleman in no acute distress Performance status 100% BP 151/93 Pulse 89 Temp (Src) 98.1 (Temporal) Wt 198 lb (89.8kg) SpO2 100% HEENT: Head is normocephalic, atraumatic. Sclerae white, conjunctivae pink. PEERL. EOMs are intact. Oropharynx is benign. LYMPHATICS: There is no palpable adenopathy in the neck, supraclavicular region, axillae, or groin. LUNGS: Clear, no wheezing or rhonchi w/ diminished breath sounds at bases. HEART: Heart is normal without murmurs, gallops, or rubs. ABDOMEN: Soft and nontender without organomegaly. No masses can be palpated. EXTREMITIES: Are without edema. NEUROLOGIC: Exam is physiologic; mild right facial droop. No sensorimotor deficit. LABS: Component Latest Ref Rng & Units 09/20/2021 WBC 3.70 - 11.00 k/uL 8.04 RBC 4.20 - 6.00 m/uL 4.50 Hemoglobin 13.0 - 17.0 g/dL 13.6 Hematocrit 39.0 - 51.0 % 39.7 MCV 80.0 - 100.0 fL 88.2 MCH 26.0 - 34.0 pg 30.2 MCHC 30.5 - 36.0 g/dL 34.3 RDW-CV 11.5 - 15.0 % 12.7 Platelet Count 150 - 400 k/uL 249 MPV 9.0 - 12.7 fL 9.5 Neut% % 67.7 Abs Neut (ANC) 1.45 - 7.50 k/uL 5.43 Lymph% % 17.5 Abs Lymph 1.00 - 4.00 k/uL 1.41 Poinsett% % 6.6 Abs Poinsett <0.87 k/uL 0.53 Eosin% % 7.3 Abs Eosin <0.46 k/uL 0.59 (H) Baso% % 0.7 Abs Baso <0.11 k/uL 0.06 Immature Gran % % 0.2 IMMATURE GRANS (ABS) <0.10 k/uL <0.03 NRBC /100 WBC 0.0 Absolute nRBC <0.01 k/uL <0.01 DTYPE Auto Component Latest Ref Rng & Units 09/20/2021 Creatinine 0.73 - 1.22 mg/dL 1.18 eGFR >=60 mL/min/1.73m 74 TSH 0.270 - 4.200 mIU/L 1.090 Cortisol 4.8 - 19.5 ug/dL 7.8 CT chest: IMPRESSION: 1. There are 2 new adjacent groundglass nodular densities in the lingula which may be infectious/inflammatory or neoplastic 2. Stable appearance of multiple previously described pulmonary nodules 3. No new thoracic lymphadenopathy CT abdomen pelvis: Compared to April 08, 2021 IMPRESSION: 1. Again noted is a solid mass in the lower pole of the right kidney consistent with patient's history of renal cell carcinoma. It has not appreciably changed in size compared to the prior study. (52.5 mm > 54.5 mm) 2. Stable nonobstructing calculus in the lower pole of the left kidney 3. Moderate hiatal hernia ASSESSMENT/PLAN: A 51-year-old gentleman with metastatic stage IV, renal cell carcinoma right kidney with widespread metastasis, high- risk features including anemia and hypercalcemia. -No major toxicity from immunotherapy -Stable disease Plan: - Continue Nivolumab monthly x 2 - Repeat CBC, CMP, cortisol & TSH every 4 weeks X 2 - Repeat CXR & OV in 2 months. 2) primary hypertension with acute /chronic renal injury -Improved, but blood pressure remains elevated. Plan: -Continue lisinopril 20mg daily and continue amlodipine 10 mg daily. -Monitor blood pressure at home. Follow-up with PCP. 3) Subacute infarct of left basal ganglia - Neurologically stable Plan: - Continue aspirin and atrovastatin and follow up with PCP Portions of this documentation were copied and pasted from previous office visit notes in order to provide a cohesive continuity of the history. The note has been reviewed and edited and updated as necessary. Robb Leiva MD Cc: Elver Littlejohn MD documented in this encounter [facility] 09-18-2021 History of Presen t illness Narrative Radiology Service Progress Note DATE OF SERVICE: September 18, 2021 TIME: 3:16 PM PATIENT IDENTITY VERIFICATION COMPLETED USING TWO (2) STANDARD IDENTIFIERS: Name and Date of confirmed by patient verbally. FALL SCREENING: Has the patient had 2 falls in the last year or 1 fall with injury or currently using an Ambulatory Assistive Device (Walker, Cane, Wheelchair, Crutches, etc.)? No PATIENT GENDER DATA: Male PATIENT RELEVANT IMPLANT DATA REVIEWED: Yes ALLERGIES: Reviewed and unchanged CONTRAST ALLERGY: NO. EXAM: CT -CONTRAST INDUCED NEPHROPATHY RISK FACTORS: Not applicable CREATININE: Creatinine Date Value Ref Range Status 08/26/2021 1.31 (H) 0.73 - 1.22 mg/dL Final 07/26/2021 1.25 (H) 0.73 - 1.22 mg/dL Final 06/28/2021 1.56 (H) 0.73 - 1.22 mg/dL Final Estimated Glomerular Filtration Rate Date Value Ref Range Status 08/26/2021 65 >=60 mL/min/1.73m Final Comment: Estimated Glomerular Filtration Rate (eGFR) is calculated using the 2020 CKD-EPI creatinine equation. This equation utilizes serum creatinine, sex, and age as parameters. The creatinine assay has traceable calibration to isotope dilution-mass spectrometry. Refer to KDIGO guidelines for clinical interpretation. In patients with unstable renal function, e.g. those with acute kidney injury, the eGFR may not accurately reflect actual GFR. eGFR- Date Value Ref Range Status 04/05/2021 >60 Final P.O.C.T. RESULTS: POC done: Yes, See Lab Tab September 18, 2021 TREATMENT: N/A PERIPHERAL IV DATA: Ambulatory: A peripheral IV was started in the Left hand with a Angio cath: 22 gauge. RADIOLOGY DEPARTMENT: CT; Exam(s) Completed: Chest Abdomen Pelvis SIGNATURE: RT Mervat(R) PATIENT NAME: Arnulfo Wallace DATE: September 18, 2021 TIME: 3:16 PM documented in this encounter [facility] 09-17-2021 Miscellaneous Notes Pt notified. Lindsay Griffiths LPN Message left for patient/caregiver to return call for questions they had regarding plavix and ASA. As well as to advise atorvastatin had been filled/sent last week. Sent script for atorvastatin a week ago. Megan Glover APRN.CNP Patient was to follow-up with neurology regarding the Plavix and ASS. Megan Glover APRN.CNP [place]- obstetrician gynecologist- phoned with patient on line. Reports she believes patient was to take asa 81 mg and plavix 75 mg for 3 weeks after stroke. Patient took last plavix today. Asking Machine Tool Mechanic to please advise on this. Reports they only wanted him to take it 3 weeks, since had stroke b/c he was trying to have BM and bare down, and it caused a small vessel to burst. Patient has been identified by name and date of : Yes Patient and obstetrician gynecologist phones for refill(s): Pending Prescriptions Disp Refills ATORVASTATIN 20 MG TABLET 30 tablet 11 Sig: Take 1 tablet by mouth daily at bedtime. For cholesterol. JUDITH: No Date of last office visit with pcp: 08-21-21. Next appt: 11-22-21 Last 2 Encounter Wt Readings: Date: Wt: 08/28/2021 87.1 kg (192 lb) 08/23/2021 86.9 kg (191 lb 8 oz) Previous labs/tests for medication: Cholesterol: LDL Chol, [place] (mg/dL) Date Value 02/21/2008 138 ALT (U/L) Date Value 08/26/2021 40 04/05/2021 17 Please advise. Thank you. Tristan Parrish RN documented in this encounter [facility] 09-17-2021 Miscellaneous Notes Patient has been identified by name and date of : Yes Patient phones for refill(s): Pending Prescriptions Disp Refills LISINOPRIL 10 MG TABLET 90 tablet 0 Sig: Take 1 tablet by mouth once daily. JUDITH: No Date of last office visit in primary care: 08/21/21 next apt 11/22/21 Last 2 Encounter Wt Readings: Date: Wt: 08/28/2021 87.1 kg (192 lb) 08/23/2021 86.9 kg (191 lb 8 oz) Previous labs/tests for medication: Blood Pressure: BUN (mg/dL) Date Value 08/26/2021 26 04/05/2021 22 Sodium (mmol/L) Date Value 08/26/2021 137 04/05/2021 137 Last 1 Encounter BP Readings: Date: BP: 08/28/2021 130/78 Please advise. Thank you. Lindsay Griffiths LPN documented in this encounter [facility] 09-02-2021 Miscellaneous Notes OSH imaging/records pending: September 02, 2021 Faxed over an Authorization of PAN form to the Medical Records Department at [facility] to have imaging on the patient push through to the PACS System. documented in this encounter [facility] 08-29-2021 Miscellaneous Notes Patient was seen in office on 08/21/21. Call placed to patients phone, message left to call office back. No number on file for gf. I don't see anything there that says he has one. Let's see If we can get all records and testing from his visit. Let know I want to review his hospital records before placing a referral. Thanks Megan Glover APRN.CNP Images from the original note were not included. I placed his hospital paperwork in your inbox. Can we get some records from the hospital for me to review so I can see what type of hernia they may have discussed with them. Thanks, Megan Glover APRN.CNP Pts girlfriend called to give information about pts recent hospital stay. She stated it was noted at the hospital that he may have a hernia as well as having the stroke. [facility] suggested seeing a surgeon to have that looked at. Pt is experiencing some pain and would like to know if a referral could be placed to see Dr. Varma. He does have an appt with Megan Glover on 08/21/21 documented in this encounter [facility] 08-28-2021 Miscellaneous Notes Pt calling for med refill ARTURO: 08/21/21 NOV: 11/22/21 Last Refill: 05/09/21 18g 1 refill Vandana Zuñiga LPN documented in this encounter [facility] 08-26-2021 History of Presen t illness Narrative Assessment unchanged from Dr leiva office visit on 08/23/21. documented in this encounter [facility] 08-23-2021 History of Presen t illness Narrative Radiology Service Progress Note PATIENT NAME: Arnulfo Wallace DATE OF SERVICE: August 23, 2021 TIME: 1:23 PM PATIENT IDENTITY VERIFICATION COMPLETED USING TWO (2) IDENTIFIERS: Name and Date of confirmed by patient verbally. FALL SCREENING: Has the patient had 2 falls in the last year or 1 fall with injury or currently using an Ambulatory Assistive Device (Walker, Cane, Wheelchair, Crutches, etc.)? No PATIENT GENDER DATA: Male PATIENT RELEVANT IMPLANT DATA REVIEWED: Not Applicable RADIOLOGY DEPARTMENT: General X-ray: Exam(s) Completed: Chest X-Ray PERIPHERAL IV DATA: Not applicable SIGNED BY: RT Magali(R) August 23, 2021 1:23 PM documented in this encounter [facility] 08-21-2021 History of Presen t illness Narrative 08/21/2021 Patient presents with: Hospital Follow Up: [facility] discharged 08/13/21 TIA SUBJECTIVE: This is a 51 year old that is here today for Above Complaints HOSPITAL/ER FOLLOW UP: Reason for visit: Right facial numbness and tingling Which facility: [facility] Date of visit: 08/11/2021-08/13/2021 Diagnosis: basal ganglia stroke, left hip pain and facial weakness Testing done: MRI of brain, ECHO, CT ABD/PEL without contrast, hip xray, CT BRAIN, CTA brain and neck with IV contrast,, EKG, Treatment given: Atorvastatin 80 mg for one month then decrease to 20 mg, ASA 81 mg and Plavix 75 mg for three weeks Current symptoms: numbness and tingling to right face and right finger, LLQ groin pain Since ER visit has been taking prescriptions without side effects. Has follow-up appointment made with neurology at the end of the month. [facility]. Denies visual changes, headaches, new extremity numbness tingling, weakness or facial drooping Reports he has a left hernia and wants to see general surgery regarding this. Positive for constipation. 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 Leiva, Dr. Beard Pleural metastasis (HCC) Renal cell carcinoma of right kidney (HCC) Unspecified asthma(493.90) ALLERGIES Penicillins MEDICATIONS Current Outpatient Medications Medication Sig amLODIPine (NORVASC) 10 mg tablet Take 1 tablet by mouth once daily. lisinopril (ZESTRIL, PRINIVIL) 10 mg tablet Take 1 tablet by mouth once daily. albuterol HFA (PROVENTIL HFA, VENTOLIN HFA) 90 mcg/actuation inhaler Inhale 1-2 Puffs as instructed four times daily as needed. FOR WHEEZING AND SHORTNESS OF BREATH. loratadine/pseudoephedrine (CLARITIN-D 24 HOUR ORAL) Take 1 tablet by mouth as needed. Blood Pressure Test Kit-Medium kit 1 Each once daily. guaiFENesin (MUCINEX) 600 mg 12 hr tablet Take 1 tablet by mouth twice daily. No current facility-administered medications for this visit. Medications and allergies reviewed by this provider. SOCIAL HISTORY Social History Tobacco Use Smoking status: Never Smoker Smokeless tobacco: Never Used Vaping Use Vaping Use: Never used Substance Use Topics Alcohol use: Yes Comment: occasional Drug use: Yes Frequency: 3.0 times per week Types: Marijuana REVIEW OF SYSTEMS All other reviewed and negative other than HPI. OBJECTIVE: BP 128/84 Pulse 105 Resp 20 Wt 87.2 kg (192 lb 3.2 oz) SpO2 98% BMI 26.81 kg/m . Vital signs reviewed by this provider. APPEARANCE Well appearing, alert, in no acute distress, well-hydrated, well nourished. EYES PERRLA, conjunctiva and sclera normal. NECK Supple, no adenopathy; thyroid symmetric, normal size, no bruits HEART RRR with normal S1 and S2, no murmurs, no gallops, no JVD appreciated LUNG clear to auscultation. No wheezes, rhonchi or rales ABDOMEN bowel sounds normoactive, no bruits, non-distended, without organomegaly or palpable masses. Mild TTP LLQ Genitalia:Normal, Normal except for left inguinal hernia EXTREMITIES Extremities normal, No deformities, No skin discoloration and No edema NEURO Awake, alert and oriented x 3, Cranial nerves II-XII grossly intact, Reflexes symmetrical, Normal gait, No involuntary motions., negative findings: mental status intact, muscle tone normal, muscle strength normal, rapid alternating movements normal, finger to nose normal, reflexes normal and symmetric, plantar response downgoing bilaterally and positive findings: dysarthria. Decreased sensation to light touch over right face and right hand SKIN Skin color, texture, turgor normal, no suspicious rashes or lesions to exposed skin PNEUMOCOCCAL(1 - PCV) Never done HEPATITIS C SCREENING Never done HIV SCREENING Never done BP CONTROLLED (<130/80) Never done DTAP,TDAP,TD(1 - Tdap) Never done SHINGRIX VACCINE(1 of 2) Never done COLORECTAL CANCER SCREENING Never done LIPID SCREEN due on 02/20/2013 COVID-19 VACCINE(2 - Moderna risk series) due on 08/28/2020 DEPRESSION SCREENING due on 06/13/2021 INFLUENZA(1) due on 10/17/2021 ANNUAL PCP TEAM CHRONIC DISEASE VISIT due on 08/21/2022 DIABETES SCREEN due on 07/26/2024 ASSESSMENT/PLAN: 1. Hospital discharge follow-up - ICD9: V67.59, ICD10: Z09 (primary diagnosis) - plan as below 2. Inguinal hernia, left - ICD9: 550.90, ICD10: K40.90 - patient has had this for some time- recent CT ABD/PEL from [facility] confirms slight fat containing left inguinal hernia without inflammation - he is requesting to see general surgery - no red flag symptoms or exam findings - red flag symptoms discussed, verbalizes understanding - given recent stroke not sure he would be a candidate for surgery at this time - CONSULT TO GENERAL SURGERY 3. Screening for lipid disorders - ICD9: V77.91, ICD10: Z13.220 - continue atorvastatin as recommend on discharge - LIPID PANEL BASIC 4. Essential hypertension - ICD9: 401.9, ICD10: I10 - good control - Continue current medication(s) - Encouraged dietary sodium restriction/DASH diet - Recommended regular aerobic exercise. - Recommend home blood pressure monitoring, to bring results in on next visit - Discussed need and benefit for weight loss. - Recheck in 3 months, sooner should new symptoms or problems arise. - Goal of BP <130/80 - Recommended no refined sugar, low refined starch, healthy oil intake (olive oil), healthy protein (fish) along the lines of the Mediterranean diet. - COMP METABOLIC PANEL 5. Acute stroke of basal ganglia (HCC) - ICD9: 434.91, ICD10: I63.9 - follow-up with neurology and speech therapy as scheduled Megan Glover APRN.SOLOMON Prescription instructions reviewed with patient as applicable. Patient advised if symptoms do not improve or if symptoms worsen sooner, to contact their primary care physician. Potential red flag symptoms discussed with the patient. Reviewed appropriate action plan to take if red flag symptoms occur. Patient agreeable to treatment plan. documented in this encounter [facility] 08-14-2021 Miscellaneous Notes Printed for review Dahiana Maurer LPN OK. Get discharge summary and any CT or MRI scans from [facility]. Robb Leiva MD Pts girlfriend, Elba, called with update on pt. Pt was present in call also. She stated he had been in the hospital from 08/10/21 through 08/13/21. Determined to have had a stroke. Pt wanted Dr. Leiva to be aware. It was [facility]. documented in this encounter [facility] 07-24-2021 Miscellaneous Notes Patient called in and scheduled CT scan W [place] please please lab order for Creatinine. documented in this encounter [facility] 07-02-2021 Miscellaneous Notes Message left for patient to contact office. Please inform patient that he will only need to come in on treatment dates only, please arrive 30 minutes prior to lab work. Document and close once relayed. documented in this encounter [facility] 07-01-2021 Miscellaneous Notes Social Work Problem Referral Note INFORMATION/REFERRAL : Arnulfolorrie Wallace 51 year old male was [facility] for the following reason(s): Care at another F PERSONS INTERVIEWED: patient INTERVENTION: Information & Referral Service Co-ordination Affect/Mood: The patient is noted as appropriate IDENTIFIED PROBLEMS/NEEDS: Continue to assess/collaborate Intervention/Referral to be provided:Arrangements made for continuity of care IMPRESSION/PLAN: Patient met with SW stating he is thinking about traveling to [place] more to spend time with his daughter. Patient is wanting to know if he would be able to get his treatments at a [facility] facility down there. SW informed patient there are [facility] facilities down there, but insurance may be an issues since he has [place] Medicare/Medicaid. Patient understands and will call the facility in [place] for more information. SW informed patient he may need [place] insurance in order for treatments to be covered there. Patient denies other needs. F/U APPOINTMENT: PRN Assigned SW listed in Care Team tab: Yes KRISTOPHER Walker documented in this encounter [facility] 06-28-2021 History of Presen t illness Narrative NAME: Arnulfo Almonte [facility] NO: [id number]. DATE: 06/28/2021 DIAGNOSIS: Metastatic renal cell carcinoma of right kidney Site of metastasis: Lungs & pleura, soft tissue - muscle, lymphatics, and left adrenal (resolved) HPI: 51-year-old gentleman with history of asthma, hypertension who presented with a 6 month history of progressive shortness of breath, chest pain and weight loss. He has left sided chest pain on and off for the last 4 months , pleuritic in nature , worse when he lay on the left side; currently 2/10. Worse level at 8/10, interfere with his sleep. He presented to emergency room because of two-week history of breathing issue. He reported having increased productive cough along with shortness of breath. He also report of having fever and body aches for the last several days. He has been using his albuterol inhaler with no improvement. He is a nonsmoker, but has secondhand smoke exposure. A CT scan showed no evidence of PE but cavitary nodules with mediastinal adenopathy with lytic bone lesions and a pleural (chest wall mass) and a left adrenal mass. Subsequent CT-guided needle biopsy of a lung lesion consistent with renal cell primary (Dianna grade 2). He started combined immunotherapy; Ipilumab & Nivolumab in May 2018. Current treatment: Ipilumab & Nivolumab x 4 - Nivolumab maintinence. Interim history: He is doing well on nivolumab. He denied any diarrhea, rash, fever, cough or shortness of breath. No abdominal pain or bloating or jaundice. No fever, or chills. His weight and appetite are normal . He denies any headaches or neurological symptoms. His blood pressure remains elevated today. He is on lisinopril 10mg daily.& Amlodipine 5mg daily. PMH, medications and allergies and reviewed by me today. Any changes documented in appropriate section. ROS: Constitutional: See above. Neuro: Denies CORRAL, vertigo, dizziness and imbalance. HEENT: No recent change in voice, vision or hearing. Resp: Denies cough, wheeze and hemoptysis. Denies shortness of breath at rest. Denies RODRIGUEZ. CVS: Denies exertional chest pain, PND, orthopnea and LE edema. GI: Denies dysgeusia. Denies symptoms of stomatitis. Denies dysphagia and odynophagia. Denies reflux, n/v, change in bowel habits and abdominal pain. : Denies dysuria or gross hematuria. No symptoms of bladder outlet obstruction. Endo: Denies hot flashes. Denies polyuria and polydipsia. Denies heat and cold intolerance. Musculoskeletal: See above. Derm: Denies rash. Denies jaundice and diffuse pruritis. Heme: Denies unusual bleeding and unexplained bruising. Psych: Normal mood. PHYSICAL EXAMINATION: 50-year-old well-nourished well-developed gentleman in no acute distress Performance status 100% BP 137/96 Pulse 93 Temp (Src) 98.3 (Temporal) Wt 193 lb 8 oz (87.8kg) HEENT: Head is normocephalic, atraumatic. Sclerae white, conjunctivae pink. PEERL. EOMs are intact. Oropharynx is benign. LYMPHATICS: There is no palpable adenopathy in the neck, supraclavicular region, axillae, or groin. LUNGS: Clear, no wheezing or rhonchi w/ diminished breath sounds at bases. HEART: Heart is normal without murmurs, gallops, or rubs. ABDOMEN: Soft and nontender without organomegaly. No masses can be palpated. EXTREMITIES: Are without edema. NEUROLOGIC: Exam is physiologic LABS: Component Latest Ref Rng & Units 06/28/2021 WBC 3.70 - 11.00 k/uL 10.26 RBC 4.20 - 6.00 m/uL 4.77 Hemoglobin 13.0 - 17.0 g/dL 14.0 Hematocrit 39.0 - 51.0 % 41.0 MCV 80.0 - 100.0 fL 86.0 MCH 26.0 - 34.0 pg 29.4 MCHC 30.5 - 36.0 g/dL 34.1 RDW-CV 11.5 - 15.0 % 14.3 Platelet Count 150 - 400 k/uL 262 MPV 9.0 - 12.7 fL 9.3 Neut% % 63.9 Abs Neut (ANC) 1.45 - 7.50 k/uL 6.56 Lymph% % 18.4 Abs Lymph 1.00 - 4.00 k/uL 1.89 Poinsett% % 5.8 Abs [place] <0.87 k/uL 0.59 Eosin% % 11.0 Abs Eosin <0.46 k/uL 1.13 (H) Baso% % 0.6 Abs Baso <0.11 k/uL 0.06 Immature Gran % % 0.3 IMMATURE GRANS (ABS) <0.10 k/uL 0.03 NRBC /100 WBC 0.0 Absolute nRBC <0.01 k/uL <0.01 DTYPE Auto Component Latest Ref Rng & Units 06/28/2021 Protein, Total 6.3 - 8.0 g/dL 6.8 Albumin 3.9 - 4.9 g/dL 4.3 Calcium 8.5 - 10.2 mg/dL 8.7 Bilirubin, Total 0.2 - 1.3 mg/dL 0.7 Alkaline Phosphatase 38 - 113 U/L 99 AST 14 - 40 U/L 20 ALT 10 - 54 U/L 14 Glucose 74 - 99 mg/dL 110 (H) BUN 9 - 24 mg/dL 26 (H) Creatinine 0.73 - 1.22 mg/dL 1.56 (H) Sodium 136 - 144 mmol/L 142 Potassium 3.7 - 5.1 mmol/L 3.6 (L) Chloride 97 - 105 mmol/L 107 (H) CO2 22 - 30 mmol/L 23 Anion Gap 9 - 18 mmol/L 12 eGFR >=60 mL/min/1.73m 53 (L) Component Latest Ref Rng & Units 06/28/2021 TSH 0.270 - 4.200 mIU/L 1.370 Cortisol 4.8 - 19.5 ug/dL 10.1 CXR: COMPARISON: Chest x-ray on 04/05/2021 IMPRESSION: Mild left basilar atelectasis. ASSESSMENT/PLAN: A 50-year-old gentleman with metastatic stage IV, renal cell carcinoma right kidney with widespread metastasis, high- risk features including anemia and hypercalcemia. -No major toxicity from immunotherapy -Stable disease. Plan: - Continue Nivolumab monthly x 3 - Repeat CBC, CMP, cortisol & TSH monthly x 3 - Repeat CT chest, abdomen & pelvis OV in 3 months 2) primary hypertension with acute /chronic renal injury -Improved Plan: -Continue lisinopril 10mg daily and increase amlodipine 10 mg daily. -Monitor blood pressure at home. Follow-up with PCP. Portions of this documentation were copied and pasted from previous office visit notes in order to provide a cohesive continuity of the history. The note has been reviewed and edited and updated as necessary. Robb Leiva MD Cc: Dr. Elver Littlejohn documented in this encounter [facility] 06-28-2021 History of Presen t illness Narrative Radiology Service Progress Note PATIENT NAME: Arnulfo Wallace DATE OF SERVICE: June 28, 2021 TIME: 1:45 PM PATIENT IDENTITY VERIFICATION COMPLETED USING TWO (2) IDENTIFIERS: Name and Date of confirmed by patient verbally. FALL SCREENING: Has the patient had 2 falls in the last year or 1 fall with injury or currently using an Ambulatory Assistive Device (Walker, Cane, Wheelchair, Crutches, etc.)? No PATIENT GENDER DATA: Male PATIENT RELEVANT IMPLANT DATA REVIEWED: Yes RADIOLOGY DEPARTMENT: General X-ray: Exam(s) Completed: Chest X-Ray PERIPHERAL IV DATA: Not applicable SIGNED BY: RT Althea(R) June 28, 2021 1:45 PM documented in this encounter [facility] 05-30-2021 Miscellaneous Notes Left message for patient to return call. When patient calls, please advise him that his appointments for 05/31/21 have been moved up 15 minutes to accommodate an urgent patient. Once relayed, document and close this note. Elba Brady documented in this encounter [facility] documented as of this encounter (statuses as of 06/10/2021) [facility] History of Past illness Narrative* Problem Noted Date Resolved Date Malignant neoplasm of lower lobe of left lung 04/09/2018 Essential hypertension, benign 06/05/2011 0 03/29/2018 documented as of this encounter (statuses as of 06/29/2021) [facility] History of Past illness Narrative* Problem Noted Date Resolved Date Malignant neoplasm of lower lobe of left lung 04/09/2018 Essential hypertension, benign 06/05/2011 0 03/29/2018 documented as of this encounter (statuses as of 06/29/2021) [address] History of Past illness Narrative* Problem Noted Date Resolved Date Malignant neoplasm of lower lobe of left lung 04/09/2018 Essential hypertension, benign 06/05/2011 0 03/29/2018 documented as of this encounter (statuses as of 07/01/2021) [facility] History of Past illness Narrative* Problem Noted Date Resolved Date Malignant neoplasm of lower lobe of left lung 04/09/2018 Essential hypertension, benign 06/05/2011 0 03/29/2018 documented as of this encounter (statuses as of 07/01/2021) [address] History of Past illness Narrative* Problem Noted Date Resolved Date Malignant neoplasm of lower lobe of left lung 04/09/2018 Essential hypertension, benign 06/05/2011 0 03/29/2018 documented as of this encounter (statuses as of 07/05/2021) [address] History of Past illness Narrative* Problem Noted Date Resolved Date Malignant neoplasm of lower lobe of left lung 04/09/2018 Essential hypertension, benign 06/05/2011 0 03/29/2018 documented as of this encounter (statuses as of 07/24/2021) [facility] History of Past illness Narrative* Problem Noted Date Resolved Date Malignant neoplasm of lower lobe of left lung 04/09/2018 Essential hypertension, benign 06/05/2011 0 03/29/2018 documented as of this encounter (statuses as of 07/29/2021) [place] [id number] History of Past illness Narrative* Problem Noted Date Resolved Date Malignant neoplasm of lower lobe of left lung 04/09/2018 Essential hypertension, benign 06/05/2011 0 03/29/2018 documented as of this encounter (statuses as of 08/15/2021) [address] History of Past illness Narrative* Problem Noted Date Resolved Date Malignant neoplasm of lower lobe of left lung 04/09/2018 Essential hypertension, benign 06/05/2011 0 03/29/2018 documented as of this encounter (statuses as of 08/21/2021) [facility] History of Past illness Narrative* Problem Noted Date Resolved Date Malignant neoplasm of lower lobe of left lung 04/09/2018 Essential hypertension, benign 06/05/2011 0 03/29/2018 documented as of this encounter (statuses as of 08/24/2021) [facility] History of Past illness Narrative* Problem Noted Date Resolved Date Malignant neoplasm of lower lobe of left lung 04/09/2018 Essential hypertension, benign 06/05/2011 0 03/29/2018 documented as of this encounter (statuses as of 08/26/2021) [facility] History of Past illness Narrative* Problem Noted Date Resolved Date Malignant neoplasm of lower lobe of left lung 04/09/2018 Essential hypertension, benign 06/05/2011 0 03/29/2018 documented as of this encounter (statuses as of 08/28/2021) [facility] History of Past illness Narrative* Problem Noted Date Resolved Date Malignant neoplasm of lower lobe of left lung 04/09/2018 Essential hypertension, benign 06/05/2011 0 03/29/2018 documented as of this encounter (statuses as of 09/02/2021) [facility] History of Past illness Narrative* Problem Noted Date Resolved Date Malignant neoplasm of lower lobe of left lung 04/09/2018 Essential hypertension, benign 06/05/2011 0 03/29/2018 documented as of this encounter (statuses as of 09/17/2021) [facility] History of Past illness Narrative* Problem Noted Date Resolved Date Malignant neoplasm of lower lobe of left lung 04/09/2018 Essential hypertension, benign 06/05/2011 0 03/29/2018 documented as of this encounter (statuses as of 09/19/2021) [facility] History of Past illness Narrative* Problem Noted Date Resolved Date Malignant neoplasm of lower lobe of left lung 04/09/2018 Essential hypertension, benign 06/05/2011 0 03/29/2018 documented as of this encounter (statuses as of 09/19/2021) [facility] History of Past illness Narrative* Problem Noted Date Resolved Date Malignant neoplasm of lower lobe of left lung 04/09/2018 Essential hypertension, benign 06/05/2011 0 03/29/2018 documented as of this encounter (statuses as of 09/21/2021) [facility] History of Past illness Narrative* Problem Noted Date Resolved Date Malignant neoplasm of lower lobe of left lung 04/09/2018 Essential hypertension, benign 06/05/2011 0 03/29/2018 documented as of this encounter (statuses as of 10/07/2021) [facility] of Past [facility] Narrative* Problem Noted Date Resolved Date Malignant neoplasm of lower lobe of left lung 04/09/2018 Essential hypertension, benign 06/05/2011 0 03/29/2018 documented as of this encounter (statuses as of 10/16/2021) [facility] History of Past illness Narrative* Problem Noted Date Resolved Date Malignant neoplasm of lower lobe of left lung 04/09/2018 Essential hypertension, benign 06/05/2011 0 03/29/2018 documented as of this encounter (statuses as of 10/19/2021) [facility] History of Past illness Narrative* Problem Noted Date Resolved Date Malignant neoplasm of lower lobe of left lung 04/09/2018 Essential hypertension, benign 06/05/2011 0 03/29/2018 documented as of this encounter (statuses as of 10/22/2021) [facility]2019 History of Past illness Narrative* Problem Noted Date Resolved Date Malignant neoplasm of lower lobe of left lung 04/09/2018 Essential hypertension, benign 06/05/2011 0 03/29/2018 documented as of this encounter (statuses as of 10/24/2021) [facility] History of Past illness Narrative* Problem Noted Date Resolved Date Malignant neoplasm of lower lobe of left lung 04/09/2018 Essential hypertension, benign 06/05/2011 0 03/29/2018 documented as of this encounter (statuses as of 10/29/2021) [facility]2019 History of Past illness Narrative* Problem Noted Date Resolved Date Malignant neoplasm of lower lobe of left lung 04/09/2018 Essential hypertension, benign 06/05/2011 0 03/29/2018 documented as of this encounter (statuses as of 10/30/2021) [facility] History of Past illness Narrative* Problem Noted Date Resolved Date Malignant neoplasm of lower lobe of left lung 04/09/2018 Essential hypertension, benign 06/05/2011 0 03/29/2018 documented as of this encounter (statuses as of 11/20/2021) [place] [id number] History of Past illness Narrative* Problem Noted Date Resolved Date Malignant neoplasm of lower lobe of left lung 04/09/2018 Essential hypertension, benign 06/05/2011 0 03/29/2018 documented as of this encounter (statuses as of 12/17/2021) [address]11-2019 History of Past illness Narrative* Problem Noted Date Resolved Date Malignant neoplasm of lower lobe of left lung 04/09/2018 Essential hypertension, benign 06/05/2011 0 03/29/2018 documented as of this encounter (statuses as of 12/17/2021) [address]11-2019 History of Past illness Narrative* Problem Noted Date Resolved Date Malignant neoplasm of lower lobe of left lung 04/09/2018 Essential hypertension, benign 06/05/2011 0 03/29/2018 documented as of this encounter (statuses as of 12/18/2021) [facility] History of Past illness Narrative* Problem Noted Date Resolved Date Malignant neoplasm of lower lobe of left lung 04/09/2018 Essential hypertension, benign 06/05/2011 0 03/29/2018 documented as of this encounter (statuses as of 12/20/2021) [address]-2019 History of Past illness Narrative* Problem Noted Date Resolved Date Malignant neoplasm of lower lobe of left lung 04/09/2018 Essential hypertension, benign 06/05/2011 0 03/29/2018 documented as of this encounter (statuses as of 01/04/2022) [place] [id number] History of Past illness Narrative* Problem Noted Date Resolved Date Malignant neoplasm of lower lobe of left lung 04/09/2018 Essential hypertension, benign 06/05/2011 0 03/29/2018 documented as of this encounter (statuses as of 01/04/2022) [facility] History of Past illness Narrative* Problem Noted Date Resolved Date Malignant neoplasm of lower lobe of left lung 04/09/2018 Essential hypertension, benign 06/05/2011 0 03/29/2018 documented as of this encounter (statuses as of 01/14/2022) [facility] History of Past illness Narrative* Problem Noted Date Resolved Date Malignant neoplasm of lower lobe of left lung 04/09/2018 Essential hypertension, benign 06/05/2011 0 03/29/2018 documented as of this encounter (statuses as of 01/28/2022) [address]2019 History of Past illness Narrative* Problem Noted Date Resolved Date Malignant neoplasm of lower lobe of left lung 04/09/2018 Essential hypertension, benign 06/05/2011 0 03/29/2018 documented as of this encounter (statuses as of 02/18/2022) [facility] History of Past illness Narrative* Problem Noted Date Resolved Date Malignant neoplasm of lower lobe of left lung 04/09/2018 Essential hypertension, benign 06/05/2011 0 03/29/2018 documented as of this encounter (statuses as of 02/19/2022) [facility] History of Past illness Narrative* Problem Noted Date Resolved Date Malignant neoplasm of lower lobe of left lung 04/09/2018 Essential hypertension, benign 06/05/2011 0 03/29/2018 documented as of this encounter (statuses as of 02/19/2022) [address]2019 History of Past illness Narrative* Problem Noted Date Resolved Date Malignant neoplasm of lower lobe of left lung 04/09/2018 Essential hypertension, benign 06/05/2011 0 03/29/2018 documented as of this encounter (statuses as of 03/10/2022) [address]-2019 History of Past illness Narrative* Problem Noted Date Resolved Date Malignant neoplasm of lower lobe of left lung 04/09/2018 Essential hypertension, benign 06/05/2011 0 03/29/2018 documented as of this encounter (statuses as of 03/11/2022) [facility] History of Past illness Narrative* Problem Noted Date Resolved Date Malignant neoplasm of lower lobe of left lung 04/09/2018 Essential hypertension, benign 06/05/2011 0 03/29/2018 documented as of this encounter (statuses as of 03/22/2022) [facility] History of Past illness Narrative* Problem Noted Date Resolved Date Malignant neoplasm of lower lobe of left lung 04/09/2018 Essential hypertension, benign 06/05/2011 0 03/29/2018 documented as of this encounter (statuses as of 04/08/2022) [facility] History of Past illness Narrative* Problem Noted Date Resolved Date Malignant neoplasm of lower lobe of left lung 04/09/2018 Essential hypertension, benign 06/05/2011 0 03/29/2018 documented as of this encounter (statuses as of 04/18/2022) [facility] History of Past illness Narrative* Problem Noted Date Resolved Date Malignant neoplasm of lower lobe of left lung 04/09/2018 Essential hypertension, benign 06/05/2011 0 03/29/2018 documented as of this encounter (statuses as of 04/25/2022) [facility] History of Past illness Narrative* Problem Noted Date Resolved Date Malignant neoplasm of lower lobe of left lung 04/09/2018 Essential hypertension, benign 06/05/2011 0 03/29/2018 documented as of this encounter (statuses as of 04/29/2022) [facility] History of Past illness Narrative* Problem Noted Date Resolved Date Malignant neoplasm of lower lobe of left lung 04/09/2018 Essential hypertension, benign 06/05/2011 0 03/29/2018 documented as of this encounter (statuses as of 05/06/2022) [facility] History of Past illness Narrative* Problem Noted Date Resolved Date Malignant neoplasm of lower lobe of left lung 04/09/2018 Essential hypertension, benign 06/05/2011 0 03/29/2018 documented as of this encounter (statuses as of 05/06/2022) [facility] History of Past illness Narrative* Problem Noted Date Resolved Date Malignant neoplasm of lower lobe of left lung 04/09/2018 Essential hypertension, benign 06/05/2011 0 03/29/2018 documented as of this encounter (statuses as of 06/02/2022) [facility] History of Past illness Narrative* Problem Noted Date Resolved Date Malignant neoplasm of lower lobe of left lung 04/09/2018 Essential hypertension, benign 06/05/2011 0 03/29/2018 documented as of this encounter (statuses as of 06/03/2022) [facility] History of Past illness Narrative* Problem Noted Date Resolved Date Malignant neoplasm of lower lobe of left lung 04/09/2018 Essential hypertension, benign 06/05/2011 0 03/29/2018 documented as of this encounter (statuses as of 06/03/2022) [facility] History of Past illness Narrative* Problem Noted Date Resolved Date Malignant neoplasm of lower lobe of left lung 04/09/2018 Essential hypertension, benign 06/05/2011 0 03/29/2018 documented as of this encounter (statuses as of 06/10/2022) [facility] History of Past illness Narrative* Problem Noted Date Resolved Date Malignant neoplasm of lower lobe of left lung 04/09/2018 Essential hypertension, benign 06/05/2011 0 03/29/2018 documented as of this encounter (statuses as of 06/28/2022) [facility] History of Past illness Narrative* Problem Noted Date Resolved Date Malignant neoplasm of lower lobe of left lung 04/09/2018 Essential hypertension, benign 06/05/2011 0 03/29/2018 documented as of this encounter (statuses as of 07/01/2022) [facility] History of Past illness Narrative* Problem Noted Date Resolved Date Malignant neoplasm of lower lobe of left lung 04/09/2018 Essential hypertension, benign 06/05/2011 0 03/29/2018 documented as of this encounter (statuses as of 08/22/2022) [facility] History of Past illness Narrative* Problem Noted Date Diagnosed Date Resolved Date Malignant neoplasm of lower lobe of left lung 03/29/19 19 04/09/2018 Essential hypertension, benign 06/05/2011 03/29/2018 documented as of this encounter (statuses as of 08/25/2022) [facility] History of Past illness Narrative* Problem Noted Date Diagnosed Date Resolved Date Malignant neoplasm of lower lobe of left lung 03/29/19 19 04/09/2018 Essential hypertension, benign 06/05/2011 03/29/2018 documented as of this encounter (statuses as of 08/26/2022) [facility] History of Past illness Narrative* Problem Noted Date Diagnosed Date Resolved Date Malignant neoplasm of lower lobe of left lung 03/29/19 19 04/09/2018 Essential hypertension, benign 06/05/2011 03/29/2018 documented as of this encounter (statuses as of 08/28/2022) [facility] History of Past illness Narrative* Problem Noted Date Diagnosed Date Resolved Date Malignant neoplasm of lower lobe of left lung 03/29/19 19 04/09/2018 Essential hypertension, benign 06/05/2011 03/29/2018 documented as of this encounter (statuses as of 09/22/2022) [facility] History of Past illness Narrative* Problem Noted Date Diagnosed Date Resolved Date Malignant neoplasm of lower lobe of left lung 03/29/19 19 04/09/2018 Essential hypertension, benign 06/05/2011 03/29/2018 documented as of this encounter (statuses as of 09/22/2022) [facility] History of Past illness Narrative* Problem Noted Date Diagnosed Date Resolved Date Malignant neoplasm of lower lobe of left lung 03/29/19 19 04/09/2018 Essential hypertension, benign 06/05/2011 03/29/2018 documented as of this encounter (statuses as of 10/21/2022) [facility] History of Past illness Narrative* Problem Noted Date Diagnosed Date Resolved Date Malignant neoplasm of lower lobe of left lung 03/29/19 19 04/09/2018 Essential hypertension, benign 06/05/2011 03/29/2018 documented as of this encounter (statuses as of 10/21/2022) [facility] History of Past illness Narrative* Problem Noted Date Diagnosed Date Resolved Date Malignant neoplasm of lower lobe of left lung 03/29/19 19 04/09/2018 Essential hypertension, benign 06/05/2011 03/29/2018 documented as of this encounter (statuses as of 10/21/2022) [facility] History of Past illness Narrative* Problem Noted Date Diagnosed Date Resolved Date Malignant neoplasm of lower lobe of left lung 03/29/19 19 04/09/2018 Essential hypertension, benign 06/05/2011 03/29/2018 documented as of this encounter (statuses as of 11/04/2022) [facility] History of Past illness Narrative* Problem Noted Date Diagnosed Date Resolved Date Malignant neoplasm of lower lobe of left lung 03/29/19 19 04/09/2018 Essential hypertension, benign 06/05/2011 03/29/2018 documented as of this encounter (statuses as of 11/08/2022) [facility] History of Past illness Narrative* Problem Noted Date Diagnosed Date Resolved Date Malignant neoplasm of lower lobe of left lung 03/29/19 19 04/09/2018 Essential hypertension, benign 06/05/2011 03/29/2018 documented as of this encounter (statuses as of 11/10/2022) [facility] History of Past illness Narrative* Problem Noted Date Diagnosed Date Resolved Date Malignant neoplasm of lower lobe of left lung 03/29/19 19 04/09/2018 Essential hypertension, benign 06/05/2011 03/29/2018 documented as of this encounter (statuses as of 11/18/2022) [facility] History of Past illness Narrative* Problem Noted Date Diagnosed Date Resolved Date Malignant neoplasm of lower lobe of left lung 03/29/19 19 04/09/2018 Essential hypertension, benign 06/05/2011 03/29/2018 documented as of this encounter (statuses as of 11/18/2022) [facility] History of Past illness Narrative* Problem Noted Date Diagnosed Date Resolved Date Malignant neoplasm of lower lobe of left lung 03/29/19 19 04/09/2018 Essential hypertension, benign 06/05/2011 03/29/2018 documented as of this encounter (statuses as of 11/28/2022) [facility] History of Past illness Narrative* Problem Noted Date Diagnosed Date Resolved Date Malignant neoplasm of lower lobe of left lung 03/29/19 19 04/09/2018 Essential hypertension, benign 06/05/2011 03/29/2018 documented as of this encounter (statuses as of 12/15/2022) [facility] History of Past illness Narrative* Problem Noted Date Diagnosed Date Resolved Date Malignant neoplasm of lower lobe of left lung 03/29/19 19 04/09/2018 Essential hypertension, benign 06/05/2011 03/29/2018 documented as of this encounter (statuses as of 12/16/2022) [facility] History of Past illness Narrative* Problem Noted Date Diagnosed Date Resolved Date Malignant neoplasm of lower lobe of left lung 03/29/19 19 04/09/2018 Essential hypertension, benign 06/05/2011 03/29/2018 documented as of this encounter (statuses as of 12/20/2022) [facility] History of Past illness Narrative* Problem Noted Date Diagnosed Date Resolved Date Malignant neoplasm of lower lobe of left lung 03/29/19 19 04/09/2018 Essential hypertension, benign 06/05/2011 03/29/2018 documented as of this encounter (statuses as of 12/21/2022) [facility] History of Past illness Narrative* Problem Noted Date Diagnosed Date Resolved Date Malignant neoplasm of lower lobe of left lung 03/29/19 19 04/09/2018 Essential hypertension, benign 06/05/2011 03/29/2018 documented as of this encounter (statuses as of 12/21/2022) [facility] History of Past illness Narrative* Problem Noted Date Diagnosed Date Resolved Date Malignant neoplasm of lower lobe of left lung 03/29/19 19 04/09/2018 Essential hypertension, benign 06/05/2011 03/29/2018 documented as of this encounter (statuses as of 12/21/2022) [facility] History of Past illness Narrative* Problem Noted Date Diagnosed Date Resolved Date Malignant neoplasm of lower lobe of left lung 03/29/19 19 04/09/2018 Essential hypertension, benign 06/05/2011 03/29/2018 documented as of this encounter (statuses as of 12/21/2022) [facility] History of Past illness Narrative* Problem Noted Date Diagnosed Date Resolved Date Malignant neoplasm of lower lobe of left lung 03/29/19 19 04/09/2018 Essential hypertension, benign 06/05/2011 03/29/2018 documented as of this encounter (statuses as of 01/02/2023) [facility] History of Past illness Narrative* Problem Noted Date Diagnosed Date Resolved Date Malignant neoplasm of lower lobe of left lung 03/29/19 19 04/09/2018 Essential hypertension, benign 06/05/2011 03/29/2018 documented as of this encounter (statuses as of 01/12/2023) [facility] History of Past illness Narrative* Problem Noted Date Diagnosed Date Resolved Date Malignant neoplasm of lower lobe of left lung 03/29/19 19 04/09/2018 Essential hypertension, benign 06/05/2011 03/29/2018 documented as of this encounter (statuses as of 01/13/2023) [facility] History of Past illness Narrative* Problem Noted Date Diagnosed Date Resolved Date Malignant neoplasm of lower lobe of left lung 03/29/19 19 04/09/2018 Essential hypertension, benign 06/05/2011 03/29/2018 documented as of this encounter (statuses as of 01/27/2023) [facility] History of Past illness Narrative* Problem Noted Date Diagnosed Date Resolved Date Malignant neoplasm of lower lobe of left lung 03/29/19 19 04/09/2018 Essential hypertension, benign 06/05/2011 03/29/2018 documented as of this encounter (statuses as of 01/27/2023) [facility] 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) Bone metastases (HCC) Secondary malignant neoplasm of bone and bone marrow Malignant neoplasm of right kidney, except renal pelvis (HCC) Malignant neoplasm of kidney, except pelvis Renal cell carcinoma of right kidney (HCC) [facility] ([facility])- Primary 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) Renal cell carcinoma of right kidney (HCC) Primary hypertension Unspecified essential hypertension Malignant neoplasm of lower lobe of left lung (HCC) Malignant neoplasm of right kidney, except renal pelvis (HCC) Malignant neoplasm of kidney, except pelvis [facility] 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) [facility] 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)- Primary [facility] Hospital discharge follow-up- Primary Other follow-up examination Inguinal hernia, left Inguinal hernia without mention of obstruction or gangrene, unilateral or unspecified, (not specified as recurrent) Screening for lipid disorders Essential hypertension Unspecified essential hypertension Acute stroke of basal ganglia (HCC) [facility] 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) Bone metastases (HCC) Secondary malignant neoplasm of bone and bone marrow Malignant neoplasm of lower lobe of left lung (HCC) [facility] 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) [facility] Diagnosis Mild intermittent asthma with acute exacerbation Unspecified asthma, with exacerbation [facility] Bone metastases (HCC) 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) Renal cell carcinoma of right kidney (HCC) Malignant neoplasm of lower lobe of left lung (HCC) Malignant neoplasm of right kidney, except renal pelvis (HCC) Malignant neoplasm of kidney, except pelvis [facility] Renal cell carcinoma of right kidney (HCC)- Primary Malignant neoplasm of lower lobe of left lung (HCC) 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) Bone metastases (HCC) Secondary malignant neoplasm of bone and bone marrow [facility] Renal cell carcinoma of right kidney (HCC)- Primary 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) Bone metastases (HCC) Secondary malignant neoplasm of bone and bone marrow Malignant neoplasm metastatic to lung, unspecified laterality (HCC) Acquired hypothyroidism Unspecified hypothyroidism [facility] 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) [facility] 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) Renal cell carcinoma of right kidney (HCC) Bone metastases (HCC) Secondary malignant neoplasm of bone and bone marrow [facility] Renal cell carcinoma of right kidney (HCC) Malignant neoplasm of lower lobe of left lung (HCC) Bone metastases (HCC) 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) Malaise and fatigue Other malaise and fatigue [facility] 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) [facility] Primary hypertension- Primary Unspecified essential hypertension [facility] Diagnosis 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) [facility] Diagnosis Mild intermittent asthma with acute exacerbation Unspecified asthma, with exacerbation [facility] Suspected COVID-19 virus infection [facility] Malignant neoplasm of lower lobe of left lung (HCC)- Primary 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) [facility] 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) [facility] Malignant neoplasm of lower lobe of left lung (HCC)- Primary 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) Bone metastases (HCC) Secondary malignant neoplasm of bone and bone marrow [facility] Renal cell carcinoma of right kidney (HCC)- Primary Malignant neoplasm of lower lobe of left lung (HCC) Bone metastases (HCC) 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) Malaise and fatigue Other malaise and fatigue [facility] Mild intermittent asthma with acute exacerbation Unspecified asthma, with exacerbation [facility] Diagnosis 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) Malignant neoplasm of lower lobe of left lung (HCC) 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) Bone metastases (HCC) Secondary malignant neoplasm of bone and bone marrow [facility] Bacterial pneumonia- Primary Bacterial pneumonia, unspecified Mild intermittent asthma with acute exacerbation Unspecified asthma, with exacerbation [facility] Diagnosis Renal cell carcinoma of right kidney (HCC)- Primary Bone metastases (HCC) 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) Malaise and fatigue Other malaise and fatigue [facility] 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) documented in this [facility] 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) Malignant neoplasm of lower lobe of left lung (HCC) 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) Malaise and fatigue Other malaise and fatigue [facility] Diagnosis Malignant neoplasm of lower lobe of left lung (HCC)- Primary Renal cell carcinoma of right kidney (HCC) 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) Malaise and fatigue Other malaise and fatigue [facility] Diagnosis Renal cell carcinoma of right kidney (HCC)- Primary 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) Malignant neoplasm of lower lobe of left lung (HCC) 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) 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) Malignant neoplasm metastatic to bone (HCC) Secondary malignant neoplasm of bone and bone marrow [facility] Diagnosis Renal cell carcinoma of right kidney (HCC)- Primary Malignant neoplasm of lower lobe of left lung (HCC) 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) 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) [facility] Diagnosis Renal cell carcinoma of right kidney (HCC)- Primary [facility] Diagnosis Malignant neoplasm of lower lobe of left lung (HCC)- Primary 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) [facility] Diagnosis 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) [facility] Diagnosis Renal cell carcinoma of right kidney (HCC)- Primary [facility] Diagnosis Mild intermittent asthma with acute exacerbation Unspecified asthma, with exacerbation Primary hypertension Unspecified essential hypertension [facility] Diagnosis Screening for genitourinary condition Screening for other and unspecified genitourinary condition [facility] Diagnosis Malignant neoplasm of lower lobe of left lung (HCC)- Primary 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) [facility] Diagnosis Renal cell carcinoma of right kidney (HCC)- Primary [facility] Diagnosis 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) [facility] Diagnosis Malignant neoplasm of lower lobe of left lung (HCC) 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 neoplasm metastatic to bone (HCC) Secondary malignant neoplasm of bone and bone marrow [facility] Diagnosis Renal cell carcinoma of right kidney (HCC) [facility] Diagnosis 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) [facility] Diagnosis Renal cell carcinoma of right kidney (HCC)- Primary 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) Malignant neoplasm metastatic to lung, unspecified laterality (HCC) [facility] Malignant neoplasm of lower lobe of left lung (HCC) 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) documented [facility] this [facility] Summary Purpose Family History No Family History Records FoundNo Family History Records Found Advance Directives No Advanced Directives Records FoundDocuments on File Type Date Recorded 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 Advance Directive(s) 03/23/2020 12:49 PM Advance Directive(s) 05/03/2018 10:43 AM Documents on File Type Date Recorded 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 Advance Directive(s) 03/23/2020 12:49 PM Advance Directive(s) 05/03/2018 10:43 AM Reason for Referral Specialty Diagnoses / Procedures Referred By Contac t Referred To Contact CT IMAGING Diagnoses Bone metastases (HCC) 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) Renal cell carcinoma of right kidney (HCC) Malignant neoplasm of lower lobe of left lung (HCC) Malignant neoplasm of right kidney, except renal pelvis (HCC) Procedures CT CHEST W IVCON DIAGNOSTIC COMPUTED TOMOGRAPHY THORAX W/CONTRAST Robb Leiva MD [address] [place] [id number] [address] Imaging Referral ID Status Reason Start Date Expiration Date Visits Requested Visits Authorized [id number] Pending Review Auto-Generat ed Referral 09/28/2021 07/28/2022 1 1 Specialty Diagnoses / Procedures Referred By Contac t Referred To Contact CT IMAGING Diagnoses Bone metastases (HCC) 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) Renal cell carcinoma of right kidney (HCC) Malignant neoplasm of lower lobe of left lung (HCC) Malignant neoplasm of right kidney, except renal pelvis (HCC) Procedures CT ABD/PEL W IVCON CT ABD & PELVIS W/CONTRAST Robb Leiva MD [address] [place] [id number] Imaging Referral ID Status Reason Start Date Expiration Date Visits Requested Visits Authorized [id number] Pending Review Auto-Generat ed Referral 09/28/2021 07/28/2022 1 1 Specialty Diagnoses / Procedures Referred By Contac t Referred To Contact General Surgery Diagnoses Inguinal hernia, left Procedures CONSULT TO GENERAL SURGERY OFFICE/OUTPATIENT [facility] 60-74 MINUTES [employer], MURALI Guzman.[employer] [address] [place] [address] Referral ID Status Reason Start Date Expiration Date Visits Requested Visits Authorized [id number] Authorized PCP Requested Referral 08/21/2021 08/21/2022 1 1 Specialty Diagnoses / Procedures Referred By Contac t Referred To Contact CT IMAGING Diagnoses Bone metastases (HCC) 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) Renal cell carcinoma of right kidney (HCC) Malignant neoplasm of lower lobe of left lung (HCC) Malignant neoplasm of right kidney, except renal pelvis (HCC) Procedures CT CHEST W IVCON DIAGNOSTIC COMPUTED TOMOGRAPHY THORAX W/CONTRAST Robb Leiva MD [address] [place] [address] Ct Imaging Referral ID Status Reason Start Date Expiration Date V isits Requested Visits Authorized [id number] Closed Auto-Generate d Referral 09/28/2021 07/28/2022 1 1 Specialty Diagnoses / Procedures Referred By Contac t Referred To Contact CT IMAGING Diagnoses Bone metastases (HCC) 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) Renal cell carcinoma of right kidney (HCC) Malignant neoplasm of lower lobe of left lung (HCC) Malignant neoplasm of right kidney, except renal pelvis (HCC) Procedures CT ABD/PEL W IVCON CT ABD & PELVIS W/CONTRAST Robb Leiva MD [address] [place] [address] Ct Imaging Referral ID Status Reason Start Date Expiration Date V isits Requested Visits Authorized [id number] Closed Auto-Generate d Referral 09/28/2021 07/28/2022 1 1 Specialty Diagnoses / Procedures Referred By Contac t Referred To Contact CT IMAGING Diagnoses Malignant neoplasm of lower lobe of left lung (HCC) 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) Bone metastases (HCC) Procedures CT CHEST W IVCON DIAGNOSTIC COMPUTED TOMOGRAPHY THORAX W/CONTRAST Robb Leiva MD [address] [place] [address] Ct Imaging Referral ID Status Reason Start Date Expiration Date Visits Requested Visits Authorized [id number] Pending Review Auto-Generat ed Referral 05/14/2022 03/15/2023 1 1 Specialty Diagnoses / Procedures Referred By Contac t Referred To Contact CT IMAGING Diagnoses Malignant neoplasm of lower lobe of left lung (HCC) 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) Bone metastases (HCC) Procedures CT ABD/PEL W IVCON CT ABD & PELVIS W/CONTRAST Robb Leiva MD [address] [place] [address] Ct Imaging Referral ID Status Reason Start Date Expiration Date Visits Requested Visits Authorized [id number] Pending Review Auto-Generat ed Referral 05/14/2022 03/15/2023 1 1 Specialty Diagnoses / Procedures Referred By Contac t Referred To Contact CT IMAGING Diagnoses Renal cell carcinoma of right kidney (HCC) Procedures CT CHEST W IVCON DIAGNOSTIC COMPUTED TOMOGRAPHY THORAX W/[place] [phone] Imaging Referral ID Status Reason Start Date Expiration Date Visits Requested Visits Authorized [id number] Authorized Auto-Generat ed Referral 09/22/2022 10/22/2023 1 1 Specialty Diagnoses / Procedures Referred By Contac t Referred To Contact CT IMAGING Diagnoses Renal cell carcinoma of right kidney (HCC) Procedures CT ABD/PEL W IVCON CT ABD & PELVIS W/[place] [phone] Imaging Referral ID Status Reason Start Date Expiration Date Visits Requested Visits Authorized [id number] Authorized Auto-Generat ed Referral 09/22/2022 10/22/2023 1 1 Specialty Diagnoses / Procedures Referred By Contac t Referred To Contact Urology Diagnoses Renal cell carcinoma of right kidney (HCC) Procedures CONSULT TO UROLOGY OFFICE/OUTPATIENT [facility] MDM 60-[place] [address] [place] [address] Referral ID Status Reason Start Date Expiration Date Visits Requested Visits Authorized [id number] Authorized PCP Requested Referral 10/21/2022 10/21/2023 1 1 Specialty Diagnoses / Procedures Referred By Contac t Referred To Contact CT IMAGING Diagnoses Malignant neoplasm of lower lobe of left lung (HCC) 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) Bone metastases Procedures CT CHEST W IVCON DIAGNOSTIC COMPUTED TOMOGRAPHY THORAX W/CONTRAST Robb Leiva MD [address] [place] [id number] Imaging [place] [facility] Referral ID Status Reason Start Date Expiration Date V isits Requested Visits Authorized [id number] Closed Auto-Generate d Referral 05/14/2022 03/15/2023 1 1 Specialty Diagnoses / Procedures Referred By Contac t Referred To Contact CT IMAGING Diagnoses Malignant neoplasm of lower lobe of left lung (HCC) 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) Bone metastases Procedures CT ABD/PEL W IVCON CT ABD & PELVIS W/CONTRAST Robb Leiva MD [address] [place] [address] [address] Imaging [place] [facility] Referral ID Status Reason Start Date Expiration Date V isits Requested Visits Authorized [id number] Closed Auto-Generate d Referral 05/14/2022 03/15/2023 1 1 Specialty Diagnoses / Procedures Referred By Contac t Referred To Contact CT IMAGING Diagnoses Renal cell carcinoma of right kidney (HCC) Procedures CT CHEST W IVCON DIAGNOSTIC COMPUTED TOMOGRAPHY THORAX W/[place] [address] [place] [address] [place] [address] Referral ID Status Reason Start Date Expiration Date V isits Requested Visits Authorized [id number] Closed Auto-Generate d Referral 09/22/2022 10/22/2023 1 1 Specialty Diagnoses / Procedures Referred By Contac t Referred To Contact CT IMAGING Diagnoses Renal cell carcinoma of right kidney (HCC) Procedures CT ABD/PEL W IVCON CT ABD & PELVIS W/[place] [address] [place] [phone] [place] [address] Referral ID Status Reason Start Date Expiration Date V isits Requested Visits Authorized [id number] Closed Auto-Generate d Referral 09/22/2022 10/22/2023 1 1 Medications Administered Section Inactive Administered Medications - up to 3 most recent administrations Medication Order MAR Action Action Date Dose Rate Site nivolumab 480 mg in NaCl 0.9% 100 mL (OPDIVO) 480 mg, INTRAVENOUS, Administer over 30 Minutes, ONCE, 1 dose, On Thu07/01/21 at 1500, exp 1000 07/02/21 (refrigerated) Administer with 0.2 micron filter. New Bag/Syringe/Bottle 07/01/2021 3:23 PM EDT 480 mg Inactive Administered Medications - up to 3 most recent administrations Medication Order MAR Action Action Date Dose Rate Site nivolumab 480 mg in NaCl 0.9% 100 mL (OPDIVO) 480 mg, INTRAVENOUS, Administer over 30 Minutes, ONCE, 1 dose, On Thu07/29/21 at 1400, Approx Total Volume - Expires: 07/29/21 @ 2200 Administer with 0.2 micron filter. New Bag/Syringe/Bottle 07/29/2021 2:33 PM EDT 480 mg Inactive Administered Medications - up to 3 most recent administrations Medication Order MAR Action Action Date Dose Rate Site nivolumab 480 mg in NaCl 0.9% 100 mL (OPDIVO) 480 mg, INTRAVENOUS, Administer over 30 Minutes, ONCE, 1 dose, On Thu08/26/21 at 1430, exp 2300 08/26/21 (room temp) Administer with 0.2 micron filter. New Bag/Syringe/Bottle 08/26/2021 2:39 PM EDT 480 mg Inactive Administered Medications - up to 3 most recent administrations Medication Order MAR Action Action Date Dose Rate Site nivolumab 480 mg in NaCl 0.9% 100 mL (OPDIVO) 480 mg, INTRAVENOUS, Administer over 30 Minutes, ONCE, 1 dose, On Tu10/22/21 at 1430, EXP: 10/22/21 @ 2230 Administer with 0.2 micron filter. Protect from light if utilizing refrigerator 7 day expiration. New Bag/Syringe/Bottle 10/22/2021 2:46 PM EDT 480 mg Inactive Administered Medications - up to 3 most recent administrations Medication Order MAR Action Action Date Dose Rate Site nivolumab 480 mg in NaCl 0.9% 100 mL (OPDIVO) 480 mg, INTRAVENOUS, Administer over 30 Minutes, ONCE, 1 dose, On Thu11/19/21 at 1400, exp 2200 11/19/21 (room temp) Administer with 0.2 micron filter. Protect from light if utilizing refrigerator 7 day expiration. New Bag/Syringe/Bottle 11/19/2021 1:53 PM EDT 480 mg Inactive Administered Medications - up to 3 most recent administrations Medication Order MAR Action Action Date Dose Rate Site nivolumab 480 mg in NaCl 0.9% 100 mL (OPDIVO) 480 mg, INTRAVENOUS, Administer over 30 Minutes, ONCE, 1 dose, On Thu12/17/21 at 1000, exp 12/23/21 (refrigerated) Administer with 0.2 micron filter. Protect from light if utilizing refrigerator 7 day expiration. New Bag/Syringe/Bottle 12/17/2021 9:58 AM EDT 480 mg Inactive Administered Medications - up to 3 most recent administrations Medication Order MAR Action Action Date Dose Rate Site nivolumab 480 mg in NaCl 0.9% 100 mL (OPDIVO) 480 mg, INTRAVENOUS, Administer over 30 Minutes, ONCE, 1 dose, On Thu01/14/22 at 0930, exp 1800 01/14/22 (room temp) Administer with 0.2 micron filter. Protect from light if utilizing refrigerator 7 day expiration. New Bag/Syringe/Bottle 01/14/2022 9:49 AM EST 480 mg Inactive Administered Medications - up to 3 most recent administrations Medication Order MAR Action Action Date Dose Rate Site nivolumab 480 mg in NaCl 0.9% 100 mL (OPDIVO) 480 mg, INTRAVENOUS, Administer over 30 Minutes, ONCE, 1 dose, On Thu02/13/22 at 1030, exp 1830 02/13/22 (room temp) Administer with 0.2 micron filter. Protect from light if utilizing refrigerator 7 day expiration. New Bag/Syringe/Bottle 02/13/2022 10:34 AM EST 480 mg Inactive Administered Medications - up to 3 most recent administrations Medication Order MAR Action Action Date Dose Rate Site nivolumab 480 mg in NaCl 0.9% 100 mL (OPDIVO) 480 mg, INTRAVENOUS, Administer over 30 Minutes, ONCE, 1 dose, On Thu03/11/22 at 1130, exp 03/17/22 (refrigerated) Administer with 0.2 micron filter. Protect from light if utilizing refrigerator 7 day expiration. New Bag/Syringe/Bottle 03/11/2022 11:30 AM EST 480 mg Inactive Administered Medications - up to 3 most recent administrations Medication Order MAR Action Action Date Dose Rate Site nivolumab 480 mg in NaCl 0.9% 100 mL (OPDIVO) 480 mg, INTRAVENOUS, Administer over 30 Minutes, ONCE, 1 dose, On Thu04/08/22 at 1030, exp 18304/08/22 (room temp) Administer with 0.2 micron filter. Protect from light if utilizing refrigerator 7 day expiration. New Bag/Syringe/Bottle 04/08/2022 10:30 AM EST 480 mg Inactive Administered Medications - up to 3 most recent administrations Medication Order MAR Action Action Date Dose Rate Site nivolumab 480 mg in NaCl 0.9% 100 mL (OPDIVO) 480 mg, INTRAVENOUS, Administer over 30 Minutes, ONCE, 1 dose, On Thu05/06/22 at 1100, exp 1900 05/06/22 (room temp) Administer with 0.2 micron filter. Protect from light if utilizing refrigerator 7 day expiration. New Bag/Syringe/Bottle 05/06/2022 11:05 AM EDT 480 mg Inactive Administered Medications - up to 3 most recent administrations Medication Order MAR Action Action Date Dose Rate Site nivolumab 480 mg in NaCl 0.9% 100 mL (OPDIVO) 480 mg, INTRAVENOUS, Administer over 30 Minutes, ONCE, 1 dose, On Thu06/03/22 at 1330, exp 06/10/22 (refrigerated) Administer with 0.2 micron filter. Protect from light if utilizing refrigerator 7 day expiration. New Bag/Syringe/Bottle 06/03/2022 1:46 PM EDT 480 mg Inactive Administered Medications - up to 3 most recent administrations Medication Order MAR Action Action Date Dose Rate Site acetaminophen 650 mg tab(s) (TYLENOL) 650 mg, ORAL, ONCE, 1 dose, On Thu08/25/22 at 1200, Give 30 minutes before infusion. No more than 4000 mg of acetaminophen should be given per day (FROM ALL SOURCES), If ordered PRN for pain, patient/guardian may elect to receive this medication for higher pain levels INSTEAD of the opioid, if preferred: N/A Given 08/25/2022 11:49 AM EDT 650 mg nivolumab 480 mg in NaCl 0.9% 158 mL (OPDIVO) 480 mg, INTRAVENOUS, Administer over 30 Minutes, ONCE, 1 dose, On Thu08/25/22 at 1200, exp 2000 08/25/22 (room temp) Administer with 0.2 micron filter. Protect from light if utilizing refrigerator 7 day expiration. New Bag/Syringe/Bottle 08/25/2022 12:03 PM EDT 480 mg zoledronic acid 3.5 mg in NaCl 0.9% 100 mL (ZOMETA) 3.5 mg, INTRAVENOUS, Administer over 15 Minutes, ONCE, 1 dose, On Thu08/25/22 at 1200, Hazardous Potential Reproductive Risk Drug: Use appropriate PPE. Refrigerate. New Bag/Syringe/Bottle 08/25/2022 12:34 PM EDT 3.5 mg Inactive Administered Medications - up to 3 most recent administrations Medication Order MAR Action Action Date Dose Rate Site nivolumab 480 mg in NaCl 0.9% 158 mL (OPDIVO) 480 mg, INTRAVENOUS, Administer over 30 Minutes, ONCE, 1 dose, On Thu09/22/22 at 1100, exp 1900 09/22/22 (room temp) Administer with 0.2 micron filter. Protect from light if utilizing refrigerator 7 day expiration. New Bag/Syringe/Bottle 09/22/2022 10:56 AM EDT 480 mg Inactive Administered Medications - up to 3 most recent administrations Medication Order MAR Action Action Date Dose Rate Site nivolumab 480 mg in NaCl 0.9% 158 mL (OPDIVO) 480 mg, INTRAVENOUS, Administer over 30 Minutes, ONCE, 1 dose, On Thu10/21/22 at 0930, exp 1800 10/21/22 (room temp) Administer with 0.2 micron filter. Protect from light if utilizing refrigerator 7 day expiration. New Bag/Syringe/Bottle 10/21/2022 9:39 AM EDT 480 mg Inactive Administered Medications - up to 3 most recent administrations Medication Order MAR Action Action Date Dose Rate Site nivolumab 480 mg in NaCl 0.9% 158 mL (OPDIVO) 480 mg, INTRAVENOUS, Administer over 30 Minutes, ONCE, 1 dose, On 11/17/22 at 1030, exp 11/24/22 (refrigerated) Administer with 0.2 micron filter. Protect from light if utilizing refrigerator 7 day expiration. New Bag/Syringe/Bottle 11/17/2022 10:52 AM EDT 480 mg Inactive Administered Medications - up to 3 most recent administrations Medication Order MAR Action Action Date Dose Rate Site nivolumab 480 mg in NaCl 0.9% 158 mL (OPDIVO) 480 mg, INTRAVENOUS, Administer over 30 Minutes, ONCE, 1 dose, On 12/15/22 at 0930, exp 1800 12/15/22 (room temp) Administer with 0.2 micron filter. Protect from light if utilizing refrigerator 7 day expiration. New Bag/Syringe/Bottle 12/15/2022 9:50 AM EDT 480 mg Inactive Administered Medications - up to 3 most recent administrations Medication Order MAR Action Action Date Dose Rate Site nivolumab 480 mg in NaCl 0.9% 158 mL (OPDIVO) 480 mg, INTRAVENOUS, Administer over 30 Minutes, ONCE, 1 dose, On Thu01/12/23 at 1030, exp 1830 01/12/23 (room temp) Administer with 0.2 micron filter. Protect from light if utilizing refrigerator 7 day expiration. New Bag/Syringe/Bottle 01/12/2023 10:30 AM EST 480 mg Additional Source Comments (unrecognized sect ion and content) No Status Records FoundNo Status Records Found INFORMATION SOURCE (unrecogn ized section and content) DATE CREATED AUTHOR AUTHOR'S ORGANIZ ATION 02/26/2023 [facility] Source Comments (unrecognize d section and content) In the event this informatio n is protected by the Federal Confidentiality of Alcohol and Drug Abuse Patient Records regulations: The Federal rules restrict any use of the information to criminally investigate or prosecute any alcohol or drug abuse patient.[facility] event this information is protected by the Federal Confidentiality of Alcohol and Drug Abuse Patient Records regulations: The Federal rules restrict any use of the information to criminally investigate or prosecute any alcohol or drug abuse patient.[facility] the event this information is protected by the Federal Confidentiality of Alcohol and Drug Abuse Patient Records regulations: The Federal rules restrict any use of the information to criminally investigate or prosecute any alcohol or drug abuse patient.[facility] the event this information is protected by the Federal Confidentiality of Alcohol and Drug Abuse Patient Records regulations: The Federal rules restrict any use of the information to criminally investigate or prosecute any alcohol or drug abuse patient.[facility] the event this information is protected by the Federal Confidentiality of Alcohol and Drug Abuse Patient Records regulations: The Federal rules restrict any use of the information to criminally investigate or prosecute any alcohol or drug abuse patient.[facility] the event this information is protected by the Federal Confidentiality of Alcohol and Drug Abuse Patient Records regulations: The Federal rules restrict any use of the information to criminally investigate or prosecute any alcohol or drug abuse patient.[facility] the event this information is protected by the Federal Confidentiality of Alcohol and Drug Abuse Patient Records regulations: The Federal rules restrict any use of the information to criminally investigate or prosecute any alcohol or drug abuse patient.[facility] the event this information is protected by the Federal Confidentiality of Alcohol and Drug Abuse Patient Records regulations: The Federal rules restrict any use of the information to criminally investigate or prosecute any alcohol or drug abuse patient.[facility] the event this information is protected by the Federal Confidentiality of Alcohol and Drug Abuse Patient Records regulations: The Federal rules restrict any use of the information to criminally investigate or prosecute any alcohol or drug abuse patient.[facility] the event this information is protected by the Federal Confidentiality of Alcohol and Drug Abuse Patient Records regulations: The Federal rules restrict any use of the information to criminally investigate or prosecute any alcohol or drug abuse patient.[facility] HospitalIn the event this information is protected by the Federal Confidentiality of Alcohol and Drug Abuse Patient Records regulations: The Federal rules restrict any use of the information to criminally investigate or prosecute any alcohol or drug abuse patient.[facility] HospitalIn the event this information is protected by the Federal Confidentiality of Alcohol and Drug Abuse Patient Records regulations: The Federal rules restrict any use of the information to criminally investigate or prosecute any alcohol or drug abuse patient.[facility] HospitalIn the event this information is protected by the Federal Confidentiality of Alcohol and Drug Abuse Patient Records regulations: The Federal rules restrict any use of the information to criminally investigate or prosecute any alcohol or drug abuse patient.[facility] HospitalIn the event this information is protected by the Federal Confidentiality of Alcohol and Drug Abuse Patient Records regulations: The Federal rules restrict any use of the information to criminally investigate or prosecute any alcohol or drug abuse patient.[facility] HospitalIn the event this information is protected by the Federal Confidentiality of Alcohol and Drug Abuse Patient Records regulations: The Federal rules restrict any use of the information to criminally investigate or prosecute any alcohol or drug abuse patient.[facility] HospitalIn the event this information is protected by the Federal Confidentiality of Alcohol and Drug Abuse Patient Records regulations: The Federal rules restrict any use of the information to criminally investigate or prosecute any alcohol or drug abuse patient.[facility] HospitalIn the event this information is protected by the Federal Confidentiality of Alcohol and Drug Abuse Patient Records regulations: The Federal rules restrict any use of the information to criminally investigate or prosecute any alcohol or drug abuse patient.[facility] HospitalIn the event this information is protected by the Federal Confidentiality of Alcohol and Drug Abuse Patient Records regulations: The Federal rules restrict any use of the information to criminally investigate or prosecute any alcohol or drug abuse patient.[facility] HospitalIn the event this information is protected by the Federal Confidentiality of Alcohol and Drug Abuse Patient Records regulations: The Federal rules restrict any use of the information to criminally investigate or prosecute any alcohol or drug abuse patient.[facility] HospitalIn the event this information is protected by the Federal Confidentiality of Alcohol and Drug Abuse Patient Records regulations: The Federal rules restrict any use of the information to criminally investigate or prosecute any alcohol or drug abuse patient.[facility] HospitalIn the event this information is protected by the Federal Confidentiality of Alcohol and Drug Abuse Patient Records regulations: The Federal rules restrict any use of the information to criminally investigate or prosecute any alcohol or drug abuse patient.[facility] HospitalIn the event this information is protected by the Federal Confidentiality of Alcohol and Drug Abuse Patient Records regulations: The Federal rules restrict any use of the information to criminally investigate or prosecute any alcohol or drug abuse patient.[facility] HospitalIn the event this information is protected by the Federal Confidentiality of Alcohol and Drug Abuse Patient Records regulations: The Federal rules restrict any use of the information to criminally investigate or prosecute any alcohol or drug abuse patient.[facility] HospitalIn the event this information is protected by the Federal Confidentiality of Alcohol and Drug Abuse Patient Records regulations: The Federal rules restrict any use of the information to criminally investigate or prosecute any alcohol or drug abuse patient.[facility] HospitalIn the event this information is protected by the Federal Confidentiality of Alcohol and Drug Abuse Patient Records regulations: The Federal rules restrict any use of the information to criminally investigate or prosecute any alcohol or drug abuse patient.[facility] HospitalIn the event this information is protected by the Federal Confidentiality of Alcohol and Drug Abuse Patient Records regulations: The Federal rules restrict any use of the information to criminally investigate or prosecute any alcohol or drug abuse patient.[facility] HospitalIn the event this information is protected by the Federal Confidentiality of Alcohol and Drug Abuse Patient Records regulations: The Federal rules restrict any use of the information to criminally investigate or prosecute any alcohol or drug abuse patient.[facility] HospitalIn the event this information is protected by the Federal Confidentiality of Alcohol and Drug Abuse Patient Records regulations: The Federal rules restrict any use of the information to criminally investigate or prosecute any alcohol or drug abuse patient.[facility] HospitalIn the event this information is protected by the Federal Confidentiality of Alcohol and Drug Abuse Patient Records regulations: The Federal rules restrict any use of the information to criminally investigate or prosecute any alcohol or drug abuse patient.[facility] HospitalIn the event this information is protected by the Federal Confidentiality of Alcohol and Drug Abuse Patient Records regulations: The Federal rules restrict any use of the information to criminally investigate or prosecute any alcohol or drug abuse patient.[facility] HospitalIn the event this information is protected by the Federal Confidentiality of Alcohol and Drug Abuse Patient Records regulations: The Federal rules restrict any use of the information to criminally investigate or prosecute any alcohol or drug abuse patient.[facility] HospitalIn the event this information is protected by the Federal Confidentiality of Alcohol and Drug Abuse Patient Records regulations: The Federal rules restrict any use of the information to criminally investigate or prosecute any alcohol or drug abuse patient.[facility] HospitalIn the event this information is protected by the Federal Confidentiality of Alcohol and Drug Abuse Patient Records regulations: The Federal rules restrict any use of the information to criminally investigate or prosecute any alcohol or drug abuse patient.[facility] HospitalIn the event this information is protected by the Federal Confidentiality of Alcohol and Drug Abuse Patient Records regulations: The Federal rules restrict any use of the information to criminally investigate or prosecute any alcohol or drug abuse patient.[facility] HospitalIn the event this information is protected by the Federal Confidentiality of Alcohol and Drug Abuse Patient Records regulations: The Federal rules restrict any use of the information to criminally investigate or prosecute any alcohol or drug abuse patient.[facility] HospitalIn the event this information is protected by the Federal Confidentiality of Alcohol and Drug Abuse Patient Records regulations: The Federal rules restrict any use of the information to criminally investigate or prosecute any alcohol or drug abuse patient.[facility] HospitalIn the event this information is protected by the Federal Confidentiality of Alcohol and Drug Abuse Patient Records regulations: The Federal rules restrict any use of the information to criminally investigate or prosecute any alcohol or drug abuse patient.[facility] HospitalIn the event this information is protected by the Federal Confidentiality of Alcohol and Drug Abuse Patient Records regulations: The Federal rules restrict any use of the information to criminally investigate or prosecute any alcohol or drug abuse patient.[facility] HospitalIn the event this information is protected by the Federal Confidentiality of Alcohol and Drug Abuse Patient Records regulations: The Federal rules restrict any use of the information to criminally investigate or prosecute any alcohol or drug abuse patient.[facility] HospitalIn the event this information is protected by the Federal Confidentiality of Alcohol and Drug Abuse Patient Records regulations: The Federal rules restrict any use of the information to criminally investigate or prosecute any alcohol or drug abuse patient.[facility] HospitalIn the event this information is protected by the Federal Confidentiality of Alcohol and Drug Abuse Patient Records regulations: The Federal rules restrict any use of the information to criminally investigate or prosecute any alcohol or drug abuse patient.[facility] HospitalIn the event this information is protected by the Federal Confidentiality of Alcohol and Drug Abuse Patient Records regulations: The Federal rules restrict any use of the information to criminally investigate or prosecute any alcohol or drug abuse patient.[facility] HospitalIn the event this information is protected by the Federal Confidentiality of Alcohol and Drug Abuse Patient Records regulations: The Federal rules restrict any use of the information to criminally investigate or prosecute any alcohol or drug abuse patient.[facility] HospitalIn the event this information is protected by the Federal Confidentiality of Alcohol and Drug Abuse Patient Records regulations: The Federal rules restrict any use of the information to criminally investigate or prosecute any alcohol or drug abuse patient.[facility] HospitalIn the event this information is protected by the Federal Confidentiality of Alcohol and Drug Abuse Patient Records regulations: The Federal rules restrict any use of the information to criminally investigate or prosecute any alcohol or drug abuse patient.[facility] HospitalIn the event this information is protected by the Federal Confidentiality of Alcohol and Drug Abuse Patient Records regulations: The Federal rules restrict any use of the information to criminally investigate or prosecute any alcohol or drug abuse patient.[facility] HospitalIn the event this information is protected by the Federal Confidentiality of Alcohol and Drug Abuse Patient Records regulations: The Federal rules restrict any use of the information to criminally investigate or prosecute any alcohol or drug abuse patient.[facility] HospitalIn the event this information is protected by the Federal Confidentiality of Alcohol and Drug Abuse Patient Records regulations: The Federal rules restrict any use of the information to criminally investigate or prosecute any alcohol or drug abuse patient.[facility] HospitalIn the event this information is protected by the Federal Confidentiality of Alcohol and Drug Abuse Patient Records regulations: The Federal rules restrict any use of the information to criminally investigate or prosecute any alcohol or drug abuse patient.[facility] HospitalIn the event this information is protected by the Federal Confidentiality of Alcohol and Drug Abuse Patient Records regulations: The Federal rules restrict any use of the information to criminally investigate or prosecute any alcohol or drug abuse patient.[facility] HospitalIn the event this information is protected by the Federal Confidentiality of Alcohol and Drug Abuse Patient Records regulations: The Federal rules restrict any use of the information to criminally investigate or prosecute any alcohol or drug abuse patient.[facility] HospitalIn the event this information is protected by the Federal Confidentiality of Alcohol and Drug Abuse Patient Records regulations: The Federal rules restrict any use of the information to criminally investigate or prosecute any alcohol or drug abuse patient.[facility] HospitalIn the event this information is protected by the Federal Confidentiality of Alcohol and Drug Abuse Patient Records regulations: The Federal rules restrict any use of the information to criminally investigate or prosecute any alcohol or drug abuse patient.[facility] HospitalIn the event this information is protected by the Federal Confidentiality of Alcohol and Drug Abuse Patient Records regulations: The Federal rules restrict any use of the information to criminally investigate or prosecute any alcohol or drug abuse patient.[facility] HospitalIn the event this information is protected by the Federal Confidentiality of Alcohol and Drug Abuse Patient Records regulations: The Federal rules restrict any use of the information to criminally investigate or prosecute any alcohol or drug abuse patient.[facility] HospitalIn the event this information is protected by the Federal Confidentiality of Alcohol and Drug Abuse Patient Records regulations: The Federal rules restrict any use of the information to criminally investigate or prosecute any alcohol or drug abuse patient.[facility] HospitalIn the event this information is protected by the Federal Confidentiality of Alcohol and Drug Abuse Patient Records regulations: The Federal rules restrict any use of the information to criminally investigate or prosecute any alcohol or drug abuse patient.[facility] HospitalIn the event this information is protected by the Federal Confidentiality of Alcohol and Drug Abuse Patient Records regulations: The Federal rules restrict any use of the information to criminally investigate or prosecute any alcohol or drug abuse patient.[facility] HospitalIn the event this information is protected by the Federal Confidentiality of Alcohol and Drug Abuse Patient Records regulations: The Federal rules restrict any use of the information to criminally investigate or prosecute any alcohol or drug abuse patient.[facility] HospitalIn the event this information is protected by the Federal Confidentiality of Alcohol and Drug Abuse Patient Records regulations: The Federal rules restrict any use of the information to criminally investigate or prosecute any alcohol or drug abuse patient.[facility] HospitalIn the event this information is protected by the Federal Confidentiality of Alcohol and Drug Abuse Patient Records regulations: The Federal rules restrict any use of the information to criminally investigate or prosecute any alcohol or drug abuse patient.[facility] HospitalIn the event this information is protected by the Federal Confidentiality of Alcohol and Drug Abuse Patient Records regulations: The Federal rules restrict any use of the information to criminally investigate or prosecute any alcohol or drug abuse patient.[facility] HospitalIn the event this information is protected by the Federal Confidentiality of Alcohol and Drug Abuse Patient Records regulations: The Federal rules restrict any use of the information to criminally investigate or prosecute any alcohol or drug abuse patient.[facility] HospitalIn the event this information is protected by the Federal Confidentiality of Alcohol and Drug Abuse Patient Records regulations: The Federal rules restrict any use of the information to criminally investigate or prosecute any alcohol or drug abuse patient.[facility] HospitalIn the event this information is protected by the Federal Confidentiality of Alcohol and Drug Abuse Patient Records regulations: The Federal rules restrict any use of the information to criminally investigate or prosecute any alcohol or drug abuse patient.[facility] HospitalIn the event this information is protected by the Federal Confidentiality of Alcohol and Drug Abuse Patient Records regulations: The Federal rules restrict any use of the information to criminally investigate or prosecute any alcohol or drug abuse patient.[facility] HospitalIn the event this information is protected by the Federal Confidentiality of Alcohol and Drug Abuse Patient Records regulations: The Federal rules restrict any use of the information to criminally investigate or prosecute any alcohol or drug abuse patient.[facility] HospitalIn the event this information is protected by the Federal Confidentiality of Alcohol and Drug Abuse Patient Records regulations: The Federal rules restrict any use of the information to criminally investigate or prosecute any alcohol or drug abuse patient.[facility] HospitalIn the event this information is protected by the Federal Confidentiality of Alcohol and Drug Abuse Patient Records regulations: The Federal rules restrict any use of the information to criminally investigate or prosecute any alcohol or drug abuse patient.[facility] HospitalIn the event this information is protected by the Federal Confidentiality of Alcohol and Drug Abuse Patient Records regulations: The Federal rules restrict any use of the information to criminally investigate or prosecute any alcohol or drug abuse patient.[facility] HospitalIn the event this information is protected by the Federal Confidentiality of Alcohol and Drug Abuse Patient Records regulations: The Federal rules restrict any use of the information to criminally investigate or prosecute any alcohol or drug abuse patient.[facility] HospitalIn the event this information is protected by the Federal Confidentiality of Alcohol and Drug Abuse Patient Records regulations: The Federal rules restrict any use of the information to criminally investigate or prosecute any alcohol or drug abuse patient.[facility] HospitalIn the event this information is protected by the Federal Confidentiality of Alcohol and Drug Abuse Patient Records regulations: The Federal rules restrict any use of the information to criminally investigate or prosecute any alcohol or drug abuse patient.[facility] HospitalIn the event this information is protected by the Federal Confidentiality of Alcohol and Drug Abuse Patient Records regulations: The Federal rules restrict any use of the information to criminally investigate or prosecute any alcohol or drug abuse patient.[facility] HospitalIn the event this information is protected by the Federal Confidentiality of Alcohol and Drug Abuse Patient Records regulations: The Federal rules restrict any use of the information to criminally investigate or prosecute any alcohol or drug abuse patient.[facility] HospitalIn the event this information is protected by the Federal Confidentiality of Alcohol and Drug Abuse Patient Records regulations: The Federal rules restrict any use of the information to criminally investigate or prosecute any alcohol or drug abuse patient.[facility] HospitalIn the event this information is protected by the Federal Confidentiality of Alcohol and Drug Abuse Patient Records regulations: The Federal rules restrict any use of the information to criminally investigate or prosecute any alcohol or drug abuse patient.[facility] HospitalIn the event this information is protected by the Federal Confidentiality of Alcohol and Drug Abuse Patient Records regulations: The Federal rules restrict any use of the information to criminally investigate or prosecute any alcohol or drug abuse patient.[facility] HospitalIn the event this information is protected by the Federal Confidentiality of Alcohol and Drug Abuse Patient Records regulations: The Federal rules restrict any use of the information to criminally investigate or prosecute any alcohol or drug abuse patient.[facility] HospitalIn the event this information is protected by the Federal Confidentiality of Alcohol and Drug Abuse Patient Records regulations: The Federal rules restrict any use of the information to criminally investigate or prosecute any alcohol or drug abuse patient.[facility] HospitalIn the event this information is protected by the Federal Confidentiality of Alcohol and Drug Abuse Patient Records regulations: The Federal rules restrict any use of the information to criminally investigate or prosecute any alcohol or drug abuse patient.[facility] HospitalIn the event this information is protected by the Federal Confidentiality of Alcohol and Drug Abuse Patient Records regulations: The Federal rules restrict any use of the information to criminally investigate or prosecute any alcohol or drug abuse patient.[facility] Reason for Visit (unrecogniz ed section and content) Specialty Diagnoses / Procedures Referred By Delio t Referred To Contact Hematology/Oncology / HEMATOLOGY/ONCOLOGY Diagnoses Malignant neoplasm of right kidney, except renal pelvis C64.1 (ICD-10-CM) - Malignant neoplasm of right kidney, except renal pelvis Procedures INJECTION, NIVOLUMAB NIVOLUMAB 3 IPILIMUMAB 1 D1 - Q21D THEN NIVOLUMAB 480 D1 - [id number]/NIVOLUMAB Robb Leiva MD [address] [place] [address] Shelli Valles APRN.MANAGER [employer] [address] [place] [address] Referral ID Status Reason Start Date Expiration Date V isits Requested Visits Authorized [id number] Authorized 10/19/2019 03/30/2023 44 44 Reason Comments Appointment Rescheduled Reason Comments Established Patient Reason Comments Social Work Services Reason Comments Chemotherapy Treatment Specialty Diagnoses / Procedures Referred By Delio t Referred To Contact Hematology/Oncology / HEMATOLOGY/ONCOLOGY Diagnoses Malignant neoplasm of right kidney, except renal pelvis C64.1 (ICD-10-CM) - Malignant neoplasm of right kidney, except renal pelvis Procedures INJECTION, NIVOLUMAB NIVOLUMAB 3 IPILIMUMAB 1 D1 - Q21D THEN NIVOLUMAB 480 D1 - [id number] Robb Leiva MD [address] [place] [address] Shelli Valles APRN.MANAGER [employer] [address] [place] [address] Referral ID Status Reason Start Date Expiration Date V isits Requested Visits Authorized [id number] Pending Review 10/19/2019 02/08/2021 99 99 Reason Comments Future Appointment Reason Comments Lab Orders Specialty Diagnoses / Procedures Referred By Contac t Referred To Contact Hematology/Oncology / HEMATOLOGY/ONCOLOGY Diagnoses Malignant neoplasm of right kidney, except renal pelvis C64.1 (ICD-10-CM) - Malignant neoplasm of right kidney, except renal pelvis Procedures INJECTION, NIVOLUMAB NIVOLUMAB 3 IPILIMUMAB 1 D1 - Q21D THEN NIVOLUMAB 480 D1 - [id number]/NIVOLUMAB Robb Leiva MD [address] [place] [address] Shelli Valles APRN.MANAGER [employer] [address] [place] [address] Reason Comments Patient Update Reason Comments Hospital Follow Up [facility] discharged TIA Reason Onset Date Comments Refill Request 08/28/2021 Reason Comments Request Outside Medical Records Request Imaging from [facility]. 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) Renal cell carcinoma of right kidney (HCC) Malignant neoplasm of lower lobe of left lung (HCC) Malignant neoplasm of right kidney, except renal pelvis (HCC) Procedures CT CHEST W IVCON DIAGNOSTIC COMPUTED TOMOGRAPHY THORAX W/CONTRAST Robb Leiva MD [address] [place] [address] Ct Imaging Referral ID Status Reason Start Date Expiration Date V isits Requested Visits Authorized [id number] Closed Auto-Generate d Referral 09/28/2021 07/28/2022 1 1 Reason Comments Established Patient Reason Comments Results Reason Comments Refill Request Reason Comments Results Increased serum crea tinine Reason Comments Appointment Missed lab apt Specialty Diagnoses / Procedures Referred By Contac t Referred To Contact Hematology/Oncology / HEMATOLOGY/ONCOLOGY Diagnoses Malignant neoplasm of right kidney, except renal pelvis C64.1 (ICD-10-CM) - Malignant neoplasm of right kidney, except renal pelvis Procedures INJECTION, NIVOLUMAB NIVOLUMAB 3 IPILIMUMAB 1 D1 - Q21D THEN NIVOLUMAB 480 D1 - [id number] Robb Leiva MD [address] [place] [address] Shelli Valles APRN.MANAGER [employer] [address] [place] [address] Reason Onset Date Comments Refill Request 12/18/2021 Reason Comments Patient Question Referral ID Status Reason Start Date Expiration Date V isits Requested Visits Authorized [id number] Authorized 10/19/2019 01/13/2023 42 42 Reason Comments Appointment Referral ID Status Reason Start Date Expiration Date V isits Requested Visits Authorized [id number] Pending Review 10/19/2019 01/13/2023 42 42 Reason Onset Date Comments Refill Request 03/20/2022 Referral ID Status Reason Start Date Expiration Date V isits Requested Visits Authorized [id number] Authorized 10/19/2019 08/16/2022 99 99 Reason Onset Date Comments Refill Request 04/18/2022 Reason Comments ER F/U Treated for Pneumoni a Reason Comments Results Low Vit D Reason Comments AVS 06/30/22 CHEMO START Specialty Diagnoses / Procedures Referred By Contac t Referred To Contact Hematology/Oncology / HEMATOLOGY/ONCOLOGY Diagnoses Malignant neoplasm of right kidney, except renal pelvis C64.1 (ICD-10-CM) - Malignant neoplasm of right kidney, except renal pelvis Procedures INJECTION, NIVOLUMAB NIVOLUMAB 3 IPILIMUMAB 1 D1 - Q21D THEN NIVOLUMAB 480 D1 - [id number]/NIVOLUMAB Robb Leiva MD [address] [place] [address] [place] [address] Shelli Valles APRN.[facility] [address] [place] [address] Referral ID Status Reason Start Date Expiration Date V isits Requested Visits Authorized [id number] Authorized 10/19/2019 12/07/2022 40 40 Reason Comments Care Coordination Reason Comments Established Patient Reason Onset Date Comments Population Health Navigation Outreach 11/04/2022 [facility]CO [place] PCSA Reason Comments AVS 11/17/22 Reason Onset Date Comments SPP Oral Oncology/hematology - Medication Refill 11/28/2022 Cabometyx 40mg Reason Comments Care Coordination ORAL ANTI-CANCER AGE NTS EDUCATION Reason Comments AVS 12/15/22 Specialty Diagnoses / Procedures Referred By Contac t Referred To Contact CT IMAGING Diagnoses Renal cell carcinoma of right kidney (HCC) Procedures CT CHEST W IVCON DIAGNOSTIC COMPUTED TOMOGRAPHY THORAX W/[place] [phone] [place] [address] Referral ID Status Reason Start Date Expiration Date V isits Requested Visits Authorized [id number] Closed Auto-Generate d Referral 09/22/2022 10/22/2023 1 1 Specialty Diagnoses / Procedures Referred By Contac t Referred To Contact CT IMAGING Diagnoses Malignant neoplasm of lower lobe of left lung (HCC) 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) Bone metastases Procedures CT CHEST W IVCON DIAGNOSTIC COMPUTED TOMOGRAPHY THORAX W/CONTRAST Robb Leiva MD [address] [place] [id number] [place] [address] Referral ID Status Reason Start Date Expiration Date V isits Requested Visits Authorized [id number] Closed Auto-Generate d Referral 05/14/2022 03/15/2023 [address] Specialty Diagnoses / Procedures Referred By Contac t Referred To Contact CT IMAGING Diagnoses Malignant neoplasm of lower lobe of left lung (HCC) 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) Procedures CT CHEST W IVCON DIAGNOSTIC COMPUTED TOMOGRAPHY THORAX W/CONTRAST CT ABD & PELVIS W/[place] [phone] [place] [address] Referral ID Status Reason Start Date Expiration Date V isits Requested Visits Authorized [id number] Closed Auto-Generate d Referral 01/26/2023 02/25/2023 2 2 Specialty Diagnoses / Procedures Referred By Contac t Referred To Contact CT IMAGING Diagnoses Malignant neoplasm of lower lobe of left lung (HCC) 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) Procedures CT CHEST W IVCON DIAGNOSTIC COMPUTED TOMOGRAPHY THORAX W/CONTRAST CT ABD & PELVIS W/[place] [phone] [place] [address] Care Teams (unrecognized sec tion and content) Iron Launder Operator Relationship Specialty Start Date End Date Elver Littlejohn MD [address] [place] [address] PCP - General Family Practice 04/26/18 Stefani Peck LISW Sales And Service Agent 04/28/18 [facility] [address] [place] [address] Pain Management Anesthesiology 06/04/18 Bonnie Bolden, RN [address] [place] [address] Specialty Service Manager 06/18/18 Eryn Lamar, RN [address] [place] [address] Specialty Service Manager Hematology/Oncology 05/01/21 Iron Launder Operator Relationship Specialty Start Date End Date Elver Littlejohn MD [address] [place] [address] PCP - General Family Practice 04/26/18 Stefani Peck LISW Sales And Service Agent 04/28/[address] [address] Pain Management Anesthesiology 06/04/18 Bonnie Bolden RN [address] [place] [address] Specialty Service Manager 06/18/18 Eryn Lamar, MARJORIE [address] [place] [address] Specialty Service Manager Hematology/Oncology 05/01/21 Iron Launder Operator Relationship Specialty Start Date End Date Elver Littlejohn MD [address] [place] [address] PCP - General Family Practice 04/26/18 Stefani Peck LISW Sales And Service Agent 04/28/18 Gibran Flores [place] [address] [place] [address] Pain Management Anesthesiology 06/04/18 Bonnie Bolden RN [address] [place] [address] Specialty Service Manager 06/18/18 Eryn Lamar RN [address] [place] [address] Specialty Service Manager Hematology/Oncology 05/01/21 Iron Launder Operator Relationship Specialty Start Date End Date Elver Littlejohn MD [address] [place] [address] PCP - General Family Practice 04/26/18 Stefani Peck LISW Sales And Service Agent 04/28/18 Gibran Flores [address] [place] [address] Pain Management Anesthesiology 06/04/18 Bonnie Bolden RN [address] [place] [address] Specialty Service Manager 06/18/18 Eryn Lamar RN [address] [place] [address] Specialty Service Manager Hematology/Oncology 05/01/21 Iron Launder Operator Relationship Specialty Start Date End Date Elver Littlejohn MD [address] [place] [address] PCP - General Family Practice 04/26/18 Stefani Peck LISW Sales And Service Agent 04/28/18 Gibran Flores [address] [place] [address] Pain Management Anesthesiology 06/04/18 Bonnie Bolden RN [address] [place] [address] Specialty Service Manager 06/18/18 Eryn Lamar RN [address] [place] [address] Specialty Service Manager Hematology/Oncology 05/01/21 Iron Launder Operator Relationship Specialty Start Date End Date Elver Littlejohn MD [address] [place] [address] PCP - General Family Practice 04/26/18 Stefani Peck LISW Sales And Service Agent 04/28/18 Gibran Flores [address] [place] [address] Pain Management Anesthesiology 06/04/18 Bonnie Bolden RN [address] [place] [address] Specialty Service Manager 06/18/18 Eryn Lamar RN [address] [place] [address] Specialty Service Manager Hematology/Oncology 05/01/21 Iron Launder Operator Relationship Specialty Start Date End Date Elver Littlejohn MD [address] [place] [address] PCP - General Family Practice 04/26/18 Stefani Peck LISW Sales And Service Agent 04/28/18 Gibran Flores [address] [place] [address] Pain Management Anesthesiology 06/04/18 Bonnie Bolden RN [address] [place] [address] Specialty Service Manager 06/18/18 Eryn Lamar RN [address] [place] [address] Specialty Service Manager Hematology/Oncology 05/01/21 Iron Launder Operator Relationship Specialty Start Date End Date Elver Littlejohn MD [address] [place] [address] PCP - General Family Practice 04/26/18 Stefani Peck LISW Sales And Service Agent 04/28/18 Sandra [facility] [address] [place] [address] Pain Management Anesthesiology 06/04/18 Bonnie Bolden, RN [address] [place] [address] Specialty Service Manager 06/18/18 Eryn Lamar RN [address] [place] [address] Specialty Service Manager Hematology/Oncology 05/01/21 Iron Launder Operator Relationship Specialty Start Date End Date Elver Littlejohn MD [address] [place] [address] PCP - General Family Practice 04/26/18 Stefani Peck LISW Sales And Service Agent 04/28/18 Sandra [facility] [address] [place] [address] Pain Management Anesthesiology 06/04/18 Bonnie Bolden RN [address] [place] [address] Specialty Service Manager 06/18/18 Eryn Lamar RN [address] [place] [address] Specialty Service Manager Hematology/Oncology 05/01/21 Iron Launder Operator Relationship Specialty Start Date End Date Elver Littlejohn MD [address] [place] [address] PCP - General Family Practice 04/26/18 Stefani Peck LISW Sales And Service Agent 04/28/18 Gibran Flores [place] [address] [place] [address] Pain Management Anesthesiology 06/04/18 Bonnie Bolden RN [address] [place] [address] Specialty Service Manager 06/18/18 Eryn Lamar, MARJORIE [address] [place] [address] Specialty Service Manager Hematology/Oncology 05/01/21 Iron Launder Operator Relationship Specialty Start Date End Date Elver Littlejohn MD [address] [place] [address] PCP - General Family Practice 04/26/18 Stefani Peck RN Sales And Service Agent 04/28/18 Gibran Flores [place] [address] [place] [address] Pain Management Anesthesiology 06/04/18 Bonnie Bolden RN [address] [place] [address] Specialty Service Manager 06/18/18 Eryn Lamar RN [address] [facility] [place] [address] Specialty Service Manager Hematology/Oncology 05/01/21 Iron Launder Operator Relationship Specialty Start Date End Date Elver Littlejohn MD [address] [place] [address] PCP - General Family Practice 04/26/18 Stefani Peck RN Sales And Service Agent 04/28/18 Gibran Flores [place] [address] [place] [address] Pain Management Anesthesiology 06/04/18 Bonnie Bolden, MARJORIE [address] [place] [address] Specialty Service Manager 06/18/18 Eryn Lamar, MARJORIE [address] [place] [address] Specialty Service Manager Hematology/Oncology 05/01/21 Iron Launder Operator Relationship Specialty Start Date End Date Elver Littlejohn MD [address] [place] [address] PCP - General Family Practice 04/26/18 Stefani Peck, RN Sales And Service Agent 04/28/18 Gibran Flores [facility] [address] [place] [address] Pain Management Anesthesiology 06/04/18 Bonnie Bolden RN [address] [place] [address] Specialty Service Manager 06/18/18 Eryn Lamar RN [address] [place] [address] Specialty Service Manager Hematology/Oncology 05/01/21 Iron Launder Operator Relationship Specialty Start Date End Date Elver Littlejohn MD [address] [place] [address] PCP - General Family Practice 04/26/18 Stefani Peck, RN Sales And Service Agent 04/28/18 Gibran Flores [facility] [address] [place] [address] Pain Management Anesthesiology 06/04/18 Bonnie Bolden RN [address] [place] [address] Specialty Service Manager 06/18/18 Eryn Lamar, MARJORIE [address] [facility] [place] [address] Specialty Service Manager Hematology/Oncology 05/01/21 Iron Launder Operator Relationship Specialty Start Date End Date Elver Littlejohn MD [address] [facility] [place] [address] PCP - General Family Practice 04/26/18 Stefani Peck, RN Sales And Service Agent 04/28/18 Gibran Flores [address] [place] [address] Pain Management Anesthesiology 06/04/18 Bonnie Bolden, RN [address] [place] [address] Specialty Service Manager 06/18/18 Eryn Lamar RN [address] [facility] [place] [address] Specialty Service Manager Hematology/Oncology 05/01/21 Iron Launder Operator Relationship Specialty Start Date End Date Elver Littlejohn MD [address] [facility] [place] [address] PCP - General Family Practice 04/26/18 Stefani Peck RN Sales And Service Agent 04/28/18 Gibran Flores [address] [place] [address] Pain Management Anesthesiology 06/04/18 Bonnie Bolden, RN [address] [place] [address] Specialty Service Manager 06/18/18 Eryn Lamar, MARJORIE [address] [facility] [place] [address] Specialty Service Manager Hematology/Oncology 05/01/21 Iron Launder Operator Relationship Specialty Start Date End Date Elver Littlejohn MD [address] [facility] [place] [address] PCP - General Family Practice 04/26/18 Stefani Peck RN Sales And Service Agent 04/28/18 Sandra [facility] [address] [place] [address] Pain Management Anesthesiology 06/04/18 Bonnie Bolden RN [address] [place] [address] Specialty Service Manager 06/18/18 Eryn Lamar, MARJORIE [address] [place] [address] Specialty Service Manager Hematology/Oncology 05/01/21 Iron Launder Operator Relationship Specialty Start Date End Date Elver Littlejohn MD [address] [place] [address] PCP - General Family Practice 04/26/18 Stefani Peck RN Sales And Service Agent 04/28/18 Gibran Flores [address] [address] Pain Management Anesthesiology 06/04/18 Bonnie Bolden RN [address] [place] [address] Specialty Service Manager 06/18/18 Eryn Lamar RN [address] [facility] [place] [address] Specialty Service Manager Hematology/Oncology 05/01/21 Iron Launder Operator Relationship Specialty Start Date End Date Elver Littlejohn MD [address] [facility] [place] [address] PCP - General Family Practice 04/26/18 Stefani Peck RN Sales And Service Agent 04/28/18 Gibran Flores [place] [address] [place] [address] Pain Management Anesthesiology 06/04/18 Bonnie Bolden RN [address] [place] [address] Specialty Service Manager 06/18/18 Eryn Lamar RN [address] [facility] [place] [address] Specialty Service Manager Hematology/Oncology 05/01/21 Iron Launder Operator Relationship Specialty Start Date End Date Elver Littlejohn MD [address] [facility] [place] [address] PCP - General Family Medicine 04/26/18 Stefani Peck RN Sales And Service Agent 04/28/18 Gibran Flores [place] [address] [place] [address] Pain Management Anesthesiology 06/04/18 Bonnie Bolden RN [address] [place] [address] Specialty Service Manager 06/18/18 Eryn Lamar RN [address] [facility] [place] [address] Specialty Service Manager Hematology/Oncology 05/01/21 Iron Launder Operator Relationship Specialty Start Date End Date Elver Littlejohn MD [address] [facility] [place] [address] PCP - General Family Medicine 04/26/18 Stefani Peck RN Sales And Service Agent 04/28/18 Gibran Flores [address] [place] [address] Pain Management Anesthesiology 06/04/18 Bonnie Bolden RN [address] [place] [address] Specialty Service Manager 06/18/18 Eryn Lamar RN [address] [facility] [place] [address] Specialty Service Manager Hematology/Oncology 05/01/21 Iron Launder Operator Relationship Specialty Start Date End Date Elver Littlejohn MD [address] [facility] [address] PCP - General Family Medicine 04/26/18 Stefani Peck, RN Sales And Service Agent 04/28/18 [facility] [address] [place] [address] Pain Management Anesthesiology 06/04/18 Eryn Lamar, MARJORIE [address] [facility] [place] [address] Specialty Service Manager Hematology/Oncology 05/01/21 Robb Leiva MD [address] [facility] [place] [address] Hematology/Oncology 12/09/21 Iron Launder Operator Relationship Specialty Start Date End Date Elver Littlejohn MD [address] [facility] [place] [address] PCP - General Family Medicine 04/26/18 Stefani Peck RN Sales And Service Agent 04/28/18 Gibran Flores [place] [address] [place] [address] Pain Management Anesthesiology 06/04/18 Eryn Lamar RN [address] [facility] [place] [address] Specialty Service Manager Hematology/Oncology 05/01/21 Robb Leiva MD [address] [facility] [place] [address] Hematology/Oncology 12/09/21 Iron Launder Operator Relationship Specialty Start Date End Date Elver Littlejohn MD [address] [facility] [place] [address] PCP - General Family Medicine 04/26/18 Stefani Peck RN Sales And Service Agent 04/28/18 Gibran Flores [place] [address] [place] [address] Pain Management Anesthesiology 06/04/18 Eryn Lamar RN [address] [facility] [place] [address] Specialty Service Manager Hematology/Oncology 05/01/21 Robb Leiva MD [address] [facility] [place] [address] Hematology/Oncology 12/09/21 Iron Launder Operator Relationship Specialty Start Date End Date Elver Littlejohn MD [address] [facility] [place] [address] PCP - General Family Medicine 04/26/18 Stefani Peck RN Sales And Service Agent 04/28/18 Gibran Flores [address] [place] [address] Pain Management Anesthesiology 06/04/18 Bonnie Bolden, RN [address] [place] [address] Specialty Service Manager 06/18/18 12/12/21 Eryn Lamar RN [address] [facility] [place] [address] Specialty Service Manager Hematology/Oncology 05/01/21 Robb Leiva MD [address] [facility] [place] [address] Hematology/Oncology 12/09/21 Iron Launder Operator Relationship Specialty Start Date End Date Elver Littlejohn MD [address] [facility] [place] [address] PCP - General Family Medicine 04/26/18 Stefani Peck RN Sales And Service Agent 04/28/18 Gibran Flores [address] [place] [address] Pain Management Anesthesiology 06/04/18 Bonnie Bolden, MARJORIE [address] [place] [address] Specialty Service Manager 06/18/18 12/12/21 Eryn Lamar RN [address] [facility] [place] [address] Specialty Service Manager Hematology/Oncology 05/01/21 Robb Leiva MD [address] [facility] [place] [address] Hematology/Oncology 12/09/21 Iron Launder Operator Relationship Specialty Start Date End Date Elver Littlejohn MD [address] [facility] [place] [address] PCP - General Family Medicine 04/26/18 Stefani Peck RN Sales And Service Agent 04/28/18 Gibran Flores [address] [place] [address] Pain Management Anesthesiology 06/04/18 Eryn Lamar, MARJORIE [address] [facility] [place] [address] Specialty Service Manager Hematology/Oncology 05/01/21 Robb Leiva MD [address] [facility] [place] [address] Hematology/Oncology 12/09/21 Iron Launder Operator Relationship Specialty Start Date End Date Elver Littlejohn MD [address] [facility] [place] [address] PCP - General Family Medicine 04/26/18 Stefani Peck RN Sales And Service Agent 04/28/18 Gibran Flores [address] [place] [address] Pain Management Anesthesiology 06/04/18 Eryn Lamar RN [address] [facility] [place] [address] Specialty Service Manager Hematology/Oncology 05/01/21 Robb Leiva MD [address] [place] [address] Hematology/Oncology 12/09/21 Iron Launder Operator Relationship Specialty Start Date End Date Elver Littlejohn MD [address] [facility] [place] [address] PCP - General Family Medicine 04/26/18 Stefani Peck, RN Sales And Service Agent 04/28/18 Gibran Flores [address] [place] [address] Pain Management Anesthesiology 06/04/18 Eryn Lamar RN [address] [facility] [place] [address] Specialty Service Manager Hematology/Oncology 05/01/21 Robb Leiva MD [address] [facility] [place] [address] Hematology/Oncology 12/09/21 Iron Launder Operator Relationship Specialty Start Date End Date Elver Littlejohn MD [address] [facility] [place] [address] PCP - General Family Medicine 04/26/18 Stefani Peck RN Sales And Service Agent 04/28/18 Gibran Flores [address] [place] [address] Pain Management Anesthesiology 06/04/18 Eryn Lamar RN [address] [facility] [place] [address] Specialty Service Manager Hematology/Oncology 05/01/21 Robb Leiva MD [address] [place] [address] Hematology/Oncology 12/09/21 Iron Launder Operator Relationship Specialty Start Date End Date Elver Littlejohn MD [address] [facility] [address] PCP - General Family Medicine 04/26/18 Stefani Peck, RN Sales And Service Agent 04/28/18 Gibran Flores [address] [place] [address] Pain Management Anesthesiology 06/04/18 Eryn Lamar, MARJORIE [address] [facility] [place] [address] Specialty Service Manager Hematology/Oncology 05/01/21 Robb Leiva MD [address] [facility] [place] [address] Hematology/Oncology 12/09/21 Iron Launder Operator Relationship Specialty Start Date End Date Elver Littlejohn MD [address] [facility] [address] PCP - General Family Medicine 04/26/18 Stefani Peck RN Sales And Service Agent 04/28/18 Gibran Flores [address] [place] [address] Pain Management Anesthesiology 06/04/18 Eryn Lamar, MARJORIE [address] [place] [address] Specialty Service Manager Hematology/Oncology 05/01/21 Robb Leiva MD [address] [place] [address] Hematology/Oncology 12/09/21 Iron Launder Operator Relationship Specialty Start Date End Date Elver Littlejohn MD [address] [facility] [address] PCP - General Family Medicine 04/26/18 Stefani Peck RN Sales And Service Agent 04/28/18 Gibran Flores [place] [address] [place] [address] Pain Management Anesthesiology 06/04/18 Eryn Lamar RN [address] [facility] [place] [address] Specialty Service Manager Hematology/Oncology 05/01/21 Robb Leiva MD [address] [place] [facility] [place] [address] Hematology/Oncology 12/09/21 Iron Launder Operator Relationship Specialty Start Date End Date Elver Littlejohn MD [address] [facility] [address] PCP - General Family Medicine 04/26/18 Stefani Peck RN Sales And Service Agent 04/28/18 Gibran Flores [place] [address] [place] [address] Pain Management Anesthesiology 06/04/18 Eryn Lamar RN [address] [facility] [place] [address] Specialty Service Manager Hematology/Oncology 05/01/21 Robb Leiva MD [address] [facility] [place] [address] Hematology/Oncology 12/09/21 Iron Launder Operator Relationship Specialty Start Date End Date Elver Littlejohn MD [address] [facility] [address] PCP - General Family Medicine 04/26/18 Stefani Peck RN Sales And Service Agent 04/28/18 Gibran Flores [address] [place] [address] Pain Management Anesthesiology 06/04/18 Eryn Lamar RN [address] [facility] [place] [address] Specialty Service Manager Hematology/Oncology 05/01/21 Robb Leiva MD [address] [facility] [place] [address] Hematology/Oncology 12/09/21 Iron Launder Operator Relationship Specialty Start Date End Date Elver Littlejohn MD [address] [facility] [address] PCP - General Family Medicine 04/26/18 Stefani Peck, RN Sales And Service Agent 04/28/18 Gibran Flores [place] [address] [place] [address] Pain Management Anesthesiology 06/04/18 Eryn Lamar RN [address] [place] [facility] [place] [address] Specialty Service Manager Hematology/Oncology 05/01/21 Robb Leiva MD [address] [place] [facility] [place] [address] Hematology/Oncology 12/09/21 Iron Launder Operator Relationship Specialty Start Date End Date Elver Littlejohn MD [address] [facility] [address] PCP - General Family Medicine 04/26/18 Stefani Peck, RN Sales And Service Agent 04/28/18 Gibran Flores [place] [address] [place] [address] Pain Management Anesthesiology 06/04/18 Eryn Lamar RN [address] [facility] [place] [address] Specialty Service Manager Hematology/Oncology 05/01/21 Robb Leiva MD [address] [place] [address] Hematology/Oncology 12/09/21 Iron Launder Operator Relationship Specialty Start Date End Date Elver Littlejohn MD [address] [facility] [address] PCP - General Family Medicine 04/26/18 Stefani Peck RN Sales And Service Agent 04/28/18 Gibran Flores [address] [place] [address] Pain Management Anesthesiology 06/04/18 Eryn Lamar RN [address] [place] [address] Specialty Service Manager Hematology/Oncology 05/01/21 Robb Leiva MD [address] [place] [address] Hematology/Oncology 12/09/21 Iron Launder Operator Relationship Specialty Start Date End Date Elver Littlejohn MD [address] [facility] [address] PCP - General Family Medicine 04/26/18 Stefani Peck RN Sales And Service Agent 04/28/18 Gibran Flores [address] [place] [address] Pain Management Anesthesiology 06/04/18 Eryn Lamar RN [address] [place] [address] Specialty Service Manager Hematology/Oncology 05/01/21 Robb Leiva MD [address] [place] [facility] [place] [address] Hematology/Oncology 12/09/21 Iron Launder Operator Relationship Specialty Start Date End Date Elver Littlejohn MD [address] [place] [address] PCP - General Family Medicine 04/26/18 Stefani Peck, RN Sales And Service Agent 04/28/18 Gibran Flores [address] [place] [address] Pain Management Anesthesiology 06/04/18 Eryn Lamar, MARJORIE [address] [place] [address] Specialty Service Manager Hematology/Oncology 05/01/21 Robb Leiva MD [address] [place] [address] Hematology/Oncology 12/09/21 Iron Launder Operator Relationship Specialty Start Date End Date Elver Littlejohn MD [address] [place] [address] PCP - General Family Medicine 04/26/18 Stefani Peck RN Sales And Service Agent 04/28/18 Gibran Flores [address] [place] [address] Pain Management Anesthesiology 06/04/18 Eryn Lamar RN [address], [place] [id number] Specialty Service Manager Hematology/Oncology 05/01/21 Robb Leiva MD [address] [place] [address] Hematology/Oncology 12/09/21 Iron Launder Operator Relationship Specialty Start Date End Date Elver Littlejohn MD [address] [facility] [place] [address] PCP - General Family Medicine 04/26/18 Gibran Flores [address] [place] [address] Pain Management Anesthesiology 06/04/18 Eryn Lamar, MARJORIE [address] [facility] [place] [address] Specialty Service Manager Hematology/Oncology 05/01/21 Dilan Bello MD [address] [facility] [place] [address] Hematology/Oncology 09/19/22 Iron Launder Operator Relationship Specialty Start Date End Date Elver Littlejohn MD [address] [facility] [place] [address] PCP - General Family Medicine 04/26/18 Gibran Flores [address] [place] [address] Pain Management Anesthesiology 06/04/18 Eryn Lamar, MARJORIE [address] [facility] [place] [address] Specialty Service Manager Hematology/Oncology 05/01/21 Dilan Bello MD [address] [facility] [place] [address] Hematology/Oncology 09/19/22 Iron Launder Operator Relationship Specialty Start Date End Date Elver Littlejohn MD [address] [facility] [place] [address] PCP - General Family Medicine 04/26/18 Gibran Flores [address] [place] [address] Pain Management Anesthesiology 06/04/18 Eryn Lamar RN [address] [facility] [place] [address] Specialty Service Manager Hematology/Oncology 05/01/21 Dilan Bello MD [address] [facility] [place] [address] Hematology/Oncology 09/19/22 Iron Launder Operator Relationship Specialty Start Date End Date Elver Littlejohn MD [address] [facility] [place] [address] PCP - General Family Medicine 04/26/18 Gibran Flores [address] [place] [address] Pain Management Anesthesiology 06/04/18 Eryn Lamar RN [address] [facility] [place] [address] Specialty Service Manager Hematology/Oncology 05/01/21 Dilan Bello MD [address] [facility] [place] [address] Hematology/Oncology 09/19/22 Iron Launder Operator Relationship Specialty Start Date End Date Elver Littlejohn MD [address] [facility] [place] [address] PCP - General Family Medicine 04/26/18 Gibran Flores [address] [place] [address] Pain Management Anesthesiology 06/04/18 Eryn Lamar, MARJORIE [address] [place] [place] [address] Specialty Service Manager Hematology/Oncology 05/01/21 Dilan Bello MD [address] [place] [place] [address] Hematology/Oncology 09/19/22 Iron Launder Operator Relationship Specialty Start Date End Date Elver Littlejohn MD [address] [place] [address] PCP - General Family Medicine 04/26/18 Gibran Flores MD [address] [place] [address] Pain Management Anesthesiology 06/04/18 Eryn Lamar RN [address] [place] [address] Specialty Service Manager Hematology/Oncology 05/01/21 Dilan Bello MD [address] [place] [address] Hematology/Oncology 09/19/22 Iron Launder Operator Relationship Specialty Start Date End Date Elver Littlejohn MD [address] [facility] [address] PCP - General Family Medicine 04/26/18 Gibran Flores MD [address] [place] [address] Pain Management Anesthesiology 06/04/18 Eryn Lamar MARJORIE [address] [place] [address] Specialty Service Manager Hematology/Oncology 05/01/21 Dilan Bello MD [address] [place] [address] Hematology/Oncology 09/19/22 Iron Launder Operator Relationship Specialty Start Date End Date Elver Littlejohn MD [address] [facility] [address] PCP - General Family Medicine 04/26/18 Gibran Flores MD [address] [place] [address] [place] [address] Pain Management Anesthesiology 06/04/18 Eryn Lamar RN [address] [place] [address] Specialty Service Manager Hematology/Oncology 05/01/21 Dilan Bello MD [address] [place] [address] Hematology/Oncology 09/19/22 Iron Launder Operator Relationship Specialty Start Date End Date Elver Littlejohn MD [address] [facility] [place] [address] PCP - General Family Medicine 04/26/18 Gibran Flores MD [address] [place] [address] Pain Management Anesthesiology 06/04/18 Eryn Lamar RN [address] [place] [address] Specialty Service Manager Hematology/Oncology 05/01/21 Dilan Bello MD [address] [place] [address] Hematology/Oncology 09/19/22 Iron Launder Operator Relationship Specialty Start Date End Date Elver Littlejohn MD [address] [facility] [place] [address] PCP - General Family Medicine 04/26/18 Gibran Flores MD [address] [place] [address] Pain Management Anesthesiology 06/04/18 Eryn Lamar, MARJORIE [address] [place] [address] Specialty Service Manager Hematology/Oncology 05/01/21 Dilan Bello MD [address] [place] [address] Hematology/Oncology 09/19/22 Iron Launder Operator Relationship Specialty Start Date End Date Elver Littlejohn MD [address] [facility] [place] [address] PCP - General Family Medicine 04/26/18 Gibran Flores MD [address] [place] [address] Pain Management Anesthesiology 06/04/18 Eryn Lamar, MARJORIE [address] [place] [address] Specialty Service Manager Hematology/Oncology 05/01/21 Dilan Bello MD [address] [place] [address] Hematology/Oncology 09/19/22 Iron Launder Operator Relationship Specialty Start Date End Date Elver Littlejohn MD [address] [facility] [place] [address] PCP - General Family Medicine 04/26/18 Gibran Flores MD [address] [place] [address] Pain Management Anesthesiology 06/04/18 Eryn Lamar, MARJORIE [address] [facility] [place] [address] Specialty Service Manager Hematology/Oncology 05/01/21 Dilan Bello MD [address] [facility] [place] [address] Hematology/Oncology 09/19/22 Iron Launder Operator Relationship Specialty Start Date End Date Elver Littlejohn MD [address] [place] [address] PCP - General Family Medicine 04/26/18 Gibran Flores MD [address] [place] [address] Pain Management Anesthesiology 06/04/18 Eryn Lamar RN [address] [facility] [place] [address] Specialty Service Manager Hematology/Oncology 05/01/21 Dilan Bello MD [address] [facility] [place] [address] Hematology/Oncology 09/19/22 Iron Launder Operator Relationship Specialty Start Date End Date Elver Littlejohn MD [address] [place] [address] PCP - General Family Medicine 04/26/18 Stefani Peck, RN Sales And Service Agent 04/28/18 09/21/22 Gibran Flores MD [address] [place] [address] Pain Management Anesthesiology 06/04/18 Eryn Lamar, MARJORIE [address] [facility] [place] [address] Specialty Service Manager Hematology/Oncology 05/01/21 Robb Leiva MD [address] [facility] [place] [address] Hematology/Oncology 12/09/21 09/18/22 Iron Launder Operator Relationship Specialty Start Date End Date Elver Littlejohn MD [address] [facility] [address] PCP - General Family Medicine 04/26/18 Stefani Peck RN Sales And Service Agent 04/28/18 09/21/22 Gibran Flores MD [address] [place] [address] Pain Management Anesthesiology 06/04/18 Eryn Lamar, MARJORIE [address] [facility] [place] [address] Specialty Service Manager Hematology/Oncology 05/01/21 Robb Leiva MD [address] [facility] [place] [address] Hematology/Oncology 12/09/21 09/18/22 Iron Launder Operator Relationship Specialty Start Date End Date Elver Littlejohn MD [address] [place] [address] PCP - General Family Medicine 04/26/18 Gibran Flores MD [address] [place] [address] Pain Management Anesthesiology 06/04/18 Eryn Lamar RN [address] [facility] [place] [address] Specialty Service Manager Hematology/Oncology 05/01/21 Dilan Bello MD [address] [facility] [place] [address] Hematology/Oncology 09/19/22 Iron Launder Operator Relationship Specialty Start Date End Date Elver Littlejohn MD [address] [facility] [address] PCP - General Family Medicine 04/26/18 Gibran Flores MD [address] [place] [address] Pain Management Anesthesiology 06/04/18 Eryn Lamar RN [address] [facility] [place] [address] Specialty Service Manager Hematology/Oncology 05/01/21 Dilan Bello MD [address] [facility] [place] [address] Hematology/Oncology 09/19/22 Iron Launder Operator Relationship Specialty Start Date End Date Elver Littlejohn MD [address] [place] [address] PCP - General Family Medicine 04/26/18 Gibran Flores MD [address] [place] [address] Pain Management Anesthesiology 06/04/18 Eryn Lamar, MARJORIE [address] [facility] [place] [address] Specialty Service Manager Hematology/Oncology 05/01/21 Dilan Bello MD [address] [facility] [place] [address] Hematology/Oncology 09/19/22 Iron Launder Operator Relationship Specialty Start Date End Date Elver Littlejohn MD [address] [place] [address] PCP - General Family Medicine 04/26/18 Gibran Flores MD [address] [place] [address] Pain Management Anesthesiology 06/04/18 Eryn Lamar, MARJORIE [address] [facility] [place] [address] Specialty Service Manager Hematology/Oncology 05/01/21 Dilan Bello MD [address] [facility] [place] [address] Hematology/Oncology 09/19/22 FOR RECORDS PERTAINING TO PATIENTS WHO ARE OR HAVE BEEN ENROLLED IN A CHEMICAL DEPENDENCY/SUBSTANCEABUSE PROGRAM, SOME INFORMATION MAY BE OMITTED. This clinical summary was aggregated from multiple sources. Caution should be exercised in using it in the provision of clinical care. This summary normalizes information from multiple sources, and as a consequence, information in this document may materially change the coding, format and clinical context of patient data. In addition, data may be omitted in some cases. CLINICAL DECISIONS SHOULD BE BASED ON THE PRIMARY CLINICAL RECORDS. [facility]. provides no warranty or guarantee of the accuracy or completeness of information in this document.
[2023-02-27 17:50] LABS: Absolute Lymphocyte Count 0.71 X10^3/uL (0.83-4.51); Absolute Neutrophil Count 10.6 X10^3/uL (2.0-7.7); Basophil# 0.04 X10^3/uL; Basophil% 0.3 % (0-1); Eosinophil# 0.08 X10^3/uL; Eosinophils% 0.6 % (0-5); Hemoglobin 10.3 g/dL (13.0-16.5); Lymphocyte # 0.71 X10^3/ul (0.83-4.51); Lymphocyte % 5.7 % (19-41); Mean Corp Hgb Conc 32.2 g/dL (32-36); Mean Corpuscular Hgb 28.6 pg (27.0-32.0); Mean Corpuscular Volume 88.9 fL (80-94); Mean Platelet Vol. 9.9 fl (6.2-12.0); Monocyte# 1.01 X10^3/uL; NRBC Flagged by Analyzer 0 % (0-5); Neutrophil # 10.62 X10^3/uL (2.7-7.7); Neutrophil % 84.6 % (47-70); Platelet Count 377 K/mm3 (150-450); RBC Distribution Width CV 18.3 % (11.6-14.6); RBC Distribution Width SD 59.3 fl (35.1-43.9); White Blood Count 12.6 K/mm3 (4.4-11.0)
[2023-02-27 18:05] LABS: Anion Gap 8 (5-15); BUN 18 mg/dL (7-18); BUN/Creat Ratio 13.5 RATIO (10-20); Chloride 100 mmol/L (98-107); Creatinine, Serum 1.33 mg/dL (0.70-1.30); EST Glomerular Filtration Rate 59 mL/min (>60); Est Glom Filt Rate - Afr Amer 72 mL/min (>60); Estimated Creatinine Clearance 66.84 ml/min; Glucose 122 mg/dL (74-106); Potassium 3.3 mmol/L (3.5-5.1); Sodium Level 134 mmol/L (136-145)
[2023-02-27] MEDS: predniSONE 20 MG Tablet 60 MG PO (19:53)
== END 2023-02-27 20:00 | disposition home or self-care (01) ==
PROVIDERS: Emergency Provider Emergency Medicine; PCP Family Medicine; Visit Provider Emergency Medicine
DX: C64.9 Malignant neoplasm of unspecified kidney, except renal pelvis (principal); J45.901 Unspecified asthma with (acute) exacerbation; Z92.21 Personal history of antineoplastic chemotherapy; R63.0 Anorexia; Z86.73 Personal history of transient ischemic attack (TIA), and cerebral infarction without residual deficits
CPT/HCPCS: 71046; 80048; 85025; 93005; 94640; 96360; 99283; J7030; A4216

== ENCOUNTER 2023-03-09 07:18 | Emergency (ER) | payer MEDICARE, SELFPAY ==
[2023-03-09 07:18] VITALS: BP 100/61; PULSE 107; RESP 16; TEMP 36.2; O2SAT 98; BMI 26.0
--- NOTE | 2023-03-09 07:40 | EX.ED.DYSGE1 ---
HPI History of Present Illness Chief Complaint: Other, Pain/Inj Informant: patient Narrative Narrative: 53-year-old male presenting to the emergency room stating I just want to be comfortable . Patient is a very poor historian and gives a very superficial/incomplete synopsis of his care. He states that he was diagnosed with kidney cancer that metastasized. He states that it 80 rib on the right and has had chronic pain in the right upper back/neck since. He states that he was recently changed to an unknown chemotherapy agent. He declined surgery. He does not wish any surgery, radiation, chemotherapy or other treatments. He he reports he was seen in the emergency room last week and declined blood transfusion. He reports he was started on some prednisone last week which helped but he is done with that and is back to feeling poorly. He states he supposed to meet with hospice today and oncology tomorrow. He states he would just like something for pain. He denies any fever. He states he generally feels poor. He states he is tired of feeling sick. He states he is tired of having to lay in 1 position to remain out of pain. He is requesting to just be sedated and go . [facility] Medical History Anxiety Asthma Basal ganglia stroke Facial droop Left hip pain Metastatic renal cell carcinoma Stroke-like symptoms Home Medications nivolumab 40 mg/4 mL intravenous solution (Opdivo) 40 mg IV [facility] cancer tx 05/02/18 [History Last Taken 07/29/21] amlodipine 10 mg tablet 10 mg PO DAILY 08/10/21 [History Last Taken 08/09/21] lisinopril 10 mg tablet 10 mg PO DAILY 08/10/21 [History Last Taken 08/09/21] aspirin 81 mg chewable tablet 81 mg PO BREAKFAST #30 tabs 08/13/21 [Rx Last Taken Unknown] atorvastatin 20 mg tablet 20 mg PO DAILY #30 tabs 08/13/21 [Rx Last Taken Unknown] doxycycline monohydrate 100 mg capsule 100 mg PO BID #20 CAPSULES 04/18/22 [Rx Last Taken Unknown] prednisone 20 mg tablet 60 mg (3 x 20 mg) PO DAILY #15 TABLETS 04/18/22 [Rx Last Taken Unknown] prednisone 20 mg tablet 40 mg (2 x 20 mg) PO DAILY 5 days #10 TABLETS 02/27/23 [Rx Last Taken Unknown] Allergy/AdvReac Type Severity Reaction Status Date / Time Penicillins [PCN] AdvReac Anaphylaxis Verified 03/09/23 07:22 Family History Father Heart disease Mother Diabetes Social History household members: none Smoking Status: Never smoker alcohol intake: never substance use type: does not use ROS ROS ED ROS Narrative Generally feels poor and weak Constitutional Constitutional ED: Reports weight loss; Denies chills or fever(s) Eyes Eyes: Denies change in vision or diplopia ENT ENT ED: Denies ear pain, rhinorrhea or sore throat Cardiovascular Cardiovascular: Denies chest pain, orthopnea, palpitations or racing heartbeat Respiratory/Chest Respiratory/Chest: Denies cough, dyspnea or orthopnea Gastrointestinal Gastrointestinal: Reports abdominal pain and other Details: Decreased appetite ; Denies diarrhea, nausea or vomiting Genitourinary Genitourinary ED: Denies dysuria, hematuria or urinary frequency Musculoskeletal Musculoskeletal: Reports back pain and neck pain; Denies arthralgias or myalgias Integumentary Denies abscess or rash Neurologic Neurologic: Denies headache(s) or weakness Psychiatric Psychiatric: Denies anxiety, depression, suicidal ideation or suicidal thoughts Endocrine Endocrinology: Denies polydipsia, polyphagia or polyuria Allergic/Immunologic Allergic/Immunologic ED: Denies mouth swelling, tongue swelling or urticaria EXAM Physical Exam Const Vital Signs: 03/09/23 07:18 03/09/23 07:22 Temperature 97.2 F L Temperature Source Temporal Pulse Rate 107 H Respiratory Rate 16 Respiratory Effort Normal Non-Labored Respiratory Pattern Normal Blood Pressure 100/61 Blood Pressure Mean 74 Pulse Ox 98 Oxygen Delivery Method Room Air Positive well nourished and well developed General Appearance ED: well developed HEENT Reports normocephalic, head/scalp atraumatic and moist mucous membranes Eyes PERRL and EOMs intact bilaterally Neck no lymphadenopathy, supple and no JVD Resp normal respiratory effort and clear to auscultation bilaterally Cardio regular rate, regular rhythm and no murmurs GI normal to inspection, nondistended, normoactive bowel sounds and non-tender Palpation: soft Back/Spine no CVA tenderness and normal ROM Back/Spine Narrative: Patient reports pain to the upper right back and neck to palpation. No significant rashes noted. Extremity normal to inspection General Extremety ED: Negative for edema General Extremity: Negative for edema Neuro oriented x3 and CN's II-XII intact bilaterally Sensorium / Orientation: alert Motor Exam: strength 5/5 throughout Psych mental status grossly normal Mood & Affect: Negative for depressed or tearful Skin no rashes or lesions noted and no wounds MDM MDM MDM Narrative Medical decision making narrative: Patient reports appointments with hospice and oncology in the next 24 hours. I can write him some pain medication to try to provide some degree of comfort until he meets with them and develops a more concrete plan. He sees [facility] oncology here locally so I do not have immediate access to their records. I will write for some oxycodone. As he is wanting to enter hospice he is declining laboratory/radiological workup. History & Record Review Discussion w/independent historian: Patient Discharge Plan Triage Chief Complaint: Other, Pain/Inj ED Provider: Kenneth Alfaro Dx/Rx/DC Orders Prescriptions: No Action Opdivo 40 MG/4 ML solution 40 mg IV QMONTH amlodipine 10 mg Tablet 10 mg PO DAILY lisinopril 10 mg Tablet 10 mg PO DAILY aspirin 81 mg Tablet,Chewable 81 mg PO BREAKFAST Qty: 30 11RF atorvastatin 20 mg tablet 20 mg PO DAILY Qty: 30 1RF Rx Instructions: start on 09/04/2021 prednisone 20 mg tablet 60 mg PO DAILY Qty: 15 0RF doxycycline monohydrate 100 mg capsule 100 mg PO BID Qty: 20 0RF prednisone 20 mg tablet 40 mg PO DAILY 5 Days Qty: 10 0RF Primary Care Provider: Miguelito Littlejohn Referrals: Miguelito Littlejohn MD [Primary Care Provider] -
--- OUTSIDE RECORDS SUMMARY | 2023-03-09 08:19 | XMS RPT_ITS | CCD ---
Author Name Unknown Address [address] [place] [address] Organization [facility] Care Team Providers Care Shipping Supervisor Name Role Phone ROBB LEIVA Referring Unavailable ROBB LEIVA Referring Unavailable Amanda Littlejohn MD Primary Care Provider Stefani Antonio Unavailable Unavailable Gibran Flores Unavailable Bonnie Bolden RN Unavailable Willard AMADOR, Eryn Unavailable Stefani Peck RN Unavailable Unavailable Bonnie Bolden RN Unavailable Amanda Littlejohn MD Primary Care Provider Gibran Flores Unavailable Bonnie Bolden RN T Unavailable Willard AMADOR, Eryn Unavailable Amanda Littlejohn MD Primary Care Provider Gibran Flores Unavailable Bonnie Bolden RN T Unavailable Willard RN, Eryn Unavailable Robb Leiva MD Unavailable Amanda Littlejohn MD Primary Care Provider Stefani Peck RN Unavailable Unavailable Gibran Flores Unavailable Sia Bolden RNline T Unavailable Willard AMADOR, Eryn Unavailable Robb Leiva MD Unavailable Robb Leiva MD Unavailable Dilan Romero MD Unavailable Gibran Flores Unavailable Eryn Lamar RN Unavailable Gibran Flores MD Unavailable Cisco AMADOR, Stefani Unavailable Unavailable Robb Leiva MD Unavailable DILAN ROMERO Referring Unavailable AMANDA LITTLEJOHN B Primary Care Unavailab le RANJAN SAMUEL Referring Unavailable FESTUS LITTLEJOHNOPHER B Primary Care Unavailab le FERNANDA, FESTUSOPHER B Primary Care Unavailab le CALI, ROBB Referring Unavailable KAR LITTLEJOHNER B Primary Care Unavailab le CALI, ROBB Referring Unavailable KAR LITTLEJOHNER B Primary Care Unavailab le FERNANDA, FESTUSOPHER B Primary Care Unavailab le CALI, ROBB Referring Unavailable DILAN ROMERO Attending Unavailable AMANDA LITTLEJOHN Primary Care Unavailab ROBB Goldberg Referring Unavailable AMANDA LITTLEJOHN B Primary Care Unavailab le ROBB LEIVA Referring Unavailable DILAN ROMERO Referring Unavailable FESTUS LITTLEJOHNOPHER B Primary Care Unavailab le FERNANDA, FESTUSOPHER B Primary Care Unavailab le ROBB LEIVA Referring Unavailable AMANDA LITTLEJOHN B Primary Care Unavailab ROBB Goldberg Referring Unavailable AMANDA LITTLEJOHN B Primary Care Unavailab le RANJAN SAMUEL Referring Unavailable RANJAN SAMUEL Attending Unavailable AMANDA LITTLEJOHN B Primary Care Unavailab ROBB Goldberg Referring Unavailable AMANDA LITTLEJOHN B Primary Care Unavailab ROBB Goldberg Referring Unavailable KAR LITTLEJOHNER B Primary Care Unavailab le KAR LITTLEJOHNER Tresa Attending Unavailab le DILAN ROMERO Referring Unavailable JOHN LARSON Attending Unavailable AMANDA LITTLEJOHN B Primary Care Unavailab le KAR LITTLEJOHNER B Primary Care Unavailab ROBB Goldberg Referring Unavailable AMANDA LITTLEJOHN Primary Care Unavailab SHELLI Monahan Attending Unavailable ROBB LEIVA Referring Unavailable AMANDA LITTLEJOHN Primary Care Unavailab ROBB Goldberg Referring Unavailable AMANDA LITTLEJOHN Primary Care Unavailab ROBB Goldberg Referring Unavailable DILAN ROMERO Attending Unavailable BURSLEY, CHRISTOPHER B Primary Care Unavailab le CALI, LAPMAN Referring Unavailable BURSAMANDA, CHRISTOPHER B Primary Care Unavailab le CALI, LAPMAN Referring Unavailable FERNANDA, CHRISTOPHER B Primary Care Unavailab le CALI, LAPMAN Referring Unavailable BURSLEY, FESTUSOPHER B Primary Care Unavailab le CALI, LAPMAN Referring Unavailable DILAN ROMERO Attending Unavailable FESTUS LITTLEJOHNOPHER B Primary Care Unavailab le CALI, LAPMAN Referring Unavailable BURSAMANDA, CHRISTOPHER B Primary Care Unavailab le CALI, LAPMAN Referring Unavailable BURSLEY, CHRISTOPHER B Primary Care Unavailab le CALI, LAPMAN Referring Unavailable BURSLEY, CHRISTOPHER B Primary Care Unavailab SHELLI Monahan Attending Unavailable CALI, STEFANIEMAN Referring Unavailable DILAN ROMERO Attending Unavailable FESTUS LITTLEJOHNOPHER B Primary Care Unavailab le ACLI, LAPMAN Referring Unavailable BURSLEY, CHRISTOPHER B Primary Care Unavailab le CALI, LAPMAN Referring Unavailable BURSLEY, CHRISTOPHER B Primary Care Unavailab le CALI, LAPMAN Referring Unavailable FERNANDA, FESTUSOPHER B Primary Care Unavailab le CALI, LAPMAN Referring Unavailable FESTUS LITTLEJOHNOPHER B Primary Care Unavailab le CALI, LAPMAN Referring Unavailable TOMMYLEY, CHRISTOPHER B Primary Care Unavailab le CALI, LAPMAN Referring Unavailable FERNANDA, FESTUSOPHER B Primary Care Unavailab le CALI, LAPMAN Referring Unavailable BURSLEY, FESTUSOPHER B Primary Care Unavailab le CALI, LAPMAN Referring Unavailable RANJAN SAMUEL Attending Unavailable FERNANDA, FESTUSOPHER B Primary Care Unavailab le BURSLEY, CHRISTOPHER B Primary Care Unavailab le CALI, LAPMAN Referring Unavailable FESTUS LITTLEJOHNOPHER B Primary Care Unavailab le CALI, LAPMAN Referring Unavailable FESTUS LITTLEJOHNOPHER B Primary Care Unavailab le CALI, LAPMAN Referring Unavailable DILAN ROMERO Referring Unavailable FERNANDA, CHRISTOPHER B Primary Care Unavailab le DILAN ROMERO Referring Unavailable BURSLEY, CHRISTOPHER B Primary Care Unavailab le BURSLEY, CHRISTOPHER B Primary Care Unavailab le CALI, LAPMAN Referring Unavailable Allergies Allergy Classification Reported Allergen(s) Allergy Type Date of Onset Reaction(s) Facility (20 sources) Penicillins; Translations: [PENICILLINS] Propensity to adverse reactions to drug (disorder) 9 Anaphylaxis [facility] [place] [facility] Medications Current Medications Medication Drug Class(es) Dates Sig (Normalized) Sig (Original) amLODIPine 10 mg oral tablet (20 sources) Dihydropyridine Calcium [facility] Start: 06-28-2021 End: 02-06-2023 take 1 tablet by mouth once daily amLODIPine (NORVASC) 10 mg tablet Take 1 tablet by mouth once daily. 90 tablet 0 11/08/2022 02/06/2023 Active Completed/Discontinued Medications Medication Drug Class(es) Dates Sig (Normalized) Sig (Original) [id number] 200 actuat albuterol 0.09 mg/actuat metered dose [...] Date Time Vital Sign Value Performing Clinician Faci lity 01-12-2023 09:36-0500 Body temperature 97.39 [degF] Dilan Romero MD Work Phone: [facility] 01-12-2023 09:36-0500 Body weight 81.19 kg Dilan Romero MD Work Phone: [facility] 01-12-2023 09:36-0500 Diastolic blood pressure 96 mm[Hg] Dilan Romero MD Work Phone: [facility] 01-12-2023 09:36-0500 Heart rate 103 /min Dilan Romero MD Work Phone: [facility] 01-12-2023 09:36-0500 SaO2% (BldA) [Mass fraction] 96 % Dilan Romero MD Work Phone: [facility] 01-12-2023 09:36-0500 Systolic blood pressure 140 mm[Hg] Dilan Romero MD Work Phone: [facility] 10-21-2022 08:49-0400 Body temperature 97.11 [degF] Dilan Romero MD Work Phone: [facility] 10-21-2022 08:49-0400 Body weight 82.33 kg Dilan Romero MD Work Phone: [facility] 10-21-2022 08:49-0400 Diastolic blood pressure 74 mm[Hg] Dilan Romero MD Work Phone: [facility] 10-21-2022 08:49-0400 Heart rate 99 /min Dilan Romero MD Work Phone: [facility] 10-21-2022 08:49-0400 SaO2% (BldA) [Mass fraction] 97 % Dilan Romero MD Work Phone: [facility] 10-21-2022 08:49-0400 Systolic blood pressure 113 mm[Hg] Dilan Romero MD Work Phone: [facility] 09-22-2022 09:38-0400 Body temperature 97.9 [degF] Dilan Romero MD Work Phone: [facility] 09-22-2022 09:38-0400 Body weight 83.46 kg Dilan Romero MD Work Phone: [facility] 09-22-2022 09:38-0400 Diastolic blood pressure 84 mm[Hg] iDlan Romero MD Work Phone: [facility] 09-22-2022 09:38-0400 Heart rate 108 /min Dilan Romero MD Work Phone: [facility] 09-22-2022 09:38-0400 SaO2% (BldA) [Mass fraction] 97 % Dilan Romero MD Work Phone: [facility] 09-22-2022 09:38-0400 Systolic blood pressure 145 mm[Hg] Dilan Romero MD Work Phone: [facility] 08-25-2022 10:58-0400 Body temperature 97 [degF] Shelli Valles APRN.OIL REFINERY OPERATOR Work Phone: [facility] 08-25-2022 10:58-0400 Body weight 82.33 kg Shelli Valles APRN.OIL REFINERY OPERATOR Work Phone: [facility] 08-25-2022 10:58-0400 Diastolic blood pressure 85 mm[Hg] Shelli Valles SUPPLY ASSISTANT.OIL REFINERY OPERATOR Work Phone: [facility] 08-25-2022 10:58-0400 Heart rate 97 /min Shelli Valles SUPPLY ASSISTANT.OIL REFINERY OPERATOR Work Phone: [facility] 08-25-2022 10:58-0400 SaO2% (BldA) [Mass fraction] 96 % Shelli Valles SUPPLY ASSISTANT.OIL REFINERY OPERATOR Work Phone: [facility] 08-25-2022 10:58-0400 Systolic blood pressure 118 mm[Hg] Shelli Valles SUPPLY ASSISTANT.OIL REFINERY OPERATOR Work Phone: [facility] 06-03-2022 13:00-0400 Body temperature 98.01 [degF] Treatment Wstr Work Phone: [facility] 06-03-2022 13:00-0400 Diastolic blood pressure 85 mm[Hg] Treatment Wstr Work Phone: [facility] 06-03-2022 13:00-0400 Heart rate 88 /min Treatment Wstr Work Phone: [facility] 06-03-2022 13:00-0400 Systolic blood pressure 143 mm[Hg] Treatment Wstr Work Phone: [facility] 05-06-2022 10:17-0400 Body temperature 96.01 [degF] Treatment Wstr Work Phone: [facility] 05-06-2022 10:17-0400 Body weight 85.5 kg Treatment Wstr Work Phone: [facility] 05-06-2022 10:17-0400 Diastolic blood pressure 77 mm[Hg] Treatment Wstr Work Phone: [facility] 05-06-2022 10:17-0400 Heart rate 99 /min Treatment Wstr Work Phone: [facility] 05-06-2022 10:17-0400 SaO2% (BldA) [Mass fraction] 95 % Treatment Wstr Work Phone: [facility] 05-06-2022 10:17-0400 Systolic blood pressure 128 mm[Hg] Treatment Wstr Work Phone: [facility] 04-25-2022 08:54-0500 Body temperature 96.6 [degF] Amanda Littlejohn MD Work Phone: [facility] 04-25-2022 08:54-0500 Body weight 86 kg Amanda Littlejohn MD Work Phone: [facility] 04-25-2022 08:54-0500 Diastolic blood pressure 82 mm[Hg] Amanda Littlejohn MD Work Phone: [facility] 04-25-2022 08:54-0500 Heart rate 104 /min Amanda Littlejohn MD Work Phone: [facility] 04-25-2022 08:54-0500 Respiratory rate 18 /min Amanda Littlejohn MD Work Phone: [facility] 04-25-2022 08:54-0500 SaO2% (BldA) [Mass fraction] 97 % Amanda Littlejohn MD Work Phone: [facility] 04-25-2022 08:54-0500 Systolic blood pressure 118 mm[Hg] Amanda Littlejohn MD Work Phone: [facility] 04-08-2022 09:22-0500 Body temperature 97.2 [degF] Treatment Wstr Work Phone: [facility] 04-08-2022 09:22-0500 Body weight 86.86 kg Treatment Wstr Work Phone: [facility] 04-08-2022 09:22-0500 Diastolic blood pressure 81 mm[Hg] Treatment Wstr Work Phone: [facility] 04-08-2022 09:22-0500 Heart rate 95 /min Treatment Wstr Work Phone: [facility] 04-08-2022 09:22-0500 Systolic blood pressure 133 mm[Hg] Treatment Wstr Work Phone: [facility] 01-24-2023 10:00-0500 Body temperature 97.2 [degF] Treatment Wstr Work Phone: [facility] 03-11-2022 10:00-0500 Body weight 86.41 kg Treatment Wstr Work Phone: [facility] 03-11-2022 10:00-0500 Diastolic blood pressure 80 mm[Hg] Treatment Wstr Work Phone: [facility] 03-11-2022 10:00-0500 Heart rate 99 /min Treatment Wstr Work Phone: [facility] 03-11-2022 10:00-0500 SaO2% (BldA) [Mass fraction] 99 % Treatment Wstr Work Phone: [facility] 03-11-2022 10:00-0500 Systolic blood pressure 129 mm[Hg] Treatment Wstr Work Phone: [facility] 02-13-2022 09:48-0500 Body temperature 97.5 [degF] Robb Leiva MD Work Phone: [facility] 02-13-2022 09:48-0500 Body weight 87.77 kg Robb Leiva MD Work Phone: [facility] 02-13-2022 09:48-0500 Diastolic blood pressure 94 mm[Hg] Robb Leiva MD Work Phone: [facility] 02-13-2022 09:48-0500 Heart rate 102 /min Robb Leiva MD Work Phone: [facility] 02-13-2022 09:48-0500 SaO2% (BldA) [Mass fraction] 99 % Robb Leiva MD Work Phone: [facility] 02-13-2022 09:48-0500 Systolic blood pressure 138 mm[Hg] Robb Leiva MD Work Phone: [facility] 01-14-2022 08:00-0500 Body temperature 97.39 [degF] Treatment Wstr Work Phone: [facility] 01-14-2022 08:00-0500 Diastolic blood pressure 80 mm[Hg] Treatment Wstr Work Phone: [facility] 01-14-2022 08:00-0500 Heart rate 89 /min Treatment Wstr Work Phone: [facility] 01-14-2022 08:00-0500 Systolic blood pressure 128 mm[Hg] Treatment Wstr Work Phone: [facility] 12-17-2021 09:00-0400 Body temperature 97.39 [degF] Robb Leiva MD Work Phone: [facility] 12-17-2021 09:00-0400 Body weight 87.09 kg Robb Leiva MD Work Phone: [facility] 12-17-2021 09:00-0400 Diastolic blood pressure 84 mm[Hg] Robb Leiva MD Work Phone: [facility] 12-17-2021 09:00-0400 Heart rate 104 /min Robb Leiva MD Work Phone: [facility] 12-17-2021 09:00-0400 SaO2% (BldA) [Mass fraction] 98 % Robb Leiva MD Work Phone: [facility] 12-17-2021 09:00-0400 Systolic blood pressure 113 mm[Hg] Robb Leiva MD Work Phone: [facility] 11-19-2021 13:24-0400 Body temperature 97.9 [degF] Treatment Wstr Work Phone: [facility] 11-19-2021 13:24-0400 Diastolic blood pressure 83 mm[Hg] Treatment Wstr Work Phone: [facility] 11-19-2021 13:24-0400 Heart rate 97 /min Treatment Wstr Work Phone: [facility] 11-19-2021 13:24-0400 Respiratory rate 16 /min Treatment Wstr Work Phone: [facility] 11-19-2021 13:24-0400 SaO2% (BldA) [Mass fraction] 97 % Treatment Wstr Work Phone: [facility] 11-19-2021 13:24-0400 Systolic blood pressure 121 mm[Hg] Treatment Wstr Work Phone: [facility] 10-22-2021 13:52-0400 Body temperature 97.81 [degF] Treatment Wstr Work Phone: [facility] 10-22-2021 13:52-0400 Body weight 87.77 kg Treatment Wstr Work Phone: [facility] 10-22-2021 13:52-0400 Diastolic blood pressure 88 mm[Hg] Treatment Wstr Work Phone: [facility] 10-22-2021 13:52-0400 Heart rate 102 /min Treatment Wstr Work Phone: [facility] 10-22-2021 13:52-0400 Respiratory rate 18 /min Treatment Wstr Work Phone: [facility] 10-22-2021 13:52-0400 SaO2% (BldA) [Mass fraction] 99 % Treatment Wstr Work Phone: [facility] 10-22-2021 13:52-0400 Systolic blood pressure 123 mm[Hg] Treatment Wstr Work Phone: [facility] 09-20-2021 11:17-0400 Body temperature 98.1 [degF] Robb Leiva MD Work Phone: [facility] 09-20-2021 11:17-0400 Body weight 89.81 kg Robb Leiva MD Work Phone: [facility] 09-20-2021 11:17-0400 Diastolic blood pressure 93 mm[Hg] Robb Leiva MD Work Phone: [facility] 09-20-2021 11:17-0400 Heart rate 89 /min Robb Leiva MD Work Phone: [facility] 09-20-2021 11:17-0400 SaO2% (BldA) [Mass fraction] 100 % Robb Leiva MD Work Phone: [facility] 09-20-2021 11:17-0400 Systolic blood pressure 151 mm[Hg] Robb Leiva MD Work Phone: [facility] 08-26-2021 13:55-0400 Body temperature 97.9 [degF] Treatment Wstr Work Phone: [facility] 08-26-2021 13:55-0400 Diastolic blood pressure 82 mm[Hg] Treatment Wstr Work Phone: [facility] 08-26-2021 13:55-0400 Heart rate 90 /min Treatment Wstr Work Phone: [facility] 08-26-2021 13:55-0400 Systolic blood pressure 125 mm[Hg] Treatment Wstr Work Phone: [facility] 08-21-2021 10:20-0400 Body weight 87.18 kg Megan Podlogar SUPPLY ASSISTANT.OIL REFINERY OPERATOR Work Phone: [facility] 08-21-2021 10:20-0400 Diastolic blood pressure 84 mm[Hg] Megan Podlogar SUPPLY ASSISTANT.OIL REFINERY OPERATOR Work Phone: [facility] 08-21-2021 10:20-0400 Heart rate 105 /min Megan Podlogar SUPPLY ASSISTANT.OIL REFINERY OPERATOR Work Phone: [facility] 08-21-2021 10:20-0400 Respiratory rate 20 /min Megan Podlogar SUPPLY ASSISTANT.OIL REFINERY OPERATOR Work Phone: [facility] 08-21-2021 10:20-0400 SaO2% (BldA) [Mass fraction] 98 % Megan Podlogar SUPPLY ASSISTANT.OIL REFINERY OPERATOR Work Phone: [facility] 08-21-2021 10:20-0400 Systolic blood pressure 128 mm[Hg] Megan Podlogar SUPPLY ASSISTANT.OIL REFINERY OPERATOR Work Phone: [facility] 07-29-2021 13:49-0400 Body temperature 97.3 [degF] Treatment Wstr Work Phone: [facility] 07-29-2021 13:49-0400 Diastolic blood pressure 88 mm[Hg] Treatment Wstr Work Phone: [facility] 07-29-2021 13:49-0400 Heart rate 112 /min Treatment Wstr Work Phone: [facility] 07-29-2021 13:49-0400 Respiratory rate 14 /min Treatment Wstr Work Phone: [facility] 07-29-2021 13:49-0400 Systolic blood pressure 128 mm[Hg] Treatment Wstr Work Phone: [facility] 07-01-2021 15:00-0400 Body temperature 97.3 [degF] Treatment Wstr Work Phone: [facility] 07-01-2021 15:00-0400 Diastolic blood pressure 88 mm[Hg] Treatment Wstr Work Phone: [facility] 07-01-2021 15:00-0400 Heart rate 80 /min Treatment Wstr Work Phone: [facility] 07-01-2021 15:00-0400 Systolic blood pressure 157 mm[Hg] Treatment Wstr Work Phone: [facility] 06-28-2021 13:57-0400 Body temperature 98.29 [degF] Robb Leiva MD Work Phone: [facility] 06-28-2021 13:57-0400 Body weight 87.77 kg Robb Leiva MD Work Phone: [facility] 06-28-2021 13:57-0400 Diastolic blood pressure 96 mm[Hg] Robb Leiva MD Work Phone: [facility] 06-28-2021 13:57-0400 Heart rate 93 /min Robb Leiva MD Work Phone: [facility] 06-28-2021 13:57-0400 Systolic blood pressure 137 mm[Hg] Robb Leiva MD Work Phone: [facility] Encounters Encounter Date Encounter Type Care Provider Facility Start: 01-26-2023 End: 01-26-2023 ambulatory DILAN ROMERO Facility:[facility] Start: 01-26-2023 End: 01-26-2023 Subsequent hospital visit by physician [facility] ([facility]) Work Phone: Cat Scan Procedures Date Procedure Procedure Detail Performing Clinician Start: 10-13-2022 Ct abdomen & pelvis w/contrast material Dilan Romero MD Work Phone: Start: 10-13-2022 Ct thorax w/contrast material Dilan Romero MD Work Phone: Start: 08-25-2022 Basic metabolic pane l calcium total Shelli Valles SUPPLY ASSISTANT.OIL REFINERY OPERATOR Work Phone: Start: 05-30-2022 Ct abdomen & [...] panel - Serum or Plasma Lipid Screening [facility] Start: 12-17-2026 Lipid panel Lipid Screening [facility] Start: 12-17-2026 LIPID SCREEN LIPID SCREEN [facility] Start: 01-12-2026 Diabetes Screening Diabetes Screening [facility] Start: 12-15-2025 Diabetes Screening Diabetes Screening [facility] Start: 11-17-2025 Diabetes Screening Diabetes Screening [facility] Start: 10-21-2025 DIABETES SCREEN DIABETES SCREEN [facility] Start: 10-21-2025 Diabetes Screening Diabetes Screening [facility] Start: 09-22-2025 DIABETES SCREEN DIABETES SCREEN [facility] Start: 08-25-2025 DIABETES SCREEN DIABETES SCREEN [facility] Start: 07-29-2025 DIABETES SCREEN DIABETES SCREEN [facility] Start: 06-30-2025 DIABETES SCREEN DIABETES SCREEN [facility] Start: 06-03-2025 DIABETES SCREEN DIABETES SCREEN [facility] Start: 05-06-2025 DIABETES SCREEN DIABETES SCREEN [facility] Start: 04-08-2025 DIABETES SCREEN DIABETES SCREEN [facility] Start: 03-11-2025 DIABETES SCREEN DIABETES SCREEN [facility] Start: 02-12-2025 DIABETES SCREEN DIABETES SCREEN [facility] Start: 01-14-2025 DIABETES SCREEN DIABETES SCREEN [facility] Start: 12-17-2024 DIABETES SCREEN DIABETES SCREEN [facility] Start: 11-19-2024 DIABETES SCREEN DIABETES SCREEN [facility] Start: 10-22-2024 DIABETES SCREEN DIABETES SCREEN [facility] Start: 09-23-2024 DIABETES SCREEN DIABETES SCREEN [facility] Start: 08-26-2024 DIABETES SCREEN DIABETES SCREEN [facility] Start: 07-26-2024 DIABETES SCREEN DIABETES SCREEN [facility] Start: 06-28-2024 DIABETES SCREEN DIABETES SCREEN [facility] Start: 06-03-2024 DIABETES SCREEN DIABETES SCREEN [facility] Start: 11-18-2023 BP Controlled (<130/80) BP Controlled (<130/80) [facility] Start: 10-22-2023 BP CONTROLLED (<130/80) BP CONTROLLED (<130/80) [facility] Start: 07-30-2023 BP CONTROLLED (<130/80) BP CONTROLLED (<130/80) [facility] Start: 04-26-2023 ANNUAL PCP TEAM CHRONIC DISEASE VISIT ANNUAL PCP TEAM CHRONIC DISEASE VISIT [facility] Start: 10-17-2022 Covid-19 Vaccine () Covid-19 Vaccine () [facility] Start: 10-17-2022 Influenza vaccination [facility] Start: 10-03-2022 ANNUAL PCP TEAM CHRONIC DISEASE VISIT ANNUAL PCP TEAM CHRONIC DISEASE VISIT [facility] Start: 10-03-2022 BP CONTROLLED (<130/80) BP CONTROLLED (<130/80) [facility] Start: 08-21-2022 ANNUAL PCP TEAM CHRONIC DISEASE VISIT ANNUAL PCP TEAM CHRONIC DISEASE VISIT [facility] Start: 06-03-2022 End: 08-03-2022 CBC W Auto Differential panel - Blood CBC + DIFF Lab STAT 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) Malignant neoplasm of lower lobe of left lung (HCC) 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) Malaise and fatigue Expected: 06/03/2022, Expires: 08/03/2022 [facility] Work Phone: Immunizations Immunization Date Immunization Notes Care Provider Fa [facility] 11-26-2019 influenza, injectabl e, quadrivalent, contains preservative Robb Leiva MD Work Phone: [facility] 11-26-2019 influenza virus vacc ine, unspecified formulation Kelly Aparicio MA [facility] 12-31-2018 influenza, injectabl e, quadrivalent, preservative free Robb Leiva MD Work Phone: [facility] Payers Date Payer Category Payer Medicare [id number] 2021 Medicaid [id number] 2021 Medicaid [id number] 2021 Medicaid [id number] 2020 Medicaid [id number] 2020 Medicare MEDICARE MEDICAR E A AND B [id number] 2020-Present [phone] [address] [address] [place] [address] Medicare [id number] 2020 Medicare [id number] Social History Date Type Detail Facility Start: 07-03-2010 End: 11-06-2022 Tobacco smoking status NHIS Never smoked tobacco [facility] Start: 04-16-2021 End: 01-12-2023 Alcohol intake Current drinker of alcohol (finding) [facility] Start: 02-21-2008 History SDOH Alcohol Comment occasional [facility] Start: 1970 Sex Assigned At Not on file [facility] Start: 04-26-2021 End: 01-14-2022 Exposure to SARS-CoV-2 (event) Not sure [facility] Start: 07-03-2010 End: 11-06-2022 Tobacco use and exposure Smokeless tobacco non-user [facility] Start: 06-30-2022 End: 08-25-2022 History of Social function [facility] Start: 06-30-2022 End: 08-25-2022 Tobacco use panel [facility] Adult Depression Screening Assessment 0 [facility] History of tobacco use Passive smoker [facility] Work Phone: Clinical Notes 03-29-2018 to 2023 Reef Kelli Buchanan RT(R) - 01/26/2023 10:20 AM Dilan Brooks MD - 01/12/2023 9:47 AM ESTTelephone Encounter - Eryn Lamar RN - 01/02/2023 11:59 AM EST Note Date & Type Note Facility 2023 Note [facility] 2023 Note HNO ID: [id number] Author: ?, ?, ? Service: ? Author Type: ? Type: Progress Notes Filed: 02/25/2023 11:41 Note Text: Unable to reach patient for refill of medication after multiple call attempts. Future follow-up scheduled. Danna Fritz [facility] 01-26-2023 Note [facility] 01-26-2023 History of Presen t illness [...] TIME: 4:02 PM documented in this encounter [facility] 01-15-2023 Note [facility] 01-12-2023 Note [facility] 01-12-2023 History of Presen t illness [...] Age of Onset Coronary Artery Disease Father [place] x 6 Hypertension Father Diabetes Father Cancer [...] which included preparing to see the patient, [id number] patient care, completing clinical documentation, obtaining and/or reviewing separately obtained history, performing a medically appropriate examination, counseling and educating the patient/family/caregiver, ordering medications, tests, or procedures, independently interpreting results (not separately reported), and communicating results to the patient/family/caregiver. Electronically Signed: Dilan Romero MD January 12, 2023 documented in this encounter [facility] 01-02-2023 Miscellaneous Notes Call to patient, message left to call me back and phone/contact number provided. Eryn Lamar RN ORAL ANTI-CANCER AGENTS FOLLOW-UP PHONE CALL/VISIT Patient is on day 21 of Cabozantinib for Renal Cell. Call to patient, message left to call me back and phone/contact number provided. Eryn Lamar RN documented in this encounter [facility] 12-19-2022 Miscellaneous Notes Sent 3rd attempt. [...] directed. Elba Brady documented in this encounter [facility] 12-15-2022 Miscellaneous Notes ORAL ANTI-CANCER AGENTS [...] reinforcement of teaching topics as needed. Eryn Lamar, MARJORIE documented in this encounter [facility] 12-15-2022 Note [facility] 12-15-2022 Note [facility] 12-15-2022 History of Presen t illness Narrative Patient had OV with Dr Romero prior to treatment please refer to OV note dated today for Vs and Assessment. documented in this encounter [facility] 11-28-2022 Note [facility] 11-28-2022 Note [facility] 11-28-2022 Note [facility] 11-28-2022 Note [facility] 11-17-2022 Note [facility] 11-17-2022 Miscellaneous Notes Spoke with patient and scheduled. Elba Brady Check out comments: - Needs neuro consult h/o CVA July 2021-did not follow up with neuro at that time. - Proceed as scheduled today for opdivo pending all labs. - Follow up as scheduled. - Pt. aware to call office with any questions/concerns. documented in this encounter [facility] 11-10-2022 Note [facility] 11-07-2022 Miscellaneous Notes Patient has been [...] advise. Kitty Morris documented in this encounter [facility] 11-06-2022 Note [facility] 11-04-2022 Note [facility] 11-04-2022 History of Presen t illness Narrative POPULATION HEALTH NAVIGATION OUTREACH Action/ no answer PacketHophart message sent ANNUAL MEDICARE WELLNESS Colorectal Cancer Screening Never done iInfluenza Vaccine(1) due on 10/17/2022 Patient Identified by Name and : NO Outreach Outcome/Action Unable to reach patient: Phone number not valid / voicemail full ReferStart message sent Did you use a PCP flex slot to schedule this appointment? No Reason for Outreach Care Gap or Scheduling/Wellness visits Payer: Payor: [employer] MEDICARE / Plan: [employer] MEDICARE PPO / [...] 2022 9:17 AM documented in this encounter [facility] 10-21-2022 Note [facility] 10-21-2022 Note [facility] 10-21-2022 Note [facility] 10-21-2022 Note HNO ID: [id number] Author: Florina Martinez RN Service: ? Author Type: Registered Nurse Type: Progress Notes Filed: 10/21/2022 10:40 AM Note Text: patient had OV with Dr Romero please refer to OV note dated today for VS and assessment. [facility] 10-21-2022 Note [facility] 10-21-2022 Miscellaneous Notes Oral chemotherapy folder [...] Silvia Lamar RN documented in this encounter [facility] 10-21-2022 History of Presen t illness Narrative patient had OV with Dr Romero please refer to OV note dated today for VS and assessment. documented in this encounter [facility] 10-21-2022 History of Presen t illness [...] Age of Onset Coronary Artery Disease Father [place] x 6 Hypertension Father Diabetes Father Cancer [...] which included preparing to see the patient, [id number] patient care, completing clinical documentation, obtaining and/or reviewing separately obtained history, performing a medically appropriate examination, counseling and educating the patient/family/caregiver, ordering medications, tests, or procedures, independently interpreting results (not separately reported), and communicating results to the patient/family/caregiver. Electronically Signed: Dilan Romero MD October 21, 2022 documented in this encounter [facility] 10-13-2022 Note [facility] 10-13-2022 History of Presen t illness [...] TIME: 2:22 PM documented in this encounter [facility] 09-22-2022 Note [facility] 09-22-2022 History of Presen t illness [...] Age of Onset Coronary Artery Disease Father [place] x 6 Hypertension Father Diabetes Father Cancer [...] which included preparing to see the patient, [id number] patient care, completing clinical documentation, obtaining and/or reviewing separately obtained history, performing a medically appropriate examination, counseling and educating the patient/family/caregiver, ordering medications, tests, or procedures, independently interpreting results (not separately reported), and communicating results to the patient/family/caregiver. Electronically Signed: Dilan Romero MD September 22, 2022 9:53 AM documented in this encounter [facility] 08-25-2022 Note [facility] 08-25-2022 Note [facility] 08-25-2022 History of Presen t illness [...] patient states understanding. documented in this encounter [facility] 08-25-2022 History of Presen t illness [...] 1.00 - 4.00 k/uL 2.58 1.31 1.95 [place]% % 9.0 4.5 8.0 Abs [place] <0.87 k/uL 1.01 (H) 0.52 0.76 Eosin% [...] as necessary for today's visit. Shelli Valles APRN.SOLOMON documented in this encounter [facility] 08-20-2022 Miscellaneous Notes 3rd attempt: LM [...] clearance. As scheduled. documented in this encounter [facility] 07-29-2022 Note [facility] 07-07-2022 Miscellaneous Notes Placed note on July appt Summary: RESCHEDULES 1st attempt: Sent [facility] When pt returns call to confirm please document in this encounter documented in this encounter [facility] 07-01-2022 Miscellaneous Notes Patient notified and verbalized understanding. Bri Valderrama RN Vit D low. Advise him to take OTC vit D3 5000 units daily. Ranjan Samuel DO documented in this encounter [facility] 06-30-2022 Note [facility] 06-10-2022 Miscellaneous Notes Third and final [...] Ranjan Samuel DO documented in this encounter [facility] 05-30-2022 Note [facility] 05-30-2022 History of Presen t illness [...] TIME: 12:11 PM documented in this encounter [facility] 04-25-2022 Note [facility] 04-25-2022 History of Presen t illness Narrative Chief Complaint Patient presents with: ER F/U: Treated for Pneumonia HPI Arnulfo Wallace is a 52 year old male who presents here today for Above Complaints.. Patient evaluated at [facility] ED on 04/18 with complaint of SOB [...] Age of Onset Coronary Artery Disease Father [place] x 6 Hypertension Father Diabetes Father Cancer [...] which included preparing to see the patient, [id number] patient care, completing clinical documentation, obtaining and/or reviewing separately obtained history, performing a medically appropriate examination, counseling and educating the patient/family/caregiver, and ordering medications, tests, or procedures. Amanda Littlejohn MD documented in this encounter [facility] 04-18-2022 Miscellaneous Notes Patient significant other calling said he is having issues with shortness of breath, no smell, no taste, coughing, sore throat, she said he has cancer and getting anxious and hyperventilating. Advised that he would need to go to ER for evaluation with his shortness of breath. She said she was going to take him to [facility] ER. documented in this encounter [facility] 04-18-2022 Miscellaneous Notes Patient has been [...] 2 pills left. documented in this encounter [facility] 03-21-2022 Miscellaneous Notes [facility] 10/03/21 NOV [...] Kimberly Cabrera Pss documented in this encounter [facility] 02-13-2022 History of Presen t illness Narrative NAME: Arnulfo Almonte [facility] NO: [id number]. DATE: 02/13/2022 DIAGNOSIS: Metastatic renal cell carcinoma [...] Abs Lymph 1.00 - 4.00 k/uL 2.02 [place]% % 7.4 Abs [place] <0.87 k/uL 0.91 (H) Eosin% % 11.2 [...] updated as necessary. Robb Leiva MD Cc: Amanda Littlejohn MD documented in this encounter [facility] 02-12-2022 Miscellaneous Notes Spoke with pt and scheduled OV for 02/13 Patient called to rescheduled his missed appointment from 02/11. Unable to accommodate OV with Dr. Leiva same day. Please advise patient is he needs to reschedule to another date to have all three appointments on the same day. documented in this encounter [facility] 01-14-2022 History of Presen t illness Narrative . documented in this encounter [facility] 12-20-2021 Miscellaneous Notes Patient notified of results, verbalizes understanding of instructions. Mitali Potter LPN Please call patient and let him know his LDL ( bad cholesterol) is mildly elevated. Recommend he continue current medication and work on low fat diet and exercising at least 150 minutes per week. Electrolyte and liver function in normal limits. Kidney function is stable. Megan Glover APRN.OIL REFINERY OPERATOR documented in this encounter [facility] 12-18-2021 Miscellaneous Notes [facility] 11/22/21 No [...] Kimberly Cabrera Pss documented in this encounter [facility] 12-17-2021 History of Presen t illness Narrative NAME: Arnulfo Almonte [facility] NO: [id number]. DATE: 12/17/2021 DIAGNOSIS: Metastatic renal cell carcinoma [...] Abs Lymph 1.00 - 4.00 k/uL 2.00 [place]% % 6.1 Abs [place] <0.87 k/uL 0.63 Eosin% % 9.2 Abs [...] updated as necessary. Robb Leiva MD Cc: Amanda Littlejohn MD documented in this encounter [facility] 12-16-2021 Miscellaneous Notes Pt does not need to r/s 12/17/21 appts. Friend had dates mixed up. No need to r/s. Patient overslept for his appointment today for labs, OV with Dr. Mccloud, and 1HR TX. Please contact the patient's friend, Carola (ok per patient), to reschedule missed appointment and make any necessary adjustments to future appointments. Thank you. documented in this encounter [facility] 11-19-2021 History of Presen t illness [...] 2021 12:41 PM documented in this encounter [facility] 10-30-2021 Miscellaneous Notes Called pt, left message on VM. He missed his lab apt today. I advised him to call and reschedule his lab apt and have his labs drawn this week Dahiana Maurer LPN documented in this encounter [facility] 10-24-2021 Miscellaneous Notes Scheduled. Michelle Umana [...] Ranjan Samuel DO documented in this encounter [facility] 10-16-2021 Miscellaneous Notes The following approved medication requests have been transmitted electronically. Requested Prescriptions Pending Prescriptions Disp Refills benzonatate (TESSALON PERLE) 100 mg capsule 30 capsule 0 Sig: Take 1 capsule by mouth three times daily as needed for up to 10 days. Stefani Butcher APRN.CNP Patient has been identified by name and [...] advise. Kitty Morris documented in this encounter [facility] 10-16-2021 Miscellaneous Notes Patient's request for [...] advise. Stefani Plunkett documented in this encounter [facility] 10-07-2021 Miscellaneous Notes Patient notified of results, verbalizes understanding of instructions.. Mitali Potter LPN Left message for patient to return call to office [place] Rojas Cma ----- Message from Amanda Littlejohn MD sent at 10/04/2021 8:36 AM EDT ----- Please notify patient his COVID and flu test were negative. May end isolation at this time and continue supportive care as discussed in office. documented in this encounter [facility] 09-20-2021 History of Presen t illness Narrative NAME: Arnulfo Almonte [facility] NO: [id number]. DATE: 09/20/2021 DIAGNOSIS: Metastatic renal cell carcinoma [...] Abs Lymph 1.00 - 4.00 k/uL 1.41 [place]% % 6.6 Abs [place] <0.87 k/uL 0.53 Eosin% % 7.3 Abs [...] updated as necessary. Robb Leiva MD Cc: Amanda Littlejohn MD documented in this encounter [facility] 09-18-2021 History of Presen t illness [...] TIME: 3:16 PM documented in this encounter [facility] 09-17-2021 Miscellaneous Notes Pt notified. Lindsay Griffiths LPN Message left for patient/caregiver to return call for questions they had regarding plavix and ASA. As well as to advise atorvastatin had been filled/sent last week. Sent script for atorvastatin a week ago. Megan Glover APRN.CNP Patient was to follow-up with neurology regarding the Plavix and ASS. Megan Glover APRN.CNP Elba- armor senior sergeant- phoned with patient on line. Reports she believes patient was to take asa 81 mg and plavix 75 mg for 3 weeks after stroke. Patient took last plavix today. Asking Trade Show Specialist to please advise on this. Reports they only wanted him to take it 3 weeks, since had stroke b/c he was trying to have BM and bare down, and it caused a small vessel to burst. Patient has been identified by name and date of : Yes Patient and armor senior sergeant phones for refill(s): Pending Prescriptions Disp Refills [...] Previous labs/tests for medication: Cholesterol: LDL Chol, [employer] [place] (mg/dL) Date Value 02/21/2008 138 ALT (U/L) Date Value 08/26/2021 40 04/05/2021 17 Please advise. Thank you. Tristan Parrish RN documented in this encounter [facility] 09-17-2021 Miscellaneous Notes Patient has been [...] Lindsay Griffiths LPN documented in this encounter [facility] 09-02-2021 Miscellaneous Notes OSH imaging/records pending: September 02, 2021 Faxed over an Authorization of PAN form to the Medical Records Department at [facility] to have imaging on the patient push through to the PACS System. documented in this encounter [facility] 08-29-2021 Miscellaneous Notes Patient was seen [...] before placing a referral. Thanks Megan Glover APRN.SOLOMON Images from the original note were not included. I placed his hospital paperwork in your inbox. Can we get some records from the hospital for me to review so I can see what type of hernia they may have discussed with them. Thanks, Megan Glover APRN.OIL REFINERY OPERATOR Pts girlfriend called to give information about pts recent hospital stay. She stated it was noted at the hospital that he may have a hernia as well as having the stroke. [facility] suggested seeing a surgeon to have that looked at. Pt is experiencing some pain and would like to know if a referral could be placed to see Dr. Varma. He does have an appt with Megan Glover on 08/21/21 documented in this encounter [facility] 08-28-2021 Miscellaneous Notes Pt calling for med refill ART[facility]O: 08/21/21 NOV: 11/22/21 Last Refill: 05/09/21 18g 1 refill Vandana Zuñiga LPN documented in this encounter [facility] 08-26-2021 History of Presen t illness Narrative Assessment unchanged from Dr leiva office visit on 08/23/21. documented in this encounter [facility] 08-23-2021 History of Presen t illness [...] 2021 1:23 PM documented in this encounter [facility] 08-21-2021 History of Presen t illness Narrative 08/21/2021 Patient presents with: Hospital Follow Up: [facility] discharged 08/13/21 TIA SUBJECTIVE: This is a 51 year old that is here today for Above Complaints HOSPITAL/ER FOLLOW UP: Reason for visit: Right facial numbness and tingling Which facility: [facility] Date of visit: 08/11/2021-08/13/2021 Diagnosis: basal ganglia [...] for some time- recent CT ABD/PEL from [facility] confirms slight fat containing left inguinal hernia [...] and speech therapy as scheduled Megan Glover APRN.OIL REFINERY OPERATOR Prescription instructions reviewed with patient as applicable. Patient advised if symptoms do not improve or if symptoms worsen sooner, to contact their primary care physician. Potential red flag symptoms discussed with the patient. Reviewed appropriate action plan to take if red flag symptoms occur. Patient agreeable to treatment plan. documented in this encounter [facility] 08-14-2021 Miscellaneous Notes Printed for review Dahiana Maurer LPN OK. Get discharge summary and any CT or MRI scans from [facility]. Robb Leiva MD Pts girlfriend, Elba, called with update on pt. Pt was present in call also. She stated he had been in the hospital from 08/10/21 through 08/13/21. Determined to have had a stroke. Pt wanted Dr. Leiva to be aware. It was [facility]. documented in this encounter [facility] 07-24-2021 Miscellaneous Notes Patient called in and scheduled CT scan W IVcon please please lab order for Creatinine. documented in this encounter [facility] 07-02-2021 Miscellaneous Notes Message left for patient to contact office. Please inform patient that he will only need to come in on treatment dates only, please arrive 30 minutes prior to lab work. Document and close once relayed. documented in this encounter [facility] 07-01-2021 Miscellaneous Notes Social Work Problem Referral Note INFORMATION/REFERRAL : Arnulfo Suzy Wallace 51 year old male was referred [...] stating he is thinking about traveling to [place] more to spend time with his daughter. Patient is wanting to know if he would be able to get his treatments at a [facility] facility down there. SURINDER informed patient there are [facility] facilities down there, but insurance may be an issues since he has [place] Medicare/Medicaid. Patient understands and will call the facility in [place] for more information. SURINDER informed patient he may need [place] insurance in order for treatments to be covered there. Patient denies other needs. F/U APPOINTMENT: PRN Assigned SW listed in Care Team tab: Yes KRISTOPHER Walker documented in this encounter [facility] 06-28-2021 History of Presen t illness Narrative NAME: Arnulfo Almonte [facility] NO: [id number]. DATE: 06/28/2021 DIAGNOSIS: Metastatic renal cell carcinoma [...] Abs Lymph 1.00 - 4.00 k/uL 1.89 [place]% % 5.8 Abs [place] <0.87 k/uL 0.59 Eosin% % 11.0 Abs [...] as necessary. Robb Leiva MD Cc: Dr. Amanda Littlejohn documented in this encounter [facility] 06-28-2021 History of Presen t illness [...] 2021 1:45 PM documented in this encounter [facility] 05-30-2021 Miscellaneous Notes Left message for patient to return call. When patient calls, please advise him that his appointments for 05/31/21 have been moved up 15 minutes to accommodate an urgent patient. Once relayed, document and close this note. Elba Brady documented in this encounter [facility] documented as of this encounter (statuses as of 06/10/2021) [facility] of Past illness Narrative* Problem Noted Date Resolved Date Malignant neoplasm of lower lobe of left lung 04/09/2018 Essential hypertension, benign 06/05/2011 0 03/29/2018 documented as of this encounter (statuses as of 06/29/2021) [facility] of [facility] Narrative* Problem Noted Date Resolved Date Malignant neoplasm of lower lobe of left lung 04/09/2018 Essential hypertension, benign 06/05/2011 0 03/29/2018 documented as of this encounter (statuses as of 06/29/2021) [facility] of Past illness Narrative* Problem Noted Date Resolved Date Malignant neoplasm of lower lobe of left lung 04/09/2018 Essential hypertension, benign 06/05/2011 0 03/29/2018 documented as of this encounter (statuses as of 07/01/2021) [facility] of [facility] Narrative* Problem Noted Date Resolved Date Malignant neoplasm of lower lobe of left lung 04/09/2018 Essential hypertension, benign 06/05/2011 0 03/29/2018 documented as of this encounter (statuses as of 07/01/2021) [facility] of [facility] Narrative* Problem Noted Date Resolved Date Malignant neoplasm of lower lobe of left lung 04/09/2018 Essential hypertension, benign 06/05/2011 0 03/29/2018 documented as of this encounter (statuses as of 07/05/2021) [facility] of [facility] Narrative* Problem Noted Date Resolved Date Malignant neoplasm of lower lobe of left lung 04/09/2018 Essential hypertension, benign 06/05/2011 0 03/29/2018 documented as of this encounter (statuses as of 07/24/2021) [facility] of [facility] Narrative* Problem Noted Date Resolved Date Malignant neoplasm of lower lobe of left lung 04/09/2018 Essential hypertension, benign 06/05/2011 0 03/29/2018 documented as of this encounter (statuses as of 07/29/2021) [facility] of [facility] Narrative* Problem Noted Date Resolved Date Malignant neoplasm of lower lobe of left lung 04/09/2018 Essential hypertension, benign 06/05/2011 0 03/29/2018 documented as of this encounter (statuses as of 08/15/2021) [facility] of [facility] Narrative* Problem Noted Date Resolved Date Malignant neoplasm of lower lobe of left lung 04/09/2018 Essential hypertension, benign 06/05/2011 0 03/29/2018 documented as of this encounter (statuses as of 08/21/2021) [facility] Narrative* Problem Noted Date Resolved Date Malignant neoplasm of lower lobe of left lung 04/09/2018 Essential hypertension, benign 06/05/2011 0 03/29/2018 documented as of this encounter (statuses as of 08/24/2021) [address]2019 History of Past illness Narrative* Problem Noted Date Resolved Date Malignant neoplasm of lower lobe of left lung 04/09/2018 Essential hypertension, benign 06/05/2011 0 03/29/2018 documented as of this encounter (statuses as of 08/26/2021) [facility] Narrative* Problem Noted Date Resolved Date Malignant neoplasm of lower lobe of left lung 04/09/2018 Essential hypertension, benign 06/05/2011 0 03/29/2018 documented as of this encounter (statuses as of 08/28/2021) [facility] of [facility] Narrative* Problem Noted Date Resolved Date Malignant neoplasm of lower lobe of left lung 04/09/2018 Essential hypertension, benign 06/05/2011 0 03/29/2018 documented as of this encounter (statuses as of 09/02/2021) [facility] Narrative* Problem Noted Date Resolved Date Malignant neoplasm of lower lobe of left lung 04/09/2018 Essential hypertension, benign 06/05/2011 0 03/29/2018 documented as of this encounter (statuses as of 09/17/2021) [facility] of Past [facility] Narrative* Problem Noted Date Resolved Date Malignant neoplasm of lower lobe of left lung 04/09/2018 Essential hypertension, benign 06/05/2011 0 03/29/2018 documented as of this encounter (statuses as of 09/19/2021) [facility] of [facility] Narrative* Problem Noted Date Resolved Date Malignant neoplasm of lower lobe of left lung 04/09/2018 Essential hypertension, benign 06/05/2011 0 03/29/2018 documented as of this encounter (statuses as of 09/19/2021) [facility] Narrative* Problem Noted Date Resolved Date Malignant neoplasm of lower lobe of left lung 04/09/2018 Essential hypertension, benign 06/05/2011 0 03/29/2018 documented as of this encounter (statuses as of 09/21/2021) [facility] Narrative* Problem Noted Date Resolved Date Malignant neoplasm of lower lobe of left lung 04/09/2018 Essential hypertension, benign 06/05/2011 0 03/29/2018 documented as of this encounter (statuses as of 10/07/2021) [facility] Narrative* Problem Noted Date Resolved Date Malignant neoplasm of lower lobe of left lung 04/09/2018 Essential hypertension, benign 06/05/2011 0 03/29/2018 documented as of this encounter (statuses as of 10/16/2021) [facility] Narrative* Problem Noted Date Resolved Date Malignant neoplasm of lower lobe of left lung 04/09/2018 Essential hypertension, benign 06/05/2011 0 03/29/2018 documented as of this encounter (statuses as of 10/19/2021) [facility] Narrative* Problem Noted Date Resolved Date Malignant neoplasm of lower lobe of left lung 04/09/2018 Essential hypertension, benign 06/05/2011 0 03/29/2018 documented as of this encounter (statuses as of 10/22/2021) [address] History of Past illness Narrative* Problem Noted Date Resolved Date Malignant neoplasm of lower lobe of left lung 04/09/2018 Essential hypertension, benign 06/05/2011 0 03/29/2018 documented as of this encounter (statuses as of 10/24/2021) [facility] Past illness Narrative* Problem Noted Date Resolved Date Malignant neoplasm of lower lobe of left lung 04/09/2018 Essential hypertension, benign 06/05/2011 0 03/29/2018 documented as of this encounter (statuses as of 10/29/2021) [place] [address]-11-2019 History of Past illness Narrative* Problem Noted Date Resolved Date Malignant neoplasm of lower lobe of left lung 04/09/2018 Essential hypertension, benign 06/05/2011 0 03/29/2018 documented as of this encounter (statuses as of 10/30/2021) [place] [address]-11-2019 History of Past illness Narrative* Problem Noted Date Resolved Date Malignant neoplasm of lower lobe of left lung 04/09/2018 Essential hypertension, benign 06/05/2011 0 03/29/2018 documented as of this encounter (statuses as of 11/20/2021) [facility] Narrative* Problem Noted Date Resolved Date Malignant neoplasm of lower lobe of left lung 04/09/2018 Essential hypertension, benign 06/05/2011 0 03/29/2018 documented as of this encounter (statuses as of 12/17/2021) [facility] of Past illness Narrative* Problem Noted Date Resolved Date Malignant neoplasm of lower lobe of left lung 04/09/2018 Essential hypertension, benign 06/05/2011 0 03/29/2018 documented as of this encounter (statuses as of 12/17/2021) [place] [address]-11-2019 History of Past illness Narrative* Problem Noted Date Resolved Date Malignant neoplasm of lower lobe of left lung 04/09/2018 Essential hypertension, benign 06/05/2011 0 03/29/2018 documented as of this encounter (statuses as of 12/18/2021) [address]11-2019 History of Past illness Narrative* Problem Noted Date Resolved Date Malignant neoplasm of lower lobe of left lung 04/09/2018 Essential hypertension, benign 06/05/2011 0 03/29/2018 documented as of this encounter (statuses as of 12/20/2021) [facility] Narrative* Problem Noted Date Resolved Date Malignant neoplasm of lower lobe of left lung 04/09/2018 Essential hypertension, benign 06/05/2011 0 03/29/2018 documented as of this encounter (statuses as of 01/04/2022) [address]-2019 History of Past illness Narrative* Problem Noted Date Resolved Date Malignant neoplasm of lower lobe of left lung 04/09/2018 Essential hypertension, benign 06/05/2011 0 03/29/2018 documented as of this encounter (statuses as of 01/04/2022) [facility] Narrative* Problem Noted Date Resolved Date Malignant neoplasm of lower lobe of left lung 04/09/2018 Essential hypertension, benign 06/05/2011 0 03/29/2018 documented as of this encounter (statuses as of 01/14/2022) [facility] of Past [facility] Narrative* Problem Noted Date Resolved Date Malignant neoplasm of lower lobe of left lung 04/09/2018 Essential hypertension, benign 06/05/2011 0 03/29/2018 documented as of this encounter (statuses as of 01/28/2022) [facility] Past [facility] Narrative* Problem Noted Date Resolved Date Malignant neoplasm of lower lobe of left lung 04/09/2018 Essential hypertension, benign 06/05/2011 0 03/29/2018 documented as of this encounter (statuses as of 02/18/2022) [place] [address]-11-2019 History of Past illness Narrative* Problem Noted Date Resolved Date Malignant neoplasm of lower lobe of left lung 04/09/2018 Essential hypertension, benign 06/05/2011 0 03/29/2018 documented as of this encounter (statuses as of 02/19/2022) [address]11-2019 History of Past illness Narrative* Problem Noted Date Resolved Date Malignant neoplasm of lower lobe of left lung 04/09/2018 Essential hypertension, benign 06/05/2011 0 03/29/2018 documented as of this encounter (statuses as of 02/19/2022) [facility] Narrative* Problem Noted Date Resolved Date Malignant neoplasm of lower lobe of left lung 04/09/2018 Essential hypertension, benign 06/05/2011 0 03/29/2018 documented as of this encounter (statuses as of 03/10/2022) [facility] Narrative* Problem Noted Date Resolved Date Malignant neoplasm of lower lobe of left lung 04/09/2018 Essential hypertension, benign 06/05/2011 0 03/29/2018 documented as of this encounter (statuses as of 03/11/2022) [facility] Narrative* Problem Noted Date Resolved Date Malignant neoplasm of lower lobe of left lung 04/09/2018 Essential hypertension, benign 06/05/2011 0 03/29/2018 documented as of this encounter (statuses as of 03/22/2022) [address]2019 History of Past illness Narrative* Problem Noted Date Resolved Date Malignant neoplasm of lower lobe of left lung 04/09/2018 Essential hypertension, benign 06/05/2011 0 03/29/2018 documented as of this encounter (statuses as of 04/08/2022) [facility] Narrative* Problem Noted Date Resolved Date Malignant neoplasm of lower lobe of left lung 04/09/2018 Essential hypertension, benign 06/05/2011 0 03/29/2018 documented as of this encounter (statuses as of 04/18/2022) [facility] Narrative* Problem Noted Date Resolved Date Malignant neoplasm of lower lobe of left lung 04/09/2018 Essential hypertension, benign 06/05/2011 0 03/29/2018 documented as of this encounter (statuses as of 04/25/2022) [facility] of [facility] Narrative* Problem Noted Date Resolved Date Malignant neoplasm of lower lobe of left lung 04/09/2018 Essential hypertension, benign 06/05/2011 0 03/29/2018 documented as of this encounter (statuses as of 04/29/2022) [facility] Narrative* Problem Noted Date Resolved Date Malignant neoplasm of lower lobe of left lung 04/09/2018 Essential hypertension, benign 06/05/2011 0 03/29/2018 documented as of this encounter (statuses as of 05/06/2022) [facility] Narrative* Problem Noted Date Resolved Date Malignant neoplasm of lower lobe of left lung 04/09/2018 Essential hypertension, benign 06/05/2011 0 03/29/2018 documented as of this encounter (statuses as of 05/06/2022) [facility] Narrative* Problem Noted Date Resolved Date Malignant neoplasm of lower lobe of left lung 04/09/2018 Essential hypertension, benign 06/05/2011 0 03/29/2018 documented as of this encounter (statuses as of 06/02/2022) [facility] Narrative* Problem Noted Date Resolved Date Malignant neoplasm of lower lobe of left lung 04/09/2018 Essential hypertension, benign 06/05/2011 0 03/29/2018 documented as of this encounter (statuses as of 06/03/2022) [facility] Narrative* Problem Noted Date Resolved Date Malignant neoplasm of lower lobe of left lung 04/09/2018 Essential hypertension, benign 06/05/2011 0 03/29/2018 documented as of this encounter (statuses as of 06/03/2022) [facility] Narrative* Problem Noted Date Resolved Date Malignant neoplasm of lower lobe of left lung 04/09/2018 Essential hypertension, benign 06/05/2011 0 03/29/2018 documented as of this encounter (statuses as of 06/10/2022) [facility] of Past [facility] Narrative* Problem Noted Date Resolved Date Malignant neoplasm of lower lobe of left lung 04/09/2018 Essential hypertension, benign 06/05/2011 0 03/29/2018 documented as of this encounter (statuses as of 06/28/2022) [facility] Narrative* Problem Noted Date Resolved Date Malignant neoplasm of lower lobe of left lung 04/09/2018 Essential hypertension, benign 06/05/2011 0 03/29/2018 documented as of this encounter (statuses as of 07/01/2022) [facility] Narrative* Problem Noted Date Resolved Date Malignant neoplasm of lower lobe of left lung 04/09/2018 Essential hypertension, benign 06/05/2011 0 03/29/2018 documented as of this encounter (statuses as of 08/22/2022) [facility] Narrative* Problem Noted Date Diagnosed Date Resolved Date Malignant neoplasm of lower lobe of left lung 03/29/19 19 04/09/2018 Essential hypertension, benign 06/05/2011 03/29/2018 documented as of this encounter (statuses as of 08/25/2022) [facility] Narrative* Problem Noted Date Diagnosed Date Resolved Date Malignant neoplasm of lower lobe of left lung 03/29/19 19 04/09/2018 Essential hypertension, benign 06/05/2011 03/29/2018 documented as of this encounter (statuses as of 08/26/2022) [facility] Narrative* Problem Noted Date Diagnosed Date Resolved Date Malignant neoplasm of lower lobe of left lung 03/29/19 19 04/09/2018 Essential hypertension, benign 06/05/2011 03/29/2018 documented as of this encounter (statuses as of 08/28/2022) [facility] Narrative* Problem Noted Date Diagnosed Date Resolved Date Malignant neoplasm of lower lobe of left lung 03/29/19 19 04/09/2018 Essential hypertension, benign 06/05/2011 03/29/2018 documented as of this encounter (statuses as of 09/22/2022) [facility] Narrative* Problem Noted Date Diagnosed Date Resolved Date Malignant neoplasm of lower lobe of left lung 03/29/19 19 04/09/2018 Essential hypertension, benign 06/05/2011 03/29/2018 documented as of this encounter (statuses as of 09/22/2022) [facility] Narrative* Problem Noted Date Diagnosed Date Resolved Date Malignant neoplasm of lower lobe of left lung 03/29/19 19 04/09/2018 Essential hypertension, benign 06/05/2011 03/29/2018 documented as of this encounter (statuses as of 10/21/2022) [facility] Narrative* Problem Noted Date Diagnosed Date Resolved Date Malignant neoplasm of lower lobe of left lung 03/29/19 19 04/09/2018 Essential hypertension, benign 06/05/2011 03/29/2018 documented as of this encounter (statuses as of 10/21/2022) [facility] Narrative* Problem Noted Date Diagnosed Date Resolved Date Malignant neoplasm of lower lobe of left lung 03/29/19 19 04/09/2018 Essential hypertension, benign 06/05/2011 03/29/2018 documented as of this encounter (statuses as of 10/21/2022) [facility] Narrative* Problem Noted Date Diagnosed Date Resolved Date Malignant neoplasm of lower lobe of left lung 03/29/19 19 04/09/2018 Essential hypertension, benign 06/05/2011 03/29/2018 documented as of this encounter (statuses as of 11/04/2022) [facility] Narrative* Problem Noted Date Diagnosed Date Resolved Date Malignant neoplasm of lower lobe of left lung 03/29/19 19 04/09/2018 Essential hypertension, benign 06/05/2011 03/29/2018 documented as of this encounter (statuses as of 11/08/2022) [facility] Narrative* Problem Noted Date Diagnosed Date Resolved Date Malignant neoplasm of lower lobe of left lung 03/29/19 19 04/09/2018 Essential hypertension, benign 06/05/2011 03/29/2018 documented as of this encounter (statuses as of 11/10/2022) [facility] Narrative* Problem Noted Date Diagnosed Date Resolved Date Malignant neoplasm of lower lobe of left lung 03/29/19 19 04/09/2018 Essential hypertension, benign 06/05/2011 03/29/2018 documented as of this encounter (statuses as of 11/18/2022) [facility] Narrative* Problem Noted Date Diagnosed Date Resolved Date Malignant neoplasm of lower lobe of left lung 03/29/19 19 04/09/2018 Essential hypertension, benign 06/05/2011 03/29/2018 documented as of this encounter (statuses as of 11/18/2022) [facility] Narrative* Problem Noted Date Diagnosed Date Resolved Date Malignant neoplasm of lower lobe of left lung 03/29/19 19 04/09/2018 Essential hypertension, benign 06/05/2011 03/29/2018 documented as of this encounter (statuses as of 11/28/2022) [facility] Narrative* Problem Noted Date Diagnosed Date Resolved Date Malignant neoplasm of lower lobe of left lung 03/29/19 19 04/09/2018 Essential hypertension, benign 06/05/2011 03/29/2018 documented as of this encounter (statuses as of 12/15/2022) [facility]* Problem Noted Date Diagnosed Date Resolved Date Malignant neoplasm of lower lobe of left lung 03/29/19 19 04/09/2018 Essential hypertension, benign 06/05/2011 03/29/2018 documented as of this encounter (statuses as of 12/16/2022) [facility]* Problem Noted Date Diagnosed Date Resolved Date Malignant neoplasm of lower lobe of left lung 03/29/19 19 04/09/2018 Essential hypertension, benign 06/05/2011 03/29/2018 documented as of this encounter (statuses as of 12/20/2022) [facility]* Problem Noted Date Diagnosed Date Resolved Date Malignant neoplasm of lower lobe of left lung 03/29/19 19 04/09/2018 Essential hypertension, benign 06/05/2011 03/29/2018 documented as of this encounter (statuses as of 12/21/2022) [facility] Narrative* Problem Noted Date Diagnosed Date Resolved Date Malignant neoplasm of lower lobe of left lung 03/29/19 19 04/09/2018 Essential hypertension, benign 06/05/2011 03/29/2018 documented as of this encounter (statuses as of 12/21/2022) [facility] Narrative* Problem Noted Date Diagnosed Date Resolved Date Malignant neoplasm of lower lobe of left lung 03/29/19 19 04/09/2018 Essential hypertension, benign 06/05/2011 03/29/2018 documented as of this encounter (statuses as of 12/21/2022) [facility]* Problem Noted Date Diagnosed Date Resolved Date Malignant neoplasm of lower lobe of left lung 03/29/19 19 04/09/2018 Essential hypertension, benign 06/05/2011 03/29/2018 documented as of this encounter (statuses as of 12/21/2022) [facility]* Problem Noted Date Diagnosed Date Resolved Date Malignant neoplasm of lower lobe of left lung 03/29/19 19 04/09/2018 Essential hypertension, benign 06/05/2011 03/29/2018 documented as of this encounter (statuses as of 01/02/2023) [facility]* Problem Noted Date Diagnosed Date Resolved Date Malignant neoplasm of lower lobe of left lung 03/29/19 19 04/09/2018 Essential hypertension, benign 06/05/2011 03/29/2018 documented as of this encounter (statuses as of 01/12/2023) [facility] Narr[facility]* Problem Noted Date Diagnosed Date Resolved Date Malignant neoplasm of lower lobe of left lung 03/29/19 19 04/09/2018 Essential hypertension, benign 06/05/2011 03/29/2018 documented as of this encounter (statuses as of 01/13/2023) [facility]* Problem Noted Date Diagnosed Date Resolved Date Malignant neoplasm of lower lobe of left lung 03/29/19 19 04/09/2018 Essential hypertension, benign 06/05/2011 03/29/2018 documented as of this encounter (statuses as of 01/27/2023) [facility]* Problem Noted Date Diagnosed Date Resolved Date Malignant neoplasm of lower lobe of left lung 03/29/19 19 04/09/2018 Essential hypertension, benign 06/05/2011 03/29/2018 documented as of this encounter (statuses as of 01/27/2023) [facility] 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) Bone metastases (HCC) Secondary malignant neoplasm of bone and bone marrow Malignant neoplasm of right kidney, except renal pelvis (HCC) Malignant neoplasm of kidney, except pelvis Renal cell carcinoma of right kidney [facility]HCC[facility] Primary [...] and bone marrow documented in this encounter [facility]* Diagnosis Renal cell carcinoma of right kidney (HCC) documented in this encounter [facility] note* Diagnosis 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) documented in this encounter [facility] note* Diagnosis Renal cell carcinoma of right kidney (HCC)- Primary 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) Malignant neoplasm metastatic to lung, unspecified laterality (HCC) documented in this encounter [facility] note* Diagnosis Malignant neoplasm of lower lobe of left lung (HCC) 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) documented [facility] encounter [facility] Summary Purpose Family History No Family History Records FoundNo Family History Records Found Advance Directives No Advanced Directives Records FoundDocuments on File Type Date Recorded 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 Advance Directive(s) 03/23/2020 12:49 PM Advance Directive(s) 05/03/2018 10:43 AM Documents on File Type Date Recorded 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 Advance Directive(s) 03/23/2020 12:49 PM Advance Directive(s) 05/03/2018 10:43 AM Reason for Referral Specialty Diagnoses / Procedures Referred By Delio t Referred To Contact CT IMAGING Diagnoses Bone metastases (HCC) 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) Renal cell carcinoma of right kidney (HCC) Malignant neoplasm of lower lobe of left lung (HCC) Malignant neoplasm of right kidney, except renal pelvis (HCC) Procedures CT CHEST W IVCON DIAGNOSTIC COMPUTED TOMOGRAPHY THORAX W/CONTRAST Robb Leiva MD [address] [place] [id number] Imaging Referral ID Status Reason Start Date Expiration Date Visits Requested Visits Authorized [id number] Pending Review Auto-Generat ed Referral 09/28/2021 07/28/2022 [...] & PELVIS W/CONTRAST Robb Leiva MD [address] [place] [address] Ct Imaging Referral ID Status Reason Start Date Expiration Date Visits Requested Visits Authorized [id number] Pending Review Auto-Generat ed Referral 09/28/2021 07/28/2022 1 1 Specialty Diagnoses / Procedures Referred By Contac t Referred To Contact General Surgery Diagnoses Inguinal hernia, left Procedures CONSULT TO GENERAL SURGERY OFFICE/OUTPATIENT [facility] 60-74 MINUTES 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, 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 [address] [place] [address] Referral ID Status Reason Start Date Expiration Date Visits Requested Visits Authorized [id number] Authorized PCP Requested Referral 08/21/2021 08/21/2022 1 [...] THORAX W/CONTRAST Robb Leiva MD [address] [place] [address] Ct Imaging Referral ID Status Reason Start Date Expiration Date V isits Requested Visits Authorized [id number] Closed Auto-Generate d Referral 09/28/2021 07/28/2022 1 [...] PELVIS W/CONTRAST Robb Leiva MD [address] [place] [address] Ct Imaging Referral ID Status Reason Start Date Expiration Date V isits Requested Visits Authorized [id number] Closed Auto-Generate d Referral 09/28/2021 07/28/2022 1 [...] W/CONTRAST Robb Leiva MD [address] [place] [address] Ct Imaging Referral ID Status Reason Start Date Expiration Date Visits Requested Visits Authorized [id number] Pending Review Auto-Generat ed Referral 05/14/2022 03/15/2023 [...] W/CONTRAST Robb Leiva MD [address] [place] [address] Ct Imaging Referral ID Status Reason Start Date Expiration Date Visits Requested Visits Authorized [id number] Pending Review Auto-Generat ed Referral 05/14/2022 03/15/2023 1 1 Specialty Diagnoses / Procedures Referred By Contac t Referred To Contact CT IMAGING Diagnoses Renal cell carcinoma of right kidney (HCC) Procedures CT CHEST W IVCON DIAGNOSTIC COMPUTED TOMOGRAPHY THORAX W/[place] [address] [place] [address] Ct Imaging Referral ID Status Reason Start Date Expiration Date Visits Requested Visits Authorized [id number] Authorized Auto-Generat ed Referral 09/22/2022 10/22/2023 1 1 Specialty Diagnoses / Procedures Referred By Contac t Referred To Contact CT IMAGING Diagnoses Renal cell carcinoma of right kidney (HCC) Procedures CT ABD/PEL W IVCON CT ABD & PELVIS W/[place] [address] [place] [phone] Imaging Referral ID Status Reason Start Date Expiration Date Visits Requested Visits Authorized [id number] Authorized Auto-Generat ed Referral 09/22/2022 10/22/2023 1 1 Specialty Diagnoses / Procedures Referred By Contac t Referred To Contact Urology Diagnoses Renal cell carcinoma of right kidney (HCC) Procedures CONSULT TO UROLOGY OFFICE/OUTPATIENT [facility] 60-[place] [address] [place] [address] Referral ID Status Reason Start Date Expiration Date Visits Requested Visits Authorized [id number] Authorized PCP Requested Referral 10/21/2022 10/21/2023 1 1 [facility] Diagnoses [facility] Diagnoses Malignant neoplasm of lower lobe of left lung (HCC) 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) Bone metastases Procedures CT CHEST W IVCON DIAGNOSTIC COMPUTED TOMOGRAPHY THORAX W/CONTRAST Robb Leiva MD [address] [place] [address] Ct Imaging [place] [address] Referral ID Status Reason Start Date Expiration Date V isits Requested Visits Authorized [id number] Closed Auto-Generate d Referral 05/14/2022 03/15/2023 1 [...] ABD & PELVIS W/CONTRAST Robb Leiva MD [address] [place] [phone] [place] [address] Referral ID Status Reason Start Date Expiration Date V isits Requested Visits Authorized [id number] Closed Auto-Generate d Referral 05/14/2022 03/15/2023 1 1 Specialty Diagnoses / Procedures Referred By Contac t Referred To Contact CT IMAGING Diagnoses Renal cell carcinoma of right kidney (HCC) Procedures CT CHEST W IVCON DIAGNOSTIC COMPUTED TOMOGRAPHY THORAX W/[place] [address] [place] [phone] [place] [address] Referral ID Status Reason Start Date Expiration Date V isits Requested Visits Authorized [id number] Closed Auto-Generate d Referral 09/22/2022 10/22/2023 1 1 Specialty Diagnoses / Procedures Referred By Contac t Referred To Contact CT IMAGING Diagnoses Renal cell carcinoma of right kidney (HCC) Procedures CT ABD/PEL W IVCON CT ABD & PELVIS [place] [address] [place] [phone] Imaging [id number] Referral ID Status Reason Start Date Expiration Date V isits Requested Visits Authorized [id number] Closed Auto-Generate d Referral 09/22/2022 10/22/2023 1 [...] over 30 Minutes, ONCE, 1 dose, On Thu10/22/21 at 1430, EXP: 10/22/21 @ 2230 Administer [...] over 30 Minutes, ONCE, 1 dose, On Pura 02/13/22 at 1030, exp 1830 02/13/22 (room temp) [...] 1 dose, On Thu04/08/22 at 1030, exp 1830 04/08/22 (room temp) Administer with 0.2 micron filter. [...] 1 dose, On Thu08/25/22 at 1200, exp 199908/25/22 (room temp) Administer with 0.2 micron filter. [...] 1 dose, On Thu09/22/22 at 1100, exp 19009/22/22 (room temp) Administer with 0.2 micron filter. [...] over 30 Minutes, ONCE, 1 dose, On Thu11/17/22 at 1030, exp 11/24/22 (refrigerated) Administer with [...] over 30 Minutes, ONCE, 1 dose, On Thu12/15/22 at 0930, exp 1800 12/15/22 (room temp) [...] content) DATE CREATED AUTHOR AUTHOR'S ORGANIZ ATION 03/06/2023 [facility] Source Comments (unrecognize d section and content) In the event this informatio n is protected by the Federal Confidentiality of Alcohol and Drug Abuse Patient Records regulations: The Federal rules restrict any use of the information to criminally investigate or prosecute any alcohol or drug abuse patient.[facility] HospitalIn the event this information is protected by the Federal Confidentiality of Alcohol and Drug Abuse Patient Records regulations: The Federal rules restrict any use of the information to criminally investigate or prosecute any alcohol or drug abuse patient.[facility] HospitalIn the event this information is protected by the Federal Confidentiality of Alcohol and Drug Abuse Patient Records regulations: The Federal rules restrict any use of the information to criminally investigate or prosecute any alcohol or drug abuse patient.[facility] HospitalIn the event this information is protected by the Federal Confidentiality of Alcohol and Drug Abuse Patient Records regulations: The Federal rules restrict any use of the information to criminally investigate or prosecute any alcohol or drug abuse patient.[facility] HospitalIn the event this information is protected by the Federal Confidentiality of Alcohol and Drug Abuse Patient Records regulations: The Federal rules restrict any use of the information to criminally investigate or prosecute any alcohol or drug abuse patient.[facility] HospitalIn the event this information is protected by the Federal Confidentiality of Alcohol and Drug Abuse Patient Records regulations: The Federal rules restrict any use of the information to criminally investigate or prosecute any alcohol or drug abuse patient.[facility] HospitalIn the event this information is protected by the Federal Confidentiality of Alcohol and Drug Abuse Patient Records regulations: The Federal rules restrict any use of the information to criminally investigate or prosecute any alcohol or drug abuse patient.[facility] HospitalIn the event this information is protected by the Federal Confidentiality of Alcohol and Drug Abuse Patient Records regulations: The Federal rules restrict any use of the information to criminally investigate or prosecute any alcohol or drug abuse patient.[facility] HospitalIn the event this information is protected by the Federal Confidentiality of Alcohol and Drug Abuse Patient Records regulations: The Federal rules restrict any use of the information to criminally investigate or prosecute any alcohol or drug abuse patient.[facility] HospitalIn the event this information is protected by the Federal Confidentiality of Alcohol and Drug Abuse Patient Records regulations: The Federal rules restrict any use of the information to criminally investigate or prosecute any alcohol or drug abuse patient.[facility] HospitalIn the event this information is protected by the Federal Confidentiality of Alcohol and Drug Abuse Patient Records regulations: The Federal rules restrict any use of the information to criminally investigate or prosecute any alcohol or drug abuse patient.[facility] HospitalIn the event this information is protected by the Federal Confidentiality of Alcohol and Drug Abuse Patient Records regulations: The Federal rules restrict any use of the information to criminally investigate or prosecute any alcohol or drug abuse patient.[facility] HospitalIn the event this information is protected by the Federal Confidentiality of Alcohol and Drug Abuse Patient Records regulations: The Federal rules restrict any use of the information to criminally investigate or prosecute any alcohol or drug abuse patient.[facility] HospitalIn the event this information is protected by the Federal Confidentiality of Alcohol and Drug Abuse Patient Records regulations: The Federal rules restrict any use of the information to criminally investigate or prosecute any alcohol or drug abuse patient.[facility] HospitalIn the event this information is protected by the Federal Confidentiality of Alcohol and Drug Abuse Patient Records regulations: The Federal rules restrict any use of the information to criminally investigate or prosecute any alcohol or drug abuse patient.[facility] HospitalIn the event this information is protected by the Federal Confidentiality of Alcohol and Drug Abuse Patient Records regulations: The Federal rules restrict any use of the information to criminally investigate or prosecute any alcohol or drug abuse patient.[facility] HospitalIn the event this information is protected by the Federal Confidentiality of Alcohol and Drug Abuse Patient Records regulations: The Federal rules restrict any use of the information to criminally investigate or prosecute any alcohol or drug abuse patient.[facility] HospitalIn the event this information is protected by the Federal Confidentiality of Alcohol and Drug Abuse Patient Records regulations: The Federal rules restrict any use of the information to criminally investigate or prosecute any alcohol or drug abuse patient.[facility] HospitalIn the event this information is protected by the Federal Confidentiality of Alcohol and Drug Abuse Patient Records regulations: The Federal rules restrict any use of the information to criminally investigate or prosecute any alcohol or drug abuse patient.[facility] HospitalIn the event this information is protected by the Federal Confidentiality of Alcohol and Drug Abuse Patient Records regulations: The Federal rules restrict any use of the information to criminally investigate or prosecute any alcohol or drug abuse patient.[facility] HospitalIn the event this information is protected by the Federal Confidentiality of Alcohol and Drug Abuse Patient Records regulations: The Federal rules restrict any use of the information to criminally investigate or prosecute any alcohol or drug abuse patient.[facility] HospitalIn the event this information is protected by the Federal Confidentiality of Alcohol and Drug Abuse Patient Records regulations: The Federal rules restrict any use of the information to criminally investigate or prosecute any alcohol or drug abuse patient.[facility] HospitalIn the event this information is protected by the Federal Confidentiality of Alcohol and Drug Abuse Patient Records regulations: The Federal rules restrict any use of the information to criminally investigate or prosecute any alcohol or drug abuse patient.[facility] HospitalIn the event this information is protected by the Federal Confidentiality of Alcohol and Drug Abuse Patient Records regulations: The Federal rules restrict any use of the information to criminally investigate or prosecute any alcohol or drug abuse patient.[facility] HospitalIn the event this information is protected by the Federal Confidentiality of Alcohol and Drug Abuse Patient Records regulations: The Federal rules restrict any use of the information to criminally investigate or prosecute any alcohol or drug abuse patient.[facility] HospitalIn the event this information is protected by the Federal Confidentiality of Alcohol and Drug Abuse Patient Records regulations: The Federal rules restrict any use of the information to criminally investigate or prosecute any alcohol or drug abuse patient.[facility] HospitalIn the event this information is protected by the Federal Confidentiality of Alcohol and Drug Abuse Patient Records regulations: The Federal rules restrict any use of the information to criminally investigate or prosecute any alcohol or drug abuse patient.[facility] HospitalIn the event this information is protected by the Federal Confidentiality of Alcohol and Drug Abuse Patient Records regulations: The Federal rules restrict any use of the information to criminally investigate or prosecute any alcohol or drug abuse patient.[facility] HospitalIn the event this information is protected by the Federal Confidentiality of Alcohol and Drug Abuse Patient Records regulations: The Federal rules restrict any use of the information to criminally investigate or prosecute any alcohol or drug abuse patient.[facility] HospitalIn the event this information is protected by the Federal Confidentiality of Alcohol and Drug Abuse Patient Records regulations: The Federal rules restrict any use of the information to criminally investigate or prosecute any alcohol or drug abuse patient.[facility] HospitalIn the event this information is protected by the Federal Confidentiality of Alcohol and Drug Abuse Patient Records regulations: The Federal rules restrict any use of the information to criminally investigate or prosecute any alcohol or drug abuse patient.[facility] HospitalIn the event this information is protected by the Federal Confidentiality of Alcohol and Drug Abuse Patient Records regulations: The Federal rules restrict any use of the information to criminally investigate or prosecute any alcohol or drug abuse patient.[facility] HospitalIn the event this information is protected by the Federal Confidentiality of Alcohol and Drug Abuse Patient Records regulations: The Federal rules restrict any use of the information to criminally investigate or prosecute any alcohol or drug abuse patient.[facility] HospitalIn the event this information is protected by the Federal Confidentiality of Alcohol and Drug Abuse Patient Records regulations: The Federal rules restrict any use of the information to criminally investigate or prosecute any alcohol or drug abuse patient.[facility] HospitalIn the event this information is protected by the Federal Confidentiality of Alcohol and Drug Abuse Patient Records regulations: The Federal rules restrict any use of the information to criminally investigate or prosecute any alcohol or drug abuse patient.[facility] HospitalIn the event this information is protected by the Federal Confidentiality of Alcohol and Drug Abuse Patient Records regulations: The Federal rules restrict any use of the information to criminally investigate or prosecute any alcohol or drug abuse patient.[facility] HospitalIn the event this information is protected by the Federal Confidentiality of Alcohol and Drug Abuse Patient Records regulations: The Federal rules restrict any use of the information to criminally investigate or prosecute any alcohol or drug abuse patient.[facility] HospitalIn the event this information is protected by the Federal Confidentiality of Alcohol and Drug Abuse Patient Records regulations: The Federal rules restrict any use of the information to criminally investigate or prosecute any alcohol or drug abuse patient.[facility] HospitalIn the event this information is protected by the Federal Confidentiality of Alcohol and Drug Abuse Patient Records regulations: The Federal rules restrict any use of the information to criminally investigate or prosecute any alcohol or drug abuse patient.[facility] HospitalIn the event this information is protected by the Federal Confidentiality of Alcohol and Drug Abuse Patient Records regulations: The Federal rules restrict any use of the information to criminally investigate or prosecute any alcohol or drug abuse patient.[facility] HospitalIn the event this information is protected by the Federal Confidentiality of Alcohol and Drug Abuse Patient Records regulations: The Federal rules restrict any use of the information to criminally investigate or prosecute any alcohol or drug abuse patient.[facility] HospitalIn the event this information is protected by the Federal Confidentiality of Alcohol and Drug Abuse Patient Records regulations: The Federal rules restrict any use of the information to criminally investigate or prosecute any alcohol or drug abuse patient.[facility] HospitalIn the event this information is protected by the Federal Confidentiality of Alcohol and Drug Abuse Patient Records regulations: The Federal rules restrict any use of the information to criminally investigate or prosecute any alcohol or drug abuse patient.[facility] HospitalIn the event this information is protected by the Federal Confidentiality of Alcohol and Drug Abuse Patient Records regulations: The Federal rules restrict any use of the information to criminally investigate or prosecute any alcohol or drug abuse patient.[facility] HospitalIn the event this information is protected by the Federal Confidentiality of Alcohol and Drug Abuse Patient Records regulations: The Federal rules restrict any use of the information to criminally investigate or prosecute any alcohol or drug abuse patient.[facility] HospitalIn the event this information is protected by the Federal Confidentiality of Alcohol and Drug Abuse Patient Records regulations: The Federal rules restrict any use of the information to criminally investigate or prosecute any alcohol or drug abuse patient.[facility] HospitalIn the event this information is protected by the Federal Confidentiality of Alcohol and Drug Abuse Patient Records regulations: The Federal rules restrict any use of the information to criminally investigate or prosecute any alcohol or drug abuse patient.[facility] HospitalIn the event this information is protected by the Federal Confidentiality of Alcohol and Drug Abuse Patient Records regulations: The Federal rules restrict any use of the information to criminally investigate or prosecute any alcohol or drug abuse patient.[facility] HospitalIn the event this information is protected by the Federal Confidentiality of Alcohol and Drug Abuse Patient Records regulations: The Federal rules restrict any use of the information to criminally investigate or prosecute any alcohol or drug abuse patient.[facility] HospitalIn the event this information is protected by the Federal Confidentiality of Alcohol and Drug Abuse Patient Records regulations: The Federal rules restrict any use of the information to criminally investigate or prosecute any alcohol or drug abuse patient.[facility] HospitalIn the event this information is protected by the Federal Confidentiality of Alcohol and Drug Abuse Patient Records regulations: The Federal rules restrict any use of the information to criminally investigate or prosecute any alcohol or drug abuse patient.[facility] HospitalIn the event this information is protected by the Federal Confidentiality of Alcohol and Drug Abuse Patient Records regulations: The Federal rules restrict any use of the information to criminally investigate or prosecute any alcohol or drug abuse patient.[facility] HospitalIn the event this information is protected by the Federal Confidentiality of Alcohol and Drug Abuse Patient Records regulations: The Federal rules restrict any use of the information to criminally investigate or prosecute any alcohol or drug abuse patient.[facility] HospitalIn the event this information is protected by the Federal Confidentiality of Alcohol and Drug Abuse Patient Records regulations: The Federal rules restrict any use of the information to criminally investigate or prosecute any alcohol or drug abuse patient.[facility] HospitalIn the event this information is protected by the Federal Confidentiality of Alcohol and Drug Abuse Patient Records regulations: The Federal rules restrict any use of the information to criminally investigate or prosecute any alcohol or drug abuse patient.[facility] HospitalIn the event this information is protected by the Federal Confidentiality of Alcohol and Drug Abuse Patient Records regulations: The Federal rules restrict any use of the information to criminally investigate or prosecute any alcohol or drug abuse patient.[facility] HospitalIn the event this information is protected by the Federal Confidentiality of Alcohol and Drug Abuse Patient Records regulations: The Federal rules restrict any use of the information to criminally investigate or prosecute any alcohol or drug abuse patient.[facility] HospitalIn the event this information is protected by the Federal Confidentiality of Alcohol and Drug Abuse Patient Records regulations: The Federal rules restrict any use of the information to criminally investigate or prosecute any alcohol or drug abuse patient.[facility] HospitalIn the event this information is protected by the Federal Confidentiality of Alcohol and Drug Abuse Patient Records regulations: The Federal rules restrict any use of the information to criminally investigate or prosecute any alcohol or drug abuse patient.[facility] HospitalIn the event this information is protected by the Federal Confidentiality of Alcohol and Drug Abuse Patient Records regulations: The Federal rules restrict any use of the information to criminally investigate or prosecute any alcohol or drug abuse patient.[facility] HospitalIn the event this information is protected by the Federal Confidentiality of Alcohol and Drug Abuse Patient Records regulations: The Federal rules restrict any use of the information to criminally investigate or prosecute any alcohol or drug abuse patient.[facility] HospitalIn the event this information is protected by the Federal Confidentiality of Alcohol and Drug Abuse Patient Records regulations: The Federal rules restrict any use of the information to criminally investigate or prosecute any alcohol or drug abuse patient.[facility] HospitalIn the event this information is protected by the Federal Confidentiality of Alcohol and Drug Abuse Patient Records regulations: The Federal rules restrict any use of the information to criminally investigate or prosecute any alcohol or drug abuse patient.[facility] HospitalIn the event this information is protected by the Federal Confidentiality of Alcohol and Drug Abuse Patient Records regulations: The Federal rules restrict any use of the information to criminally investigate or prosecute any alcohol or drug abuse patient.[facility] HospitalIn the event this information is protected by the Federal Confidentiality of Alcohol and Drug Abuse Patient Records regulations: The Federal rules restrict any use of the information to criminally investigate or prosecute any alcohol or drug abuse patient.[facility] HospitalIn the event this information is protected by the Federal Confidentiality of Alcohol and Drug Abuse Patient Records regulations: The Federal rules restrict any use of the information to criminally investigate or prosecute any alcohol or drug abuse patient.[facility] HospitalIn the event this information is protected by the Federal Confidentiality of Alcohol and Drug Abuse Patient Records regulations: The Federal rules restrict any use of the information to criminally investigate or prosecute any alcohol or drug abuse patient.[facility] HospitalIn the event this information is protected by the Federal Confidentiality of Alcohol and Drug Abuse Patient Records regulations: The Federal rules restrict any use of the information to criminally investigate or prosecute any alcohol or drug abuse patient.[facility] HospitalIn the event this information is protected by the Federal Confidentiality of Alcohol and Drug Abuse Patient Records regulations: The Federal rules restrict any use of the information to criminally investigate or prosecute any alcohol or drug abuse patient.[facility] HospitalIn the event this information is protected by the Federal Confidentiality of Alcohol and Drug Abuse Patient Records regulations: The Federal rules restrict any use of the information to criminally investigate or prosecute any alcohol or drug abuse patient.[facility] HospitalIn the event this information is protected by the Federal Confidentiality of Alcohol and Drug Abuse Patient Records regulations: The Federal rules restrict any use of the information to criminally investigate or prosecute any alcohol or drug abuse patient.[facility] HospitalIn the event this information is protected by the Federal Confidentiality of Alcohol and Drug Abuse Patient Records regulations: The Federal rules restrict any use of the information to criminally investigate or prosecute any alcohol or drug abuse patient.[facility] HospitalIn the event this information is protected by the Federal Confidentiality of Alcohol and Drug Abuse Patient Records regulations: The Federal rules restrict any use of the information to criminally investigate or prosecute any alcohol or drug abuse patient.[facility] HospitalIn the event this information is protected by the Federal Confidentiality of Alcohol and Drug Abuse Patient Records regulations: The Federal rules restrict any use of the information to criminally investigate or prosecute any alcohol or drug abuse patient.[facility] HospitalIn the event this information is protected by the Federal Confidentiality of Alcohol and Drug Abuse Patient Records regulations: The Federal rules restrict any use of the information to criminally investigate or prosecute any alcohol or drug abuse patient.[facility] HospitalIn the event this information is protected by the Federal Confidentiality of Alcohol and Drug Abuse Patient Records regulations: The Federal rules restrict any use of the information to criminally investigate or prosecute any alcohol or drug abuse patient.[facility] HospitalIn the event this information is protected by the Federal Confidentiality of Alcohol and Drug Abuse Patient Records regulations: The Federal rules restrict any use of the information to criminally investigate or prosecute any alcohol or drug abuse patient.[facility] HospitalIn the event this information is protected by the Federal Confidentiality of Alcohol and Drug Abuse Patient Records regulations: The Federal rules restrict any use of the information to criminally investigate or prosecute any alcohol or drug abuse patient.[facility] HospitalIn the event this information is protected by the Federal Confidentiality of Alcohol and Drug Abuse Patient Records regulations: The Federal rules restrict any use of the information to criminally investigate or prosecute any alcohol or drug abuse patient.[facility] HospitalIn the event this information is protected by the Federal Confidentiality of Alcohol and Drug Abuse Patient Records regulations: The Federal rules restrict any use of the information to criminally investigate or prosecute any alcohol or drug abuse patient.[facility] HospitalIn the event this information is protected by the Federal Confidentiality of Alcohol and Drug Abuse Patient Records regulations: The Federal rules restrict any use of the information to criminally investigate or prosecute any alcohol or drug abuse patient.[facility] HospitalIn the event this information is protected by the Federal Confidentiality of Alcohol and Drug Abuse Patient Records regulations: The Federal rules restrict any use of the information to criminally investigate or prosecute any alcohol or drug abuse patient.[facility] Reason for Visit (unrecogniz ed section and content) Specialty Diagnoses / Procedures Referred By Contac t Referred To Contact Hematology/Oncology / HEMATOLOGY/ONCOLOGY Diagnoses Malignant neoplasm of right kidney, except renal pelvis C64.1 (ICD-10-CM) - Malignant neoplasm of right kidney, except renal pelvis Procedures INJECTION, NIVOLUMAB NIVOLUMAB 3 IPILIMUMAB 1 D1 - Q21D THEN NIVOLUMAB 480 D1 - [id number] Robb Leiva MD [address] [place] [address] Shelli Valles, MURALI.[facility] [address] [place] [address] Referral ID Status Reason Start Date Expiration Date V isits Requested Visits Authorized [id number] Authorized 10/19/2019 03/30/2023 44 44 Reason Comments Appointment Rescheduled Reason Comments Established Patient Reason Comments Social Work Services Reason Comments Chemotherapy Treatment Specialty Diagnoses / Procedures Referred By Contac t Referred To Contact Hematology/Oncology / HEMATOLOGY/ONCOLOGY Diagnoses Malignant neoplasm of right kidney, except renal pelvis C64.1 (ICD-10-CM) - Malignant neoplasm of right kidney, except renal pelvis Procedures INJECTION, NIVOLUMAB NIVOLUMAB 3 IPILIMUMAB 1 D1 - Q21D THEN NIVOLUMAB 480 D1 - [id number] Robb Leiva MD [address] [facility] [place] [address] Shelli Valles APRN.[employer] [address] [place] [address] Referral ID Status Reason Start Date Expiration Date V isits Requested Visits Authorized [id number] Pending Review 10/19/2019 02/08/2021 99 99 Reason Comments Future Appointment Reason Comments Lab Orders Specialty Diagnoses / Procedures Referred By [facility] Referred To Contact Hematology/Oncology / HEMATOLOGY/ONCOLOGY Diagnoses Malignant neoplasm of right kidney, except renal pelvis C64.1 (ICD-10-CM) - Malignant neoplasm of right kidney, except renal pelvis Procedures INJECTION, NIVOLUMAB NIVOLUMAB 3 IPILIMUMAB 1 D1 - Q21D THEN NIVOLUMAB 480 D1 - [id number]/[id number] Robb Leiva MD [address] [place] [address] Shelli Valles APRN.OIL REFINERY OPERATOR [address] [place] [address] Reason Comments Patient Update Reason Comments Hospital Follow Up [facility] discharged TIA Reason Onset Date Comments Refill Request 08/28/2021 Reason Comments Request Outside Medical Records [facility] 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) Renal cell carcinoma of right kidney (HCC) Malignant neoplasm of lower lobe of left lung (HCC) Malignant neoplasm of right kidney, except renal pelvis (HCC) Procedures CT CHEST W IVCON DIAGNOSTIC COMPUTED TOMOGRAPHY THORAX W/CONTRAST Robb Leiva MD [address] [place] [address] Ct Imaging Referral ID Status Reason Start Date Expiration Date V isits Requested Visits Authorized [id number] Closed Auto-Generate d Referral 09/28/2021 07/28/2022 1 [...] - Q21D THEN NIVOLUMAB 480 D1 - [id number]/NIVOLUMAB Robb Leiva MD [address] [place] [address] Shelli Valles, SUPPLY ASSISTANT.OIL REFINERY OPERATOR [address] [place] [address] Reason Onset Date Comments Refill Request 12/18/2021 Reason Comments Patient Question Referral ID Status Reason Start Date Expiration Date V isits Requested Visits Authorized [id number] Authorized 10/19/2019 01/13/2023 42 42 Reason Comments Appointment Referral ID Status Reason Start Date Expiration Date V isits Requested Visits Authorized [id number] Pending Review 10/19/2019 01/13/2023 42 42 Reason Onset Date Comments Refill Request 03/20/2022 Referral ID Status Reason Start Date Expiration Date V isits Requested Visits Authorized [id number] Authorized 10/19/2019 08/16/2022 99 99 Reason Onset [...] - Q21D THEN NIVOLUMAB 480 D1 - [id number]/NIVOLUMAB Robb Leiva MD [address] [place] [address] [place] [address] Shelli Valles, MURALI.OIL REFINERY OPERATOR [address] [place] [address] Referral ID Status Reason Start Date Expiration Date V isits Requested Visits Authorized [id number] Authorized 10/19/2019 12/07/2022 40 40 Reason Comments [...] IVCON DIAGNOSTIC COMPUTED TOMOGRAPHY THORAX W/[place] [address] [place] [address] Ct Imaging [place] [address] Referral ID Status Reason Start Date Expiration Date V isits Requested Visits Authorized [id number] Closed Auto-Generate d Referral 09/22/2022 10/22/2023 1 [...] COMPUTED TOMOGRAPHY THORAX W/CONTRAST Robb Leiva MD [address] [place] [address] [place] [address] Referral ID Status Reason Start Date Expiration Date V isits Requested Visits Authorized [id number] Closed Auto-Generate d Referral 05/14/2022 03/15/2023 [address] Specialty Diagnoses / Procedures [facility] IMAGING Diagnoses Malignant neoplasm of lower lobe of left lung (HCC) 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) Procedures CT CHEST W IVCON DIAGNOSTIC COMPUTED TOMOGRAPHY THORAX W/CONTRAST CT ABD & PELVIS W/[place] [address] [place] [id number] Imaging [id number] Referral ID Status Reason Start Date Expiration Date V isits Requested Visits Authorized [id number] Closed Auto-Generate d Referral 01/26/2023 02/25/2023 2 2 Specialty Diagnoses / Procedures Referred By Delio colmenares Referred To Contact CT IMAGING Diagnoses Malignant neoplasm of lower lobe of left lung (HCC) 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) Procedures CT CHEST W IVCON DIAGNOSTIC COMPUTED TOMOGRAPHY THORAX W/CONTRAST CT ABD & PELVIS W/[place] [address] [place] [address] [place] [address] Care Teams (unrecognized sec tion and content) Shipping Supervisor Relationship Specialty Start Date End Date Amanda Littlejohn MD [address] [place] [address] PCP - General Family Practice 04/26/18 Stefani Peck LISW Strategic Planning Analyst 04/28/18 Gibran Flores [address] [place] [address] Pain Management Anesthesiology 06/04/18 Bonnie Bolden RN [address] [place], [place] [id number] Specialty Mgmt Consultant 06/18/18 Eryn Lamar RN [address] [place] [address] Specialty Mgmt Consultant Hematology/Oncology 05/01/21 Shipping Supervisor Relationship Specialty Start Date End Date Amanda Littlejohn MD [address] [place] [address] PCP - General Family Practice 04/26/18 Stefani Peck LISW Strategic Planning Analyst 04/28/18 Gibran Flores [address] [place] [address] Pain Management Anesthesiology 06/04/18 Bonnie Bolden RN [address] [place] [address] Specialty Mgmt Consultant 06/18/18 Eryn Lamar RN [address] [place] [address] Specialty Mgmt Consultant Hematology/Oncology 05/01/21 Shipping Supervisor Relationship Specialty Start Date End Date Amanda Littlejohn MD [address] [place] [address] PCP - General Family Practice 04/26/18 Stefani Peck LISW Strategic Planning Analyst 04/28/18 Gibran Flores Hil[address] [place] [address] Pain Management Anesthesiology 06/04/18 Bonnie Bolden RN [address] [place] [address] Specialty Mgmt Consultant 06/18/18 Eryn Lamar RN [address] [place] [address] Specialty Mgmt Consultant Hematology/Oncology 05/01/21 Shipping Supervisor Relationship Specialty Start Date End Date Amanda Littlejohn MD [address] [place] [address] PCP - General Family Practice 04/26/18 Stefani Peck LISW Strategic Planning Analyst 04/28/18 Gibran Flores [address] [place] [address] Pain Management Anesthesiology 06/04/18 Bonnie Bolden RN [address] [place] [address] Specialty Mgmt Consultant 06/18/18 Eryn Lamar RN [address] [place] [address] Specialty Mgmt Consultant Hematology/Oncology 05/01/21 Shipping Supervisor Relationship Specialty Start Date End Date Amanda Littlejohn MD [address] [place] [address] PCP - General Family Practice 04/26/18 Stefani Peck LISW Strategic Planning Analyst 04/28/18 [facility] [address] [place] [address] Pain Management Anesthesiology 06/04/18 Bonnie Bolden RN [address] [place] [address] Specialty Mgmt Consultant 06/18/18 Eryn Lamar RN [address] [facility] [place] [address] Specialty Mgmt Consultant Hematology/Oncology 05/01/21 Shipping Supervisor Relationship Specialty Start Date End Date Amanda Littlejohn MD [address] [place] [address] PCP - General Family Practice 04/26/18 Stefani Peck LISW Strategic Planning Analyst 04/28/18 [facility] [address] [place] [address] Pain Management Anesthesiology 06/04/18 Bonnie Bolden RN [address] [place] [address] Specialty Mgmt Consultant 06/18/18 Eryn Lamar, MARJORIE [address] [facility] [place] [address] Specialty Mgmt Consultant Hematology/Oncology 05/01/21 Shipping Supervisor Relationship Specialty Start Date End Date Amanda Littlejohn MD [address] [place] [address] PCP - General Family Practice 04/26/18 Stefani Peck LISW Strategic Planning Analyst 04/28/18 Gibran Flores [address] [place] [address] Pain Management Anesthesiology 06/04/18 Bonnie Bolden RN [address] [place] [address] Specialty Mgmt Consultant 06/18/18 Eryn Lamar RN [address] [place] [address] Specialty Mgmt Consultant Hematology/Oncology 05/01/21 Shipping Supervisor Relationship Specialty Start Date End Date Amanda Littlejohn MD [address] [place] [address] PCP - General Family Practice 04/26/18 Stefani Peck LISW Strategic Planning Analyst 04/28/18 Gibran Flores [address] [place] [address] Pain Management Anesthesiology 06/04/18 Bonnie Bolden RN [address] [place] [address] Specialty Mgmt Consultant 06/18/18 Eryn Lamar RN [address] [place] [address] Specialty Mgmt Consultant Hematology/Oncology 05/01/21 Shipping Supervisor Relationship Specialty Start Date End Date Amanda Littlejohn MD [address] [place] [address] PCP - General Family Practice 04/26/18 Stefani Peck LISW Strategic Planning Analyst 04/28/18 Gibran Flores Ruiz [address] [place] [address] Pain Management Anesthesiology 06/04/18 Bonnie Bolden RN [address] [place] [address] Specialty Mgmt Consultant 06/18/18 Eryn Lamar RN [address] [place] [address] Specialty Mgmt Consultant Hematology/Oncology 05/01/21 Shipping Supervisor Relationship Specialty Start Date End Date Amanda Littlejohn MD [address] [place] [address] PCP - General Family Practice 04/26/18 Stefani Peck LISW Strategic Planning Analyst 04/28/18 Gibran Flores [address] [place] [address] Pain Management Anesthesiology 06/04/18 Bonnie Bolden RN [address] [place] [address] Specialty Mgmt Consultant 06/18/18 Eryn Lamar RN [address] [place] [address] Specialty Mgmt Consultant Hematology/Oncology 05/01/21 Shipping Supervisor Relationship Specialty Start Date End Date Amanda Littlejohn MD [address] [place] [address] PCP - General Family Practice 04/26/18 Stefani Peck RN Strategic Planning Analyst 04/28/18 Gibran Flores [address] [place] [address] Pain Management Anesthesiology 06/04/18 Bonnie Bolden RN [address] [place] [address] Specialty Mgmt Consultant 06/18/18 Eryn Lamar, MARJORIE [address] [place] [address] Specialty Mgmt Consultant Hematology/Oncology 05/01/21 Shipping Supervisor Relationship Specialty Start Date End Date Amanda Littlejohn MD [address] [place] [address] PCP - General Family Practice 04/26/18 Stefani Peck, RN Strategic Planning Analyst 04/28/18 Gibran Flores [address] [place] [address] Pain Management Anesthesiology 06/04/18 Bonnie Bolden, RN [address] [place] [address] Specialty Mgmt Consultant 06/18/18 Eryn Lamar RN [address] [place] [address] Specialty Mgmt Consultant Hematology/Oncology 05/01/21 Shipping Supervisor Relationship Specialty Start Date End Date Amanda Littlejohn MD [address] [place] [address] PCP - General Family Practice 04/26/18 Stefani Peck RN Strategic Planning Analyst 04/28/18 Gibran Flores [address] [place] [address] Pain Management Anesthesiology 06/04/18 Bonnie Bolden RN [address] [place] [address] Specialty Mgmt Consultant 06/18/18 Eryn Lamar, MARJORIE [address] [facility] [place] [address] Specialty Mgmt Consultant Hematology/Oncology 05/01/21 Shipping Supervisor Relationship Specialty Start Date End Date Amanda Littlejohn MD [address] [place] [address] PCP - General Family Practice 04/26/18 Stefani Peck, RN Strategic Planning Analyst 04/28/18 Gibran Flores [address] [place] [address] Pain Management Anesthesiology 06/04/18 Bonnie Bolden RN [address] [place] [address] Specialty Mgmt Consultant 06/18/18 Eryn Lamar, MARJORIE [address] [place] [address] Specialty Mgmt Consultant Hematology/Oncology 05/01/21 Shipping Supervisor Relationship Specialty Start Date End Date Amanda Littlejohn MD [address] [place] [address] PCP - General Family Practice 04/26/18 Stefani Peck RN Strategic Planning Analyst 04/28/18 Gibran Flores [address] [place] [address] Pain Management Anesthesiology 06/04/18 Bonnie Bolden, RN [address] [place] [address] Specialty Mgmt Consultant 06/18/18 Eryn Lamar, MARJORIE [address] [place] [address] Specialty Mgmt Consultant Hematology/Oncology 05/01/21 Shipping Supervisor Relationship Specialty Start Date End Date Amanda Littlejohn MD [address] [place] [address] PCP - General Family Practice 04/26/18 Stefani Peck RN Strategic Planning Analyst 04/28/18 Gibran Flores [address] [place] [address] Pain Management Anesthesiology 06/04/18 Bonnie Bolden RN [address] [place] [address] Specialty Mgmt Consultant 06/18/18 Eryn Lamar, RN [address] [facility] [address] Specialty Mgmt Consultant Hematology/Oncology 05/01/21 Shipping Supervisor Relationship Specialty Start Date End Date Amanda Littlejohn MD [address] [place] [address] PCP - General Family Practice 04/26/18 Stefani Peck, RN Strategic Planning Analyst 04/28/18 Gibran Flores [address] [place] [address] Pain Management Anesthesiology 06/04/18 Bonnie Bolden RN [address] [place] [address] Specialty Mgmt Consultant 06/18/18 Eryn Lamar RN [address] [facility] [address] Specialty Mgmt Consultant Hematology/Oncology 05/01/21 Shipping Supervisor Relationship Specialty Start Date End Date Amanda Littlejohn MD [address] [place] [address] PCP - General Family Practice 04/26/18 Stefani Peck, RN Strategic Planning Analyst 04/28/18 Gibran Flores [address] [place] [address] Pain Management Anesthesiology 06/04/18 Bonnie Bolden RN [address] [place] [address] Specialty Mgmt Consultant 06/18/18 Eryn Lamar RN [address] [facility] [address] Specialty Mgmt Consultant Hematology/Oncology 05/01/21 Shipping Supervisor Relationship Specialty Start Date End Date Amanda Littlejohn MD [address] [facility] [place] [address] PCP - General Family Practice 04/26/18 Stefani Peck, RN Strategic Planning Analyst 04/28/18 [facility] [address] [place] [address] Pain Management Anesthesiology 06/04/18 Bonnie Bolden, MARJORIE [address] [place] [address] Specialty Mgmt Consultant 06/18/18 Eryn Lamar, RN [address] [facility] [place] [address] Specialty Mgmt Consultant Hematology/Oncology 05/01/21 Shipping Supervisor Relationship Specialty Start Date End Date Amanda Littlejohn MD [address] [place] [address] PCP - General Family Medicine 04/26/18 Stefani Peck RN Strategic Planning Analyst 04/28/18 Gibran Flores [address] [address] Pain Management Anesthesiology 06/04/18 Bonnie Bolden RN [address] [place] [address] Specialty Mgmt Consultant 06/18/18 Eryn Lamar, MARJORIE [address] [facility] [address] Specialty Mgmt Consultant Hematology/Oncology 05/01/21 Shipping Supervisor Relationship Specialty Start Date End Date Amanda Littlejohn MD [address] [place] [address] PCP - General Family Medicine 04/26/18 Stefani Peck RN Strategic Planning Analyst 04/28/18 Gibran Flores [address] [place] [address] Pain Management Anesthesiology 06/04/18 Bonnie Bolden, RN [address] [place] [address] Specialty Mgmt Consultant 06/18/18 Eryn Lamar RN [address] [facility] [place] [address] Specialty Mgmt Consultant Hematology/Oncology 05/01/21 Shipping Supervisor Relationship Specialty Start Date End Date Amanda Littlejohn MD [address] [facility] [place] [address] PCP - General Family Medicine 04/26/18 Stefani Peck RN Strategic Planning Analyst 04/28/18 Gibran Flores [address] [place] [address] Pain Management Anesthesiology 06/04/18 Eryn Lamar RN [address] [place] [address] Specialty Mgmt Consultant Hematology/Oncology 05/01/21 Robb Leiva MD [address] [place] [address] Hematology/Oncology 12/09/21 Shipping Supervisor Relationship Specialty Start Date End Date Amanda Littlejohn MD [address] [place] [address] PCP - General Family Medicine 04/26/18 Stefani Peck RN Strategic Planning Analyst 04/28/18 Gibran Flores [address] [place] [address] Pain Management Anesthesiology 06/04/18 Eryn Lamar RN [address] [place] [address] Specialty Mgmt Consultant Hematology/Oncology 05/01/21 Robb Leiva MD [address] [place] [address] Hematology/Oncology 12/09/21 Shipping Supervisor Relationship Specialty Start Date End Date Amanda Littlejohn MD [address] [facility] [place] [address] PCP - General Family Medicine 04/26/18 Stefani Peck RN Strategic Planning Analyst 04/28/18 Gibran Flores [address] [place] [address] Pain Management Anesthesiology 06/04/18 Eryn Lamar RN [address] [place] [address] Specialty Mgmt Consultant Hematology/Oncology 05/01/21 Robb Leiva MD [address] [place] [address] Hematology/Oncology 12/09/21 Shipping Supervisor Relationship Specialty Start Date End Date Amanda Littlejohn MD [address] [facility] [place] [address] PCP - General Family Medicine 04/26/18 Stefani Peck RN Strategic Planning Analyst 04/28/18 Gibran Flores [address] [place] [address] Pain Management Anesthesiology 06/04/18 Bonnie Bolden, MARJORIE [address] [place] [address] Specialty Mgmt Consultant 06/18/18 12/12/21 Eryn Lamar RN [address] [place] [address] Specialty Mgmt Consultant Hematology/Oncology 05/01/21 Robb Leiva MD [address] [place] [address] Hematology/Oncology 12/09/21 Shipping Supervisor Relationship Specialty Start Date End Date Amanda Littlejohn MD [address] [place] [address] PCP - General Family Medicine 04/26/18 Stefani Peck, RN Strategic Planning Analyst 04/28/18 Gibran Flores [address] [place] [address] Pain Management Anesthesiology 06/04/18 Bonnie Bolden, RN [address] [place] [address] Specialty Mgmt Consultant 06/18/18 12/12/21 Eryn Lamar RN [address] [place] [address] Specialty Mgmt Consultant Hematology/Oncology 05/01/21 Robb Leiva MD [address] [place] [address] Hematology/Oncology 12/09/21 Shipping Supervisor Relationship Specialty Start Date End Date Amanda Littlejohn MD [address] [place] [address] PCP - General Family Medicine 04/26/18 Stefani Peck RN Strategic Planning Analyst 04/28/18 Gibran Flores [address] [place] [address] Pain Management Anesthesiology 06/04/18 Eryn Lamar RN [address] [place] [address] Specialty Mgmt Consultant Hematology/Oncology 05/01/21 Robb Leiva MD [address] [facility] [place] [address] Hematology/Oncology 12/09/21 Shipping Supervisor Relationship Specialty Start Date End Date Amanda Littlejohn MD [address] [facility] [place] [address] PCP - General Family Medicine 04/26/18 Stefani Peck, RN Strategic Planning Analyst 04/28/18 Gibran Flores [address] [place] [address] Pain Management Anesthesiology 06/04/18 Eryn Lamar, RN [address] [place] [address] Specialty Mgmt Consultant Hematology/Oncology 05/01/21 Robb Leiva MD [address] [place] [address] Hematology/Oncology 12/09/21 Shipping Supervisor Relationship Specialty Start Date End Date Amanda Littlejohn MD [address] [facility] [place] [address] PCP - General Family Medicine 04/26/18 Stefani Peck, RN Strategic Planning Analyst 04/28/18 Gibran Flores [address] [place] [address] Pain Management Anesthesiology 06/04/18 Eryn Lamar, MARJORIE [address] [place] [address] Specialty Mgmt Consultant Hematology/Oncology 05/01/21 Robb Leiva MD [address] [place] [address] Hematology/Oncology 12/09/21 Shipping Supervisor Relationship Specialty Start Date End Date Amanda iLttlejohn MD [address] [facility] [place] [address] PCP - General Family Medicine 04/26/18 Stefani Peck RN Strategic Planning Analyst 04/28/18 Gibran Flores [address] [place] [address] Pain Management Anesthesiology 06/04/18 Eryn Lamar RN [address] [place] [address] Specialty Mgmt Consultant Hematology/Oncology 05/01/21 Robb Leiva MD [address] [place] [address] Hematology/Oncology 12/09/21 Shipping Supervisor Relationship Specialty Start Date End Date Amanda Littlejohn MD [address] [facility] [place] [address] PCP - General Family Medicine 04/26/18 Stefani Peck RN Strategic Planning Analyst 04/28/18 Gibran Flores [address] [place] [address] Pain Management Anesthesiology 06/04/18 Eryn Lamar RN [address] [place] [address] Specialty Mgmt Consultant Hematology/Oncology 05/01/21 Robb Leiva MD [address] [place] [address] Hematology/Oncology 12/09/21 Shipping Supervisor Relationship Specialty Start Date End Date Amanda Littlejohn MD [address] [facility] [place] [address] PCP - General Family Medicine 04/26/18 Stefani Peck RN Strategic Planning Analyst 04/28/18 Gibran Flores [address] [place] [address] Pain Management Anesthesiology 06/04/18 Eryn Lamar RN [address] [place] [address] Specialty Mgmt Consultant Hematology/Oncology 05/01/21 Robb Leiva MD [address] [place] [address] Hematology/Oncology 12/09/21 Shipping Supervisor Relationship Specialty Start Date End Date Amanda Littlejohn MD [address] [facility] [place] [address] PCP - General Family Medicine 04/26/18 Stefani Peck RN Strategic Planning Analyst 04/28/18 Gibran Flores [address] [place] [address] Pain Management Anesthesiology 06/04/18 Eryn Lamar RN [address] [place] [address] Specialty Mgmt Consultant Hematology/Oncology 05/01/21 Robb Leiva MD [address] [facility] [place] [place] [address] Hematology/Oncology 12/09/21 Shipping Supervisor Relationship Specialty Start Date End Date Amanda Littlejohn MD [address] [facility] [place] [address] PCP - General Family Medicine 04/26/18 Stefani Peck RN Strategic Planning Analyst 04/28/18 Gibran Flores [address] [place] [address] Pain Management Anesthesiology 06/04/18 Eryn Lamar RN [address] [facility] [place] [address] Specialty Mgmt Consultant Hematology/Oncology 05/01/21 Robb Leiva MD [address] [facility] [place] [address] Hematology/Oncology 12/09/21 Shipping Supervisor Relationship Specialty Start Date End Date Amanda Littlejohn MD [address] [facility] [place] [address] PCP - General Family Medicine 04/26/18 Stefani Peck, RN Strategic Planning Analyst 04/28/18 Gibran Flores [address] [place] [address] Pain Management Anesthesiology 06/04/18 Eryn Lamar, MARJORIE [address] [place] [address] Specialty Mgmt Consultant Hematology/Oncology 05/01/21 Robb Leiva MD [address] [place] [address] Hematology/Oncology 12/09/21 Shipping Supervisor Relationship Specialty Start Date End Date Amanda Littlejohn MD [address] [facility] [place] [address] PCP - General Family Medicine 04/26/18 Stefani Peck RN Strategic Planning Analyst 04/28/18 Gibran Flores [address] [place] [address] Pain Management Anesthesiology 06/04/18 Eryn Lamar, MARJORIE [address] [facility] [place] [address] Specialty Mgmt Consultant Hematology/Oncology 05/01/21 Robb Leiva MD [address] [facility] [place] [address] Hematology/Oncology 12/09/21 Shipping Supervisor Relationship Specialty Start Date End Date Amanda Littlejohn MD [address] [facility] [place] [address] PCP - General Family Medicine 04/26/18 Stefani Peck RN Strategic Planning Analyst 04/28/18 [facility] [address] [place] [address] Pain Management Anesthesiology 06/04/18 Eryn Lamar RN [address] [place] [address] Specialty Mgmt Consultant Hematology/Oncology 05/01/21 Robb Leiva MD [address] [place] [address] Hematology/Oncology 12/09/21 Shipping Supervisor Relationship Specialty Start Date End Date Amanda Littlejohn MD [address] [facility] [place] [address] PCP - General Family Medicine 04/26/18 Stefani Peck RN Strategic Planning Analyst 04/28/18 [facility] [address] [place] [address] Pain Management Anesthesiology 06/04/18 Eryn Lamar RN [address] [place] [address] Specialty Mgmt Consultant Hematology/Oncology 05/01/21 Robb Leiva MD [address] [place] [address] Hematology/Oncology 12/09/21 Shipping Supervisor Relationship Specialty Start Date End Date Amanda Littlejohn MD [address] [facility] [place] [address] PCP - General Family Medicine 04/26/18 Stefani Peck RN Strategic Planning Analyst 04/28/18 Gibran Flores [address] [place] [address] Pain Management Anesthesiology 06/04/18 Eryn Lamar, MARJORIE [address] [place] [address] Specialty Mgmt Consultant Hematology/Oncology 05/01/21 Robb Leiva MD [address] [place] [address] Hematology/Oncology 12/09/21 Shipping Supervisor Relationship Specialty Start Date End Date Amanda Littlejohn MD [address] [place] [address] PCP - General Family Medicine 04/26/18 Stefani Peck RN Strategic Planning Analyst 04/28/18 Gibran Flores [address] [place] [address] Pain Management Anesthesiology 06/04/18 Eryn Lamar, MARJORIE [address] [facility] [place] [address] Specialty Mgmt Consultant Hematology/Oncology 05/01/21 Robb Leiva MD [address] [place] [address] Hematology/Oncology 12/09/21 Shipping Supervisor Relationship Specialty Start Date End Date Amanda Littlejohn MD [address] [place] [address] PCP - General Family Medicine 04/26/18 Stefani Peck RN Strategic Planning Analyst 04/28/18 Gibran Flores [address] [place] [address] Pain Management Anesthesiology 06/04/18 Eryn Lamar RN [address] [place] [address] Specialty Mgmt Consultant Hematology/Oncology 05/01/21 Robb Leiva MD [address] [place] [address] Hematology/Oncology 12/09/21 Shipping Supervisor Relationship Specialty Start Date End Date Amanda Littlejohn MD [address] [place] [address] PCP - General Family Medicine 04/26/18 Gibran Flores [address] [place] [address] Pain Management Anesthesiology 06/04/18 Eryn Lamar RN [address] [place] [address] Specialty Mgmt Consultant Hematology/Oncology 05/01/21 Dilan Romero MD [address] [place] [address] Hematology/Oncology 09/19/22 Shipping Supervisor Relationship Specialty Start Date End Date Amanda Littlejohn MD [address] [place] [address] PCP - General Family Medicine 04/26/18 Gibran Flores [address] [place] [address] Pain Management Anesthesiology 06/04/18 Eryn Lamar, MARJORIE [address] [place] [address] Specialty Mgmt Consultant Hematology/Oncology 05/01/21 Dilan Romero MD [address] [place] [address] Hematology/Oncology 09/19/22 Shipping Supervisor Relationship Specialty Start Date End Date Amanda Littlejohn MD [address] [place] [address] PCP - General Family Medicine 04/26/18 Gibran Flores [address] [place] [address] Pain Management Anesthesiology 06/04/18 Eryn Lamar RN [address] [place] [place] [address] Specialty Mgmt Consultant Hematology/Oncology 05/01/21 Dilan Romero MD [address] [place] [address] Hematology/Oncology 09/19/22 Shipping Supervisor Relationship Specialty Start Date End Date Amanda Littlejohn MD [address] [place] [address] PCP - General Family Medicine 04/26/18 Gibran Flores [address] [place] [address] Pain Management Anesthesiology 06/04/18 Eryn Lamar, MARJORIE [address] [facility] [place] [address] Specialty Mgmt Consultant Hematology/Oncology 05/01/21 Dilan Romero MD [address] [place] [address] Hematology/Oncology 09/19/22 Shipping Supervisor Relationship Specialty Start Date End Date Amanda Littlejohn MD [address] [facility] [place] [address] PCP - General Family Medicine 04/26/18 Gibran Flores [address] [place] [address] Pain Management Anesthesiology 06/04/18 Eryn Lamar, MARJORIE [address] [place] [address] Specialty Mgmt Consultant Hematology/Oncology 05/01/21 Dilan Romero MD [address] [place] [address] Hematology/Oncology 09/19/22 Shipping Supervisor Relationship Specialty Start Date End Date Amanda Littlejohn MD [address] [facility] [place] [address] PCP - General Family Medicine 04/26/18 Gibran Flores MD [address] [place] [address] Pain Management Anesthesiology 06/04/18 Eryn Lamar RN [address] [place] [address] Specialty Mgmt Consultant Hematology/Oncology 05/01/21 Dilan Romero MD [address] [place] [address] Hematology/Oncology 09/19/22 Shipping Supervisor Relationship Specialty Start Date End Date Amanda Littlejohn MD [address] [facility] [place] [address] PCP - General Family Medicine 04/26/18 Gibran Flores MD [address] [place] [address] Pain Management Anesthesiology 06/04/18 Eryn Lamar, MARJORIE [address] [place] [address] Specialty Mgmt Consultant Hematology/Oncology 05/01/21 Dilan Romero MD [address] [place] [address] Hematology/Oncology 09/19/22 Shipping Supervisor Relationship Specialty Start Date End Date Amanda Littlejohn MD [address] [facility] [place] [address] PCP - General Family Medicine 04/26/18 Gibran Flores MD [address] [place] [address] Pain Management Anesthesiology 06/04/18 Eryn Lamar RN [address] [place] [address] Specialty Mgmt Consultant Hematology/Oncology 05/01/21 Dilan Romero MD [address] [place] [address] Hematology/Oncology 09/19/22 Shipping Supervisor Relationship Specialty Start Date End Date Amanda Littlejohn MD [address] [facility] [place] [address] PCP - General Family Medicine 04/26/18 Gibran Flores MD [address] [place] [address] Pain Management Anesthesiology 06/04/18 Eryn Lamar, MARJORIE [address] [place] [address] Specialty Mgmt Consultant Hematology/Oncology 05/01/21 Dilan Romero MD [address] [facility] [place] [address] Hematology/Oncology 09/19/22 Shipping Supervisor Relationship Specialty Start Date End Date Amanda Littlejohn MD [address] [facility] [place] [address] PCP - General Family Medicine 04/26/18 Gibran Flores MD [address] [place] [address] Pain Management Anesthesiology 06/04/18 Eryn Lamar RN [address] [facility] [place] [address] Specialty Mgmt Consultant Hematology/Oncology 05/01/21 Dilan Romero MD [address] [facility] [place] [address] Hematology/Oncology 09/19/22 Shipping Supervisor Relationship Specialty Start Date End Date Amanda Littlejohn MD [address] [facility] [place] [address] PCP - General Family Medicine 04/26/18 Gibran Flores MD [address] [place] [address] Pain Management Anesthesiology 06/04/18 Eryn Lamar RN [address] [facility] [place] [address] Specialty Mgmt Consultant Hematology/Oncology 05/01/21 Dilan Romero MD [address] [place] [address] Hematology/Oncology 09/19/22 Shipping Supervisor Relationship Specialty Start Date End Date Amanda Littlejohn MD [address] [facility] [place] [address] PCP - General Family Medicine 04/26/18 Gibran Flores MD [address] [place] [address] Pain Management Anesthesiology 06/04/18 Eryn Lamar RN [address] [place] [address] Specialty Mgmt Consultant Hematology/Oncology 05/01/21 Dilan Romero MD [address] [place] [address] Hematology/Oncology 09/19/22 Shipping Supervisor Relationship Specialty Start Date End Date Amanda Littlejohn MD [address] [facility] [place] [address] PCP - General Family Medicine 04/26/18 Gibran Flores MD [address] [place] [address] Pain Management Anesthesiology 06/04/18 Eryn Lamar RN [address] [place] [address] Specialty Mgmt Consultant Hematology/Oncology 05/01/21 Dilan Romero MD [address] [place] [address] Hematology/Oncology 09/19/22 Shipping Supervisor Relationship Specialty Start Date End Date Amanda Littlejohn MD [address] [place] [address] PCP - General Family Medicine 04/26/18 Stefani Peck RN Strategic Planning Analyst 04/28/18 09/21/22 Gibran Flores MD [address] [place] [address] Pain Management Anesthesiology 06/04/18 Eryn Lamar RN [address] [place], [place] [address] Specialty Mgmt Consultant Hematology/Oncology 05/01/21 oRbb Leiva MD [address] [place] [address] Hematology/Oncology 12/09/21 09/18/22 Shipping Supervisor Relationship Specialty Start Date End Date Amanda Littlejohn MD [address] [place] [address] PCP - General Family Medicine 04/26/18 Stefani Peck RN Strategic Planning Analyst 04/28/18 09/21/22 Gibran Flores MD [address] [place] [address] Pain Management Anesthesiology 06/04/18 Eryn Lamar, MARJORIE [address] [place] [address] Specialty Mgmt Consultant Hematology/Oncology 05/01/21 Robb Leiva MD [address] [place] [address] Hematology/Oncology 12/09/21 09/18/22 Shipping Supervisor Relationship Specialty Start Date End Date Amanda Littlejohn MD [address] [place] [address] PCP - General Family Medicine 04/26/18 Gibran Flores MD [address] [place] [address] Pain Management Anesthesiology 06/04/18 Eryn Lamar RN [address] [place] [address] Specialty Mgmt Consultant Hematology/Oncology 05/01/21 Dilan Romero MD [address] [place] [address] Hematology/Oncology 09/19/22 Shipping Supervisor Relationship Specialty Start Date End Date Amanda Littlejohn MD [address] [facility] [place] [address] PCP - General Family Medicine 04/26/18 Gibran Flores MD [address] [place] [address] Pain Management Anesthesiology 06/04/18 Eryn Lamar RN [address] [facility] [place] [address] Specialty Mgmt Consultant Hematology/Oncology 05/01/21 Dilan Romero MD [address] [place] [address] Hematology/Oncology 09/19/22 Shipping Supervisor Relationship Specialty Start Date End Date Amanda Littlejohn MD [address] [facility] [place] [address] PCP - General Family Medicine 04/26/18 Gibran Flores MD [address] [place] [address] Pain Management Anesthesiology 06/04/18 Eryn Lamar, MARJORIE [address] [place] [address] Specialty Mgmt Consultant Hematology/Oncology 05/01/21 Dilan Romero MD [address] [place] [address] Hematology/Oncology 09/19/22 Shipping Supervisor Relationship Specialty Start Date End Date Amanda Littlejohn MD [address] [facility] [place] [address] PCP - General Family Medicine 04/26/18 Gibran Flores MD [address] [place] [address] Pain Management Anesthesiology 06/04/18 Eryn Lamar, MARJORIE [address] [place] [address] Specialty Mgmt Consultant Hematology/Oncology 05/01/21 Dilan Romero MD [address] [place] [address] Hematology/Oncology 09/19/22 FOR RECORDS PERTAINING TO PATIENTS [...] BE BASED ON THE PRIMARY CLINICAL RECORDS. [employer] provides no warranty or guarantee of the accuracy or completeness of information in this document.
[2023-03-09 08:27] VITALS: BP 108/77; PULSE 68; RESP 15; O2SAT 98
== END 2023-03-09 08:29 | disposition home or self-care (01) ==
LOC: ED 07:52
PROVIDERS: Emergency Provider Emergency Medicine; PCP Family Medicine; Visit Provider Emergency Medicine
DX: G89.29 Other chronic pain (principal); Z85.528 Personal history of other malignant neoplasm of kidney; Z92.21 Personal history of antineoplastic chemotherapy; M54.9 Dorsalgia, unspecified; M54.2 Cervicalgia
CPT/HCPCS: 99282